=== PATIENT | male | born 1980 | race American Indian/Alaskan Native ===

== ENCOUNTER 2018-07-30 05:08 | Inpatient (IN) ==
[2018-07-30] MEDS ORDERED: HALOPERIDOL LACTATE 5 MG/ML VIAL IV ONE (05:13)
[2018-07-30] MEDS ORDERED: ONDANSETRON 4 MG/2 ML VIAL IV ONE ×2 (05:13→09:50)
[2018-07-30] MEDS ORDERED: diphenhydrAMINE 50 MG/ML VIAL IV ONE (05:13)
[2018-07-30] MEDS ORDERED: LACTATED RINGERS 1,000 ML IV ONE (05:15)
[2018-07-30] MEDS ORDERED: ENALAPRILAT 1.25 MG/ML VIAL IV ONE ×2 (05:30→06:50)
[2018-07-30 05:31] LABS: POC Blood Urea Nitrogen 7 mg/dl (6-20); POC CO2 27 mmol/L (22-30); POC Calcium, Ionized 1.13 mmol/L (1.16-1.32); POC Chloride 98 mmol/L (96-108); POC Creatinine 0.8 mg/dl (0.7-1.2); POC Glucose, Random 226 mg/dL (70-105); POC Potassium 3.4 mmol/L (3.3-5.1); POC Sodium 139 mmol/L (133-145)
[2018-07-30] MEDS ORDERED: METOCLOPRAMIDE 10 MG/2 ML VIAL IV ONE (06:00)
[2018-07-30 06:07] LABS: Basophils # (Auto) 0 K/mcL (0.0-0.3); Basophils % (Auto) 0.2 % (0.0-2.0); Eosinophils # (Auto) 0.4 K/mcL (0.0-0.7); Eosinophils % (Auto) 4.6 % (0.0-7.0); Granulocytes % (Auto) 74.1 % (38.0-78.0); Hematocrit 39.9 % (41.0-55.0); Hemoglobin 13.3 g/dL (13.5-16.5); Lymphocytes # (Auto) 1.2 K/mcL (1.5-4.8); Lymphocytes % (Auto) 15.6 % (15.5-49.0); Mean Cell Volume 87.1 fL (80.0-100.0); Mean Corpuscular HGB Conc 33.5 g/dL (31.0-36.0); Mean Platelet Volume 8.3 fL (7.4-10.4); Monocytes # (Auto) 0.4 K/mcL (0.1-0.9); Monocytes % (Auto) 5.5 % (1.0-12.0); Platelet Count 256 K/mcL (140-440); RBC 4.58 M/mcL (4.50-5.90); Red Cell Distribution Width 13.8 % (11.5-14.5); WBC 7.7 K/mcL (4.5-11.0)
[2018-07-30] MEDS ORDERED: PROMETHAZINE 25 MG/ML VIAL IV ONE (06:23)
[2018-07-30 06:24] LABS: ALT/SGPT 17 U/l (0-40); AST/SGOT 42 U/l (0-37); Albumin 3.8 gm/dL (3.2-5.2); Albumin/Globulin Ratio 1.3 (1.0-2.3); Alkaline Phosphatase 63 U/L (39-117); Bilirubin,Total 0.7 mg/dL (0.0-1.0); Blood Urea Nitrogen 8 mg/dl (6-20); Calcium 9.1 mg/dl (8.6-10.4); Carbon Dioxide 27 mmol/L (22-30); Chloride 98 mmol/L (96-108); Glomerular Filtration Rate 108; Glucose 228 mg/dL (70-105); Potassium 3.6 mmol/L (3.3-5.1); Sodium 139 mmol/L (133-145)
[2018-07-30] MEDS ORDERED: 0.9 % SODIUM CHLORIDE 1,000 ML IV ONE ×2 (06:30→09:59)
[2018-07-30] MEDS ORDERED: PHENobarb/HYOSCY/ATROPINE/SCOP 1 DOSE BOTTLE PO ONE ×2 (06:49→16:57)
[2018-07-30] MEDS ORDERED: PANTOPRAZOLE 40 MG VIAL IV ONE (06:49)
--- NOTE | 2018-07-30 06:53 | Emergency Department Note ---
General Adult HPI - General Chief complaint: Abdominal Pain Stated complaint: N & V, Abdominal pain Time Seen by Provider: 07/30/18 06:45 Source: patient Mode of arrival: ambulatory Limitations: no limitations - History of Present Illness HPI Narrative: This patient returns with nausea vomiting abdominal discomfort from his gastroparesis. This is a long recurrent problem. He tells me that Dilaudid and Haldol helped him at [facility]. Pain is in the epigastrium and he is not tender in that area. It is somewhat of a burning pain. - Related Data Home Medications Medication Instructions Recorded Confirmed Levemir 60 units SQ BID 01/24/16 06/28/18 Losartan [Cozaar] 50 mg PO DAILY 01/24/16 07/29/18 Metoclopramide [Reglan] 5 mg PO Q4 06/28/18 07/29/18 Previous Rx's Medication Instructions Recorded Ondansetron [Zofran Odt] 4 mg PO Q4-6H PRN #30 tablet 01/23/16 Allergies Allergy/AdvReac Type Severity Reaction Status Date / Time Penicillins [PENICILLINS] Allergy Intermediate HIVES Verified 07/30/18 05:15 Review of Systems All systems ED: reviewed and negative except as stated. Past Medical History - Past Medical History [facility] Narrative: Medical History Gastroparesis (Acute) Pancreatitis (Acute) Intractable nausea and vomiting (Acute) Medical history: Reports: asthma, DM, hypertension, other - Social History smoking status: Never smoker Alcohol use: Reports: None Drug use: Reports: none Physical Exam Limitations: no limitations General appearance: alert Head: atraumatic Eye: Present: normal appearance ENT: normal exam Neck: Present: normal inspection Chest: Present: normal inspection Respiratory: Present: normal lung sounds bilaterally Cardiovascular: Present: regular rate, normal rhythm, normal heart sounds Abdominal: Present: soft. Absent: distention, tenderness Neurological: Present: alert Psychiatric: Present: normal affect Skin: Present: warm, dry Course Vital Signs Temperature 98.6 F 07/30/18 05:08 Pulse Rate 97 H 07/30/18 05:08 Respiratory Rate 18 07/30/18 05:08 Blood Pressure 217/119 07/30/18 05:08 Pulse Oximetry (%) 99 07/30/18 05:08 Temperature 98.6 F 07/30/18 05:08 Pulse Rate 86 07/30/18 08:30 Respiratory Rate 23 H 07/30/18 08:30 Blood Pressure 202/121 07/30/18 08:16 Pulse Oximetry (%) 98 07/30/18 08:30 Medical Decision Making - MDM Narrative Medical decision making narrative: This patient did improve after some IV Zofran Reglan Benadryl and Dilaudid. I also gave him Protonix IV and a GI cocktail. He does not yet feel quite ready to go home. Final disposition on this patient per Dr. Caicedo. - Lab Data Lab results reviewed: Yes I reviewed the patient's lab results. Result diagrams: 07/30/18 05:25 07/30/18 05:25 Lab Results 07/30/18 07/30/18 07/30/18 Range/Units 05:25 05:25 05:25 WBC 7.7 (4.5-11.0) K/mcL RBC 4.58 (4.50-5.90) M/mcL Hgb 13.3 L (13.5-16.5) g/dL Hct 39.9 L (41.0-55.0) % POC Hct 37.0 L (41.0-55.0) % MCV 87.1 (80.0-100.0) fL MCH 29.2 (26.0-34.0) pg MCHC 33.5 (31.0-36.0) g/dL RDW 13.8 (11.5-14.5) % Plt Count 256 (140-440) K/mcL MPV 8.3 (7.4-10.4) fL Gran % 74.1 (38.0-78.0) % Lymph % (Auto) 15.6 (15.5-49.0) % [place] % (Auto) 5.5 (1.0-12.0) % Eos % (Auto) 4.6 (0.0-7.0) % Baso % (Auto) 0.2 (0.0-2.0) % Gran # 5.7 (1.8-8.0) K/mcL Lymph # (Auto) 1.2 L (1.5-4.8) K/mcL [place] # (Auto) 0.4 (0.1-0.9) K/mcL Eos # (Auto) 0.4 (0.0-0.7) K/mcL Baso # (Auto) 0 (0.0-0.3) K/mcL POC Sodium 139 (133-145) mmol/L Sodium 139 (133-145) mmol/L POC Potassium 3.4 (3.3-5.1) mmol/L Potassium 3.6 (3.3-5.1) mmol/L POC Chloride 98 (96-108) mmol/L Chloride 98 (96-108) mmol/L Carbon Dioxide 27 (22-30) mmol/L POC Total CO2 27 (22-30) mmol/L Anion Gap 14.0 (8-16) POC BUN 7 (6-20) mg/dl BUN 8 (6-20) mg/dl Creatinine 0.9 (0.7-1.2) mg/dl POC Creatinine 0.8 (0.7-1.2) mg/dl GFR Calculation 108 Glucose 228 H (70-105) mg/dL POC Glucose 226 H (70-105) mg/dL Calcium 9.1 (8.6-10.4) mg/dl POC WB Ioniz Calcium 1.13 L (1.16-1.32) mmol/L Total Bilirubin 0.7 (0.0-1.0) mg/dL AST 42 H (0-37) U/l ALT 17 (0-40) U/l Alkaline Phosphatase 63 (39-117) U/L Total Protein 6.8 (5.9-8.4) gm/dL Albumin 3.8 (3.2-5.2) gm/dL Globulin 3.0 (2.2-3.7) gm/dL Albumin/Globulin Ratio 1.3 (1.0-2.3) Lipase 18 (7-60) U/L Urine Color Urine Appearance Urine pH (5.0-9.0) Ur Specific [place] (1.000-1.035) Urine Protein (NEG) mg/dL Urine Glucose (UA) (NEG) mg/dL Urine Ketones (NEG) mg/dL Urine Occult Blood (<0.03) mg/dL Urine Nitrate (NEG) Urine Bilirubin (NEG) mg/dL Urine Urobilinogen (NEG) mg/dL Ur Leukocyte Esterase (NEG) /uL Urine RBC (0-1) /hpf Urine WBC (0-4) /hpf Ur Squamous Epith Cells (0-4) /hpf Urine Bacteria (0) /hpf Urine Mucus (0) /hpf Ur Culture Indicated? 07/30/18 Range/Units 06:55 WBC (4.5-11.0) K/mcL RBC (4.50-5.90) M/mcL Hgb (13.5-16.5) g/dL Hct (41.0-55.0) % POC Hct (41.0-55.0) % MCV (80.0-100.0) fL MCH (26.0-34.0) pg MCHC (31.0-36.0) g/dL RDW (11.5-14.5) % Plt Count (140-440) K/mcL MPV (7.4-10.4) fL Gran % (38.0-78.0) % Lymph % (Auto) (15.5-49.0) % [place] % (Auto) (1.0-12.0) % Eos % (Auto) (0.0-7.0) % Baso % (Auto) (0.0-2.0) % Gran # (1.8-8.0) K/mcL Lymph # (Auto) (1.5-4.8) K/mcL [place] # (Auto) (0.1-0.9) K/mcL Eos # (Auto) (0.0-0.7) K/mcL Baso # (Auto) (0.0-0.3) K/mcL POC Sodium (133-145) mmol/L Sodium (133-145) mmol/L POC Potassium (3.3-5.1) mmol/L Potassium (3.3-5.1) mmol/L POC Chloride (96-108) mmol/L Chloride (96-108) mmol/L Carbon Dioxide (22-30) mmol/L POC Total CO2 (22-30) mmol/L Anion Gap (8-16) POC BUN (6-20) mg/dl BUN (6-20) mg/dl Creatinine (0.7-1.2) mg/dl POC Creatinine (0.7-1.2) mg/dl GFR Calculation Glucose (70-105) mg/dL POC Glucose (70-105) mg/dL Calcium (8.6-10.4) mg/dl POC WB Ioniz Calcium (1.16-1.32) mmol/L Total Bilirubin (0.0-1.0) mg/dL AST (0-37) U/l ALT (0-40) U/l Alkaline Phosphatase (39-117) U/L Total Protein (5.9-8.4) gm/dL Albumin (3.2-5.2) gm/dL Globulin (2.2-3.7) gm/dL Albumin/Globulin Ratio (1.0-2.3) Lipase (7-60) U/L Urine Color Yellow Urine Appearance Clear Urine pH 7.0 (5.0-9.0) Ur Specific [place] 1.013 (1.000-1.035) Urine Protein 100 A (NEG) mg/dL Urine Glucose (UA) >=500 A (NEG) mg/dL Urine Ketones 20 A (NEG) mg/dL Urine Occult Blood 0.03 A (<0.03) mg/dL Urine Nitrate Neg (NEG) Urine Bilirubin Neg (NEG) mg/dL Urine Urobilinogen Neg (NEG) mg/dL Ur Leukocyte Esterase Neg (NEG) /uL Urine RBC 6 H (0-1) /hpf Urine WBC 2 (0-4) /hpf Ur Squamous Epith Cells < 1 (0-4) /hpf Urine Bacteria 0 (0) /hpf Urine Mucus Few (0) /hpf Ur Culture Indicated? No Disposition Pt seen by SENIOR C SOFTWARE DEVELOPER/PA only: No Clinical Impression: Gastroparesis Disposition: Still a Patient Condition: Good Referrals: Berenice Mckeon [Primary Care Provider] -
[2018-07-30] MEDS: HYDROmorphone 2 MG/ML VIAL IV PRN ×3 (07:06→15:06)
[2018-07-30] MEDS ORDERED: LORazepam 2 MG/ML VIAL IV ONE (07:09)
[2018-07-30] MEDS ORDERED: PANTOPRAZOLE 40 MG VIAL IV SCH (07:30)
[2018-07-30 07:56] LABS: Appearance,Urine CLEAR; Bacteria,Urine 0 /hpf (0); Bilirubin,Urine NEG (NEG); Color,Urine YELLOW; Culture Indicated,Urine NO; Glucose,Urine (UA) >=500 mg/dL (NEG); Ketones,Urine 20 mg/dL (NEG); Leukocyte Esterase,Urine NEG /uL (NEG); Mucus,Urine FEW /hpf (0); Nitrate,Urine NEG (NEG); Protein,Urine 100 mg/dL (NEG); Specific Gravity,Urine 1.013 (1.000-1.035); Urine Blood 0.03 mg/dL (<0.03); Urine RBC 6 /hpf (0-1); Urine Squamous Epithelial Cell < 1 /hpf (0-4); Urine WBC 2 /hpf (0-4); Urobilinogen,Urine NEG (NEG)
--- NOTE | 2018-07-30 10:53 | Emergency Department Note ---
General Adult HPI - General Chief complaint: Abdominal Pain Stated complaint: N & V, Abdominal pain Time Seen by Provider: 07/30/18 06:45 Source: patient Mode of arrival: ambulatory Limitations: no limitations - Related Data Home Medications Medication Instructions Recorded Confirmed Levemir 60 units SQ BID 01/24/16 06/28/18 Losartan [Cozaar] 50 mg PO DAILY 01/24/16 07/29/18 Metoclopramide [Reglan] 5 mg PO Q4 06/28/18 07/29/18 Previous Rx's Medication Instructions Recorded Ondansetron [Zofran Odt] 4 mg PO Q4-6H PRN #30 tablet 01/23/16 Allergies Allergy/AdvReac Type Severity Reaction Status Date / Time Penicillins [PENICILLINS] Allergy Intermediate HIVES Verified 07/30/18 05:15 Past Medical History - Past Medical History Medical history: Reports: asthma, DM, hypertension, other - Social History smoking status: Never smoker Alcohol use: Reports: None Drug use: Reports: none Physical Exam Limitations: no limitations General appearance: alert Course Vital Signs Temperature 98.6 F 07/30/18 05:08 Pulse Rate 97 H 07/30/18 05:08 Respiratory Rate 18 07/30/18 05:08 Blood Pressure 217/119 07/30/18 05:08 Pulse Oximetry (%) 99 07/30/18 05:08 Temperature 98.6 F 07/30/18 05:08 Pulse Rate 96 H 07/30/18 10:46 Respiratory Rate 15 07/30/18 10:46 Blood Pressure 196/117 07/30/18 10:46 Pulse Oximetry (%) 94 07/30/18 10:46 Medical Decision Making - [facility] Narrative Medical decision making narrative: Please see history and physical as documented by Dr. chandra. At this point he still retching. He's received multiple medications to help with nausea and vomiting. I believe he has gastro-paresis associated with his diabetes. At this point he will need bowel rest, IV fluids to prevent dehydration. Discussed with Dr. St. At this point he will be admitted with the diagnosis of gastroparesis. - Lab Data Lab results reviewed: Yes I reviewed the patient's lab results. Result diagrams: 07/30/18 05:25 07/30/18 05:25 Lab Results 07/30/18 07/30/18 07/30/18 Range/Units 05:25 05:25 05:25 WBC 7.7 (4.5-11.0) K/mcL RBC 4.58 (4.50-5.90) M/mcL Hgb 13.3 L (13.5-16.5) g/dL Hct 39.9 L (41.0-55.0) % POC Hct 37.0 L (41.0-55.0) % MCV 87.1 (80.0-100.0) fL MCH 29.2 (26.0-34.0) pg MCHC 33.5 (31.0-36.0) g/dL RDW 13.8 (11.5-14.5) % Plt Count 256 (140-440) K/mcL MPV 8.3 (7.4-10.4) fL Gran % 74.1 (38.0-78.0) % Lymph % (Auto) 15.6 (15.5-49.0) % [place] % (Auto) 5.5 (1.0-12.0) % Eos % (Auto) 4.6 (0.0-7.0) % Baso % (Auto) 0.2 (0.0-2.0) % Gran # 5.7 (1.8-8.0) K/mcL Lymph # (Auto) 1.2 L (1.5-4.8) K/mcL [place] # (Auto) 0.4 (0.1-0.9) K/mcL Eos # (Auto) 0.4 (0.0-0.7) K/mcL Baso # (Auto) 0 (0.0-0.3) K/mcL POC Sodium 139 (133-145) mmol/L Sodium 139 (133-145) mmol/L POC Potassium 3.4 (3.3-5.1) mmol/L Potassium 3.6 (3.3-5.1) mmol/L POC Chloride 98 (96-108) mmol/L Chloride 98 (96-108) mmol/L Carbon Dioxide 27 (22-30) mmol/L POC Total CO2 27 (22-30) mmol/L Anion Gap 14.0 (8-16) POC BUN 7 (6-20) mg/dl BUN 8 (6-20) mg/dl Creatinine 0.9 (0.7-1.2) mg/dl POC Creatinine 0.8 (0.7-1.2) mg/dl GFR Calculation 108 Glucose 228 H (70-105) mg/dL POC Glucose 226 H (70-105) mg/dL Calcium 9.1 (8.6-10.4) mg/dl POC WB Ioniz Calcium 1.13 L (1.16-1.32) mmol/L Total Bilirubin 0.7 (0.0-1.0) mg/dL AST 42 H (0-37) U/l ALT 17 (0-40) U/l Alkaline Phosphatase 63 (39-117) U/L Total Protein 6.8 (5.9-8.4) gm/dL Albumin 3.8 (3.2-5.2) gm/dL Globulin 3.0 (2.2-3.7) gm/dL Albumin/Globulin Ratio 1.3 (1.0-2.3) Lipase 18 (7-60) U/L Urine Color Urine Appearance Urine pH (5.0-9.0) Ur Specific [place] (1.000-1.035) Urine Protein (NEG) mg/dL Urine Glucose (UA) (NEG) mg/dL Urine Ketones (NEG) mg/dL Urine Occult Blood (<0.03) mg/dL Urine Nitrate (NEG) Urine Bilirubin (NEG) mg/dL Urine Urobilinogen (NEG) mg/dL Ur Leukocyte Esterase (NEG) /uL Urine RBC (0-1) /hpf Urine WBC (0-4) /hpf Ur Squamous Epith Cells (0-4) /hpf Urine Bacteria (0) /hpf Urine Mucus (0) /hpf Ur Culture Indicated? 07/30/18 Range/Units 06:55 WBC (4.5-11.0) K/mcL RBC (4.50-5.90) M/mcL Hgb (13.5-16.5) g/dL Hct (41.0-55.0) % POC Hct (41.0-55.0) % MCV (80.0-100.0) fL MCH (26.0-34.0) pg MCHC (31.0-36.0) g/dL RDW (11.5-14.5) % Plt Count (140-440) K/mcL MPV (7.4-10.4) fL Gran % (38.0-78.0) % Lymph % (Auto) (15.5-49.0) % [place] % (Auto) (1.0-12.0) % Eos % (Auto) (0.0-7.0) % Baso % (Auto) (0.0-2.0) % Gran # (1.8-8.0) K/mcL Lymph # (Auto) (1.5-4.8) K/mcL [place] # (Auto) (0.1-0.9) K/mcL Eos # (Auto) (0.0-0.7) K/mcL Baso # (Auto) (0.0-0.3) K/mcL POC Sodium (133-145) mmol/L Sodium (133-145) mmol/L POC Potassium (3.3-5.1) mmol/L Potassium (3.3-5.1) mmol/L POC Chloride (96-108) mmol/L Chloride (96-108) mmol/L Carbon Dioxide (22-30) mmol/L POC Total CO2 (22-30) mmol/L Anion Gap (8-16) POC BUN (6-20) mg/dl BUN (6-20) mg/dl Creatinine (0.7-1.2) mg/dl POC Creatinine (0.7-1.2) mg/dl GFR Calculation Glucose (70-105) mg/dL POC Glucose (70-105) mg/dL Calcium (8.6-10.4) mg/dl POC WB Ioniz Calcium (1.16-1.32) mmol/L Total Bilirubin (0.0-1.0) mg/dL AST (0-37) U/l ALT (0-40) U/l Alkaline Phosphatase (39-117) U/L Total Protein (5.9-8.4) gm/dL Albumin (3.2-5.2) gm/dL Globulin (2.2-3.7) gm/dL Albumin/Globulin Ratio (1.0-2.3) Lipase (7-60) U/L Urine Color Yellow Urine Appearance Clear Urine pH 7.0 (5.0-9.0) Ur Specific [place] 1.013 (1.000-1.035) Urine Protein 100 A (NEG) mg/dL Urine Glucose (UA) >=500 A (NEG) mg/dL Urine Ketones 20 A (NEG) mg/dL Urine Occult Blood 0.03 A (<0.03) mg/dL Urine Nitrate Neg (NEG) Urine Bilirubin Neg (NEG) mg/dL Urine Urobilinogen Neg (NEG) mg/dL Ur Leukocyte Esterase Neg (NEG) /uL Urine RBC 6 H (0-1) /hpf Urine WBC 2 (0-4) /hpf Ur Squamous Epith Cells < 1 (0-4) /hpf Urine Bacteria 0 (0) /hpf Urine Mucus Few (0) /hpf Ur Culture Indicated? No - Radiology Data Radiology results reviewed: Yes I reviewed the patient's radiology results. Disposition Pt seen by PARAGLIDING INSTRUCTOR/PA only: No Clinical Impression: Gastroparesis Disposition: Xfer As Inpt ([facility]) Condition: Good Referrals: Berenice Mckeon [Primary Care Provider] -
[2018-07-30] MEDS ORDERED: hydrALAZINE 20 MG/ML VIAL IV PRN (11:13)
[2018-07-30] MEDS ORDERED: POLYETHYLENE GLYCOL 3350 17 GM PACKET PO PRN ×2 (11:13→15:20)
[2018-07-30] MEDS ORDERED: ACETAMINOPHEN 325 MG TABLET PO PRN (11:13)
[2018-07-30] MEDS ORDERED: LABETALOL 5 MG/ML ML IV PRN (11:13)
[2018-07-30] MEDS ORDERED: POTASSIUM CHLORIDE 40 MEQ in DEXTROSE 5% IN WATER 500 ML IV PRN ×2 (11:13→15:20)
[2018-07-30] MEDS ORDERED: LORazepam 2 MG/ML VIAL IV PRN (11:13)
[2018-07-30] MEDS ORDERED: POTASSIUM CHLORIDE 20 MEQ TABLET PO PRN ×4 (11:13→15:20)
[2018-07-30] MEDS ORDERED: METOCLOPRAMIDE 10 MG/2 ML VIAL IV PRN ×2 (11:13→11:28)
[2018-07-30] MEDS ORDERED: diphenhydrAMINE 50 MG/ML VIAL IV PRN (11:13)
[2018-07-30] MEDS ORDERED: PROMETHAZINE 25 MG/ML VIAL IV PRN (11:13)
[2018-07-30] MEDS ORDERED: ONDANSETRON 4 MG/2 ML VIAL IV PRN (11:13)
[2018-07-30] MEDS ORDERED: MAGNESIUM SULFATE 2 GM/50 ML BAG IV PRN (11:13)
--- NOTE | 2018-07-30 11:23 | Internal Med History&Physical ---
Medical - H&P: [facility] Patient information: Note initiated : 07/30/18 at 11:20 am Service Date, if different from initiated Date: [] Patient: Wong Rangel a 37 y/o M admitted on 07/30/18 for N & V, Abdominal Pain. Chief Complaint: [] History of present illness: Mr. Rangel is a 37 year old M presents to the ED with nausea vomiting abdominal pain. Patient has history of diabetes with gastroparesis and multiple admissions for the same. He has had multiple Botox injections over the past few years with temporarily good results. Latest episode started Monday morning. He denies any inciting factors and denies any relieving factors. He developed epigastric achy burning pain. He had nausea vomiting 4 times a day for the past couple days. Describes vomitus as yellow without any blood. Last had a Botox injection by Dr. Jackman in June. Last bowel movement was diarrhea Monday morning, has not had a bowel movement since then. He is missed several days of his blood pressure medication because he ran out. He is given IV fluids and multiple antiemetics and other medications in the ED but patient still symptomatic. Labs unremarkable as well as lipase. He has had to be on erythromycin while he been in the hospital in the past. He has had a history of pyloric outlet obstruction and has had to have dilation of the past by Dr. Jackman. Review of Systems: Pertinent positives as above. Denies headache/fever/chills/chest pain/cough/dyspnea. Remaining 10 point review of system reviewed negative Medical - H&P: PMH Medical history: Medical History Gastroparesis (Acute) Pancreatitis (Acute) Intractable nausea and vomiting (Acute) Hypertension Diabetes Past surgical history: None Family history: States mother had heart disease and diabetes Father diabetes Social history: Patient denies tobacco alcohol drug use marijuana, lives at home with girlfriend Medical - H&P: Meds Home Medications Medication Instructions Recorded Confirmed Type Ondansetron [Zofran Odt] 4 mg PO Q4-6H PRN #30 tablet 01/23/16 07/30/18 Rx Levemir 60 units SQ BID 01/24/16 07/30/18 History Losartan [Cozaar] 50 mg PO DAILY 01/24/16 07/30/18 History Metoclopramide [Reglan] 5 mg PO Q4 06/28/18 07/30/18 History Allergies Allergy/AdvReac Type Severity Reaction Status Date / Time Penicillins [PENICILLINS] Allergy Intermediate HIVES Verified 07/30/18 05:15 Medical - H&P: Exam - Constitutional Vitals: Temp Pulse Resp BP Pulse Ox 98.6 F 96 H 15 196/117 94 07/30/18 05:08 07/30/18 10:46 07/30/18 10:46 07/30/18 10:46 07/30/18 10:46 Exam: General: Alert, Awake, No acute Distress Eyes/N/T: EOMI, PEERL, DMM Head/Neck: neck supple, normocephalic atraumatic CV: Tachycardia but regular, No murmurs, normal s1/s2 Pulm: Clear b/l, no wheezing/rhonchi/rales Abd: soft, nontender, +BS x4 Ext: no clubbing/cyanosis/edema Neuro: Alert, no focal deficits, moves all extremities, CN 2-12 grossly intact, symmetrical strength b/l upper/lower, sensations intact b/l upper/lower Skin: warm/dry Medical - H&P: Reslt - Labs CBC & Chem 7: 07/30/18 05:25 07/30/18 05:25 Labs: Short CBC 07/30/18 Range/Units 05:25 WBC 7.7 (4.5-11.0) K/mcL Hgb 13.3 L (13.5-16.5) g/dL Hct 39.9 L (41.0-55.0) % Plt Count 256 (140-440) K/mcL BMP 07/30/18 05:25 Sodium 139 Potassium 3.6 Chloride 98 Carbon Dioxide 27 BUN 8 Creatinine 0.9 Glucose 228 H Calcium 9.1 Liver Function 07/30/18 Range/Units 05:25 Total Bilirubin 0.7 (0.0-1.0) mg/dL AST 42 H (0-37) U/l ALT 17 (0-40) U/l Alkaline Phosphatase 63 (39-117) U/L Albumin 3.8 (3.2-5.2) gm/dL Urine 07/30/18 Range/Units 06:55 Urine Color Yellow Urine Appearance Clear Urine pH 7.0 (5.0-9.0) Ur Specific [place] 1.013 (1.000-1.035) Urine Protein 100 A (NEG) mg/dL Urine Glucose (UA) >=500 A (NEG) mg/dL Medical - H&P: A/P - Narrative A/P Narrative: A: *N/V/Abd pain: likely gastroparesis vs other (pending imaging) -Oral contrast CT without any obstruction including gastric outlet -Has received Botox injections by Dr. Jackman outpatient -Has been on erythromycin while inpatient at times *DM w/gastroparesis: A1c 8.6 *h/o pyloric outlet obstruction: h/o dilations by Dr. Butler *HTN: Uncontrolled, has run out of his losartan almost week ago * P: -IVF's, NPO and advance as tolerated -antiemetics, prn ativan/benadryl -reglan -may meed try erythromycin - -home insulin and SSI -need script for losartan, prn IV BP -ppx: lovenox
[2018-07-30 11:58] LABS: Hemoglobin A1C 8.6 % HGB (4.0-6.0)
[2018-07-30] MEDS ORDERED: INSULIN LISPRO 1 UNIT/0.01 ML UNIT SQ SCH (12:00)
[2018-07-30] MEDS ORDERED: SCOPOLAMINE 1 PATCH PATCH TOPICAL SCH (12:00)
--- NOTE | 2018-07-30 12:20 | XRay Report ---
CLINICAL INFORMATION: NG Tube placement COMPARISON: None. FINDINGS: NG tube overlies the proximal gastric body. Visualized gas pattern is normal. No free air or soft tissue mass IMPRESSION: Acute disease. NG tube in satisfactory position. Interpreted and Authenticated by: Bharat Alfonso 07/30/18
[2018-07-30] MEDS ORDERED: IOPAMIDOL 100 ML BOTTLE IV ONE (13:46)
[2018-07-30] MEDS ORDERED: 0.9 % SODIUM CHLORIDE 10 ML SYRINGE IV SCH (14:00)
--- NOTE | 2018-07-30 15:01 | Cat Scan Report ---
CLINICAL INFORMATION: Nausea vomiting abdominal pain COMPARISON: Abdomen and pelvic CTs from 10/01/2012 and 01/25/2016 TECHNIQUE: Following enteric contrast, 80 cc of Isovue-300 were injected intravenously, and 60 seconds later, 0.625 mm helical slices were obtained from the mid heart through the subtrochanteric regions. Following reconstruction, 2.5 mm sagittal, coronal and axial reformatted images were processed and reviewed at bone, lung and soft tissue windows. Five minutes later, 0.625 mm helical slices were obtained from the mid heart through the kidneys and viewed at soft tissue windows.The exam was performed using radiation dose optimization techniques including, but not limited to, automated exposure control, adjustment of the mA and/or kV according to patient size and use of iterative reconstruction technique. FINDINGS: Lung bases show no abnormality - no effusion. The visualized heart is unremarkable. Imaging the abdomen show minimal fatty change in the liver which is stable - no focal hepatic lesion. The gallbladder and bile ducts are normal. The CBD is five mm. Both adrenal glands, spleen, pancreas and aorta, including aortic branches, are normal in size, configuration and attenuation without focal lesion. Renal parenchymal attenuation is slightly inhomogeneous and there is mild edema or inflammation in the perinephric fat. This is a new finding from prior CT suggests possibility of bilateral nephritis. A 20 mm cyst in the mid right kidney is unchanged. There is no free air, free fluid or adenopathy. The stomach, small bowel, large bowel and appendix are normal except for a few sigmoid diverticuli. Images of the pelvis show prostate seminal vesicles and urinary bladder to be normal. Bone windows show no osseous abnormality IMPRESSION: Inhomogeneous enhancing kidneys with perinephric stranding suggests the possibility of nephritis or other diffuse renal process. Please correlate with other clinical history, UA serologic findings Interpreted and Authenticated by: Bharat Alfonso 07/30/18
[2018-07-30] MEDS: HALOPERIDOL LACTATE 5 MG/ML VIAL IV PRN (17:37)
[2018-07-30] MEDS: BISMUTH SUBSALICYLATE 15 ML ORAL.SUSP PO PRN (17:38)
[2018-07-30] MEDS: INSULIN LISPRO 1 UNIT/0.01 ML UNIT SQ SCH (17:53)
[2018-07-30] MEDS: DOCUSATE SODIUM 100 MG CAPSULE PO SCH (20:54)
[2018-07-30] MEDS: PROMETHAZINE 25 MG/ML VIAL IV PRN (20:54)
[2018-07-30] MEDS: NAPROXEN 250 MG TABLET PO PRN (20:54)
[2018-07-30] MEDS: INSULIN GLARGINE, HUMAN 1 UNIT/0.01 ML SQ SCH (20:55)
[2018-07-30] MEDS ORDERED: SENNOSIDES 1 TABLET PO PRN ×2 (21:00)
[2018-07-30] MEDS ORDERED: DOCUSATE SODIUM 100 MG CAPSULE PO SCH (21:00)
[2018-07-30] MEDS: 0.9 % SODIUM CHLORIDE 10 ML SYRINGE IV SCH ×2 (22:07→23:24)
[2018-07-30] MEDS: METOCLOPRAMIDE 10 MG/2 ML VIAL IV PRN (22:07)
[2018-07-30] MEDS: diphenhydrAMINE 50 MG/ML VIAL IV PRN (22:11)
[2018-07-30] MEDS: LORazepam 2 MG/ML VIAL IV PRN (22:50)
[2018-07-31] MEDS: INSULIN LISPRO 1 UNIT/0.01 ML UNIT SQ SCH ×5 (00:05→23:53)
[2018-07-31] MEDS: LABETALOL 5 MG/ML ML IV PRN ×2 (00:06→03:50)
[2018-07-31] MEDS: HALOPERIDOL LACTATE 5 MG/ML VIAL IV PRN (00:06)
[2018-07-31] MEDS: ACETAMINOPHEN 325 MG TABLET PO PRN ×3 (00:07→11:52)
[2018-07-31] MEDS: ONDANSETRON 4 MG/2 ML VIAL IV PRN ×3 (01:20→14:27)
[2018-07-31] MEDS: SIMETHICONE 80 MG TAB.CHEW CHEWED PRN (02:34)
[2018-07-31] MEDS: hydrALAZINE 20 MG/ML VIAL IV PRN ×4 (02:39→14:27)
[2018-07-31] MEDS: LORazepam 2 MG/ML VIAL IV PRN ×2 (03:25→09:58)
[2018-07-31] MEDS: 0.9 % SODIUM CHLORIDE 10 ML SYRINGE IV SCH ×4 (05:06→22:10)
[2018-07-31] MEDS: PROMETHAZINE 25 MG/ML VIAL IV PRN ×2 (05:16→15:34)
[2018-07-31 06:21] LABS: Basophils # (Auto) 0 K/mcL (0.0-0.3); Basophils % (Auto) 0 % (0.0-2.0); Eosinophils # (Auto) 0 K/mcL (0.0-0.7); Eosinophils % (Auto) 0 % (0.0-7.0); Hematocrit 38.2 % (41.0-55.0); Hemoglobin 12.9 g/dL (13.5-16.5); Lymphocytes # (Auto) 0.7 K/mcL (1.5-4.8); Lymphocytes % (Auto) 6.6 % (15.5-49.0); Mean Cell Volume 87.3 fL (80.0-100.0); Mean Corpuscular HGB Conc 33.8 g/dL (31.0-36.0); Mean Platelet Volume 8.6 fL (7.4-10.4); Monocytes # (Auto) 0.5 K/mcL (0.1-0.9); Monocytes % (Auto) 4.4 % (1.0-12.0); Platelet Count 261 K/mcL (140-440); RBC 4.38 M/mcL (4.50-5.90); Red Cell Distribution Width 13.6 % (11.5-14.5); WBC 10.6 K/mcL (4.5-11.0)
[2018-07-31 06:27] LABS: ALT/SGPT 13 U/l (0-40); AST/SGOT 34 U/l (0-37); Albumin 3.4 gm/dL (3.2-5.2); Albumin/Globulin Ratio 1.2 (1.0-2.3); Alkaline Phosphatase 58 U/L (39-117); Bilirubin,Direct < 0.2 mg/dL (0.0-0.3); Bilirubin,Total 0.5 mg/dL (0.0-1.0); Blood Urea Nitrogen 13 mg/dl (6-20); Calcium 8.4 mg/dl (8.6-10.4); Carbon Dioxide 24 mmol/L (22-30); Chloride 98 mmol/L (96-108); Gamma Glutamyl Transpeptidase 23 U/L (8-61); Globulin 2.9 gm/dL (2.2-3.7); Glomerular Filtration Rate 113; Glucose 206 mg/dL (70-105); Lactate Dehydrogenase 220 U/L (94-250); Magnesium 1.5 mg/dL (1.6-2.5); Potassium 3.3 mmol/L (3.3-5.1); Sodium 136 mmol/L (133-145); Triglycerides 64 mg/dl (<150); Uric Acid 6.8 mg/dL (2.5-8.0)
[2018-07-31] MEDS: METOCLOPRAMIDE 10 MG/2 ML VIAL IV PRN (07:05)
[2018-07-31] MEDS: diphenhydrAMINE 50 MG/ML VIAL IV PRN ×4 (07:06→23:50)
[2018-07-31] MEDS: PANTOPRAZOLE 40 MG VIAL IV SCH (07:06)
--- NOTE | 2018-07-31 08:06 | Internal Med Progress Note ---
Medical - PN: Subj Patient information: Note initiated : 07/31/18 at 7:59 am Service Date, if different from initiated Date: [] Patient: Wong Rangel a 37 y/o M admitted on 07/30/18 for N & V, Abdominal Pain. Chief Complaint: [] Interval history: Mr. Rangel is a 37 year old M presents to the ED with nausea vomiting abdominal pain. Patient has history of diabetes with gastroparesis and multiple admissions for the same. He has had multiple Botox injections over the past few years with temporarily good results. Latest episode started Monday morning. He denies any inciting factors and denies any relieving factors. He developed epigastric achy burning pain. He had nausea vomiting 4 times a day for the past couple days. Describes vomitus as yellow without any blood. Last had a Botox injection by Dr. Jackman in June. Last bowel movement was diarrhea Monday morning, has not had a bowel movement since then. He is missed several days of his blood pressure medication because he ran out. He is given IV fluids and multiple antiemetics and other medications in the ED but patient still symptomatic. Labs unremarkable as well as lipase. He has had to be on erythromycin while he been in the hospital in the past. He has had a history of pyloric outlet obstruction and has had to have dilation of the past by Dr. Jackman. 07/31 Still having a hard time keeping fluids down. Emesis overnight. No other new complaints. We will start erythromycin. . Review of Systems: denies headache/fever/chills/nausea/vomiting/chest pain/cough/dyspnea/diarrhea. Otherwise see above. - Constitutional Vitals: Vital Signs Temp Pulse Resp BP Pulse Ox 98.8 F 109 H 18 136/73 93 07/31/18 07:47 07/31/18 07:47 07/31/18 07:47 07/31/18 07:47 07/31/18 07:47 Period Temp Pulse Resp BP Sys/Paz Pulse Ox Last 24 Hr 98.4 F-99.7 F 86-119 6-27 116-215/70-121 92-99 Intake and Output 07/30/18 07/31/18 07/31/18 21:59 05:59 13:59 Intake Total 240 Output Total 700 Balance -700 240 Weight 120.882 kg Intake & Output: Intake & Output 05/20/19 05/21/19 05/21/19 21:59 05:59 13:59 Intake Total 240 Output Total 700 Balance -700 240 Weight 120.882 kg Intake: Oral 240 Output: Void Amount 500 Emesis 200 Other: Urine Color Bright Yellow Urine Odor Normal # Voids 1 Exam: General: Alert, Awake, No acute Distress Eyes/N/T: EOMI, Head/Neck: neck supple, CV: Tachycardia but regular, No murmurs, Pulm: Clear b/l, no wheezing/rhonchi/rales Abd: soft, nontender, +BS x4 Ext: no clubbing/cyanosis/edema Neuro: Alert, no focal deficits, moves all extremities, Skin: warm/dry Medical - PN: Obj Da - Labs CBC & Chem 7: 07/31/18 04:49 07/31/18 04:48 Labs: Abnormal Lab Results 07/31/18 07/31/18 07/30/18 04:49 04:48 06:55 RBC 4.38 L Hgb 12.9 L Hct 38.2 L POC Hct Gran % 89.0 H Lymph % (Auto) 6.6 L Gran # 9.4 H Lymph # (Auto) 0.7 L Glucose 206 H POC Glucose Hemoglobin A1c Calcium 8.4 L POC WB Ioniz Calcium Magnesium 1.5 L AST Urine Protein 100 A Urine Glucose (UA) >=500 A Urine Ketones 20 A Urine Occult Blood 0.03 A Urine RBC 6 H 07/30/18 07/30/18 07/30/18 05:25 05:25 05:25 RBC Hgb 13.3 L Hct 39.9 L POC Hct 37.0 L Gran % Lymph % (Auto) Gran # Lymph # (Auto) 1.2 L Glucose 228 H POC Glucose 226 H Hemoglobin A1c 8.6 H Calcium POC WB Ioniz Calcium 1.13 L Magnesium AST 42 H Urine Protein Urine Glucose (UA) Urine Ketones Urine Occult Blood Urine RBC Meds: Medications Acetaminophen (Tylenol) 650 mg PO Q6HP PRN PRN Reason: PAIN/FEVER > 101 Last Admin: 07/31/18 05:56 Dose: 650 mg Documented by: Bismuth Subsalicylate (Pepto Bismol) 15 ml PO Q4HP PRN PRN Reason: Dyspepsia Last Admin: 07/30/18 17:38 Dose: 15 ml Documented by: Diagnostic Test (Pha) (Accu-Chek) 1 each FS Q6 [facility] Last Admin: 07/31/18 05:03 Dose: 1 each Documented by: Diphenhydramine HCl (Benadryl) 25 mg IV Q4-6HP PRN PRN Reason: Allergic Symptoms Last Admin: 07/31/18 07:06 Dose: 25 mg Documented by: Docusate Sodium (Colace) 100 mg PO BID [facility] Last Admin: 07/30/18 20:54 Dose: 100 mg Documented by: Enoxaparin Sodium (Lovenox) 40 mg SQ DAILY [facility] Haloperidol Lactate (Haldol) 1 mg IV Q5HP PRN PRN Reason: ANXIETY/SEDATION Last Admin: 07/31/18 00:06 Dose: 1 mg Documented by: Hydralazine HCl (Apresoline) 0 mg IV Q2HP PRN PRN Reason: Hypertension Last Admin: 07/31/18 05:57 Dose: 10 mg Documented by: Potassium Chloride 40 meq/ (Dextrose) 520 mls @ 130 mls/hr IV UD PRN PRN Reason: Potassium < 3 Magnesium Sulfate (Magnesium Sulfate) 2 gm in 50 mls @ 50 mls/hr IV UD PRN PRN Reason: Magnesium </= 1.6 Insulin Glargine (Lantus) 60 unit SQ BID [facility] Last Admin: 07/30/18 20:55 Dose: 60 unit Documented by: Insulin Human Lispro (Humalog) 0 unit SQ Q6 [facility]; Protocol Last Admin: 07/31/18 05:09 Dose: 6 units Documented by: Labetalol HCl (Trandate) 0 mg IV Q2HP PRN PRN Reason: htn Last Admin: 07/31/18 03:50 Dose: 20 mg Documented by: Lorazepam (Ativan) 0.5 mg IV Q4-6HP PRN PRN Reason: ANXIETY/SEDATION Last Admin: 07/31/18 03:25 Dose: 0.5 mg Documented by: Losartan Potassium (Cozaar) 50 mg PO DAILY [facility] Metoclopramide HCl (Reglan) 10 mg IV Q6HP PRN PRN Reason: Nausea And Vomiting Last Admin: 07/31/18 07:05 Dose: 10 mg Documented by: Naproxen (Naprosyn) 250 mg PO BIDP PRN PRN Reason: pain\ Last Admin: 07/30/18 20:54 Dose: 250 mg Documented by: Ondansetron HCl (Zofran) 4 mg IV Q4HP PRN PRN Reason: Nausea And Vomiting Last Admin: 07/31/18 01:20 Dose: 4 mg Documented by: Pantoprazole Sodium (Protonix) 40 mg IV QAMAC [facility] Last Admin: 07/31/18 07:06 Dose: 40 mg Documented by: Polyethylene Glycol (Miralax) 17 gm PO DAILYP PRN PRN Reason: Constipation Potassium Chloride (Kdur) 40 meq PO UD PRN PRN Reason: Potssium is 3-3.5 Potassium Chloride (Kdur) 40 meq PO UD PRN PRN Reason: Potassium < 3 Promethazine HCl (Phenergan) 12.5 mg IV Q4-6HP PRN PRN Reason: Nausea And Vomiting Last Admin: 07/31/18 05:16 Dose: 12.5 mg Documented by: Scopolamine (Transderm-Scop) 1 patch TOPICAL Q72H [facility] Senna (Senokot) 2 tab PO HSP PRN PRN Reason: Constipation Simethicone (Mylicon) 80 mg CHEWED QIDP PRN PRN Reason: Dyspepsia Last Admin: 07/31/18 02:34 Dose: 80 mg Documented by: Sodium Chloride (Saline Flush) 10 ml IV Q8 [facility] Last Admin: 07/31/18 05:06 Dose: 10 ml Documented by: Sodium Chloride (Saline Flush) 10 ml IV Q8 [facility] Last Admin: 07/31/18 05:32 Dose: Not Given Documented by: Medical - PN: A/P - Time Spent With Patient Total time spent is greater than 50% in coordination of care (as documented) at patient's floor/unit and/or counseling patient: - Narrative A/P Narrative: A: *N/V/Abd pain: likely gastroparesis vs other (pending imaging) -Oral contrast CT without any obstruction including gastric outlet -Has received Botox injections by Dr. Jackman outpatient -Has been on erythromycin while inpatient at times *DM w/gastroparesis: A1c 8.6 *h/o pyloric outlet obstruction: h/o dilations by Dr. Butler *HTN Urgency: Uncontrolled, has run out of his losartan almost week ago * P: -IVF's, NPO and advance as tolerated -antiemetics, prn ativan/benadryl -reglan -will start erythromycin 250mg q8 -home insulin and SSI (increase) -need script for losartan, prn IV BP -ppx: lovenox Medical - PN: Qual - Stroke Symptom Onset Unknown: No - VTE Deep Vein Thrombosis/Pulmonary Embolism Present on Admission: No
[2018-07-31] MEDS ORDERED: ENALAPRILAT 2.5 MG/2 ML VIAL IV SCH (08:15)
[2018-07-31] MEDS ORDERED: MAGNESIUM SULFATE 8.12 MEQ in DEXTROSE 5% IN WATER 50 ML IV ONE (09:00)
[2018-07-31] MEDS ORDERED: ENALAPRILAT 2.5 MG/2 ML VIAL IV PRN (09:15)
[2018-07-31] MEDS: POTASSIUM CHLORIDE 20 MEQ in 0.45 % SODIUM CHLORIDE 1,000 ML IV SCH ×2 (09:37→23:51)
[2018-07-31] MEDS: NAPROXEN 250 MG TABLET PO PRN (09:38)
[2018-07-31] MEDS: DOCUSATE SODIUM 100 MG CAPSULE PO SCH ×2 (09:38→20:05)
[2018-07-31] MEDS: LOSARTAN 50 MG TABLET PO SCH (09:38)
[2018-07-31] MEDS: INSULIN GLARGINE, HUMAN 1 UNIT/0.01 ML SQ SCH ×2 (09:39→20:05)
[2018-07-31] MEDS: ENOXAPARIN 40 MG/0.4 ML SYRINGE SQ SCH (09:39)
[2018-07-31] MEDS: ENALAPRILAT 1.25 MG/ML VIAL IV PRN ×3 (09:58→14:27)
[2018-07-31] MEDS: METOCLOPRAMIDE 10 MG/2 ML VIAL IV SCH ×3 (11:52→23:50)
[2018-07-31] MEDS: ERYTHROMYCIN BASE 250 MG TABLET PO SCH ×2 (14:26→22:10)
[2018-07-31] MEDS: KETOROLAC 15 MG/ML VIAL IV PRN (15:33)
[2018-08-01] MEDS: PROMETHAZINE 25 MG/ML VIAL IV PRN ×2 (04:10→08:09)
[2018-08-01] MEDS: hydrALAZINE 20 MG/ML VIAL IV PRN ×2 (04:20→11:59)
[2018-08-01] MEDS: ENALAPRILAT 1.25 MG/ML VIAL IV PRN ×2 (04:20→11:58)
[2018-08-01] MEDS: ONDANSETRON 4 MG/2 ML VIAL IV PRN ×3 (04:32→17:19)
[2018-08-01] MEDS: diphenhydrAMINE 50 MG/ML VIAL IV PRN ×4 (05:42→23:43)
[2018-08-01] MEDS: KETOROLAC 15 MG/ML VIAL IV PRN ×3 (05:42→17:19)
[2018-08-01] MEDS: METOCLOPRAMIDE 10 MG/2 ML VIAL IV SCH ×4 (05:42→23:43)
[2018-08-01] MEDS: ERYTHROMYCIN BASE 250 MG TABLET PO SCH ×3 (05:42→21:27)
[2018-08-01] MEDS: 0.9 % SODIUM CHLORIDE 10 ML SYRINGE IV SCH ×3 (05:43→21:28)
[2018-08-01] MEDS: INSULIN LISPRO 1 UNIT/0.01 ML UNIT SQ SCH ×4 (06:03→23:45)
[2018-08-01] MEDS: LABETALOL 5 MG/ML ML IV PRN (06:11)
[2018-08-01 06:26] LABS: Basophils # (Auto) 0 K/mcL (0.0-0.3); Basophils % (Auto) 0.3 % (0.0-2.0); Eosinophils # (Auto) 0.1 K/mcL (0.0-0.7); Eosinophils % (Auto) 0.9 % (0.0-7.0); Hematocrit 42.3 % (41.0-55.0); Hemoglobin 14.1 g/dL (13.5-16.5); Lymphocytes # (Auto) 1.1 K/mcL (1.5-4.8); Lymphocytes % (Auto) 12.3 % (15.5-49.0); Mean Corpuscular HGB Conc 33.2 g/dL (31.0-36.0); Mean Platelet Volume 8.3 fL (7.4-10.4); Monocytes # (Auto) 0.6 K/mcL (0.1-0.9); Monocytes % (Auto) 6.5 % (1.0-12.0); Platelet Count 285 K/mcL (140-440); RBC 4.81 M/mcL (4.50-5.90); Red Cell Distribution Width 13.9 % (11.5-14.5); WBC 9.1 K/mcL (4.5-11.0)
[2018-08-01 06:43] LABS: ALT/SGPT 13 U/l (0-40); AST/SGOT 36 U/l (0-37); Albumin 3.7 gm/dL (3.2-5.2); Albumin/Globulin Ratio 1.2 (1.0-2.3); Alkaline Phosphatase 63 U/L (39-117); Bilirubin,Direct < 0.2 mg/dL (0.0-0.3); Bilirubin,Total 0.5 mg/dL (0.0-1.0); Blood Urea Nitrogen 11 mg/dl (6-20); Calcium 8.8 mg/dl (8.6-10.4); Carbon Dioxide 24 mmol/L (22-30); Chloride 99 mmol/L (96-108); Gamma Glutamyl Transpeptidase 26 U/L (8-61); Globulin 3.2 gm/dL (2.2-3.7); Glomerular Filtration Rate 108; Glucose 156 mg/dL (70-105); Lactate Dehydrogenase 208 U/L (94-250); Magnesium 1.8 mg/dL (1.6-2.5); Phosphorous 3.5 mg/dL (2.7-4.5); Potassium 3.2 mmol/L (3.3-5.1); Sodium 138 mmol/L (133-145); Triglycerides 107 mg/dl (<150); Uric Acid 6.9 mg/dL (2.5-8.0)
[2018-08-01] MEDS: HALOPERIDOL LACTATE 5 MG/ML VIAL IV PRN (06:43)
[2018-08-01] MEDS: PANTOPRAZOLE 40 MG VIAL IV SCH (06:43)
[2018-08-01] MEDS ORDERED: MAGNESIUM SULFATE 2 GM/50 ML BAG IV ONE (08:01)
[2018-08-01] MEDS ORDERED: POTASSIUM CHLORIDE 40 MEQ in DEXTROSE 5% IN WATER 500 ML IV ONE (08:01)
[2018-08-01] MEDS: ACETAMINOPHEN 325 MG TABLET PO PRN (09:25)
[2018-08-01] MEDS: DOCUSATE SODIUM 100 MG CAPSULE PO SCH ×2 (09:26→20:03)
[2018-08-01] MEDS: INSULIN GLARGINE, HUMAN 1 UNIT/0.01 ML SQ SCH ×2 (09:26→20:07)
[2018-08-01] MEDS: LOSARTAN 50 MG TABLET PO SCH (09:26)
[2018-08-01] MEDS: ENOXAPARIN 40 MG/0.4 ML SYRINGE SQ SCH (09:26)
[2018-08-01] MEDS: METOPROLOL TARTRATE 25 MG TABLET PO SCH ×3 (09:26→21:26)
[2018-08-01] MEDS ORDERED: LORazepam 2 MG/ML VIAL IV ONE (09:42)
[2018-08-01] MEDS ORDERED: KETAMINE 10 MG/ML ML IV ONE (09:42)
--- NOTE | 2018-08-01 10:12 | Internal Med Progress Note ---
Medical - PN: Subj Patient information: Note initiated : 08/01/18 at 10:09 am Service Date, if different from initiated Date: [] Patient: Wong Rangel a 37 y/o M admitted on 07/30/18 for N & V, Abdominal Pain. Chief Complaint: [] Interval history: Mr. Rangel is a 37 year old M presents to the ED with nausea vomiting abdominal pain. Patient has history of diabetes with gastroparesis and multiple admissions for the same. He has had multiple Botox injections over the past few years with temporarily good results. Latest episode started Monday morning. He denies any inciting factors and denies any relieving factors. He developed epigastric achy burning pain. He had nausea vomiting 4 times a day for the past couple days. Describes vomitus as yellow without any blood. Last had a Botox injection by Dr. Jackman in June. Last bowel movement was diarrhea Monday morning, has not had a bowel movement since then. He is missed several days of his blood pressure medication because he ran out. He is given IV fluids and multiple antiemetics and other medications in the ED but patient still symptomatic. Labs unremarkable as well as lipase. He has had to be on erythromycin while he been in the hospital in the past. He has had a history of pyloric outlet obstruction and has had to have dilation of the past by Dr. Jackman. 07/31 Still having a hard time keeping fluids down. Emesis overnight. No other new complaints. We will start erythromycin. . 08/01 Patient seen examined, no acute issues, still has nausea, abdominal pain and vomiting. med not helping much verbally askng for dilaudid when I entered the room the patient was lying on his abdomen, sleeping, did not appear to be in distress will give trial of low dose ketamine 10mg to see if this helps switch PO to IV tylenol, continue toradol GI consulted. BM yesterday, Pertinent ROS: Denies headache, dizziness Denies chest pain, palpitations Denies cough or shortness of breath present abdominal pain, nausea and vomiting. - Constitutional Vitals: Vital Signs Temp Pulse Resp BP Pulse Ox 99.6 F H 107 H 22 180/110 97 08/01/18 07:50 08/01/18 07:50 08/01/18 07:50 08/01/18 07:50 08/01/18 07:50 Period Temp Pulse Resp BP Sys/Paz Pulse Ox Last 24 Hr 97.8 F-99.6 F 98-113 16- 110-208/74-110 90-98 Intake and Output 07/31/18 08/01/18 08/01/18 21:59 05:59 13:59 Intake Total 960 1490 Output Total 50 Balance 910 1490 Weight 259 lb 8 oz Intake & Output: Intake & Output 07/31/18 08/01/18 08/01/18 21:59 05:59 13:59 Intake Total 960 1490 Output Total 50 Balance 910 1490 Weight 259 lb 8 oz Intake: IV 1010 Potassium Chloride 20 Meq In 1010 Sodium Chloride 0.45% 1,000 ml @ 75 mls/hr IV .[id number] [facility] Rx# :[id number] Oral 960 480 Output: Emesis 50 Other: Meal Lunch Percent of Meal Consumed Refused # Voids 1 3 # Bowel Movements 1 Exam: Constitutional; Afebrile, cooperative, alert, not in distress. Respiratory system: Air Entry equal on both sides, No crackles or wheezing, no rhonchi. CVS- Rate rhythm regular, S1,S2 heard, no gallop, no rub. Abdomen- Soft nontender abdomen, no organomegaly, no tenderness, no guarding or rigidity, [employer] ASSISTANT- AOOx3, moving all extremities, no gross focal deficit noted. Medical - PN: Obj Da - Labs CBC & Chem 7: 08/01/18 04:47 08/01/18 04:47 Labs: Abnormal Lab Results 08/01/18 08/01/18 07/31/18 04:47 04:47 04:49 RBC 4.38 L Hgb 12.9 L Hct 38.2 L POC Hct Gran % 80.0 H 89.0 H Lymph % (Auto) 12.3 L 6.6 L Gran # 9.4 H Lymph # (Auto) 1.1 L 0.7 L Potassium 3.2 L Glucose 156 H POC Glucose Hemoglobin A1c Calcium POC WB Ioniz Calcium Magnesium AST Urine Protein Urine Glucose (UA) Urine Ketones Urine Occult Blood Urine RBC 07/31/18 07/30/18 07/30/18 04:48 06:55 05:25 RBC Hgb Hct POC Hct Gran % Lymph % (Auto) Gran # Lymph # (Auto) Potassium Glucose 206 H POC Glucose Hemoglobin A1c 8.6 H Calcium 8.4 L POC WB Ioniz Calcium Magnesium 1.5 L AST Urine Protein 100 A Urine Glucose (UA) >=500 A Urine Ketones 20 A Urine Occult Blood 0.03 A Urine RBC 6 H 07/30/18 07/30/18 05:25 05:25 RBC Hgb 13.3 L Hct 39.9 L POC Hct 37.0 L Gran % Lymph % (Auto) Gran # Lymph # (Auto) 1.2 L Potassium Glucose 228 H POC Glucose 226 H Hemoglobin A1c Calcium POC WB Ioniz Calcium 1.13 L Magnesium AST 42 H Urine Protein Urine Glucose (UA) Urine Ketones Urine Occult Blood Urine RBC Meds: Medications Bismuth Subsalicylate (Pepto Bismol) 15 ml PO Q4HP PRN PRN Reason: Dyspepsia Last Admin: 07/30/18 17:38 Dose: 15 ml Documented by: Diagnostic Test (Pha) (Accu-Chek) 1 each FS Q6 [facility] Last Admin: 08/01/18 05:49 Dose: 1 each Documented by: Diphenhydramine HCl (Benadryl) 25 mg IV Q4-6HP PRN PRN Reason: Allergic Symptoms Last Admin: 08/01/18 05:42 Dose: 25 mg Documented by: Docusate Sodium (Colace) 100 mg PO BID [facility] Last Admin: 08/01/18 09:26 Dose: 100 mg Documented by: Enalaprilat (Vasotec) 0 mg IV Q2HP PRN PRN Reason: Hypertension Last Admin: 08/01/18 04:20 Dose: 1.25 mg Documented by: Enoxaparin Sodium (Lovenox) 40 mg SQ DAILY [facility] Last Admin: 08/01/18 09:26 Dose: 40 mg Documented by: Erythromycin (Erythromycin) 250 mg PO Q8 [facility]; Protocol Last Admin: 08/01/18 05:42 Dose: 250 mg Documented by: Hydralazine HCl (Apresoline) 0 mg IV Q2HP PRN PRN Reason: Hypertension Last Admin: 08/01/18 04:20 Dose: 20 mg Documented by: Potassium Chloride 40 meq/ (Dextrose) 520 mls @ 130 mls/hr IV UD PRN PRN Reason: Potassium < 3 Magnesium Sulfate (Magnesium Sulfate) 2 gm in 50 mls @ 50 mls/hr IV UD PRN PRN Reason: Magnesium </= 1.6 Potassium Chloride 20 meq/ (Sodium Chloride) 1,010 mls @ 75 mls/hr IV .[id number] [facility] Last Admin: 07/31/18 23:51 Dose: 75 mls/hr Documented by: Potassium Chloride 40 meq/ (Dextrose) 520 mls @ 130 mls/hr IV ONCE ONE Stop: 08/01/18 12:00 Acetaminophen (Ofirmev) 1,000 mg in 100 mls @ 200 mls/hr IV TID [facility] Insulin Glargine (Lantus) 60 unit SQ BID [facility] Last Admin: 08/01/18 09:26 Dose: 60 unit Documented by: Insulin Human Lispro (Humalog) 0 unit SQ Q6 [facility]; Protocol Last Admin: 08/01/18 06:03 Dose: Not Given Documented by: Ketorolac Tromethamine (Toradol) 15 mg IV Q6HP PRN PRN Reason: Pain Stop: 08/02/18 14:39 Last Admin: 08/01/18 05:42 Dose: 15 mg Documented by: Labetalol HCl (Trandate) 0 mg IV Q2HP PRN PRN Reason: htn Last Admin: 08/01/18 06:11 Dose: 20 mg Documented by: Lorazepam (Ativan) 0.5 mg IV Q4-6HP PRN PRN Reason: ANXIETY/SEDATION Last Admin: 07/31/18 09:58 Dose: 0.5 mg Documented by: Losartan Potassium (Cozaar) 50 mg PO DAILY [facility] Last Admin: 08/01/18 09:26 Dose: 50 mg Documented by: Metoclopramide HCl (Reglan) 10 mg IV Q6 [facility] Last Admin: 08/01/18 05:42 Dose: 10 mg Documented by: Metoprolol Tartrate (Lopressor) 25 mg PO BID [facility] Last Admin: 08/01/18 09:26 Dose: 25 mg Documented by: Ondansetron HCl (Zofran) 4 mg IV Q4HP PRN PRN Reason: Nausea And Vomiting Last Admin: 08/01/18 09:25 Dose: 4 mg Documented by: Pantoprazole Sodium (Protonix) 40 mg IV QAMAC [facility] Last Admin: 08/01/18 06:43 Dose: 40 mg Documented by: Polyethylene Glycol (Miralax) 17 gm PO DAILYP PRN PRN Reason: Constipation Potassium Chloride (Kdur) 40 meq PO UD PRN PRN Reason: Potssium is 3-3.5 Potassium Chloride (Kdur) 40 meq PO UD PRN PRN Reason: Potassium < 3 Promethazine HCl (Phenergan) 12.5 mg IV Q4-6HP PRN PRN Reason: Nausea And Vomiting Last Admin: 08/01/18 08:09 Dose: 12.5 mg Documented by: Scopolamine (Transderm-Scop) 1 patch TOPICAL Q72H [facility] Senna (Senokot) 2 tab PO HSP PRN PRN Reason: Constipation Simethicone (Mylicon) 80 mg CHEWED QIDP PRN PRN Reason: Dyspepsia Last Admin: 07/31/18 02:34 Dose: 80 mg Documented by: Sodium Chloride (Saline Flush) 10 ml IV Q8 [facility] Last Admin: 08/01/18 05:43 Dose: 10 ml Documented by: Medical - PN: A/P - Time Spent With Patient Total time spent is greater than 50% in coordination of care (as documented) at patient's floor/unit and/or counseling patient: - Narrative A/P Narrative: A: *N/V/Abd pain: likely gastroparesis vs other (pending imaging) -Oral contrast CT without any obstruction including gastric outlet -Has received Botox injections by Dr. Jackman outpatient -Has been on erythromycin while inpatient at times *DM w/gastroparesis: A1c 8.6 *h/o pyloric outlet obstruction: h/o dilations by Dr. Butler *HTN Urgency: Uncontrolled, has run out of his losartan almost week ago * P: -IVF's, -Clear liquid diet -po erythromycin, IV reglan, IV tylelnol, and toradol for pain management, IV PPI -antiemetics, prn ativan/benadryl -IV ketamine 10mg x 1, to see if this helps break the cycle, does not recollect if he has tried amitriptyline. -GI consulted , need for repeat EGD dilatation? -home insulin and SSI -need script for losartan, prn IV BP -ppx: lovenox Medical - PN: Qual - Stroke Symptom Onset Unknown: No - VTE Deep Vein Thrombosis/Pulmonary Embolism Present on Admission: No
[2018-08-01] MEDS: ACETAMINOPHEN 1,000 MG/100 ML BOTTLE IV SCH ×3 (10:41→21:27)
--- NOTE | 2018-08-01 13:37 | Internal Medicine Consult Note ---
Medical - CN: HPI - Data of Consult Patient: new to practice Consult date: 08/01/18 Requesting physician: Max Spencer Primary Care Provider: Berenice Mckeon Family Provider: Kareen Phillips - Consult Narrative Reason for consult: Nausea and vomiting History of present illness: Mr. Rangel is a 37 year old diabetic with a history of pyloric outlet obstruction treated with balloon dilatation and Botox injection with Dr. Butler who is admitted for intractable nausea and vomiting. He has a long history of intermittent episodes of nausea and vomiting that last for several days at a time and occur about once monthly. He has been hospitalized for similar complaints in the past. He will have nausea, followed by vomiting/dry heaving with some bilious emesis. He denies hematemesis. He sometimes recognizes food from the day prior in his emesis. He then will develop epigastric pain; it does not radiate to his back. He is said to have a history of pancreatitis, but details are unclear. He does not drink alcohol. Symptoms persist despite Zofran, IV erythromycin, Reglan, scopolamine patch and Phenergan. He tried a small dose of ketamine this morning without improvement. He denies dysphagia or heartburn. He rarely has headache and has no history of migraine. Notably, his blood pressure has been difficult to control. He denies diarrhea. Moves his bowels every 1-2 days. He has not previously tried a benzodiazepine during an attack of nausea or vomiting, nor has he tried a tricyclic. Weight is down 5lbs in the last week. CC: Mahendra Padilla All systems: reviewed and no additional remarkable complaints except as stated (as above) Medical - CN: PMH Medical history: Diabetes--denies neuropathy and nephropathy; gastroparesis/pyloric outlet obstruction, pancreatitis. Surgical history: Negative. Pertinent family history: Diabetes in both parents; heart disease in mother. Social history: Lives with girlfriend. Denies marijuana, ETOH, tobacco use. Medical - CN: Meds Home Medications Medication Instructions Recorded Confirmed Type Ondansetron [Zofran Odt] 4 mg PO Q4-6H PRN #30 tablet 01/23/16 07/30/18 Rx Levemir 60 units SQ BID 01/24/16 07/30/18 History Losartan [Cozaar] 50 mg PO DAILY 01/24/16 07/30/18 History Metoclopramide [Reglan] 5 mg PO Q4 06/28/18 07/30/18 History Allergies Allergy/AdvReac Type Severity Reaction Status Date / Time Penicillins [PENICILLINS] Allergy Intermediate HIVES Verified 07/30/18 05:15 Medical - CN: Exam - Constitutional Vitals: Temp Pulse Resp BP Pulse Ox 99.1 F H 102 H 22 180/102 98 08/01/18 11:37 08/01/18 11:37 08/01/18 11:37 08/01/18 11:37 08/01/18 11:37 General appearance: mild distress, obese - Head Head exam: Present: atraumatic, normal inspection, normocephalic - Eye Eye exam: Present: normal appearance - Neck Neck exam: Present: normal inspection. Absent: lymphadenopathy, thyromegaly - Respiratory Respiratory exam: Present: normal respiratory exam, CTAB. Absent: accessory muscle use, chest wall tenderness - Cardiovascular Cardiovascular exam: Present: normal rate and rhythm. Absent: gallop, rubs, systolic murmur - GI/Abdominal GI/Abdominal exam: Present: normal bowel sounds, soft. Absent: distended, hernia, organomegaly, tenderness - Extremities Exam Extremities exam: Present: normal inspection, Foot pink and warm. Absent: pedal edema - Neurological Exam Neurological exam: Present: alert - Psychiatric Psychiatric exam: Present: flat affect, normal mood Medical - CN: Result - Labs CBC & Chem 7: 08/01/18 04:47 08/01/18 04:47 Labs: Short CBC 08/01/18 Range/Units 04:47 WBC 9.1 (4.5-11.0) K/mcL Hgb 14.1 (13.5-16.5) g/dL Hct 42.3 (41.0-55.0) % Plt Count 285 (140-440) K/mcL BMP 08/01/18 04:47 Sodium 138 Potassium 3.2 L Chloride 99 Carbon Dioxide 24 BUN 11 Creatinine 0.9 Glucose 156 H Calcium 8.8 Liver Function 08/01/18 Range/Units 04:47 Total Bilirubin 0.5 (0.0-1.0) mg/dL Direct Bilirubin < 0.2 (0.0-0.3) mg/dL GGT 26 (8-61) U/L AST 36 (0-37) U/l ALT 13 (0-40) U/l Alkaline Phosphatase 63 (39-117) U/L Albumin 3.7 (3.2-5.2) gm/dL Medical - CN: A/P (1) Intractable nausea and vomiting Status: Acute Assessment and plan: I reviewed his case with Dr. Daniel. We will arrange for EGD to assess for gastric outlet obstruction. If this is unremarkable, a trial of a tricyclic to help with gastric accommodation for gastroparesis would be reasonable. Cyclic vomiting syndrome is also on the differential and tricyclic therapy is extremely helpful for that. A benzodiazepine can be helpful in aborting an attack of cyclic vomiting.
[2018-08-01] MEDS ORDERED: MIDAZOLAM 2 MG/2 ML VIAL IV SCH (14:45)
[2018-08-01] MEDS ORDERED: PROPOFOL 200 MG/20 ML VIAL IV SCH (14:45)
[2018-08-01] MEDS ORDERED: KETAMINE HCL 50 MG/ML ML IV PRN ×2 (14:45→15:18)
[2018-08-01] MEDS: POTASSIUM CHLORIDE 20 MEQ in 0.45 % SODIUM CHLORIDE 1,000 ML IV SCH ×2 (15:07→17:20)
[2018-08-01] MEDS ORDERED: PROPOFOL 20 ML IV ONE (15:09)
[2018-08-01] MEDS ORDERED: MIDAZOLAM 2 MG/2 ML VIAL ONE (15:09)
[2018-08-01] MEDS ORDERED: INSULIN GLARGINE, HUMAN 1 UNIT/0.01 ML SQ ONE (21:00)
[2018-08-01] MEDS: AMITRIPTYLINE 25 MG TABLET PO SCH (21:27)
[2018-08-02] MEDS: POTASSIUM CHLORIDE 20 MEQ in 0.45 % SODIUM CHLORIDE 1,000 ML IV SCH ×2 (01:15→08:57)
[2018-08-02] MEDS: METOCLOPRAMIDE 10 MG/2 ML VIAL IV SCH ×3 (05:41→19:42)
[2018-08-02] MEDS: diphenhydrAMINE 50 MG/ML VIAL IV PRN ×4 (05:41→20:54)
[2018-08-02] MEDS: ERYTHROMYCIN BASE 250 MG TABLET PO SCH ×3 (05:41→21:53)
[2018-08-02] MEDS: INSULIN LISPRO 1 UNIT/0.01 ML UNIT SQ SCH ×3 (05:54→20:24)
[2018-08-02] MEDS: 0.9 % SODIUM CHLORIDE 10 ML SYRINGE IV SCH ×3 (05:55→22:22)
[2018-08-02 06:00] LABS: Basophils # (Auto) 0 K/mcL (0.0-0.3); Basophils % (Auto) 0.1 % (0.0-2.0); Eosinophils # (Auto) 0 K/mcL (0.0-0.7); Eosinophils % (Auto) 0.5 % (0.0-7.0); Granulocytes % (Auto) 80.7 % (38.0-78.0); Hematocrit 36.2 % (41.0-55.0); Hemoglobin 12.4 g/dL (13.5-16.5); Lymphocytes # (Auto) 0.8 K/mcL (1.5-4.8); Mean Cell Volume 87.7 fL (80.0-100.0); Mean Corpuscular HGB Conc 34.1 g/dL (31.0-36.0); Mean Platelet Volume 8.2 fL (7.4-10.4); Monocytes # (Auto) 0.9 K/mcL (0.1-0.9); Monocytes % (Auto) 9.7 % (1.0-12.0); Platelet Count 232 K/mcL (140-440); RBC 4.13 M/mcL (4.50-5.90); WBC 8.9 K/mcL (4.5-11.0)
[2018-08-02 06:27] LABS: ALT/SGPT 9 U/l (0-40); AST/SGOT 30 U/l (0-37); Albumin 3.3 gm/dL (3.2-5.2); Albumin/Globulin Ratio 1.3 (1.0-2.3); Alkaline Phosphatase 51 U/L (39-117); Bilirubin,Direct < 0.2 mg/dL (0.0-0.3); Bilirubin,Total 0.4 mg/dL (0.0-1.0); Blood Urea Nitrogen 13 mg/dl (6-20); Calcium 8.3 mg/dl (8.6-10.4); Carbon Dioxide 25 mmol/L (22-30); Chloride 103 mmol/L (96-108); Gamma Glutamyl Transpeptidase 23 U/L (8-61); Globulin 2.5 gm/dL (2.2-3.7); Glomerular Filtration Rate 69; Glucose 77 mg/dL (70-105); Lactate Dehydrogenase 159 U/L (94-250); Phosphorous 4.5 mg/dL (2.7-4.5); Potassium 3.1 mmol/L (3.3-5.1); Sodium 139 mmol/L (133-145); Triglycerides 87 mg/dl (<150); Uric Acid 6.8 mg/dL (2.5-8.0)
[2018-08-02] MEDS: PANTOPRAZOLE 40 MG VIAL IV SCH (07:25)
[2018-08-02] MEDS ORDERED: POTASSIUM CHLORIDE 40 MEQ in DEXTROSE 5% IN WATER 500 ML IV ONE (08:00)
[2018-08-02] MEDS: ONDANSETRON 4 MG/2 ML VIAL IV PRN ×4 (09:10→23:13)
[2018-08-02] MEDS: ACETAMINOPHEN 1,000 MG/100 ML BOTTLE IV SCH ×3 (09:17→20:25)
[2018-08-02] MEDS: DOCUSATE SODIUM 100 MG CAPSULE PO SCH ×2 (09:24→20:25)
[2018-08-02] MEDS: LOSARTAN 50 MG TABLET PO SCH (09:24)
[2018-08-02] MEDS: METOPROLOL TARTRATE 25 MG TABLET PO SCH ×2 (09:25→20:25)
[2018-08-02] MEDS: ENOXAPARIN 40 MG/0.4 ML SYRINGE SQ SCH (09:26)
[2018-08-02] MEDS: PROMETHAZINE 25 MG/ML VIAL IV PRN ×2 (09:50→15:41)
--- NOTE | 2018-08-02 10:29 | EGD Procedure Note ---
EGD Procedure Notes - Procedure Information Patient information: Note initiated : 08/02/18 at 10:27 am Service Date: 08/01/18 Patient: Wong Rangel 37 y/o M admitted on 07/30/18 for N & V, Abdominal Pain. Pre-op diagnosis general: Nausea and vomiting. Post-Op Diagnosis general: Cyclic vomiting syndrome. Procedure: Esophogogastroduodenoscopy Procedure Narrative: The procedure, alternatives and risks were discussed with the patient and the patient's questions were answered. With endoscopist-administered intravenous sedation, the Olympus video endoscope was introduced into the esophagus. The esophagus, stomach, and duodenum were examined sequentially. Erosions were seen in the distal esophagus from vomiting. There is no hiatal hernia. The gastric mucosa, antrum, pyloric ring and duodenum were otherwise normal. There is no pyloric obstruction. The scope was withdrawn. Assessment: Cyclic vomiting syndrome.
[2018-08-02] MEDS ORDERED: traMADol 50 MG TABLET PO PRN (10:56)
--- NOTE | 2018-08-02 10:59 | Internal Med Progress Note ---
Medical - PN: Subj Patient information: Note initiated : 08/02/18 at 10:56 am Service Date, if different from initiated Date: [] Patient: Wong Rangel a 37 y/o M admitted on 07/30/18 for N & V, Abdominal Pain. Chief Complaint: [] Interval history: Mr. Rangel is a 37 year old M presents to the ED with nausea vomiting abdominal pain. Patient has history of diabetes with gastroparesis and multiple admissions for the same. He has had multiple Botox injections over the past few years with temporarily good results. Latest episode started Monday morning. He denies any inciting factors and denies any relieving factors. He developed epigastric achy burning pain. He had nausea vomiting 4 times a day for the past couple days. Describes vomitus as yellow without any blood. Last had a Botox injection by Dr. Jackman in June. Last bowel movement was diarrhea Monday morning, has not had a bowel movement since then. He is missed several days of his blood pressure medication because he ran out. He is given IV fluids and multiple antiemetics and other medications in the ED but patient still symptomatic. Labs unremarkable as well as lipase. He has had to be on erythromycin while he been in the hospital in the past. He has had a history of pyloric outlet obstruction and has had to have dilation of the past by Dr. Jackman. 07/31 Still having a hard time keeping fluids down. Emesis overnight. No other new complaints. We will start erythromycin. . 08/01 Patient seen examined, no acute issues, still has nausea, abdominal pain and vomiting. med not helping much verbally askng for dilaudid when I entered the room the patient was lying on his abdomen, sleeping, did not appear to be in distress will give trial of low dose ketamine 10mg to see if this helps switch PO to IV tylenol, continue toradol GI consulted. BM yesterday, 08/02 Patient seen and examined, overnight did well, had endoscopy yesterday no evidence of gastric outlet obstruction noted. Patient started on amitriptyline yesterday. This morning still had some pain in the abdomen and was feeling nauseous. Overnight hypoglycemia reviewed. Start on tramadol, discontinue Toradol, patient's renal function worsened slightly. Discontinue Lantus now given that the patient has decreased p.o. intake and his glucose level is low we will just cover with sliding scale for now if needed can re-add Lantus Pertinent ROS: Denies headache, dizziness Denies chest pain, palpitations Denies cough or shortness of breath present abdominal pain, nausea or vomiting. - Constitutional Vitals: Vital Signs Temp Pulse Resp BP Pulse Ox 97.9 F 74 16 154/98 97 08/02/18 08:00 08/02/18 05:48 08/02/18 08:00 08/02/18 08:00 08/02/18 08:00 Period Temp Pulse Resp BP Sys/Paz Pulse Ox Last 24 Hr 96.9 F-99.1 F 74-102 16-22 118-180/67-102 93-98 Intake and Output 08/01/18 08/02/18 08/02/18 21:59 05:59 13:59 Intake Total 976 267 4362 Balance 115 514 1616 Weight 262 lb Intake & Output: Intake & Output 08/01/18 08/02/18 08/02/18 21:59 05:59 13:59 Intake Total 329 228 7905 Balance 453 942 8500 Weight 262 lb Intake: IV 122 775 6039 Potassium Chloride 20 Meq In 1010 Sodium Chloride 0.45% 1,000 ml @ 75 mls/hr IV .[id number] [facility] Rx# :[id number] Oral 280 480 Other: Stool Size Moderate Stool Color Brown # Voids 1 1 # Bowel Movements 1 Exam: Constitutional; Afebrile, cooperative, alert, not in distress. Respiratory system: Air Entry equal on both sides, No crackles or wheezing, no rhonchi. CVS- Rate rhythm regular, S1,S2 heard, no gallop, no rub. Abdomen- Soft nontender abdomen, no organomegaly, no tenderness, no guarding or rigidity, [employer]- AOOx3, moving all extremities, no gross focal deficit noted. Medical - PN: Obj Da - Labs CBC & Chem 7: 08/02/18 04:43 08/02/18 04:43 Labs: Abnormal Lab Results 08/02/18 08/02/18 08/01/18 04:43 04:43 04:47 RBC 4.13 L Hgb 12.4 L Hct 36.2 L Gran % 80.7 H Lymph % (Auto) 9.0 L Gran # Lymph # (Auto) 0.8 L Potassium 3.1 L 3.2 L Creatinine 1.3 H Glucose 156 H Hemoglobin A1c Calcium 8.3 L Magnesium Total Protein 5.8 L 08/01/18 07/31/18 07/31/18 04:47 04:49 04:48 RBC 4.38 L Hgb 12.9 L Hct 38.2 L Gran % 80.0 H 89.0 H Lymph % (Auto) 12.3 L 6.6 L Gran # 9.4 H Lymph # (Auto) 1.1 L 0.7 L Potassium Creatinine Glucose 206 H Hemoglobin A1c Calcium 8.4 L Magnesium 1.5 L Total Protein 07/30/18 05:25 RBC Hgb Hct Gran % Lymph % (Auto) Gran # Lymph # (Auto) Potassium Creatinine Glucose Hemoglobin A1c 8.6 H Calcium Magnesium Total Protein Meds: Medications Amitriptyline HCl (Elavil) 25 mg PO HS [facility] Last Admin: 08/01/18 21:27 Dose: 25 mg Documented by: Bismuth Subsalicylate (Pepto Bismol) 15 ml PO Q4HP PRN PRN Reason: Dyspepsia Last Admin: 07/30/18 17:38 Dose: 15 ml Documented by: Diagnostic Test (Pha) (Accu-Chek) 1 each FS Q6 [facility] Last Admin: 08/02/18 05:43 Dose: 1 each Documented by: Diphenhydramine HCl (Benadryl) 25 mg IV Q4-6HP PRN PRN Reason: Allergic Symptoms Last Admin: 08/02/18 05:41 Dose: 25 mg Documented by: Docusate Sodium (Colace) 100 mg PO BID [facility] Last Admin: 08/02/18 09:24 Dose: 100 mg Documented by: Enalaprilat (Vasotec) 0 mg IV Q2HP PRN PRN Reason: Hypertension Last Admin: 08/01/18 11:58 Dose: 1.25 mg Documented by: Enoxaparin Sodium (Lovenox) 40 mg SQ DAILY [facility] Last Admin: 08/02/18 09:26 Dose: 40 mg Documented by: Erythromycin (Erythromycin) 250 mg PO Q8 [facility]; Protocol Last Admin: 08/02/18 05:41 Dose: 250 mg Documented by: Hydralazine HCl (Apresoline) 0 mg IV Q2HP PRN PRN Reason: Hypertension Last Admin: 08/01/18 11:59 Dose: 20 mg Documented by: Potassium Chloride 40 meq/ (Dextrose) 520 mls @ 130 mls/hr IV UD PRN PRN Reason: Potassium < 3 Magnesium Sulfate (Magnesium Sulfate) 2 gm in 50 mls @ 50 mls/hr IV UD PRN PRN Reason: Magnesium </= 1.6 Potassium Chloride 20 meq/ (Sodium Chloride) 1,010 mls @ 75 mls/hr IV .[id number] [facility] Last Admin: 08/02/18 08:57 Dose: 75 mls/hr Documented by: Acetaminophen ([facility]) 1,000 mg in 100 mls @ 200 mls/hr IV TID [facility] Last Admin: 08/02/18 09:17 Dose: 200 mls/hr Documented by: Potassium Chloride 40 meq/ (Dextrose) 520 mls @ 130 mls/hr IV ONCE ONE Stop: 08/02/18 11:59 Last Admin: 08/02/18 09:12 Dose: 130 mls/hr Documented by: Insulin Human Lispro (Humalog) 0 unit SQ Q6 [facility]; Protocol Last Admin: 08/02/18 05:54 Dose: Not Given Documented by: Labetalol HCl (Trandate) 0 mg IV Q2HP PRN PRN Reason: htn Last Admin: 08/01/18 06:11 Dose: 20 mg Documented by: Lorazepam (Ativan) 0.5 mg IV Q4-6HP PRN PRN Reason: ANXIETY/SEDATION Last Admin: 07/31/18 09:58 Dose: 0.5 mg Documented by: Losartan Potassium (Cozaar) 50 mg PO DAILY [facility] Last Admin: 08/02/18 09:24 Dose: 50 mg Documented by: Metoclopramide HCl (Reglan) 10 mg IV Q6 [facility] Last Admin: 08/02/18 05:41 Dose: 10 mg Documented by: Metoprolol Tartrate (Lopressor) 50 mg PO BID [facility] Last Admin: 08/02/18 09:25 Dose: 50 mg Documented by: Ondansetron HCl (Zofran) 4 mg IV Q4HP PRN PRN Reason: Nausea And Vomiting Last Admin: 08/02/18 09:10 Dose: 4 mg Documented by: Pantoprazole Sodium (Protonix) 40 mg IV QAMAC [facility] Last Admin: 08/02/18 07:25 Dose: 40 mg Documented by: Polyethylene Glycol (Miralax) 17 gm PO DAILYP PRN PRN Reason: Constipation Potassium Chloride (Kdur) 40 meq PO UD PRN PRN Reason: Potssium is 3-3.5 Potassium Chloride (Kdur) 40 meq PO UD PRN PRN Reason: Potassium < 3 Promethazine HCl (Phenergan) 12.5 mg IV Q4-6HP PRN PRN Reason: Nausea And Vomiting Last Admin: 08/02/18 09:50 Dose: 12.5 mg Documented by: Scopolamine (Transderm-Scop) 1 patch TOPICAL Q72H [facility] Senna (Senokot) 2 tab PO HSP PRN PRN Reason: Constipation Simethicone (Mylicon) 80 mg CHEWED QIDP PRN PRN Reason: Dyspepsia Last Admin: 07/31/18 02:34 Dose: 80 mg Documented by: Sodium Chloride (Saline Flush) 10 ml IV Q8 [facility] Last Admin: 08/02/18 05:55 Dose: Not Given Documented by: Medical - PN: A/P - Time Spent With Patient Total time spent is greater than 50% in coordination of care (as documented) at patient's floor/unit and/or counseling patient: - Narrative A/P Narrative: A: *N/V/Abd pain: likely gastroparesis vs other (pending imaging) -Oral contrast CT without any obstruction including gastric outlet -Has received Botox injections by Dr. Jackman outpatient -Has been on erythromycin while inpatient at times *DM w/gastroparesis: A1c 8.6 *h/o pyloric outlet obstruction: h/o dilations by Dr. Butler *HTN Urgency: Uncontrolled, has run out of his losartan almost week ago *Hypoglycemia P: -IVF's, -Full liquid diet -po erythromycin, IV reglan, and amitryptline IV tylelnol, and toradol for pain management, IV PPI -metorplol added for bp control bp improved with this addition. -antiemetics, prn ativan/benadryl -GI consulted , s/p EGD no outliet obstruction. advised tricyclinc agents, a tivan prn. -hold lantus for nwo, just SSI and monitor glucose. -need script for losartan, prn IV BP, may need additional agents for bp control -ppx: lovenox Medical - PN: Qual - Stroke Symptom Onset Unknown: No - VTE Deep Vein Thrombosis/Pulmonary Embolism Present on Admission: No
[2018-08-02] MEDS: LORazepam 2 MG/ML VIAL IV PRN ×3 (11:08→23:25)
[2018-08-02] MEDS: hydrALAZINE 20 MG/ML VIAL IV PRN ×3 (12:09→23:02)
[2018-08-02] MEDS: SCOPOLAMINE 1 PATCH PATCH TOPICAL SCH (12:22)
[2018-08-02] MEDS: AMITRIPTYLINE 25 MG TABLET PO SCH (20:25)
[2018-08-03] MEDS: INSULIN LISPRO 1 UNIT/0.01 ML UNIT SQ SCH ×5 (00:05→23:49)
[2018-08-03] MEDS: METOCLOPRAMIDE 10 MG/2 ML VIAL IV SCH ×5 (00:17→23:42)
[2018-08-03] MEDS: PROMETHAZINE 25 MG/ML VIAL IV PRN ×3 (02:26→21:30)
[2018-08-03] MEDS: POTASSIUM CHLORIDE 20 MEQ in 0.45 % SODIUM CHLORIDE 1,000 ML IV SCH (03:25)
[2018-08-03] MEDS: hydrALAZINE 20 MG/ML VIAL IV PRN ×4 (03:30→19:04)
[2018-08-03] MEDS: ERYTHROMYCIN BASE 250 MG TABLET PO SCH ×3 (05:30→21:53)
[2018-08-03] MEDS: 0.9 % SODIUM CHLORIDE 10 ML SYRINGE IV SCH ×3 (05:38→23:43)
[2018-08-03 06:27] LABS: Basophils # (Auto) 0 K/mcL (0.0-0.3); Basophils % (Auto) 0.2 % (0.0-2.0); Eosinophils # (Auto) 0 K/mcL (0.0-0.7); Eosinophils % (Auto) 0.5 % (0.0-7.0); Granulocytes % (Auto) 76.9 % (38.0-78.0); Hematocrit 40.5 % (41.0-55.0); Hemoglobin 13.5 g/dL (13.5-16.5); Lymphocytes # (Auto) 1.1 K/mcL (1.5-4.8); Lymphocytes % (Auto) 14.1 % (15.5-49.0); Mean Cell Volume 88.2 fL (80.0-100.0); Mean Corpuscular HGB Conc 33.3 g/dL (31.0-36.0); Mean Platelet Volume 8.4 fL (7.4-10.4); Monocytes # (Auto) 0.6 K/mcL (0.1-0.9); Monocytes % (Auto) 8.3 % (1.0-12.0); Platelet Count 277 K/mcL (140-440); RBC 4.59 M/mcL (4.50-5.90); Red Cell Distribution Width 14.4 % (11.5-14.5); WBC 7.6 K/mcL (4.5-11.0)
[2018-08-03 06:56] LABS: ALT/SGPT 11 U/l (0-40); AST/SGOT 37 U/l (0-37); Albumin 3.3 gm/dL (3.2-5.2); Albumin/Globulin Ratio 1.1 (1.0-2.3); Alkaline Phosphatase 59 U/L (39-117); Bilirubin,Direct < 0.2 mg/dL (0.0-0.3); Bilirubin,Total 0.7 mg/dL (0.0-1.0); Blood Urea Nitrogen 13 mg/dl (6-20); Calcium 8.5 mg/dl (8.6-10.4); Carbon Dioxide 23 mmol/L (22-30); Chloride 104 mmol/L (96-108); Gamma Glutamyl Transpeptidase 31 U/L (8-61); Globulin 2.9 gm/dL (2.2-3.7); Glomerular Filtration Rate 95; Glucose 78 mg/dL (70-105); Lactate Dehydrogenase 214 U/L (94-250); Phosphorous 3.6 mg/dL (2.7-4.5); Potassium 3.7 mmol/L (3.3-5.1); Sodium 140 mmol/L (133-145); Triglycerides 108 mg/dl (<150); Uric Acid 6.6 mg/dL (2.5-8.0)
[2018-08-03] MEDS: PANTOPRAZOLE 40 MG VIAL IV SCH (07:08)
[2018-08-03] MEDS: ACETAMINOPHEN 1,000 MG/100 ML BOTTLE IV SCH ×3 (08:24→21:10)
[2018-08-03] MEDS: ENOXAPARIN 40 MG/0.4 ML SYRINGE SQ SCH (08:24)
[2018-08-03] MEDS: ONDANSETRON 4 MG/2 ML VIAL IV PRN ×3 (08:26→18:51)
[2018-08-03] MEDS ORDERED: DEXTROSE 5%-1/2NS W/20MEQ KCL 1,000 ML IV SCH (09:15)
[2018-08-03] MEDS: METOPROLOL TARTRATE 25 MG TABLET PO SCH ×2 (09:48→21:11)
[2018-08-03] MEDS: diphenhydrAMINE 50 MG/ML VIAL IV PRN ×3 (09:48→21:31)
[2018-08-03] MEDS: LOSARTAN 50 MG TABLET PO SCH (09:48)
[2018-08-03] MEDS: DOCUSATE SODIUM 100 MG CAPSULE PO SCH ×2 (09:48→21:12)
[2018-08-03] MEDS: DEXTROSE 5%-1/2NS W/20MEQ KCL 1,000 ML IV SCH ×2 (09:54→23:42)
[2018-08-03] MEDS: LORazepam 2 MG/ML VIAL IV PRN ×2 (11:37→19:04)
--- NOTE | 2018-08-03 12:39 | Internal Med Progress Note ---
Medical - PN: Subj Patient information: Note initiated : 08/03/18 at 12:35 pm Service Date, if different from initiated Date: [] Patient: Wong Rangel a 37 y/o M admitted on 07/30/18 for N & V, Abdominal Pain. Chief Complaint: [] Interval history: Mr. Rangel is a 37 year old M presents to the ED with nausea vomiting abdominal pain. Patient has history of diabetes with gastroparesis and multiple admissions for the same. He has had multiple Botox injections over the past few years with temporarily good results. Latest episode started Monday morning. He denies any inciting factors and denies any relieving factors. He developed epigastric achy burning pain. He had nausea vomiting 4 times a day for the past couple days. Describes vomitus as yellow without any blood. Last had a Botox injection by Dr. Jackman in June. Last bowel movement was diarrhea Monday morning, has not had a bowel movement since then. He is missed several days of his blood pressure medication because he ran out. He is given IV fluids and multiple antiemetics and other medications in the ED but patient still symptomatic. Labs unremarkable as well as lipase. He has had to be on erythromycin while he been in the hospital in the past. He has had a history of pyloric outlet obstruction and has had to have dilation of the past by Dr. Jackman. 07/31 Still having a hard time keeping fluids down. Emesis overnight. No other new complaints. We will start erythromycin. . 08/01 Patient seen examined, no acute issues, still has nausea, abdominal pain and vomiting. med not helping much verbally askng for dilaudid when I entered the room the patient was lying on his abdomen, sleeping, did not appear to be in distress will give trial of low dose ketamine 10mg to see if this helps switch PO to IV tylenol, continue toradol GI consulted. BM yesterday, 08/02 Patient seen and examined, overnight did well, had endoscopy yesterday no evidence of gastric outlet obstruction noted. Patient started on amitriptyline yesterday. This morning still had some pain in the abdomen and was feeling nauseous. Overnight hypoglycemia reviewed. Start on tramadol, discontinue Toradol, patient's renal function worsened slightly. Discontinue Lantus now given that the patient has decreased p.o. intake and his glucose level is low we will just cover with sliding scale for now if needed can re-add Lantus 08/03-patient doing well. No overnight events. No concerns per staff. Nausea improved however still not at baseline. Status post upper endoscopy without significant findings. GI suspects cyclical vomiting syndrome and recommends nortriptyline. Will need follow-up outpatient with GI for cough on discharge. Continue crystalloids/bowel rest and gradual advancement of diet. - Constitutional Vitals: Vital Signs Temp Pulse Resp BP Pulse Ox 98 F 94 H 14 168/97 93 08/03/18 10:00 08/03/18 06:03 08/03/18 10:00 08/03/18 10:00 08/03/18 10:00 Period Temp Pulse Resp BP Sys/Paz Pulse Ox Last 24 Hr 97.5 F-98.8 F 85-97 14-18 129-188/85-116 92-98 Intake and Output 08/02/18 08/03/18 08/03/18 21:59 05:59 13:59 Intake Total 1200 640 702 Balance 1200 640 702 Weight 266 lb 8 oz Intake & Output: Intake & Output 08/02/18 08/03/18 08/03/18 21:59 05:59 13:59 Intake Total 1200 640 702 Balance 1200 640 702 Weight 266 lb 8 oz Intake: IV 720 702 Potassium Chloride 20 Meq In 597 Sodium Chloride 0.45% 1,000 ml @ 75 mls/hr IV .[id number] [facility] Rx# :[id number] Oral 480 640 Other: Meal Lunch Percent of Meal Consumed Refused Feeding Ability Independent # Voids 2 # Bowel Movements 0 General appearance: no acute distress Exam: Alert oriented Nonlabored breathing Nontender abdomen No Lymphedema Minimal Anxiety Medical - PN: Obj Da - Labs CBC & Chem 7: 08/03/18 04:52 08/03/18 04:52 Labs: Abnormal Lab Results 08/03/18 08/03/18 08/02/18 04:52 04:52 04:43 RBC Hgb Hct 40.5 L Gran % Lymph % (Auto) 14.1 L Lymph # (Auto) 1.1 L Potassium 3.1 L Creatinine 1.3 H Glucose Calcium 8.5 L 8.3 L Total Protein 5.8 L 08/02/18 08/01/18 08/01/18 04:43 04:47 04:47 RBC 4.13 L Hgb 12.4 L Hct 36.2 L Gran % 80.7 H 80.0 H Lymph % (Auto) 9.0 L 12.3 L Lymph # (Auto) 0.8 L 1.1 L Potassium 3.2 L Creatinine Glucose 156 H Calcium Total Protein Meds: Medications Amitriptyline HCl (Elavil) 25 mg PO HS [facility] Last Admin: 08/02/18 20:25 Dose: 25 mg Documented by: Bismuth Subsalicylate (Pepto Bismol) 15 ml PO Q4HP PRN PRN Reason: Dyspepsia Last Admin: 07/30/18 17:38 Dose: 15 ml Documented by: Diagnostic Test (Pha) (Accu-Chek) 1 each FS Q6 [facility] Last Admin: 08/03/18 11:51 Dose: 1 each Documented by: Diphenhydramine HCl (Benadryl) 25 mg IV Q4-6HP PRN PRN Reason: Allergic Symptoms Last Admin: 08/03/18 09:48 Dose: 25 mg Documented by: Docusate Sodium (Colace) 100 mg PO BID [facility] Last Admin: 08/03/18 09:48 Dose: 100 mg Documented by: Enalaprilat (Vasotec) 0 mg IV Q2HP PRN PRN Reason: Hypertension Last Admin: 08/01/18 11:58 Dose: 1.25 mg Documented by: Enoxaparin Sodium (Lovenox) 40 mg SQ DAILY [facility] Last Admin: 08/03/18 08:24 Dose: 40 mg Documented by: Erythromycin (Erythromycin) 250 mg PO Q8 [facility]; Protocol Last Admin: 08/03/18 05:30 Dose: 250 mg Documented by: Hydralazine HCl (Apresoline) 0 mg IV Q2HP PRN PRN Reason: Hypertension Last Admin: 08/03/18 11:38 Dose: 10 mg Documented by: Potassium Chloride 40 meq/ (Dextrose) 520 mls @ 130 mls/hr IV UD PRN PRN Reason: Potassium < 3 Magnesium Sulfate (Magnesium Sulfate) 2 gm in 50 mls @ 50 mls/hr IV UD PRN PRN Reason: Magnesium </= 1.6 Acetaminophen (Ofirmev) 1,000 mg in 100 mls @ 200 mls/hr IV TID [facility] Last Infusion: 08/03/18 09:48 Dose: Infused Documented by: Potassium Chloride/Dextrose/Sod Cl (Dextrose 5%-1/2ns W/20meq Kcl) 1,000 mls @ 75 mls/hr IV .[id number] [facility] Last Admin: 08/03/18 09:54 Dose: 75 mls/hr Documented by: Insulin Human Lispro (Humalog) 0 unit SQ Q6 [facility]; Protocol Last Admin: 08/03/18 11:52 Dose: Not Given Documented by: Labetalol HCl (Trandate) 0 mg IV Q2HP PRN PRN Reason: htn Last Admin: 08/01/18 06:11 Dose: 20 mg Documented by: Lorazepam (Ativan) 0.5 mg IV Q4-6HP PRN PRN Reason: ANXIETY/SEDATION Last Admin: 08/03/18 11:37 Dose: 0.5 mg Documented by: Losartan Potassium (Cozaar) 50 mg PO DAILY [facility] Last Admin: 08/03/18 09:48 Dose: 50 mg Documented by: Metoclopramide HCl (Reglan) 10 mg IV Q6 [facility] Last Admin: 08/03/18 11:38 Dose: 10 mg Documented by: Metoprolol Tartrate (Lopressor) 50 mg PO BID [facility] Last Admin: 08/03/18 09:48 Dose: 50 mg Documented by: Ondansetron HCl (Zofran) 4 mg IV Q4HP PRN PRN Reason: Nausea And Vomiting Last Admin: 08/03/18 08:26 Dose: 4 mg Documented by: Pantoprazole Sodium (Protonix) 40 mg IV QAMAC [facility] Last Admin: 08/03/18 07:08 Dose: 40 mg Documented by: Polyethylene Glycol (Miralax) 17 gm PO DAILYP PRN PRN Reason: Constipation Potassium Chloride (Kdur) 40 meq PO UD PRN PRN Reason: Potssium is 3-3.5 Potassium Chloride (Kdur) 40 meq PO UD PRN PRN Reason: Potassium < 3 Promethazine HCl (Phenergan) 12.5 mg IV Q4-6HP PRN PRN Reason: Nausea And Vomiting Last Admin: 08/03/18 02:26 Dose: 12.5 mg Documented by: Scopolamine (Transderm-Scop) 1 patch TOPICAL Q72H [facility] Last Admin: 08/02/18 12:22 Dose: 1 patch Documented by: Ian (Senokot) 2 tab PO HSP PRN PRN Reason: Constipation Simethicone (Mylicon) 80 mg CHEWED QIDP PRN PRN Reason: Dyspepsia Last Admin: 07/31/18 02:34 Dose: 80 mg Documented by: Sodium Chloride (Saline Flush) 10 ml IV Q8 [facility] Last Admin: 08/03/18 05:38 Dose: Not Given Documented by: Tramadol HCl (Ultram) 50 mg PO Q4HP PRN PRN Reason: Pain Last Admin: 08/02/18 12:22 Dose: 50 mg Documented by: Medical - PN: A/P - Time Spent With Patient Total time spent is greater than 50% in coordination of care (as documented) at patient's floor/unit and/or counseling patient: 25 - 35 minutes - Narrative A/P Narrative: * Cyclical vomiting syndrome likely secondary to underlying gastroparesis. Status post upper endoscopy. On amitriptyline.Will need follow-up with outpatient GI. * Suboptimal DM type II control. A1c 8.6. Off Lantus in light of hypoglycemia. Currently on D5 half illness. We'll resume Lantus once patient is on oral diet. Continue diabetic education * History of hypertension continue losartan/metoprolol * Nausea vomiting secondary to above clinically improved * Prophylaxis Lovenox Plan * Continue bowel rest/antiemetics * Continue hypertension management * Crystalloids * Possible discharge in 24 hours Medical - PN: Qual - Stroke Symptom Onset Unknown: No - VTE Deep Vein Thrombosis/Pulmonary Embolism Present on Admission: No
[2018-08-03] MEDS: ENALAPRILAT 1.25 MG/ML VIAL IV PRN ×2 (14:31→16:14)
[2018-08-03] MEDS: AMITRIPTYLINE 25 MG TABLET PO SCH (21:11)
[2018-08-04] MEDS: PROMETHAZINE 25 MG/ML VIAL IV PRN ×3 (00:45→15:08)
[2018-08-04] MEDS: diphenhydrAMINE 50 MG/ML VIAL IV PRN ×5 (00:52→21:49)
[2018-08-04] MEDS: ONDANSETRON 4 MG/2 ML VIAL IV PRN ×4 (05:04→21:49)
[2018-08-04] MEDS: ERYTHROMYCIN BASE 250 MG TABLET PO SCH ×3 (05:04→21:48)
[2018-08-04] MEDS: 0.9 % SODIUM CHLORIDE 10 ML SYRINGE IV SCH ×3 (05:05→20:17)
[2018-08-04 05:44] LABS: Basophils # (Auto) 0 K/mcL (0.0-0.3); Basophils % (Auto) 0.2 % (0.0-2.0); Eosinophils # (Auto) 0.1 K/mcL (0.0-0.7); Eosinophils % (Auto) 1.1 % (0.0-7.0); Granulocytes % (Auto) 65.4 % (38.0-78.0); Hematocrit 37.4 % (41.0-55.0); Hemoglobin 12.5 g/dL (13.5-16.5); Lymphocytes # (Auto) 1.6 K/mcL (1.5-4.8); Lymphocytes % (Auto) 24.3 % (15.5-49.0); Mean Cell Volume 88.1 fL (80.0-100.0); Mean Corpuscular HGB Conc 33.4 g/dL (31.0-36.0); Mean Platelet Volume 8.3 fL (7.4-10.4); Monocytes # (Auto) 0.6 K/mcL (0.1-0.9); Platelet Count 253 K/mcL (140-440); RBC 4.25 M/mcL (4.50-5.90); Red Cell Distribution Width 13.5 % (11.5-14.5); WBC 6.4 K/mcL (4.5-11.0)
[2018-08-04 05:49] LABS: ALT/SGPT 10 U/l (0-40); AST/SGOT 35 U/l (0-37); Albumin 3.2 gm/dL (3.2-5.2); Albumin/Globulin Ratio 1.2 (1.0-2.3); Alkaline Phosphatase 53 U/L (39-117); Bilirubin,Direct < 0.2 mg/dL (0.0-0.3); Bilirubin,Total 0.7 mg/dL (0.0-1.0); Blood Urea Nitrogen 15 mg/dl (6-20); Calcium 8.2 mg/dl (8.6-10.4); Carbon Dioxide 24 mmol/L (22-30); Chloride 101 mmol/L (96-108); Gamma Glutamyl Transpeptidase 32 U/L (8-61); Globulin 2.7 gm/dL (2.2-3.7); Glomerular Filtration Rate 95; Glucose 156 mg/dL (70-105); Lactate Dehydrogenase 167 U/L (94-250); Magnesium 1.8 mg/dL (1.6-2.5); Phosphorous 3.3 mg/dL (2.7-4.5); Sodium 136 mmol/L (133-145); Triglycerides 108 mg/dl (<150); Uric Acid 6.8 mg/dL (2.5-8.0)
[2018-08-04] MEDS: INSULIN LISPRO 1 UNIT/0.01 ML UNIT SQ SCH ×4 (06:16→23:39)
[2018-08-04] MEDS: METOCLOPRAMIDE 10 MG/2 ML VIAL IV SCH ×4 (06:53→23:09)
[2018-08-04] MEDS: PANTOPRAZOLE 40 MG VIAL IV SCH (07:29)
[2018-08-04] MEDS: hydrALAZINE 20 MG/ML VIAL IV PRN ×5 (07:45→23:10)
[2018-08-04] MEDS: DOCUSATE SODIUM 100 MG CAPSULE PO SCH ×2 (09:06→20:13)
[2018-08-04] MEDS: METOPROLOL TARTRATE 25 MG TABLET PO SCH ×2 (09:06→20:13)
[2018-08-04] MEDS: LOSARTAN 50 MG TABLET PO SCH (09:06)
[2018-08-04] MEDS: ENOXAPARIN 40 MG/0.4 ML SYRINGE SQ SCH (09:06)
[2018-08-04] MEDS: ACETAMINOPHEN 1,000 MG/100 ML BOTTLE IV SCH ×3 (09:07→20:13)
[2018-08-04] MEDS: DEXTROSE 5%-1/2NS W/20MEQ KCL 1,000 ML IV SCH ×2 (11:53→18:02)
--- NOTE | 2018-08-04 12:57 | Internal Med Progress Note ---
Medical - PN: Subj Patient information: Note initiated : 08/04/18 at 12:55 pm Service Date, if different from initiated Date: [] Patient: Wong Rangel a 37 y/o M admitted on 07/30/18 for N & V, Abdominal Pain. Chief Complaint: [] Interval history: Mr. Rangel is a 37 year old M presents to the ED with nausea vomiting abdominal pain. Patient has history of diabetes with gastroparesis and multiple admissions for the same. He has had multiple Botox injections over the past few years with temporarily good results. Latest episode started Monday morning. He denies any inciting factors and denies any relieving factors. He developed epigastric achy burning pain. He had nausea vomiting 4 times a day for the past couple days. Describes vomitus as yellow without any blood. Last had a Botox injection by Dr. Jackman in June. Last bowel movement was diarrhea Monday morning, has not had a bowel movement since then. He is missed several days of his blood pressure medication because he ran out. He is given IV fluids and multiple antiemetics and other medications in the ED but patient still symptomatic. Labs unremarkable as well as lipase. He has had to be on erythromycin while he been in the hospital in the past. He has had a history of pyloric outlet obstruction and has had to have dilation of the past by Dr. Jackman. 07/31 Still having a hard time keeping fluids down. Emesis overnight. No other new complaints. We will start erythromycin. . 08/01 Patient seen examined, no acute issues, still has nausea, abdominal pain and vomiting. med not helping much verbally askng for dilaudid when I entered the room the patient was lying on his abdomen, sleeping, did not appear to be in distress will give trial of low dose ketamine 10mg to see if this helps switch PO to IV tylenol, continue toradol GI consulted. BM yesterday, 08/02 Patient seen and examined, overnight did well, had endoscopy yesterday no evidence of gastric outlet obstruction noted. Patient started on amitriptyline yesterday. This morning still had some pain in the abdomen and was feeling nauseous. Overnight hypoglycemia reviewed. Start on tramadol, discontinue Toradol, patient's renal function worsened slightly. Discontinue Lantus now given that the patient has decreased p.o. intake and his glucose level is low we will just cover with sliding scale for now if needed can re-add Lantus 08/03-patient doing well. No overnight events. No concerns per staff. Nausea improved however still not at baseline. Status post upper endoscopy without significant findings. GI suspects cyclical vomiting syndrome and recommends nortriptyline. Will need follow-up outpatient with GI for cough on discharge. Continue crystalloids/bowel rest and gradual advancement of diet. 08/04-patient doing better. However persistent nausea. Intermittently tolerating diet. Blood pressure improved now systolics around 130. Potassium normalized with replacement. Blood sugars at goal. No overnight fever chills. Continue diet advancement as tolerated. - Constitutional Vitals: Vital Signs Temp Pulse Resp BP Pulse Ox 98.3 F 83 28 H 129/78 93 08/04/18 11:13 08/04/18 11:49 08/04/18 11:13 08/04/18 11:49 08/04/18 11:13 Period Temp Pulse Resp BP Sys/Paz Pulse Ox Last 24 Hr 98 F-99.3 F 72-92 14-28 113-188/72-120 92-97 Intake and Output 08/03/18 08/04/18 08/04/18 21:59 05:59 13:59 Intake Total 640 1400 100 Output Total 500 50 Balance 140 1350 100 Weight 262 lb Intake & Output: Intake & Output 08/03/18 08/04/18 08/04/18 21:59 05:59 13:59 Intake Total 640 1400 100 Output Total 500 50 Balance 140 1350 100 Weight 262 lb Intake: IV 100 1000 100 Dextrose 5%-1/2Ns W/20Meq KCl 1 1000 ,000 ml @ 75 mls/hr IV .[id number] [facility] Rx#:[id number] Oral 540 400 Output: Void Amount 500 Emesis 50 Other: Urine Appearance Clear Urine Color Bright Yellow Urine Odor Normal Stool Size Large Moderate Stool Color Brown Yellow Stool Consistency Soft Watery Formed # Voids 1 # of times incontinent of 1 Bowels General appearance: no acute distress Exam: Resting comfortably Occasional nausea nondistended abdomen No anxiety Medical - PN: Obj Da - Labs CBC & Chem 7: 08/04/18 04:50 08/04/18 04:50 Labs: Abnormal Lab Results 08/04/18 08/04/18 08/03/18 04:50 04:50 04:52 RBC 4.25 L Hgb 12.5 L Hct 37.4 L Gran % Lymph % (Auto) Lymph # (Auto) Potassium Creatinine Glucose 156 H Calcium 8.2 L 8.5 L Total Protein 08/03/18 08/02/18 08/02/18 04:52 04:43 04:43 RBC 4.13 L Hgb 12.4 L Hct 40.5 L 36.2 L Gran % 80.7 H Lymph % (Auto) 14.1 L 9.0 L Lymph # (Auto) 1.1 L 0.8 L Potassium 3.1 L Creatinine 1.3 H Glucose Calcium 8.3 L Total Protein 5.8 L Meds: Medications Amitriptyline HCl (Elavil) 25 mg PO HS [facility] Last Admin: 08/03/18 21:11 Dose: 25 mg Documented by: Bismuth Subsalicylate (Pepto Bismol) 15 ml PO Q4HP PRN PRN Reason: Dyspepsia Last Admin: 07/30/18 17:38 Dose: 15 ml Documented by: Diagnostic Test (Pha) (Accu-Chek) 1 each FS Q6 [facility] Last Admin: 08/04/18 11:30 Dose: 1 each Documented by: Diphenhydramine HCl (Benadryl) 25 mg IV Q4-6HP PRN PRN Reason: Allergic Symptoms Last Admin: 08/04/18 11:52 Dose: 25 mg Documented by: Docusate Sodium (Colace) 100 mg PO BID [facility] Last Admin: 08/04/18 09:06 Dose: 100 mg Documented by: Enoxaparin Sodium (Lovenox) 40 mg SQ DAILY [facility] Last Admin: 08/04/18 09:06 Dose: 40 mg Documented by: Erythromycin (Erythromycin) 250 mg PO Q8 [facility]; Protocol Last Admin: 08/04/18 05:04 Dose: 250 mg Documented by: Hydralazine HCl (Apresoline) 0 mg IV Q2HP PRN PRN Reason: Hypertension Last Admin: 08/04/18 10:44 Dose: 20 mg Documented by: Potassium Chloride 40 meq/ (Dextrose) 520 mls @ 130 mls/hr IV UD PRN PRN Reason: Potassium < 3 Magnesium Sulfate (Magnesium Sulfate) 2 gm in 50 mls @ 50 mls/hr IV UD PRN PRN Reason: Magnesium </= 1.6 Potassium Chloride/Dextrose/Sod Cl (Dextrose 5%-1/2ns W/20meq Kcl) 1,000 mls @ 75 mls/hr IV .[id number] [facility] Last Admin: 08/04/18 11:53 Dose: Not Given Documented by: Acetaminophen (Ofirmev) 1,000 mg in 100 mls @ 200 mls/hr IV TID [facility] Last Admin: 08/04/18 09:07 Dose: 200 mls/hr Documented by: Insulin Human Lispro (Humalog) 0 unit SQ Q6 [facility]; Protocol Last Admin: 08/04/18 11:50 Dose: 3 units Documented by: Lorazepam (Ativan) 0.5 mg IV Q4-6HP PRN PRN Reason: ANXIETY/SEDATION Last Admin: 08/03/18 19:04 Dose: 0.5 mg Documented by: Losartan Potassium (Cozaar) 50 mg PO DAILY [facility] Last Admin: 08/04/18 09:06 Dose: 50 mg Documented by: Metoclopramide HCl (Reglan) 10 mg IV Q6 [facility] Last Admin: 08/04/18 11:51 Dose: 10 mg Documented by: Metoprolol Tartrate (Lopressor) 50 mg PO BID [facility] Last Admin: 08/04/18 09:06 Dose: 50 mg Documented by: Ondansetron HCl (Zofran) 4 mg IV Q4HP PRN PRN Reason: Nausea And Vomiting Last Admin: 08/04/18 11:52 Dose: 4 mg Documented by: Pantoprazole Sodium (Protonix) 40 mg IV QAMAC [facility] Last Admin: 08/04/18 07:29 Dose: 40 mg Documented by: Polyethylene Glycol (Miralax) 17 gm PO DAILYP PRN PRN Reason: Constipation Potassium Chloride (Kdur) 40 meq PO UD PRN PRN Reason: Potssium is 3-3.5 Potassium Chloride (Kdur) 40 meq PO UD PRN PRN Reason: Potassium < 3 Promethazine HCl (Phenergan) 12.5 mg IV Q4-6HP PRN PRN Reason: Nausea And Vomiting Last Admin: 08/04/18 09:42 Dose: 12.5 mg Documented by: Scopolamine (Transderm-Scop) 1 patch TOPICAL Q72H [facility] Last Admin: 08/02/18 12:22 Dose: 1 patch Documented by: Ian (Senokot) 2 tab PO HSP PRN PRN Reason: Constipation Simethicone (Mylicon) 80 mg CHEWED QIDP PRN PRN Reason: Dyspepsia Last Admin: 07/31/18 02:34 Dose: 80 mg Documented by: Sodium Chloride (Saline Flush) 10 ml IV Q8 [facility] Last Admin: 08/04/18 05:05 Dose: 10 ml Documented by: Tramadol HCl (Ultram) 50 mg PO Q4HP PRN PRN Reason: Pain Last Admin: 08/02/18 12:22 Dose: 50 mg Documented by: Medical - PN: A/P - Time Spent With Patient Total time spent is greater than 50% in coordination of care (as documented) at patient's floor/unit and/or counseling patient: 15 - 24 minutes - Narrative A/P Narrative: * Cyclical vomiting syndrome likely secondary to underlying gastroparesis. Status post upper endoscopy. On amitriptyline 25 at bedtime.Will need follow- up with outpatient GI. * Suboptimal DM type II control. A1c 8.6. Off Lantus in light of hypoglycemia. Current ABGs at goal * History of hypertension continue losartan/metoprolol * Nausea vomiting secondary to above gradual improvement noted * Prophylaxis Lovenox Plan * bowel rest * Antiemetics * Discharge once symptoms improve Medical - PN: Qual - Stroke Symptom Onset Unknown: No - VTE Deep Vein Thrombosis/Pulmonary Embolism Present on Admission: No
[2018-08-04] MEDS: AMITRIPTYLINE 25 MG TABLET PO SCH (20:13)
[2018-08-05] MEDS: hydrALAZINE 20 MG/ML VIAL IV PRN ×7 (01:15→22:21)
[2018-08-05] MEDS: PROMETHAZINE 25 MG/ML VIAL IV PRN ×2 (01:25→08:43)
[2018-08-05] MEDS: ERYTHROMYCIN BASE 250 MG TABLET PO SCH ×3 (05:19→22:12)
[2018-08-05] MEDS: METOCLOPRAMIDE 10 MG/2 ML VIAL IV SCH ×2 (05:20→11:11)
[2018-08-05] MEDS: ONDANSETRON 4 MG/2 ML VIAL IV PRN (05:21)
[2018-08-05 05:27] LABS: Basophils # (Auto) 0 K/mcL (0.0-0.3); Basophils % (Auto) 0.2 % (0.0-2.0); Eosinophils # (Auto) 0 K/mcL (0.0-0.7); Eosinophils % (Auto) 0.7 % (0.0-7.0); Granulocytes % (Auto) 72.5 % (38.0-78.0); Hematocrit 39.9 % (41.0-55.0); Hemoglobin 13.3 g/dL (13.5-16.5); Lymphocytes # (Auto) 1.2 K/mcL (1.5-4.8); Lymphocytes % (Auto) 18.7 % (15.5-49.0); Mean Cell Volume 87.6 fL (80.0-100.0); Mean Corpuscular HGB Conc 33.3 g/dL (31.0-36.0); Mean Platelet Volume 8.2 fL (7.4-10.4); Monocytes # (Auto) 0.5 K/mcL (0.1-0.9); Monocytes % (Auto) 7.9 % (1.0-12.0); Platelet Count 267 K/mcL (140-440); RBC 4.55 M/mcL (4.50-5.90); Red Cell Distribution Width 13.6 % (11.5-14.5); WBC 6.3 K/mcL (4.5-11.0)
[2018-08-05 05:38] LABS: ALT/SGPT 12 U/l (0-40); AST/SGOT 42 U/l (0-37); Albumin 3.4 gm/dL (3.2-5.2); Albumin/Globulin Ratio 1.2 (1.0-2.3); Alkaline Phosphatase 57 U/L (39-117); Bilirubin,Direct < 0.2 mg/dL (0.0-0.3); Bilirubin,Total 0.7 mg/dL (0.0-1.0); Blood Urea Nitrogen 10 mg/dl (6-20); Calcium 8.4 mg/dl (8.6-10.4); Carbon Dioxide 24 mmol/L (22-30); Chloride 99 mmol/L (96-108); Gamma Glutamyl Transpeptidase 37 U/L (8-61); Globulin 2.8 gm/dL (2.2-3.7); Glomerular Filtration Rate 113; Glucose 169 mg/dL (70-105); Lactate Dehydrogenase 164 U/L (94-250); Magnesium 1.5 mg/dL (1.6-2.5); Sodium 136 mmol/L (133-145); Triglycerides 108 mg/dl (<150); Uric Acid 6.5 mg/dL (2.5-8.0)
[2018-08-05] MEDS: INSULIN LISPRO 1 UNIT/0.01 ML UNIT SQ SCH ×4 (05:43→20:51)
[2018-08-05] MEDS: DEXTROSE 5%-1/2NS W/20MEQ KCL 1,000 ML IV SCH ×3 (05:43→22:22)
[2018-08-05] MEDS: diphenhydrAMINE 50 MG/ML VIAL IV PRN ×2 (05:44→11:11)
[2018-08-05] MEDS: 0.9 % SODIUM CHLORIDE 10 ML SYRINGE IV SCH ×3 (05:59→22:21)
[2018-08-05] MEDS: MAGNESIUM SULFATE 2 GM/50 ML BAG IV PRN (08:43)
[2018-08-05] MEDS: PANTOPRAZOLE 40 MG VIAL IV SCH (08:43)
[2018-08-05] MEDS: ENOXAPARIN 40 MG/0.4 ML SYRINGE SQ SCH (08:43)
[2018-08-05] MEDS: SIMETHICONE 80 MG TAB.CHEW CHEWED PRN ×2 (08:44→13:15)
[2018-08-05] MEDS: METOPROLOL TARTRATE 25 MG TABLET PO SCH ×2 (08:44→20:50)
[2018-08-05] MEDS: DOCUSATE SODIUM 100 MG CAPSULE PO SCH ×2 (08:44→20:49)
[2018-08-05] MEDS: LOSARTAN 50 MG TABLET PO SCH ×2 (08:44→20:50)
[2018-08-05] MEDS: BISMUTH SUBSALICYLATE 15 ML ORAL.SUSP PO PRN ×2 (08:45→13:16)
[2018-08-05] MEDS: ACETAMINOPHEN 1,000 MG/100 ML BOTTLE IV SCH (09:56)
[2018-08-05] MEDS: SCOPOLAMINE 1 PATCH PATCH TOPICAL SCH (11:16)
[2018-08-05] MEDS ORDERED: ACETAMINOPHEN 325 MG TABLET PO PRN (11:36)
[2018-08-05] MEDS ORDERED: diphenhydrAMINE 25 MG CAPSULE PO PRN (11:37)
[2018-08-05] MEDS ORDERED: LORazepam 0.5 MG TABLET PO PRN (11:38)
[2018-08-05] MEDS ORDERED: ACETAMINOPHEN 1,000 MG/100 ML BOTTLE IV PRN (11:44)
[2018-08-05] MEDS: ONDANSETRON 4 MG ODT TABLET SL PRN ×2 (13:16→20:49)
[2018-08-05] MEDS: PROMETHAZINE 25 MG TABLET PO PRN (14:25)
--- NOTE | 2018-08-05 14:57 | Internal Med Progress Note ---
Medical - PN: Subj Patient information: Note initiated : 08/05/18 at 2:57 pm Service Date, if different from initiated Date: [] Patient: Wong Rangel a 37 y/o M admitted on 07/30/18 for N & V, Abdominal Pain. Chief Complaint: [] Interval history: Mr. Rangel is a 37 year old M presents to the ED with nausea vomiting abdominal pain. Patient has history of diabetes with gastroparesis and multiple admissions for the same. He has had multiple Botox injections over the past few years with temporarily good results. Latest episode started Monday morning. He denies any inciting factors and denies any relieving factors. He developed epigastric achy burning pain. He had nausea vomiting 4 times a day for the past couple days. Describes vomitus as yellow without any blood. Last had a Botox injection by Dr. Jackman in June. Last bowel movement was diarrhea Monday morning, has not had a bowel movement since then. He is missed several days of his blood pressure medication because he ran out. He is given IV fluids and multiple antiemetics and other medications in the ED but patient still symptomatic. Labs unremarkable as well as lipase. He has had to be on erythromycin while he been in the hospital in the past. He has had a history of pyloric outlet obstruction and has had to have dilation of the past by Dr. Jackman. 07/31 Still having a hard time keeping fluids down. Emesis overnight. No other new complaints. We will start erythromycin. . 08/01 Patient seen examined, no acute issues, still has nausea, abdominal pain and vomiting. med not helping much verbally askng for dilaudid when I entered the room the patient was lying on his abdomen, sleeping, did not appear to be in distress will give trial of low dose ketamine 10mg to see if this helps switch PO to IV tylenol, continue toradol GI consulted. BM yesterday, 08/02 Patient seen and examined, overnight did well, had endoscopy yesterday no evidence of gastric outlet obstruction noted. Patient started on amitriptyline yesterday. This morning still had some pain in the abdomen and was feeling nauseous. Overnight hypoglycemia reviewed. Start on tramadol, discontinue Toradol, patient's renal function worsened slightly. Discontinue Lantus now given that the patient has decreased p.o. intake and his glucose level is low we will just cover with sliding scale for now if needed can re-add Lantus 08/03-patient doing well. No overnight events. No concerns per staff. Nausea improved however still not at baseline. Status post upper endoscopy without significant findings. GI suspects cyclical vomiting syndrome and recommends nortriptyline. Will need follow-up outpatient with GI for cough on discharge. Continue crystalloids/bowel rest and gradual advancement of diet. 08/04-patient doing better. However persistent nausea. Intermittently tolerating diet. Blood pressure improved now systolics around 130. Potassium normalized with replacement. Blood sugars at goal. No overnight fever chills. Continue diet advancement as tolerated. 08/05-patient doing better. Nausea improved. Able to tolerate small meals. Anticipate discharge in 24 hours if continues to improve clinically. No major concerns per staff - Constitutional Vitals: Vital Signs Temp Pulse Resp BP Pulse Ox 98.0 F 92 H 16 162/94 94 08/05/18 11:32 08/05/18 04:00 08/05/18 11:32 08/05/18 13:18 08/05/18 11:32 Period Temp Pulse Resp BP Sys/Paz Pulse Ox Last 24 Hr 97.9 F-98.9 F 88-94 16-20 154-182/90-106 90-98 Intake and Output 08/05/18 08/05/18 08/05/18 05:59 13:59 21:59 Intake Total 936 150 180 Balance 936 150 180 Intake & Output: Intake & Output 08/05/18 08/05/18 08/05/18 05:59 13:59 21:59 Intake Total 936 150 180 Balance 936 150 180 Intake: IV 876 150 Dextrose 5%-1/2Ns W/20Meq KCl 1 876 ,000 ml @ 75 mls/hr IV .[id number] [facility] Rx#:[id number] Oral 60 180 Other: Meal Lunch Percent of Meal Consumed Refused # Voids 1 # Bowel Movements 0 General appearance: morbidly obese, no acute distress Exam: Alert oriented Nondistended nontender abdomen Nonlabored breathing Minimal anxiety Medical - PN: Obj Da - Labs CBC & Chem 7: 08/06/18 04:32 08/06/18 04:32 Labs: Abnormal Lab Results 08/05/18 08/05/18 08/04/18 04:29 04:29 04:50 RBC Hgb 13.3 L Hct 39.9 L Lymph % (Auto) Lymph # (Auto) 1.2 L Glucose 169 H 156 H Calcium 8.4 L 8.2 L Magnesium 1.5 L AST 42 H 08/04/18 08/03/18 08/03/18 04:50 04:52 04:52 RBC 4.25 L Hgb 12.5 L Hct 37.4 L 40.5 L Lymph % (Auto) 14.1 L Lymph # (Auto) 1.1 L Glucose Calcium 8.5 L Magnesium AST Meds: Medications Acetaminophen (Tylenol) 650 mg PO Q4HP PRN PRN Reason: PAIN/FEVER > 101 Amitriptyline HCl (Elavil) 25 mg PO [facility] Last Admin: 08/04/18 20:13 Dose: 25 mg Documented by: Bismuth Subsalicylate (Pepto Bismol) 15 ml PO Q4HP PRN PRN Reason: Dyspepsia Last Admin: 08/05/18 13:16 Dose: 15 ml Documented by: Diagnostic Test (Pha) (Accu-Chek) 1 each FS [facility] Diphenhydramine HCl (Benadryl) 25 mg PO Q4-6HP PRN PRN Reason: Allergic Symptoms Docusate Sodium (Colace) 100 mg PO BID [facility] Last Admin: 08/05/18 08:44 Dose: 100 mg Documented by: Enoxaparin Sodium (Lovenox) 40 mg SQ DAILY [facility] Last Admin: 08/05/18 08:43 Dose: 40 mg Documented by: Erythromycin (Erythromycin) 250 mg PO Q8 [facility]; Protocol Last Admin: 08/05/18 13:14 Dose: 250 mg Documented by: Hydralazine HCl (Apresoline) 0 mg IV Q2HP PRN PRN Reason: Hypertension Last Admin: 08/05/18 13:16 Dose: 10 mg Documented by: Potassium Chloride 40 meq/ (Dextrose) 520 mls @ 130 mls/hr IV UD PRN PRN Reason: Potassium < 3 Magnesium Sulfate (Magnesium Sulfate) 2 gm in 50 mls @ 50 mls/hr IV UD PRN PRN Reason: Magnesium </= 1.6 Last Infusion: 08/05/18 11:17 Dose: Infused Documented by: Potassium Chloride/Dextrose/Sod Cl (Dextrose 5%-1/2ns W/20meq Kcl) 1,000 mls @ 75 mls/hr IV .[id number] [facility] Last Admin: 08/05/18 05:43 Dose: 75 mls/hr Documented by: Acetaminophen (Ofirmev) 1,000 mg in 100 mls @ 200 mls/hr IV Q6HP PRN PRN Reason: Pain Insulin Human Lispro (Humalog) 0 unit SQ ACHS [facility]; Protocol Lorazepam (Ativan) 0.5 mg PO Q4-6HP PRN PRN Reason: ANXIETY/SEDATION Losartan Potassium (Cozaar) 50 mg PO BID [facility] Metoclopramide HCl (Reglan) 10 mg PO ACHS [facility] Metoprolol Tartrate (Lopressor) 50 mg PO BID [facility] Last Admin: 08/05/18 08:44 Dose: 50 mg Documented by: Ondansetron HCl (Zofran) 4 mg IV Q4HP PRN PRN Reason: Nausea And Vomiting Last Admin: 08/05/18 05:21 Dose: 4 mg Documented by: Ondansetron HCl (Zofran Odt) 4 mg SL Q4HP PRN PRN Reason: Nausea And Vomiting Last Admin: 08/05/18 13:16 Dose: 4 mg Documented by: Pantoprazole Sodium (Protonix) 40 mg PO QAMAC [facility] Polyethylene Glycol (Miralax) 17 gm PO DAILYP PRN PRN Reason: Constipation Potassium Chloride (Kdur) 40 meq PO UD PRN PRN Reason: Potssium is 3-3.5 Potassium Chloride (Kdur) 40 meq PO UD PRN PRN Reason: Potassium < 3 Promethazine HCl (Phenergan) 12.5 mg PO Q4-6HP PRN PRN Reason: Nausea And Vomiting Last Admin: 08/05/18 14:25 Dose: 12.5 mg Documented by: Scopolamine (Transderm-Scop) 1 patch TOPICAL Q72H [facility] Last Admin: 08/05/18 11:16 Dose: 1 patch Documented by: Senna (Senokot) 2 tab PO HSP PRN PRN Reason: Constipation Simethicone (Mylicon) 80 mg CHEWED QIDP PRN PRN Reason: Dyspepsia Last Admin: 08/05/18 13:15 Dose: 80 mg Documented by: Sodium Chloride (Saline Flush) 10 ml IV Q8 [facility] Last Admin: 08/05/18 13:16 Dose: Not Given Documented by: Tramadol HCl (Ultram) 50 mg PO Q4HP PRN PRN Reason: Pain Last Admin: 08/02/18 12:22 Dose: 50 mg Documented by: Medical - PN: A/P - Time Spent With Patient Total time spent is greater than 50% in coordination of care (as documented) at patient's floor/unit and/or counseling patient: 15 - 24 minutes - Narrative A/P Narrative: * Cyclical vomiting syndrome likely secondary to underlying gastroparesis. Status post upper endoscopy. On amitriptyline 25 at bedtime.Will need follow- up with outpatient GI. * Suboptimal DM type II control. A1c 8.6. Lantus held in light of hypoglycemia. Current ABGs at goal * History of hypertension continue losartan/metoprolol, start amlodipine * Nausea vomiting secondary to above gradual improvement noted * Prophylaxis Lovenox Plan * Continue bowel rest * Advance diet as tolerated * Start amlodipine * Antiemetics * Discharge possible in 24 hours Medical - PN: Qual - Stroke Symptom Onset Unknown: No - VTE Deep Vein Thrombosis/Pulmonary Embolism Present on Admission: No
[2018-08-05] MEDS: METOCLOPRAMIDE 10 MG TABLET PO SCH ×2 (16:33→20:49)
[2018-08-05] MEDS: amLODIPine 5 MG TABLET PO SCH (20:50)
[2018-08-05] MEDS: AMITRIPTYLINE 25 MG TABLET PO SCH (20:51)
[2018-08-06] MEDS: hydrALAZINE 20 MG/ML VIAL IV PRN ×2 (00:25→07:32)
[2018-08-06] MEDS: ONDANSETRON 4 MG ODT TABLET SL PRN (04:53)
[2018-08-06 05:15] LABS: Basophils # (Auto) 0 K/mcL (0.0-0.3); Basophils % (Auto) 0.2 % (0.0-2.0); Eosinophils # (Auto) 0.2 K/mcL (0.0-0.7); Eosinophils % (Auto) 3.5 % (0.0-7.0); Hematocrit 37.5 % (41.0-55.0); Hemoglobin 12.6 g/dL (13.5-16.5); Lymphocytes # (Auto) 1.6 K/mcL (1.5-4.8); Mean Cell Volume 88.2 fL (80.0-100.0); Mean Corpuscular HGB Conc 33.6 g/dL (31.0-36.0); Monocytes # (Auto) 0.6 K/mcL (0.1-0.9); Monocytes % (Auto) 8.3 % (1.0-12.0); Platelet Count 246 K/mcL (140-440); RBC 4.25 M/mcL (4.50-5.90); Red Cell Distribution Width 13.9 % (11.5-14.5); WBC 6.7 K/mcL (4.5-11.0)
[2018-08-06 05:33] LABS: ALT/SGPT 14 U/l (0-40); AST/SGOT 44 U/l (0-37); Albumin 3.2 gm/dL (3.2-5.2); Albumin/Globulin Ratio 1.3 (1.0-2.3); Alkaline Phosphatase 49 U/L (39-117); Bilirubin,Direct < 0.2 mg/dL (0.0-0.3); Bilirubin,Total 0.7 mg/dL (0.0-1.0); Blood Urea Nitrogen 8 mg/dl (6-20); Calcium 8.2 mg/dl (8.6-10.4); Carbon Dioxide 26 mmol/L (22-30); Chloride 100 mmol/L (96-108); Gamma Glutamyl Transpeptidase 39 U/L (8-61); Globulin 2.5 gm/dL (2.2-3.7); Glomerular Filtration Rate 120; Glucose 162 mg/dL (70-105); Lactate Dehydrogenase 164 U/L (94-250); Magnesium 1.6 mg/dL (1.6-2.5); Phosphorous 3.4 mg/dL (2.7-4.5); Potassium 3.6 mmol/L (3.3-5.1); Sodium 136 mmol/L (133-145); Triglycerides 113 mg/dl (<150); Uric Acid 6.2 mg/dL (2.5-8.0)
[2018-08-06] MEDS: 0.9 % SODIUM CHLORIDE 10 ML SYRINGE IV SCH (06:33)
[2018-08-06] MEDS: ERYTHROMYCIN BASE 250 MG TABLET PO SCH (06:34)
[2018-08-06] MEDS: PROMETHAZINE 25 MG TABLET PO PRN (06:38)
[2018-08-06] MEDS ORDERED: PANTOPRAZOLE 40 MG TABLET PO SCH (07:30)
[2018-08-06] MEDS: METOCLOPRAMIDE 10 MG TABLET PO SCH ×2 (07:37→11:14)
[2018-08-06] MEDS: METOPROLOL TARTRATE 25 MG TABLET PO SCH (08:39)
[2018-08-06] MEDS: ENOXAPARIN 40 MG/0.4 ML SYRINGE SQ SCH (08:39)
[2018-08-06] MEDS: DOCUSATE SODIUM 100 MG CAPSULE PO SCH (08:39)
[2018-08-06] MEDS: MAGNESIUM SULFATE 2 GM/50 ML BAG IV PRN (08:39)
[2018-08-06] MEDS: amLODIPine 5 MG TABLET PO SCH (08:40)
[2018-08-06] MEDS: LOSARTAN 50 MG TABLET PO SCH (08:41)
--- NOTE | 2018-08-06 09:09 | Discharge Summary ---
Medical - DS: Prov Patient information: Note initiated : 08/06/18 at 9:07 am Service Date, if different from initiated Date: [] Patient: Wong Rangel 37 y/o M admitted on 07/30/18 for N & V, Abdominal Pain. Chief Complaint: [] Date of admission: 07/30/18 11:00 Discharge date: 08/06/18 Primary care physician: Berenice Mckeon Consults: 07/30/18 11:05 Consult to Physician [CONS] Routine Comment: Consulting Provider: Mahendra Padilla Reason For Exam: Physician to Consult 08/01/18 10:04 Consult to Physician [CONS] Routine Comment: Consulting Provider: Orquidea Stubbs Reason For Exam: Physician to Consult Medical - DS: Meds - Discharge Medications Prescriptions: Amitriptyline [Elavil] 25 mg PO HS #30 tab amLODIPine [Norvasc] 5 mg PO DAILY #30 tab Bismuth Subsalicylate [Pepto Bismol] 15 ml PO Q4HP PRN #30 oral.susp PRN Reason: Dyspepsia diphenhydrAMINE [Benadryl] 25 mg PO Q4-6HP PRN #20 cap PRN Reason: Allergic Symptoms Erythromycin Base [Erythromycin] 250 mg PO Q8 #60 tab Levemir 30 - 60 units SQ BID #1 Losartan [Cozaar] 50 mg PO BID #30 tab Metoclopramide [Reglan] 10 mg PO ACHS #30 tab Metoprolol Tartrate [Lopressor] 50 mg PO BID #60 tab Ondansetron [Zofran ODT] 4 mg SL Q4HP PRN #30 tab PRN Reason: Nausea And Vomiting Pantoprazole [Protonix] 40 mg PO QAMAC #30 tab Simethicone [Mylicon] 80 mg CHEWED QIDP PRN #30 tab.chew PRN Reason: Dyspepsia Active and Home Medications: Home Medications Amitriptyline [Elavil] 25 mg PO HS #30 tab 08/06/18 [Rx Last Taken Unknown] Bismuth Subsalicylate [Pepto Bismol] 15 ml PO Q4HP PRN #30 oral.susp 08/06/18 [Rx Last Taken Unknown] Erythromycin Base [Erythromycin] 250 mg PO Q8 #60 tab 08/06/18 [Rx Last Taken Unknown] Levemir 30 - 60 units SQ BID #1 08/06/18 [Rx Last Taken Unknown] Losartan [Cozaar] 50 mg PO BID #30 tab 08/06/18 [Rx Last Taken Unknown] Metoclopramide [Reglan] 10 mg PO ACHS #30 tab 08/06/18 [Rx Last Taken Unknown] Metoprolol Tartrate [Lopressor] 50 mg PO BID #60 tab 08/06/18 [Rx Last Taken Unknown] Ondansetron [Zofran ODT] 4 mg SL Q4HP PRN #30 tab 08/06/18 [Rx Last Taken Unknown] Pantoprazole [Protonix] 40 mg PO QAMAC #30 tab 08/06/18 [Rx Last Taken Unknown] Simethicone [Mylicon] 80 mg CHEWED QIDP PRN #30 tab.chew 08/06/18 [Rx Last Taken Unknown] amLODIPine [Norvasc] 5 mg PO DAILY #30 tab 08/06/18 [Rx Last Taken Unknown] diphenhydrAMINE [Benadryl] 25 mg PO Q4-6HP PRN #20 cap 08/06/18 [Rx Last Taken Unknown] Medical - DS: Hosp Hospital course: Discharge diagnosis * Cyclical vomiting syndrome likely secondary to underlying gastroparesis. Status post upper endoscopy. Now on PPI, Pepto-Bismol, amitriptyline 25 at bedtime.Will need follow-up with outpatient GI. * Nausea vomiting secondary to above gradual improvement noted. Now able to tolerate food in the emesis in the last 12 hours. * Suboptimal DM type II control. A1c 8.6. Lantus restarted with advice to titrate based on a.m. blood sugar. Current BGs at goal * Poorly controlled - much improved with increased dose of losartan/addition of metoprolol and amlodipine. Continue outpatient up titration/optimization of hypertension with close follow-up with PCP. Current systolics around 160 patient asymptomatic. Brief hospital course Mr. Rangel is a 37 year old M presents to the ED with nausea vomiting abdominal pain. Patient has history of diabetes with gastroparesis and multiple admissions for the same. He has had multiple Botox injections over the past few years with temporarily good results. Latest episode started Monday morning. He denies any inciting factors and denies any relieving factors. He developed epigastric achy burning pain. He had nausea vomiting 4 times a day for the past couple days. Describes vomitus as yellow without any blood. Last had a Botox injection by Dr. Jackman in June. Last bowel movement was diarrhea Monday morning, has not had a bowel movement since then. He is missed several days of his blood pressure medication because he ran out. He is given IV fluids and multiple antiemetics and other medications in the ED but patient still symptomatic. Labs unremarkable as well as lipase. He has had to be on erythromycin while he been in the hospital in the past. He has had a history of pyloric outlet obstruction and has had to have dilation of the past by Dr. Jackman. 07/31 Still having a hard time keeping fluids down. Emesis overnight. No other new complaints. We will start erythromycin. 08/01 Patient seen examined, no acute issues, still has nausea, abdominal pain and vomiting. med not helping much verbally askng for dilaudid when I entered the room the patient was lying on his abdomen, sleeping, did not appear to be in distress will give trial of low dose ketamine 10mg to see if this helps switch PO to IV tylenol, continue toradol GI consulted. BM yesterday, 08/02 Patient seen and examined, overnight did well, had endoscopy yesterday no evidence of gastric outlet obstruction noted. Patient started on amitriptyline yesterday. This morning still had some pain in the abdomen and was feeling nauseous. Overnight hypoglycemia reviewed. Start on tramadol, discontinue Toradol, patient's renal function worsened slightly. Discontinue Lantus now given that the patient has decreased p.o. intake and his glucose level is low we will just cover with sliding scale for now if needed can re-add Lantus 08/03-patient doing well. No overnight events. No concerns per staff. Nausea improved however still not at baseline. Status post upper endoscopy without significant findings. GI suspects cyclical vomiting syndrome and recommends nortriptyline. Will need follow-up outpatient with GI for cough on discharge. Continue crystalloids/bowel rest and gradual advancement of diet. 08/04-patient doing better. However persistent nausea. Intermittently tolerating diet. Blood pressure improved now systolics around 130. Potassium normalized with replacement. Blood sugars at goal. No overnight fever chills. Continue diet advancement as tolerated. 08/05-patient doing better. Nausea improved. Able to tolerate small meals. Anticipate discharge in 24 hours if continues to improve clinically. No major concerns per staff 08/06-patient doing remarkably better. No overnight events. Persistent elevation systolic despite increasing dose olmesartan/addition of metoprolol and 5 mg amlodipine. Patient agreed close follow-up with primary care physician for better optimization of hypertension. Current systolics around 160. Patient may need follow-up with nephrology as outpatient for better optimization of resistant hypertension. Renal function improved creatinine 0.7 down from 1.3. Discharging with instructions and medications as below. Recommend follow-up with KAMRYN Hubbard Discharge diagnosis: . - Time Spent with Patient Total time spent providing and/or coordinating discharge services: Greater than 30 minutes Medical - DS: Exam - Constitutional Vitals: Vital Signs Temp Pulse Resp BP Pulse Ox 08/06/18 08:38 167/96 08/06/18 07:40 166/96 08/06/18 07:32 175/99 08/06/18 07:28 98.6 F 95 H 14 190/102 95 08/06/18 04:11 99.4 F H 82 20 143/85 92 08/06/18 02:25 86 133/78 93 08/06/18 00:17 99.7 F H 86 12 159/91 92 08/05/18 22:11 98.9 F 86 16 156/95 96 08/05/18 20:18 99.2 F H 98 H 14 176/99 97 08/05/18 18:00 98.4 F 92 H 17 151/94 96 08/05/18 15:51 98.7 F 84 15 163/96 93 08/05/18 13:18 162/94 08/05/18 11:32 98.0 F 16 164/93 94 08/05/18 10:00 164/92 Intake and Output 08/05/18 08/06/18 08/06/18 21:59 05:59 13:59 Intake Total 1360 475 Output Total 900 Balance 1360 -425 Intake: IV 1000 Dextrose 5%-1/2Ns W/20Meq KCl 1 1000 ,000 ml @ 75 mls/hr IV .[id number] [facility] Rx#:[id number] Oral 360 475 Output: Void Amount 900 Other: Urine Appearance Clear Urine Color Light Tracey Weight 259 lb Medical - DS: Data Labs on day of discharge: Labs from last 24 hours 08/06/18 08/06/18 04:32 04:32 WBC 6.7 RBC 4.25 L Hgb 12.6 L Hct 37.5 L MCV 88.2 MCH 29.7 MCHC 33.6 RDW 13.9 Plt Count 246 MPV 8.0 Gran % 64.0 Lymph % (Auto) 24.0 [place] % (Auto) 8.3 Eos % (Auto) 3.5 Baso % (Auto) 0.2 Gran # 4.3 Lymph # (Auto) 1.6 [place] # (Auto) 0.6 Eos # (Auto) 0.2 Baso # (Auto) 0 Sodium 136 Potassium 3.6 Chloride 100 Carbon Dioxide 26 Anion Gap 10.0 BUN 8 Creatinine 0.7 GFR Calculation 120 Glucose 162 H Uric Acid 6.2 Calcium 8.2 L Phosphorus 3.4 Magnesium 1.6 Total Bilirubin 0.7 Direct Bilirubin < 0.2 GGT 39 AST 44 H ALT 14 Alkaline Phosphatase 49 Lactate Dehydrogenase 164 Total Protein 5.7 L Albumin 3.2 Globulin 2.5 Albumin/Globulin Ratio 1.3 Triglycerides 113 Medical - DS: A/P - Patient/Caregiver Discharge Instructions Activity: increase activity as tolerated Diet: Consistent Carbohydrate Additional Instructions: I recommend close follow-up with PCP for better optimization of hypertension Schedule follow-up with PCP in 5-7 days Schedule follow-up with GI in 2 weeks Orquidea Hubbard Continue medication as advised below Titrate basal insulin based on a.m. fasting blood sugar Avoid alcohol Recommend weight loss to achieve a BMI less than 30 Review of the risk and side effect profile of medications. Side effects can be minimized with close follow-up with PCP and monitoring for adverse reaction. Prescriptions: Amitriptyline [Elavil] 25 mg PO HS #30 tab amLODIPine [Norvasc] 5 mg PO DAILY #30 tab Bismuth Subsalicylate [Pepto Bismol] 15 ml PO Q4HP PRN #30 oral.susp PRN Reason: Dyspepsia diphenhydrAMINE [Benadryl] 25 mg PO Q4-6HP PRN #20 cap PRN Reason: Allergic Symptoms Erythromycin Base [Erythromycin] 250 mg PO Q8 #60 tab Levemir 30 - 60 units SQ BID #1 Losartan [Cozaar] 50 mg PO BID #30 tab Metoclopramide [Reglan] 10 mg PO ACHS #30 tab Metoprolol Tartrate [Lopressor] 50 mg PO BID #60 tab Ondansetron [Zofran ODT] 4 mg SL Q4HP PRN #30 tab PRN Reason: Nausea And Vomiting Pantoprazole [Protonix] 40 mg PO QAMAC #30 tab Simethicone [Mylicon] 80 mg CHEWED QIDP PRN #30 tab.chew PRN Reason: Dyspepsia - Follow up Plan Follow up with: Berenice Mckeon [Primary Care Provider] - Disposition: Home, Self-Care Prognosis: Good Rehab Potential: Fair I certify that the patient requires SNF services: No Overall status at discharge: patient is progressing back to baseline Medical - DS: Qual - VTE Deep Vein Thrombosis/Pulmonary Embolism Present on Admission: No
[2018-08-06] MEDS: INSULIN LISPRO 1 UNIT/0.01 ML UNIT SQ SCH ×2 (09:58→11:14)
== END 2018-08-06 13:10 | disposition home or self-care (01) | DRG 103 ==
LOC: ED 05:08 → MEDSUR 11:00
PROVIDERS: ADMIT Internal Medicine; ATTEND Internal Medicine

== ENCOUNTER 2018-11-21 20:01 | Inpatient (IN) ==
[2018-11-21] MEDS ORDERED: ONDANSETRON 4 MG/2 ML VIAL IV ONE (20:29)
[2018-11-21] MEDS ORDERED: LACTATED RINGERS 1,000 ML IV ONE (20:29)
[2018-11-21] MEDS ORDERED: KETAMINE 10 MG/ML ML IV ONE (20:35)
[2018-11-21] MEDS ORDERED: MIDAZOLAM 2 MG/2 ML VIAL IV ONE (20:35)
--- NOTE | 2018-11-21 20:38 | Emergency Department Note ---
Nausea/Vomiting/Diarrhea HPI - General Chief complaint: Nausea/Vomiting/Diarrhea Stated complaint: Vomiting and Abdominal Pain Time Seen by Provider: 11/21/18 20:28 Source: patient Mode of arrival: ambulatory Limitations: no limitations - History of Present Illness HPI Narrative: 38-year-old male patient presents to the emergency Department second time today with chief complaint of intractable nausea and vomiting. He was seen earlier today for the same presentation. Please see my original ER note from earlier. For full complete history details. He has a considerable GI history of gastroparesis resulting in a cyclic vomiting and intractable nausea and vomiting. He was discharged earlier today with a diagnosis of intractable nausea and vomiting. She was supposed restarted on a benzodiazepine for consultation with GI specialist who recommended this. Unfortunately, he tells he was not able to take this medication. He's been actively retching ever since this time. - Related Data Previous Rx's Medication Instructions Recorded Amitriptyline [Elavil] 25 mg PO HS #30 tab 08/06/18 Bismuth Subsalicylate [Pepto 15 ml PO Q4HP PRN #30 oral.susp 08/06/18 Bismol] Levemir 30 - 60 units SQ BID #1 08/06/18 Losartan [Cozaar] 50 mg PO BID #30 tab 08/06/18 Metoclopramide [Reglan] 10 mg PO ACHS #30 tab 08/06/18 Metoprolol Tartrate [Lopressor] 50 mg PO BID #60 tab 08/06/18 Ondansetron [Zofran ODT] 4 mg SL Q4HP PRN #30 tab 08/06/18 Pantoprazole [Protonix] 40 mg PO QAMAC #30 tab 08/06/18 Simethicone [Mylicon] 80 mg CHEWED QIDP PRN #30 tab.chew 08/06/18 amLODIPine [Norvasc] 5 mg PO DAILY #30 tab 08/06/18 diphenhydrAMINE [Benadryl] 25 mg PO Q4-6HP PRN #20 cap 08/06/18 Prochlorperazine [Compazine] 12.5 mg [place] Q12HP PRN #7 supp.rect 10/12/18 Gabapentin [Neurontin] 100 mg PO TID #60 cap 10/14/18 Ondansetron [Zofran ODT] 4 mg SL Q4-6HP PRN #10 tab 11/19/18 LORazepam [Ativan] 1 mg PO TIDP PRN #20 tab 11/21/18 Allergies Allergy/AdvReac Type Severity Reaction Status Date / Time Penicillins [PENICILLINS] Allergy Intermediate HIVES Verified 11/21/18 09:33 Review of Systems All systems ED: reviewed and negative except as stated. Past Medical History - Past Medical History Medical history: Reports: asthma, DM, hypertension, other (history of gastropathy) Surgical history ED: Reports: non-contributory - Social History smoking status: Never smoker Alcohol use: Reports: None Drug use: Reports: none. Denies: marijuana (Denies) Physical Exam Limitations: no limitations, other (actively retching during the exam.) General appearance: alert, in distress, tearful Head: atraumatic, normocephalic Respiratory: Present: normal lung sounds bilaterally. Absent: respiratory distress, rales/crackles, wheezes, stridor, accessory muscle use, prolonged expiratory phase Cardiovascular: Present: regular rate, normal rhythm. Absent: systolic murmur, diastolic murmur Abdominal: Present: soft, tenderness, diminished bowel sounds. Absent: distention, guarding, rebound, rigidity Abdominal tenderness: Present: epigastrium, mild Extremities: Absent: pedal edema, pretibial edema, calf tenderness Neurological: Present: alert, oriented X3 Psychiatric: Present: normal affect, normal mood Course Course Narrative: Patient brought into the emergency department once again and a more focused history physical exam was performed. IV was established and basic laboratory studies are drawn rechecking his potassium level. He was given ketamine 50 mg and Versed 2 mg IVP in conjunction with 8 mg of Zofran to help with the nausea and vomiting. Upon reevaluation patient is asleep on the emergency room [place]. He is now having several apnea episodes that would decreased oxygenation. He is easily stimulated and instructed to breathe. His oxygen level increases to 9099 percent when breathing. He is no longer actively retching. His repeat Chem-8 panel did show hematocrit 33, persistent hyperkalemia 3.0, CO2 21, and ionized calcium 1.07, all others are normal limits. Unfortunately, after he woke back up. Began retching again. He is actively vomited 1. His blood pressures continued to stay elevated with systolic [id number]. He was given labetalol 20 mg IVP. Due to the patient's ongoing symptoms and return to the emergency Department I've reached out to the hospitalist service (Dr. Padilla) about the patient's need for admission and ongoing treatment. At this time he is recommended I speak to a licensed professional counselor about ongoing treatment options. I reached out to [facility] and spoke to the GI specialist (Dr. Stone) about the patient's intractable nausea/vomiting, gastroparesis, and potential cyclic vomiting syndrome. At this time Dr. Stone assured me that we are providing appropriate acute care for the patient's current condition. He had no other acute interventions that he could recommend other than perhaps providing a longer acting benzodiazepine. He mentioned that most treatments for patient's current condition are longer term solutions and the patient will need GI follow-up. I relayed this information to Dr. Padilla he said he be willing to admit the patient until he can be followed by GI. He recommended hydralazine 20 mg IV for the hypertension and capsaicin cream to his abdomen to help with the nausea/vomiting. These interventions are provided to the patient. At this time the patient is going to be admitted under the care of the hospitalist. All other treatment decision/modalities will be ordered by him. Vital Signs Temperature 97.0 F 11/21/18 20:12 Pulse Rate 111 H 11/21/18 20:12 Respiratory Rate 22 11/21/18 20:12 Blood Pressure 169/99 11/21/18 20:12 Pulse Oximetry (%) 100 11/21/18 20:12 Temperature 97.0 F 11/21/18 20:12 Pulse Rate 97 H 11/21/18 22:02 Respiratory Rate 14 11/21/18 22:02 Blood Pressure 189/122 11/21/18 22:02 Pulse Oximetry (%) 99 11/21/18 22:02 Nausea/Vomiting/Diarrhea - Lab Data Lab Results 11/21/18 Range/Units 21:05 POC Hct 33.0 L (41.0-55.0) % POC Sodium 142 (133-145) mmol/L POC Potassium 3.0 L (3.3-5.1) mmol/L POC Chloride 101 (96-108) mmol/L POC Total CO2 21 L (22-30) mmol/L POC BUN 9 (6-20) mg/dl POC Creatinine 0.9 (0.7-1.2) mg/dl POC Glucose 99 (70-105) mg/dL POC WB Ioniz Calcium 1.07 L (1.16-1.32) mmol/L Disposition Pt seen by [employer]/PA only: Yes Clinical Impression: Gastroparesis Intractable nausea and vomiting Qualifiers: Vomiting type: cyclical vomiting Qualified Code(s): G43.A1 - Cyclical vomiting, intractable Disposition: Xfer As Inpt ([facility]) Condition: Good Instructions: Gastroparesis (ED) Additional Instructions: Patient is going be admitted to the hospital under the care of the hospitalist service (Dr. Padilla). All ongoing treatment decisions and orders will be carried out by the hospitalist. Referrals: Berenice Mckeon [Primary Care Provider] - Time of Disposition: 23:38
[2018-11-21 21:21] LABS: POC Blood Urea Nitrogen 9 mg/dl (6-20); POC CO2 21 mmol/L (22-30); POC Calcium, Ionized 1.07 mmol/L (1.16-1.32); POC Chloride 101 mmol/L (96-108); POC Creatinine 0.9 mg/dl (0.7-1.2); POC Glucose, Random 99 mg/dL (70-105); POC Sodium 142 mmol/L (133-145)
[2018-11-21] MEDS ORDERED: LABETALOL 5 MG/ML ML IV ONE (22:07)
[2018-11-21] MEDS ORDERED: PROCHLORPERAZINE 10 MG/2 ML VIAL IV ONE (22:22)
[2018-11-21] MEDS ORDERED: hydrALAZINE 20 MG/ML VIAL IV ONE (23:26)
[2018-11-21] MEDS ORDERED: CAPSAICIN 0.025% CREAM.TOP 60GM TOPICAL ONE (23:32)
--- NOTE | 2018-11-22 00:45 | Internal Med History&Physical ---
Medical - H&P: [facility] Patient information: Note initiated : 11/22/18 at 12:44 am Service Date, if different from initiated Date: [] Patient: Wong Rangel 38 y/o M admitted on for Vomiting and Abdominal Pain. Chief Complaint: [] History of present illness: Mr. Rangel is a 38 year old M Mr. Rangel is a 38 year old M Presents the ED with nausea vomiting. This is been occurring since Monday morning. When he woke up. Went to bed feeling fine Monday night. No idea what might of triggered it. No change in medications or diet. He was in the ER earlier today and says he went home started having nausea vomiting again. Follows Dr. Aguilera. Is also went to [facility] about a month ago and is felt that a gastric pacemaker might be indicated and so is waiting for that decision to be made. Is missed several days of his blood pressure medications and is quite hypertensive in the ED. The ED was able unable to get his nausea vomiting under control. ED provider discussed case with wool washer at [facility] to did not have any further recommendations other than what we are doing. We will antiemetics including ketamine. Ketamine will make him drowsy and he will sleep and then wake up and have nausea again. Denies diarrhea or abdominal pain. No chest pain or shortness of breath. Review of Systems: Pertinent positives as above. Denies headache/fever/chills/chest or abdominal pain/cough/dyspnea/diarrhea. Remaining 10 point review of system reviewed negative. Medical - H&P: PMH Medical history: Gastroparesis (Acute) Pancreatitis (Acute) Intractable nausea and vomiting (Acute) Hypertension Diabetes Past surgical history: None Family history: States mother had heart disease and diabetes Father diabetes Social history: Patient denies tobacco Denies alcohol drug use marijuana, lives at home with girlfriend Medical - H&P: Meds Home Medications Medication Instructions Recorded Confirmed Type Amitriptyline [Elavil] 25 mg PO HS #30 tab 08/06/18 11/10/18 Rx Bismuth Subsalicylate [Pepto 15 ml PO Q4HP PRN #30 oral.susp 08/06/18 11/10/18 Rx Bismol] Levemir 30 - 60 units SQ BID #1 08/06/18 11/10/18 Rx Losartan [Cozaar] 50 mg PO BID #30 tab 08/06/18 11/10/18 Rx Metoclopramide [Reglan] 10 mg PO ACHS #30 tab 08/06/18 11/10/18 Rx Metoprolol Tartrate [Lopressor] 50 mg PO BID #60 tab 08/06/18 11/10/18 Rx Ondansetron [Zofran ODT] 4 mg SL Q4HP PRN #30 tab 08/06/18 11/10/18 Rx Pantoprazole [Protonix] 40 mg PO QAMAC #30 tab 08/06/18 11/10/18 Rx Simethicone [Mylicon] 80 mg CHEWED QIDP PRN #30 tab.chew 08/06/18 11/10/18 Rx amLODIPine [Norvasc] 5 mg PO DAILY #30 tab 08/06/18 11/10/18 Rx diphenhydrAMINE [Benadryl] 25 mg PO Q4-6HP PRN #20 cap 08/06/18 11/10/18 Rx Prochlorperazine [Compazine] 12.5 mg [place] Q12HP PRN #7 supp.rect 10/12/18 11/10/18 Rx Gabapentin [Neurontin] 100 mg PO TID #60 cap 10/14/18 11/10/18 Rx Ondansetron [Zofran ODT] 4 mg SL Q4-6HP PRN #10 tab 11/19/18 Rx LORazepam [Ativan] 1 mg PO TIDP PRN #20 tab 11/21/18 Rx Allergies Allergy/AdvReac Type Severity Reaction Status Date / Time Penicillins [PENICILLINS] Allergy Intermediate HIVES Verified 11/21/18 09:33 Medical - H&P: Exam - Constitutional Vitals: Temp Pulse Resp BP Pulse Ox 97.0 F 97 H 14 189/122 99 11/21/18 20:12 11/21/18 22:02 11/21/18 22:02 11/21/18 22:02 11/21/18 22:02 Exam: General: Alert, Awake, No acute Distress, obese Eyes/N/T: EOMI, PEERL, DMM Head/Neck: neck supple, normocephalic atraumatic CV: RRR, No murmurs, normal s1/s2 Pulm: Clear b/l, no wheezing/rhonchi/rales Abd: soft, nontender, +BS x4 Ext: no clubbing/cyanosis, trace b/l LE edema Neuro: Alert, no focal deficits, moves all extremities, CN 2-12 grossly intact, symmetrical strength b/l upper/lower, sensations intact b/l upper/lower Skin: warm/dry Medical - H&P: A/P - Narrative A/P Narrative: A: *N/V, intractable: 2/2 cyclic vomiting with underlying gastroparesis -ct abd remarkable *DM w/gastroparesis & neuropathy: -Is being evaluated at [facility] for gastric pacemaker *HTN Urgency: Uncontrolled, has not taken his medications for several days because of the nausea vomiting * P: -IVF's tonight, NPO -antiemetics including ativan and benadryl -reglan -may try erythromycin 250mg q8 -GI consult -cont home meds, prn IV's -home insulin and SSI -check UDS -ppx: lovenox
[2018-11-22] MEDS ORDERED: DEXTROSE 50% 50 ML VIAL IV PRN (01:13)
[2018-11-22] MEDS ORDERED: DEXTROSE 31 GM ORAL.SUSP PO PRN (01:13)
[2018-11-22] MEDS ORDERED: ACETAMINOPHEN 325 MG TABLET PO PRN (01:14)
[2018-11-22] MEDS ORDERED: IPRATROPIUM/ALBUTEROL 3 ML AMPUL.NEB NEB PRN (01:18)
[2018-11-22] MEDS ORDERED: POTASSIUM CHLORIDE 40 MEQ in DEXTROSE 5% IN WATER 500 ML IV PRN (01:22)
[2018-11-22] MEDS ORDERED: POTASSIUM CHLORIDE 20 MEQ/10 ML VIAL IV ONE (01:23)
[2018-11-22] MEDS ORDERED: ONDANSETRON 4 MG/2 ML VIAL ONE (01:23)
[2018-11-22] MEDS ORDERED: MAGNESIUM SULFATE 8.12 MEQ/2 ML VIAL IV PRN (01:24)
[2018-11-22] MEDS ORDERED: LORazepam 2 MG/ML VIAL IV PRN (01:24)
[2018-11-22] MEDS ORDERED: LACTULOSE 20 GM/30 ML ORAL.SOL PO PRN (01:24)
[2018-11-22] MEDS ORDERED: METOCLOPRAMIDE 10 MG/2 ML VIAL IV PRN (01:26)
[2018-11-22] MEDS ORDERED: POLYETHYLENE GLYCOL 3350 17 GM PACKET PO PRN (01:27)
[2018-11-22] MEDS ORDERED: SENNOSIDES 1 TABLET PO PRN (01:28)
[2018-11-22] MEDS ORDERED: ENALAPRILAT 2.5 MG/2 ML VIAL IV PRN (01:32)
[2018-11-22] MEDS ORDERED: LABETALOL 5 MG/ML ML IV PRN (01:34)
[2018-11-22] MEDS: POTASSIUM CHLORIDE 20 MEQ in 0.45 % SODIUM CHLORIDE 1,000 ML IV SCH ×2 (01:37→15:19)
[2018-11-22] MEDS ORDERED: POTASSIUM CHLORIDE 20 MEQ TABLET PO PRN ×2 (01:57→01:59)
[2018-11-22] MEDS ORDERED: LORazepam 2 MG/ML VIAL ONE (01:58)
[2018-11-22] MEDS ORDERED: MAGNESIUM SULFATE 2 GM/50 ML BAG IV PRN (04:10)
[2018-11-22] MEDS ORDERED: MAGNESIUM SULFATE 2 GM/50 ML BAG IV ONE (04:14)
[2018-11-22] MEDS ORDERED: METOCLOPRAMIDE 10 MG/2 ML VIAL ONE (04:28)
[2018-11-22] MEDS ORDERED: diphenhydrAMINE 50 MG/ML VIAL ONE (04:43)
[2018-11-22] MEDS ORDERED: hydrALAZINE 20 MG/ML VIAL ONE (04:44)
[2018-11-22] MEDS: hydrALAZINE 20 MG/ML VIAL IV PRN ×2 (04:45→07:53)
[2018-11-22] MEDS: 0.9 % SODIUM CHLORIDE 10 ML SYRINGE IV SCH ×3 (04:48→22:14)
[2018-11-22 06:35] LABS: Amphetamine Screen,Urine NONE DETECTED (NONDETECTED); Barbiturate Screen,Urine NONE DETECTED (NONDETECTED); Benzodiazepines Screen,Urine SUSPECT POSITIVE (NONDETECTED); Cannabinoid Screen,Urine NONE DETECTED (NONDETECTED); Cocaine Screen,Urine NONE DETECTED (NONDETECTED); Opiate Screen,Urine NONE DETECTED (NONDETECTED); Oxycodone, Urine Screen NONE DETECTED (NONDETECTED); Phencyclidine Screen,Urine NONE DETECTED (NONDETECTED)
[2018-11-22 06:48] LABS: Hematocrit 37.4 % (41.0-55.0); Hemoglobin 12.5 g/dL (13.5-16.5); Mean Cell Volume 87.4 fL (80.0-100.0); Mean Corpuscular HGB Conc 33.5 g/dL (31.0-36.0); Mean Platelet Volume 8.1 fL (7.4-10.4); Platelet Count 229 K/mcL (140-440); RBC 4.28 M/mcL (4.50-5.90); Red Cell Distribution Width 13.1 % (11.5-14.5); WBC 6.8 K/mcL (4.5-11.0)
[2018-11-22 07:24] LABS: ALT/SGPT 9 U/l (0-40); AST/SGOT 28 U/l (0-37); Albumin 3.5 gm/dL (3.2-5.2); Albumin/Globulin Ratio 1.1 (1.0-2.3); Alkaline Phosphatase 50 U/L (39-117); Bilirubin,Direct < 0.2 mg/dL (0.0-0.3); Bilirubin,Total 0.7 mg/dL (0.0-1.0); Blood Urea Nitrogen 10 mg/dl (6-20); Calcium 8.4 mg/dl (8.6-10.4); Carbon Dioxide 24 mmol/L (22-30); Chloride 97 mmol/L (96-108); Globulin 3.1 gm/dL (2.2-3.7); Glomerular Filtration Rate 107; Glucose 148 mg/dL (70-105); Lactate Dehydrogenase 213 U/L (94-250); Phosphorous 3.2 mg/dL (2.7-4.5); Triglycerides 87 mg/dl (<150); Uric Acid 6.8 mg/dL (2.5-8.0)
[2018-11-22] MEDS: PROCHLORPERAZINE 10 MG/2 ML VIAL IV PRN ×2 (07:26→21:30)
[2018-11-22] MEDS: ONDANSETRON 4 MG/2 ML VIAL IV PRN ×3 (07:26→19:18)
[2018-11-22] MEDS ORDERED: MAGNESIUM SULFATE 8.12 MEQ in DEXTROSE 5% IN WATER 50 ML IV ONE (07:29)
--- NOTE | 2018-11-22 07:29 | Internal Med Progress Note ---
Medical - PN: Subj Patient information: Note initiated : 11/22/18 at 7:25 am Service Date, if different from initiated Date: [] Patient: Wong Rangel 38 y/o M admitted on 11/22/18 for Vomiting and Abdominal Pain. Chief Complaint: [] Interval history: Mr. Rangel is a 38 year old M Mr. Rangel is a 38 year old M Presents the ED with nausea vomiting. This is been occurring since Monday morning. When he woke up. Went to bed feeling fine Monday night. No idea what might of triggered it. No change in medications or diet. He was in the ER earlier today and says he went home started having nausea vomiting again. Follows Dr. Aguilera. Is also went to [facility] about a month ago and is felt that a gastric pacemaker might be indicated and so is waiting for that decision to be made. Is missed several days of his blood pressure medications and is quite hypertensive in the ED. The ED was able unable to get his nausea vomiting under control. ED provider discussed case with craft worker at [facility] to did not have any further recommendations other than what we are doing. We will antiemetics including ketamine. Ketamine will make him drowsy and he will sleep and then wake up and have nausea again. Denies diarrhea or abdominal pain. No chest pain or shortness of breath. 11/22 No vomiting since last night, nausea through the night. Feels may be a little bit better. No other complaints. No abdominal pain. No diarrhea. Review of Systems: denies headache/fever/chills/chest or abdominal pain/cough/dyspnea/diarrhea. Otherwise see above. - Constitutional Vitals: Vital Signs Temp Pulse Resp BP Pulse Ox 98.2 F 97 H 16 166/80 96 11/22/18 04:29 11/21/18 22:02 11/22/18 04:29 11/22/18 04:29 11/22/18 04:29 Period Temp Pulse Resp BP Sys/Paz Pulse Ox Last 24 Hr 97.0 F-98.3 F 90-111 12-22 163-214/80-123 96-100 Intake and Output 11/21/18 11/22/18 11/22/18 21:59 05:59 13:59 Intake Total 1000 Output Total 900 Balance 100 Weight 127.006 kg 128.049 kg Intake & Output: Intake & Output 11/21/18 11/22/18 11/22/18 21:59 05:59 13:59 Intake Total 1000 Output Total 900 Balance 100 Weight 127.006 kg 128.049 kg Intake: IV 1000 Lactated Ringers 1,000 ml @ 1000 Wide Open IV [facility] Rx#: [id number] Output: Void Amount 900 Exam: General: Alert, Awake, No acute Distress, obese Eyes/N/T: EOMI, , Head/Neck: neck supple, CV: RRR, No murmurs, Pulm: Clear b/l, no wheezing/rhonchi/rales Abd: soft, nontender, +BS x4 Ext: no clubbing/cyanosis, trace b/l LE edema Neuro: Alert, no focal deficits, moves all extremities, Skin: warm/dry Medical - PN: Obj Da - Labs CBC & Chem 7: 11/22/18 04:15 11/22/18 04:15 Labs: Abnormal Lab Results 11/22/18 11/22/18 11/22/18 04:35 04:15 04:15 RBC 4.28 L Hgb 12.5 L Hct 37.4 L POC Hct POC Potassium POC Total CO2 Anion Gap 17.0 H Glucose 148 H Calcium 8.4 L POC WB Ioniz Calcium Magnesium 1.2 L U Benzodiazepines Scrn Suspect positive A 11/21/18 11/21/18 21:05 21:05 RBC Hgb Hct POC Hct 33.0 L POC Potassium 3.0 L POC Total CO2 21 L Anion Gap Glucose Calcium POC WB Ioniz Calcium 1.07 L Magnesium 1.1 L U Benzodiazepines Scrn Meds: Medications Acetaminophen (Tylenol) 650 mg PO Q6HP PRN PRN Reason: PAIN/FEVER > 101 Albuterol/Ipratropium (Duoneb) 3 ml NEB Q4HP PRN PRN Reason: Shortness Of Breath Dextrose (Dextrose 50%) 0 ml IV UD PRN PRN Reason: Hypoglycemia Diagnostic Test (Pha) (Accu-Chek) 1 each FS ACHS [facility] Diphenhydramine HCl (Benadryl) 25 mg IV Q4-6HP PRN PRN Reason: Anxiety Docusate Sodium (Colace) 100 mg PO BID [facility] Enalaprilat (Vasotec) 0 mg IV Q2H PRN PRN Reason: Hypertension Enoxaparin Sodium (Lovenox) 40 mg SQ DAILY [facility] Famotidine (Pepcid) 20 mg IV Q12 [facility] Glucose (Insta-Glucose) 15 gm PO PRN PRN PRN Reason: Hypoglycemia Hydralazine HCl (Apresoline) 0 mg IV Q2HP PRN PRN Reason: Hypertension Hydromorphone HCl (Dilaudid) 0 mg IV Q2HP PRN PRN Reason: Pain Potassium Chloride 40 meq/ (Dextrose) 520 mls @ 130 mls/hr IV PRN PRN PRN Reason: Potassium <3 Potassium Chloride 20 meq/ (Sodium Chloride) 1,010 mls @ 75 mls/hr IV .[id number] [facility] Last Admin: 11/22/18 01:37 Dose: 75 mls/hr Documented by: Magnesium Sulfate (Magnesium Sulfate) 2 gm in 50 mls @ 25 mls/hr IV PRN PRN PRN Reason: MAGNESIUM < OR = 1.7 Insulin Human Lispro (Humalog) 0 unit SQ ACHS [facility]; Protocol Labetalol HCl (Trandate) 0 mg IV Q2HP PRN PRN Reason: Hypertension Lactulose (Cephulac) 10 gm PO DAILYP PRN PRN Reason: Constipation Lorazepam (Ativan) 0.5 mg IV Q4-6HP PRN PRN Reason: ANXIETY/SEDATION Metoclopramide HCl (Reglan) 10 mg IV Q6HP PRN PRN Reason: Nausea And Vomiting Ondansetron HCl (Zofran) 4 mg IV Q4HP PRN PRN Reason: Nausea And Vomiting Polyethylene Glycol (Miralax) 17 gm PO DAILYP PRN PRN Reason: Constipation Potassium Chloride (Kdur) 40 meq PO PRN PRN PRN Reason: Potassium is 3-3.5 Potassium Chloride (Kdur) 40 meq PO PRN PRN PRN Reason: Potassium <3 Prochlorperazine (Compazine) 10 mg IV Q6HP PRN PRN Reason: Nausea And Vomiting Senna (Senokot) 2 tab PO HSP PRN PRN Reason: Constipation Sodium Chloride (Saline Flush) 10 ml IV Q8 [facility] Last Admin: 11/22/18 04:48 Dose: Not Given Documented by: Medical - PN: A/P - Time Spent With Patient Total time spent is greater than 50% in coordination of care (as documented) at patient's floor/unit and/or counseling patient: - Narrative A/P Narrative: A: *N/V, intractable: 2/2 cyclic vomiting with underlying gastroparesis -ct abd remarkable *DM w/gastroparesis & neuropathy: -Is being evaluated at [facility] for gastric pacemaker *HTN Urgency: Uncontrolled, has not taken his medications for several days because of the nausea vomiting * *Obesity: P: -clears as tolerated later today if improved, NPO now -antiemetics including ativan and benadryl -reglan -consider trying erythromycin 250mg q8 -GI consult -cont home meds, prn IV's -home insulin and SSI -check UDS -ppx: lovenox Medical - PN: Qual - Stroke Symptom Onset Unknown: No - VTE Deep Vein Thrombosis/Pulmonary Embolism Present on Admission: No
[2018-11-22] MEDS: HYDROmorphone 2 MG/ML VIAL IV PRN ×4 (07:50→22:21)
[2018-11-22] MEDS: INSULIN LISPRO 1 UNIT/0.01 ML UNIT SQ SCH ×4 (07:52→21:35)
[2018-11-22 07:59] LABS: Lymphocytes % 16 % (15-49); Monocytes % (Manual) 7 % (1-12); Platelet Estimate NORMAL (NORMAL); RBC Morphology NORMAL (NORMAL); Segmented Neutrophils % 77 % (38-78)
[2018-11-22] MEDS: FAMOTIDINE/PF 20 MG/2 ML VIAL IV SCH ×2 (08:48→22:14)
[2018-11-22] MEDS: METOCLOPRAMIDE 10 MG/2 ML VIAL IV SCH ×4 (08:49→23:42)
[2018-11-22] MEDS ORDERED: LEVEMIR SQ SCH (09:00)
[2018-11-22] MEDS: ENOXAPARIN 40 MG/0.4 ML SYRINGE SQ SCH (10:00)
[2018-11-22] MEDS: DOCUSATE SODIUM 100 MG CAPSULE PO SCH ×2 (10:06→22:13)
[2018-11-22] MEDS: LOSARTAN 50 MG TABLET PO SCH ×2 (10:06→22:13)
[2018-11-22] MEDS: GABAPENTIN 100 MG CAPSULE PO SCH ×3 (10:07→22:13)
[2018-11-22] MEDS: METOPROLOL TARTRATE 50 MG TABLET PO SCH ×2 (10:07→22:13)
[2018-11-22] MEDS: diphenhydrAMINE 50 MG/ML VIAL IV PRN ×2 (11:52→23:42)
--- NOTE | 2018-11-22 15:05 | Internal Medicine Consult Note ---
Medical - CN: HPI - Data of Consult Patient: known to practice within the last 3 years Consult date: 11/22/18 Requesting physician: Mahendra Padilla Primary Care Provider: Berenice Mckeon - Consult Narrative Reason for consult: intractable nausea and vomiting History of present illness: Mr. Rangel is a 38 year old diabetic who is admitted for intermittent episodes of intractable nausea and vomiting last 1-2 weeks at a time. He is not able to tell me how often they occur. I last saw him in consultation during a hospital admission in July and we suspected he had a component of cyclic vomiting syndrome in addition to diabetic gastroparesis. Notably, EGD at that time revealed a normal appearing patent and pylorus. 5 days ago he began to have nausea with bilious emesis. He had one episode of hematemesis with scant blood in his 2 days ago. Since that time he has been having dry heaves. We previously started him on amitriptyline 25 mg nightly as it is often very helpful for patients with cyclic vomiting. However, he tells me that he discontinued this medication shortly after starting it as he was told it would interact with one of his "blood pressure medications". In reviewing his medication list, he was on erythromycin at that time and I suspect he was told it may cause QT prolongation. He continues to have persistent symptoms despite taking metoclopramide ondansetron omeprazole and gabapentin. He has been reviewed by Dr. Zamora at [facility] gastroenterology for consideration of gastric pacer versus G POEM procedure. Placement has been delayed, awaiting insurance approval. He denies any headache nor history of migraine. He has not previously undergone imaging to check for intracranial pathology. Despite his persistent symptoms, he has not had any weight loss. He typically moves his bowels every 2 days. He has been afebrile. Urine drug screen was negative for marijuana. He had previously tried erythromycin, metoclopramide, scopolamine patch, prochlorperazine, promethazine, ketamine, and lorazepam. CC: Mahendra Mckeon, Dr. Pierce Butler, Dr. Walker Zamora at [facility] All systems: reviewed and no additional remarkable complaints except as stated (nausea, vomiting. Hypertension--unable to keep down antihypertensives) Medical - CN: PMH Medical history: Diabetes, hypertension, gastroparesis, nausea and vomiting, idiopathic pancreati tis Surgical history: none Social history: Lives at home. No alcohol or marijuana use. Nonsmoker. Medical - CN: Meds Home Medications Medication Instructions Recorded Confirmed Type Levemir 30 - 60 units SQ BID #1 08/06/18 11/22/18 Rx Losartan [Cozaar] 50 mg PO BID #30 tab 08/06/18 11/22/18 Rx Metoclopramide [Reglan] 10 mg PO ACHS #30 tab 08/06/18 11/22/18 Rx Metoprolol Tartrate [Lopressor] 50 mg PO BID #60 tab 08/06/18 11/22/18 Rx Ondansetron [Zofran ODT] 4 mg SL Q4HP PRN #30 tab 08/06/18 11/22/18 Rx Gabapentin [Neurontin] 100 mg PO TID #60 cap 10/14/18 11/22/18 Rx LORazepam [Ativan] 1 mg PO TIDP PRN #20 tab 11/21/18 11/22/18 Rx Allergies Allergy/AdvReac Type Severity Reaction Status Date / Time Penicillins [PENICILLINS] Allergy Intermediate HIVES Verified 11/21/18 09:33 Medical - CN: Exam - Constitutional Vitals: Temp Pulse Resp BP Pulse Ox 98.6 F 106 H 12 121/62 96 11/22/18 12:59 11/22/18 12:59 11/22/18 12:59 11/22/18 12:59 11/22/18 12:59 General appearance: cooperative, mild distress, obese - Head Head exam: Present: atraumatic, normal inspection, normocephalic - Eye Eye exam: Present: normal appearance - Neck Neck exam: Present: normal inspection - Respiratory Respiratory exam: Present: normal respiratory exam, CTAB. Absent: rhonchi, stridor, wheezes - Cardiovascular Cardiovascular exam: Present: normal rate and rhythm. Absent: clicks, diastolic murmur, gallop, systolic murmur - GI/Abdominal GI/Abdominal exam: Present: normal bowel sounds, soft. Absent: mass, organomegaly, rigid - Neurological Exam Additional comments: arousable to voice - Psychiatric Psychiatric exam: Present: flat affect, normal mood - Skin Skin exam: Present: dry, warm Medical - CN: Result - Labs CBC & Chem 7: 11/22/18 04:15 11/22/18 04:15 Labs: Short CBC 11/22/18 Range/Units 04:15 WBC 6.8 (4.5-11.0) K/mcL Hgb 12.5 L (13.5-16.5) g/dL Hct 37.4 L (41.0-55.0) % Plt Count 229 (140-440) K/mcL BMP 11/22/18 04:15 Sodium 138 Potassium 3.3 Chloride 97 Carbon Dioxide 24 BUN 10 Creatinine 0.9 Glucose 148 H Calcium 8.4 L Liver Function 11/22/18 Range/Units 04:15 Total Bilirubin 0.7 (0.0-1.0) mg/dL Direct Bilirubin < 0.2 (0.0-0.3) mg/dL GGT 14 (8-61) U/L AST 28 (0-37) U/l ALT 9 (0-40) U/l Alkaline Phosphatase 50 (39-117) U/L Albumin 3.5 (3.2-5.2) gm/dL Medical - CN: A/P (1) Intractable nausea and vomiting Status: Acute Assessment and plan: I reviewed his case with Dr. Daniel. We suspect that he has cyclic vomiting syndrome co-morbid with his gastroparesis. We will arrange for imaging of the brain to check for intracranial pathology. We discussed that tricyclics remained foundation for cyclic vomiting syndrome, even in those who do not have comorbid migraine. He has discontinued erythromycin, so risk of QT prolongation is minimal. However, if there is concern regarding QT prolongation, careful monitoring of a tricyclic serum level and serial EKG would be reasonable. Patient often require a serum level greater than 150 prior to achieving symptom control. In light of his history of gastroparesis, we will start him on nortriptyline 100mg nightly, which has fewer cholinergic effects than amitriptyline. It is possible to increase the dose beyond 1.5 mg/kg and careful monitoring in place. Some patients respond to combination therapy with an anticonvulsant, such as topiramate 100 mg daily. Co-every 10 200 mg twice daily also be helpful. He is on a beta augustine, which can be helpful in some patients with cyclic vomiting syndrome and adjunct to therapy. I offered to follow up with him as an outpatient as these therapies typically take 4-6 weeks to take effect. Dose titration can take several months. However, he is planning to follow-up with Dr. Butler and Dr. Zamora in the near future. We would be happy to see him again if problems arise.
[2018-11-22] MEDS ORDERED: NORTRIPTYLINE 25 MG CAPSULE PO SCH (21:00)
[2018-11-22] MEDS: INSULIN GLARGINE, HUMAN 1 UNIT/0.01 ML SQ SCH (22:13)
[2018-11-23 06:20] LABS: Basophils # (Auto) 0 K/mcL (0.0-0.3); Basophils % (Auto) 0.3 % (0.0-2.0); Eosinophils # (Auto) 0.1 K/mcL (0.0-0.7); Eosinophils % (Auto) 1.2 % (0.0-7.0); Granulocytes % (Auto) 66.8 % (38.0-78.0); Hematocrit 33.9 % (41.0-55.0); Hemoglobin 11.3 g/dL (13.5-16.5); Lymphocytes # (Auto) 1.6 K/mcL (1.5-4.8); Lymphocytes % (Auto) 23.1 % (15.5-49.0); Mean Cell Volume 88.1 fL (80.0-100.0); Mean Corpuscular HGB Conc 33.4 g/dL (31.0-36.0); Mean Platelet Volume 8.1 fL (7.4-10.4); Monocytes # (Auto) 0.6 K/mcL (0.1-0.9); Monocytes % (Auto) 8.6 % (1.0-12.0); Platelet Count 210 K/mcL (140-440); RBC 3.84 M/mcL (4.50-5.90); Red Cell Distribution Width 13.4 % (11.5-14.5)
[2018-11-23] MEDS: 0.9 % SODIUM CHLORIDE 10 ML SYRINGE IV SCH ×3 (06:20→21:42)
[2018-11-23] MEDS: METOCLOPRAMIDE 10 MG/2 ML VIAL IV SCH ×4 (06:20→23:08)
[2018-11-23] MEDS: diphenhydrAMINE 50 MG/ML VIAL IV PRN ×4 (06:20→23:08)
[2018-11-23 06:23] LABS: ALT/SGPT 7 U/l (0-40); AST/SGOT 28 U/l (0-37); Alkaline Phosphatase 48 U/L (39-117); Bilirubin,Direct < 0.2 mg/dL (0.0-0.3); Bilirubin,Total 0.7 mg/dL (0.0-1.0); Blood Urea Nitrogen 17 mg/dl (6-20); Calcium 8.4 mg/dl (8.6-10.4); Carbon Dioxide 25 mmol/L (22-30); Chloride 103 mmol/L (96-108); Globulin 2.9 gm/dL (2.2-3.7); Glomerular Filtration Rate 69; Glucose 111 mg/dL (70-105); Lactate Dehydrogenase 311 U/L (94-250); Phosphorous 3.4 mg/dL (2.7-4.5); Triglycerides 116 mg/dl (<150); Uric Acid 7.8 mg/dL (2.5-8.0)
[2018-11-23] MEDS: HYDROmorphone 2 MG/ML VIAL IV PRN ×4 (07:27→22:40)
[2018-11-23] MEDS: INSULIN LISPRO 1 UNIT/0.01 ML UNIT SQ SCH ×4 (07:31→21:37)
[2018-11-23] MEDS: POTASSIUM CHLORIDE 20 MEQ in 0.45 % SODIUM CHLORIDE 1,000 ML IV SCH ×3 (07:31→22:40)
[2018-11-23] MEDS: hydrALAZINE 20 MG/ML VIAL IV PRN (07:53)
[2018-11-23] MEDS: FAMOTIDINE/PF 20 MG/2 ML VIAL IV SCH ×2 (09:35→21:41)
[2018-11-23] MEDS: METOPROLOL TARTRATE 50 MG TABLET PO SCH ×2 (09:35→21:37)
[2018-11-23] MEDS: ENOXAPARIN 40 MG/0.4 ML SYRINGE SQ SCH (09:35)
[2018-11-23] MEDS: GABAPENTIN 100 MG CAPSULE PO SCH ×4 (09:35→21:37)
[2018-11-23] MEDS: DOCUSATE SODIUM 100 MG CAPSULE PO SCH ×2 (09:35→21:36)
[2018-11-23] MEDS: INSULIN GLARGINE, HUMAN 1 UNIT/0.01 ML SQ SCH ×2 (09:36→21:41)
[2018-11-23] MEDS: LOSARTAN 50 MG TABLET PO SCH ×2 (09:36→21:36)
[2018-11-23] MEDS: ONDANSETRON 4 MG/2 ML VIAL IV PRN (09:46)
--- NOTE | 2018-11-23 10:04 | Magnetic Resonance Report ---
CLINICAL INFORMATION: Nausea and vomiting. Question area postrema lesion of the brain COMPARISON: None. TECHNIQUE:Sagittal T1 FLAIR, axial T1 FLAIR, T2 FLAIR propeller, T2 propeller, gradient, diffusion, ADC and coronal T2 weighted images were acquired. FINDINGS: The ventricles, sulci, fissures and cisterns are normal in size and configuration - no extra-axial fluid collections or mass appreciated. There are 2 mm foci of ischemia in the right frontal white matter and left mina. No pathology seen in the region of the area postrema within the medulla. There is no restricted diffusion, edema, mass effect or hemorrhage. Signal void in cerebral arteries, extra-axial cranial nerves, pituitary and orbits are all normal. Paranasal sinuses are clear. IMPRESSION: Tiny foci of ischemia in the left mina and the deep right frontal white are matter which are almost certainly insignificant. The may be related to prior migraine headache episode. No cause identified for nausea and vomiting. Interpreted and Authenticated by: Bharat Alfonso 11/23/18
[2018-11-23] MEDS ORDERED: PROCHLORPERAZINE 10 MG/2 ML VIAL IV PRN (14:17)
[2018-11-23] MEDS ORDERED: POTASSIUM CHLORIDE 20 MEQ TABLET PO PRN ×2 (14:17)
[2018-11-23] MEDS ORDERED: MAGNESIUM SULFATE 2 GM/50 ML BAG IV PRN (14:17)
[2018-11-23] MEDS ORDERED: IPRATROPIUM/ALBUTEROL 3 ML AMPUL.NEB NEB PRN (14:17)
[2018-11-23] MEDS ORDERED: hydrALAZINE 20 MG/ML VIAL IV PRN (14:17)
[2018-11-23] MEDS ORDERED: SENNOSIDES 1 TABLET PO PRN (14:17)
[2018-11-23] MEDS ORDERED: DEXTROSE 50% 50 ML VIAL IV PRN (14:17)
[2018-11-23] MEDS ORDERED: DEXTROSE 31 GM ORAL.SUSP PO PRN (14:17)
[2018-11-23] MEDS ORDERED: LORazepam 2 MG/ML VIAL IV PRN (14:17)
[2018-11-23] MEDS ORDERED: ONDANSETRON 4 MG/2 ML VIAL IV PRN (14:17)
[2018-11-23] MEDS ORDERED: LABETALOL 5 MG/ML ML IV PRN (14:17)
[2018-11-23] MEDS ORDERED: POLYETHYLENE GLYCOL 3350 17 GM PACKET PO PRN (14:17)
[2018-11-23] MEDS ORDERED: LACTULOSE 20 GM/30 ML ORAL.SOL PO PRN (14:17)
[2018-11-23] MEDS ORDERED: POTASSIUM CHLORIDE 40 MEQ in DEXTROSE 5% IN WATER 500 ML IV PRN (14:17)
[2018-11-23] MEDS ORDERED: ACETAMINOPHEN 325 MG TABLET PO PRN (14:17)
--- NOTE | 2018-11-23 19:56 | Internal Med Progress Note ---
Medical - PN: Subj Patient information: Note initiated : 11/23/18 at 7:56 pm Service Date, if different from initiated Date: [] Patient: Wong Rangel a 38 y/o M admitted on 11/22/18 for Vomiting and Abdominal Pain. Chief Complaint: [] Interval history: Mr. Rangel is a 38 year old M Presents the ED with nausea vomiting. This is been occurring since Monday morning. When he woke up. Went to bed feeling fine Monday night. No idea what might of triggered it. No change in medications or diet. He was in the ER earlier today and says he went home started having nausea vomiting again. Follows Dr. Aguilera. Is also went to [facility] about a month ago and is felt that a gastric pacemaker might be indicated and so is waiting for that decision to be made. Is missed several days of his blood pressure medications and is quite hypertensive in the ED. The ED was able unable to get his nausea vomiting under control. ED provider discussed case with polishing pad mounter at [place] to did not have any [facility] recommendations other than what we are doing. We will antiemetics including ketamine. Ketamine will make him drowsy and he will sleep and then wake up and have nausea again. Denies diarrhea or abdominal pain. No chest pain or shortness of breath. 11/22 -No vomiting since last night, nausea through the night. Feels may be a little bit better. No other complaints. No abdominal pain. No diarrhea. 11/23-patient doing well. Improved nausea. Continuing on nortriptyline. MRI brain unremarkable except for evidence of ischemic changes in the mina. Case discussed with patient's girlfriend and patient in person. Anticipate discharge in 24 to 48 hours if continues to improve and able to tolerate diet. Patient will follow up with GI on discharge - Constitutional Vitals: Vital Signs Temp Pulse Resp BP Pulse Ox 98.3 F 83 16 154/95 94 11/23/18 18:47 11/23/18 18:47 11/23/18 18:47 11/23/18 18:47 11/23/18 18:47 Period Temp Pulse Resp BP Sys/Paz Pulse Ox Last 24 Hr 97.7 F-99.3 F 83-92 14-16 143-160/82-104 91-98 Intake and Output 11/23/18 11/23/18 11/23/18 05:59 13:59 21:59 Intake Total 1135 360 Balance 1135 360 Weight 283 lb 12.8 oz Patient Weight 11/24/18 05:59 Weight 283 lb 12.8 oz Intake & Output: Intake & Output 11/23/18 11/23/18 11/23/18 05:59 13:59 21:59 Intake Total 1135 360 Balance 1135 360 Weight 283 lb 12.8 oz Intake: IV 1010 Potassium Chloride 20 Meq In 1010 Sodium Chloride 0.45% 1,000 ml @ 75 mls/hr IV .[id number] [facility] Rx# :[id number] Oral 125 360 General appearance: no acute distress Exam: Denies headache Nonlabored breathing Minimal anxiety Resting comfortably Medical - PN: Obj Da - Labs CBC & Chem 7: 11/23/18 03:54 11/23/18 03:54 Labs: Abnormal Lab Results 11/23/18 11/23/18 11/22/18 03:54 03:54 04:35 RBC 3.84 L Hgb 11.3 L Hct 33.9 L POC Hct POC Potassium POC Total CO2 Anion Gap Creatinine 1.3 H Glucose 111 H Calcium 8.4 L POC WB Ioniz Calcium Magnesium Lactate Dehydrogenase 311 H Albumin 3.0 L U Benzodiazepines Scrn Suspect positive A 11/22/18 11/22/18 11/21/18 04:15 04:15 21:05 RBC 4.28 L Hgb 12.5 L Hct 37.4 L POC Hct POC Potassium POC Total CO2 Anion Gap 17.0 H Creatinine Glucose 148 H Calcium 8.4 L POC WB Ioniz Calcium Magnesium 1.2 L 1.1 L Lactate Dehydrogenase Albumin U Benzodiazepines Scrn 11/21/18 21:05 RBC Hgb Hct POC Hct 33.0 L POC Potassium 3.0 L POC Total CO2 21 L Anion Gap Creatinine Glucose Calcium POC WB Ioniz Calcium 1.07 L Magnesium Lactate Dehydrogenase Albumin U Benzodiazepines Scrn Meds: Medications Acetaminophen (Tylenol) 650 mg PO Q6HP PRN PRN Reason: PAIN/FEVER > 101 Albuterol/Ipratropium (Duoneb) 3 ml NEB Q4HP PRN PRN Reason: Shortness Of Breath Dextrose (Dextrose 50%) 0 ml IV UD PRN PRN Reason: Hypoglycemia Diagnostic Test (Pha) (Accu-Chek) 1 each FS ACHS [facility] Last Admin: 11/23/18 16:55 Dose: 1 each Documented by: Diphenhydramine HCl (Benadryl) 25 mg IV Q4-6HP PRN PRN Reason: Anxiety Last Admin: 11/23/18 17:38 Dose: 25 mg Documented by: Docusate Sodium (Colace) 100 mg PO BID [facility] Enalaprilat (Vasotec) 0 mg IV Q2H PRN PRN Reason: Hypertension Enoxaparin Sodium (Lovenox) 40 mg SQ DAILY [facility] Famotidine (Pepcid) 20 mg IV Q12 [facility] Gabapentin (Neurontin) 100 mg PO TID [facility] Last Admin: 11/23/18 15:22 Dose: Not Given Documented by: Glucose (Insta-Glucose) 15 gm PO PRN PRN PRN Reason: Hypoglycemia Hydralazine HCl (Apresoline) 0 mg IV Q2HP PRN PRN Reason: Hypertension Hydromorphone HCl (Dilaudid) 0 mg IV Q2HP PRN PRN Reason: Pain Last Admin: 11/23/18 16:54 Dose: 0.25 mg Documented by: Potassium Chloride 40 meq/ (Dextrose) 520 mls @ 130 mls/hr IV PRN PRN PRN Reason: Potassium <3 Magnesium Sulfate (Magnesium Sulfate) 2 gm in 50 mls @ 25 mls/hr IV PRN PRN PRN Reason: MAGNESIUM < OR = 1.7 Potassium Chloride 20 meq/ (Sodium Chloride) 1,010 mls @ 75 mls/hr IV .[id number] [facility] Insulin Glargine (Lantus) 30 unit SQ BID [facility] Insulin Human Lispro (Humalog) 0 unit SQ ACHS [facility]; Protocol Last Admin: 11/23/18 16:59 Dose: Not Given Documented by: Labetalol HCl (Trandate) 0 mg IV Q2HP PRN PRN Reason: Hypertension Lactulose (Cephulac) 10 gm PO DAILYP PRN PRN Reason: Constipation Lorazepam (Ativan) 0.5 mg IV Q4-6HP PRN PRN Reason: ANXIETY/SEDATION Losartan Potassium (Cozaar) 50 mg PO BID [facility] Metoclopramide HCl (Reglan) 10 mg IV Q6 [facility] Last Admin: 11/23/18 17:40 Dose: 10 mg Documented by: Metoprolol Tartrate (Lopressor) 50 mg PO BID [facility] Nortriptyline HCl (Pamelor) 100 mg PO HS [facility] Ondansetron HCl (Zofran) 4 mg IV Q4HP PRN PRN Reason: Nausea And Vomiting Last Admin: 11/23/18 16:54 Dose: 4 mg Documented by: Polyethylene Glycol (Miralax) 17 gm PO DAILYP PRN PRN Reason: Constipation Potassium Chloride (Kdur) 40 meq PO PRN PRN PRN Reason: Potassium is 3-3.5 Potassium Chloride (Kdur) 40 meq PO PRN PRN PRN Reason: Potassium <3 Prochlorperazine (Compazine) 10 mg IV Q6HP PRN PRN Reason: Nausea And Vomiting Senna (Senokot) 2 tab PO HSP PRN PRN Reason: Constipation Sodium Chloride (Saline Flush) 10 ml IV Q8 [facility] Medical - PN: A/P - Time Spent With Patient Total time spent is greater than 50% in coordination of care (as documented) at patient's floor/unit and/or counseling patient: 25 - 35 minutes - Narrative A/P Narrative: * N/V, intractable: 2/2 cyclic vomiting with underlying gastroparesis. GI recommends continuing nortriptyline. * DM w/gastroparesis & neuropathy: -Is being evaluated at [facility] for gastric pacemaker * HTN Urgency: Now resolved. Systolics much improved. Restarted home medications. * Obesity: Plan * Continue clears and advance as tolerated * Continue nortriptyline * Continue antiemetics/Benadryl * Insulin/sliding scale * Prophylaxis on Lovenox Medical - PN: Qual - Stroke Symptom Onset Unknown: No - VTE Deep Vein Thrombosis/Pulmonary Embolism Present on Admission: No
[2018-11-23] MEDS ORDERED: NORTRIPTYLINE 25 MG CAPSULE PO SCH (21:00)
[2018-11-23] MEDS ORDERED: LORazepam 1 MG TABLET PO PRN (22:04)
[2018-11-23] MEDS ORDERED: ONDANSETRON 4 MG ODT TABLET SL PRN (22:04)
[2018-11-23] MEDS: ENALAPRILAT 2.5 MG/2 ML VIAL IV PRN (23:17)
[2018-11-24] MEDS: METOCLOPRAMIDE 10 MG/2 ML VIAL IV SCH ×2 (05:30→12:52)
[2018-11-24] MEDS: diphenhydrAMINE 50 MG/ML VIAL IV PRN ×2 (05:30→12:53)
[2018-11-24] MEDS: 0.9 % SODIUM CHLORIDE 10 ML SYRINGE IV SCH ×2 (05:30→14:43)
[2018-11-24] MEDS: ENALAPRILAT 2.5 MG/2 ML VIAL IV PRN ×2 (07:47→10:45)
[2018-11-24] MEDS: INSULIN LISPRO 1 UNIT/0.01 ML UNIT SQ SCH ×2 (07:52→12:49)
[2018-11-24] MEDS ORDERED: ENOXAPARIN 40 MG/0.4 ML SYRINGE SQ SCH (09:00)
[2018-11-24] MEDS ORDERED: LOSARTAN 50 MG TABLET PO SCH (09:00)
[2018-11-24] MEDS ORDERED: METOPROLOL TARTRATE 25 MG TABLET PO SCH (09:00)
[2018-11-24] MEDS: FAMOTIDINE/PF 20 MG/2 ML VIAL IV SCH (10:33)
[2018-11-24] MEDS: LOSARTAN 50 MG TABLET PO SCH (10:33)
[2018-11-24] MEDS: METOPROLOL TARTRATE 50 MG TABLET PO SCH (10:33)
[2018-11-24] MEDS: DOCUSATE SODIUM 100 MG CAPSULE PO SCH (10:33)
[2018-11-24] MEDS: GABAPENTIN 100 MG CAPSULE PO SCH ×2 (10:33→14:48)
[2018-11-24] MEDS: INSULIN GLARGINE, HUMAN 1 UNIT/0.01 ML SQ SCH (10:34)
[2018-11-24] MEDS: POTASSIUM CHLORIDE 20 MEQ in 0.45 % SODIUM CHLORIDE 1,000 ML IV SCH (12:57)
--- NOTE | 2018-11-24 14:40 | Discharge Summary ---
Medical - DS: Prov Patient information: Note initiated : 11/24/18 at 2:38 pm Service Date, if different from initiated Date: [] Patient: Wong Rangel 38 y/o M admitted on 11/22/18 for Vomiting and Abdominal Pain. Chief Complaint: [] Date of admission: 11/22/18 01:06 Discharge date: 11/24/18 Primary care physician: Berenice Mckeon Consults: 11/21/18 23:12 Consult to Physician [CONS] Routine Comment: Consulting Provider: Mahendra Padilla Reason For Exam: Physician to Consult 11/22/18 Consult to Physician [CONS] Stat Comment: Consulting Provider: Orquidea Stubbs Reason For Exam: Physician to Consult Consult to Physician [CONS] Stat Comment: Consulting Provider: Conrad Daniel Reason For Exam: Physician to Consult Medical - DS: Meds - Discharge Medications Prescriptions: Nortriptyline [Pamelor] 100 mg PO HS #60 cap Transmission Status: Pending to [facility] Active and Home Medications: Home Medications Levemir 30 - 60 units SQ BID #1 08/06/18 [Rx Confirmed 11/22/18 Last Taken Unknown] Losartan [Cozaar] 50 mg PO BID #30 tab 08/06/18 [Rx Confirmed 11/22/18 Last Taken Unknown] Metoclopramide [Reglan] 10 mg PO ACHS #30 tab 08/06/18 [Rx Confirmed 11/22/18 Last Taken Unknown] Metoprolol Tartrate [Lopressor] 50 mg PO BID #60 tab 08/06/18 [Rx Confirmed 11/22/18 Last Taken Unknown] Ondansetron [Zofran ODT] 4 mg SL Q4HP PRN #30 tab 08/06/18 [Rx Confirmed 11/22/18 Last Taken Unknown] Gabapentin [Neurontin] 100 mg PO TID #60 cap 10/14/18 [Rx Confirmed 11/22/18 Last Taken Unknown] LORazepam [Ativan] 1 mg PO TIDP PRN #20 tab 11/21/18 [Rx Confirmed 11/22/18 Last Taken Unknown] Nortriptyline [Pamelor] 100 mg PO HS #60 cap 11/24/18 [Rx Last Taken Unknown] Medical - DS: Hosp Hospital Course: Discharge diagnosis * N/V, intractable: 2/2 cyclic vomiting with underlying gastroparesis. GI consulted and recommends continuing nortriptyline. Continue nortriptyline 100 mg at bedtime. Recommend following up with Orquidea Stubbs as outpatient. * DM w/gastroparesis & neuropathy: -Is being evaluated at [facility] for gastric pacemaker. Continue outpatient follow-up with GI for further care coordination * HTN Urgency: Now resolved. Continue home dose metoprolol/losartan Brief hospital course Mr. Rangel is a 38 year old M Presents the ED with nausea vomiting. This is been occurring since Monday morning. When he woke up. Went to bed feeling fine Monday night. No idea what might of triggered it. No change in medications or diet. He was in the ER earlier today and says he went home started having nausea vomiting again. Follows Dr. Aguilera. Is also went to [facility] about a month ago and is felt that a gastric pacemaker might be indicated and so is waiting for that decision to be made. Is missed several days of his blood pressure medications and is quite hypertensive in the ED. The ED was able unable to get his nausea vomiting under control. ED provider discussed case with slitting machine feeder at [place] to did not have any further recommendations other than what we are doing. We will antiemetics including ketamine. Ketamine will make him drowsy and he will sleep and then wake up and have nausea again. Denies diarrhea or abdominal pain. No chest pain or shortness of breath. 11/22 -No vomiting since last night, nausea through the night. Feels may be a little bit better. No other complaints. No abdominal pain. No diarrhea. 11/23-patient doing well. Improved nausea. Continuing on nortriptyline. MRI brain unremarkable except for evidence of ischemic changes in the mina. Case discussed with patient's girlfriend and patient in person. Anticipate discharge in 24 to 48 hours if continues to improve and able to tolerate diet. Patient will follow up with GI on discharge Discharge diagnosis: . - Time Spent with Patient Total time spent providing and/or coordinating discharge services: Greater than 30 minutes Medical - DS: Exam - Constitutional Vitals: Vital Signs Temp Pulse Pulse Resp BP Pulse Ox 11/24/18 12:43 97 F 20 169/103 97 11/24/18 10:40 172/106 11/24/18 07:31 98.2 F 18 161/101 93 11/24/18 03:52 98 F 16 146/96 94 11/23/18 23:21 97.9 F 77 18 162/95 96 11/23/18 21:24 80 16 11/23/18 18:47 98.3 F 83 16 154/95 94 11/23/18 16:53 97.7 F 16 152/99 91 Intake and Output 11/24/18 11/24/18 11/24/18 05:59 13:59 21:59 Intake Total 200 2019 Balance 200 2019 Intake: IV 2019 Potassium Chloride 20 Meq In 2019 Sodium Chloride 0.45% 1,000 ml @ 75 mls/hr IV .[id number] [facility] Rx# :[id number] Oral 200 Other: Urine Appearance Clear Urine Color Pale # Voids 1 Weight 283 lb 12.8 oz Medical - DS: A/P - Patient/Caregiver Discharge Instructions Activity: increase activity as tolerated Diet: Regular Diet Additional Instructions: Follow-up with KAMRYN Stubbs as outpatient Continue Pamelor 100 mg at bedtime Return to ER if worsening nausea vomiting Prescriptions: Nortriptyline [Pamelor] 100 mg PO HS #60 cap Transmission Status: Pending to [facility] - Follow up Plan Follow up with: Berenice Mckeon [Primary Care Provider] - Disposition: Home, Self-Care Prognosis: Good Rehab Potential: Fair I certify that the patient requires SNF services: No Overall status at discharge: patient is progressing back to baseline Medical - DS: Qual - VTE Deep Vein Thrombosis/Pulmonary Embolism Present on Admission: No
== END 2018-11-24 16:15 | disposition home or self-care (01) | DRG 74 ==
LOC: ED 20:01 → MEDSUR 11-22 01:05
PROVIDERS: ADMIT Internal Medicine; ATTEND Internal Medicine

== ENCOUNTER 2020-08-13 15:51 | Inpatient (IN) ==
[2020-08-13] MEDS ORDERED: diphenhydrAMINE 50 MG/ML VIAL IV ONE (16:01)
[2020-08-13] MEDS ORDERED: ONDANSETRON 4 MG/2 ML VIAL IV ONE ×2 (16:01→17:05)
[2020-08-13] MEDS ORDERED: 0.9 % SODIUM CHLORIDE 2,000 ML IV ONE (16:01)
[2020-08-13] MEDS ORDERED: PROCHLORPERAZINE 10 MG/2 ML VIAL IV ONE (16:08)
--- NOTE | 2020-08-13 16:19 | Emergency Department Note ---
Nausea/Vomiting/Diarrhea HPI General Chief complaint: Nausea/Vomiting/Diarrhea Stated complaint: gastroparesis Time Seen by Provider: 08/13/20 16:01 Source: patient Mode of arrival: ambulatory Limitations: no limitations History of Present Illness HPI Narrative: This is a 39-year-old male with gastroparesis and chronic cyclic vomiting syndrome who presents to our ER today with active nausea and vomiting started acutely this morning. He was seen at [facility] this morning and was discharged. Unclear if his symptoms had resolved at time of discharge. Per chart review, patient has poor medical compliance. He is a diabetic on subcutaneous insulin. He has not taken his Levemir this morning due to poor oral intake. He also has a history of GERD, currently not on PPI or H2 blockers. Upon interviewing the patient, the patient states that Benadryl and Compazine typically work for him. He is denying changes in bowel habits or diarrhea. Denies fever/chills/sweats. No new medications. He has been seen in our ER multiple times for the same. Related Data Previous Rx's Medication Instructions Recorded Levemir 30 - 60 units SQ BID #1 08/06/18 losartan 50 mg PO BID #30 tab 08/06/18 metoclopramide HCl 10 mg PO ACHS #30 tab 08/06/18 metoprolol tartrate 50 mg PO BID #60 tab 08/06/18 ondansetron 4 mg SL Q4HP PRN #30 tab 08/06/18 gabapentin 100 mg PO TID #60 cap 10/14/18 lorazepam 1 mg PO TIDP PRN #20 tab 11/21/18 nortriptyline 100 mg PO HS #60 cap 11/24/18 nortriptyline 25 mg PO QHS #30 cap 12/31/18 prochlorperazine maleate 10 mg PO Q6H PRN #20 tab 12/31/18 ondansetron 4 mg SL Q4HP PRN #20 tab 05/01/19 Allergies Allergy/AdvReac Type Severity Reaction Status Date / Time Penicillins [PENICILLINS] Allergy Intermediate HIVES Verified 05/04/19 21:46 Review of Systems ROS ROS Narrative: Narrative: All systems ED: reviewed and negative except as stated. [facility] N[facility] Patient History Narrative: Narrative: Medical/Surgical/Family History All Active Problems (Updated 08/13/20 @ 18:57 by Marika Hargrove PA-C) Gastroparesis (Acute) Pancreatitis (Acute) Intractable nausea and vomiting (Acute) Hypertension (Acute) Diabetic gastroparesis (Acute) Hypoxia, sleep related (Acute) Non compliance w medication regimen (Acute) Hypomagnesemia (Acute) Dehydration (Acute) Cyclical vomiting (Acute) Nausea & vomiting (Acute) Noncompliance (Acute) Medical History Gastroparesis Intractable nausea and vomiting Pancreatitis Social History Smoking Status: Never smoker Exam Narrative Narrative: General: AOx3, actively vomiting. HEENT: PERRLA, EOMI, normocephalic. Dry mucous membranes. Normal facies and normal dentition. Respiratory: No respiratory distress. Unlabored breathing. Heart: Regular rate and rhythm, no murmurs/clicks/rubs. Abdomen: Non-tender, Non distended, normal bowel tones. No organomegaly. Extremities: Warm and well perfused. No edema. DP 2+ bilaterally. No venous stasis. Neuro: No focal deficits. Cranial nerves II-XII normal. Skin: Warm dry, no rashes or lesions, no cyanosis. Psych: Normal mood and affect Heme/Lymph: No bruising General Limitations: no limitations Course Course Course Narrative: 39-year-old male with gastroparesis and cyclic vomiting syndrome presents with intractable nausea and vomiting. Reevaluation(s) Reevaluation #1: Establish IV and give IV fluids IV Compazine and Benadryl, Zofran Obtain Chem-8 Reevaluation #2: Creatinine is up to 1.8, which was 1.4 back in 05/03. Lipase is within normal limits. BUN is slightly elevated. Blood glucose is 268, but CO2 is within normal limits. Patient still endorsing a fair amount of nausea, but no vomiting upon reevaluation. He does have a history of GERD and is complaining of some heartburn. Will trial 20 mg IV famotidine and 5 mg IV Haldol to see if this abates his nausea and vomiting. Reevaluation #3: Patient still with intractable nausea. Has not vomited since evaluation here in the ER, but is very worried that if he returns home his sympt oms will not be controlled. He has received QT prolonging agents and EKG shows a QTC of 474 ms. At this time, given his intractable nausea that has not been controlled with IV antiemetics, and his acute kidney injury, I am contacting the hospitalist for admission. Awaiting Dr. Villagomez's call back. In the meantime will order a CMP and CBC. Vital Signs Vital signs: Vital Signs Temperature 97.3 F 08/13/20 15:53 Pulse Rate 96 H 08/13/20 15:53 Respiratory Rate 18 08/13/20 15:53 Blood Pressure 183/89 08/13/20 15:53 Pulse Oximetry (%) 99 08/13/20 15:53 Temperature 97.3 F 08/13/20 15:53 Pulse Rate 89 08/13/20 18:44 Respiratory Rate 18 08/13/20 15:53 Blood Pressure 155/92 08/13/20 16:51 Pulse Oximetry (%) 92 08/13/20 18:44 MDM MDM Narrative Medical decision making narrative: Intractable nausea and vomiting History of cyclic vomiting syndrome History of gastroparesis Patient continues to have intractable nausea in spite of multimodal IV antiemetics/H2 blockers. He has received 2 L of IV fluids for rehydration in setting of acute kidney injury. Concern is for ongoing nausea and vomiting once he is discharged home, as his symptoms are currently poorly controlled here in the ER. Dr. Villagomez, the hospitalist has accepted him for observation. Lab Data Result diagrams: 08/13/20 16:25 08/13/20 16:25 Labs: Lab Results 08/13/20 Range/Units 16:25 POC Hct 38 L (41-55) % POC Sodium 138 (133-145) mEq/L POC Potassium 4.5 (3.3-5.1) mEql/L POC Chloride 105 (96-108) mEq/L POC Total CO2 23 (22-30) mmol/L POC BUN 31 H (6-20) mg/dL POC Creatinine 1.8 H (0.6-1.2) mg/dL POC Glucose 268 H (70-105) mg/dL POC WB Ioniz Calcium 1.20 (1.16-1.32) mmEq/L Lipase 28 (7-60) U/L Discharge Plan Patient/Caregiver Discharge Instructions Pt seen by MASTER [facility]ACHT/PA only: Yes Clinical Impression: Intractable nausea and vomiting, Gastroparesis, Cyclical vomiting, Dehydration Activity Restrictions/Additional Instructions: You have been seen and evaluated for nausea and vomiting in the setting of your chronic gastroparesis. You were given IV Compazine and Benadryl, Zofran, famotidine, and Haldol. You were noted to be dehydrated on your labs with an elevated creatinine, and you were given 2 L of IV fluids. You had an EKG which showed normal sinus rhythm with a right bundle branch block, which is unchanged from previous EKG in 2020. At this time you are being discharged home. Should your nausea and vomiting worsen, then return to the emergency room for further evaluation and treatment. Patient Disposition: Xfer As Outpt/Obs ([facility]) Condition: Fair Follow up with: Ricardo Toth MD [Primary Care Provider] - Prescriptions: No Action losartan 50 MG tablet 50 mg PO BID Qty: 30 RF: 0 ondansetron 4 MG tablet 4 mg SL Q4HP PRN (Reason: Nausea And Vomiting) Qty: 30 RF: 0 metoclopramide HCl 10 MG tablet 10 mg PO ACHS Qty: 30 RF: 0 metoprolol tartrate 25 MG tablet 50 mg PO BID Qty: 60 RF: 0 Levemir 30 - 60 units SQ BID Qty: 1 RF: 0 gabapentin 100 MG capsule 100 mg PO TID Qty: 60 RF: 0 lorazepam 1 MG tablet 1 mg PO TIDP PRN (Reason: Vomiting) Qty: 20 RF: 0 nortriptyline 25 MG capsule 100 mg PO HS Qty: 60 RF: 0 prochlorperazine maleate 10 MG tablet 10 mg PO Q6H PRN (Reason: Nausea) Qty: 20 RF: 0 nortriptyline 25 MG capsule 25 mg PO QHS Qty: 30 RF: 0 ondansetron 4 MG tablet 4 mg SL Q4HP PRN (Reason: Nausea) Qty: 20 RF: 0
[2020-08-13 16:41] LABS: POC Blood Urea Nitrogen 31 mg/dL (6-20); POC CO2 23 mmol/L (22-30); POC Chloride 105 mEq/L (96-108); POC Creatinine 1.8 mg/dL (0.6-1.2); POC Glucose, Random 268 mg/dL (70-105); POC Hematocrit 38 % (41-55); POC Potassium 4.5 mEql/L (3.3-5.1); POC Sodium 138 mEq/L (133-145)
[2020-08-13] MEDS ORDERED: FAMOTIDINE/PF 20 MG/2 ML VIAL IV ONE (17:05)
[2020-08-13] MEDS ORDERED: HALOPERIDOL LACTATE 5 MG/ML VIAL IV ONE (17:11)
[2020-08-13] MEDS ORDERED: 0.9 % SODIUM CHLORIDE 1,000 ML IV ONE (18:05)
[2020-08-13 20:17] LABS: Hematocrit 37.8 % (41.0-55.0); Hemoglobin 12.6 g/dL (13.5-16.5); Mean Cell Volume 81.8 fL (80.0-100.0); Mean Corpuscular HGB Conc 33.3 g/dL (31.0-36.0); Mean Platelet Volume 10.5 fL (7.4-10.4); Platelet Count 324 K/mcL (140-440); RBC 4.62 M/mcL (4.50-5.90); Red Cell Distribution Width 13.3 % (11.5-14.5); WBC 11.1 K/mcL (4.5-11.0)
[2020-08-13 20:25] LABS: ALT/SGPT 8 U/L (<40); AST/SGOT 27 U/L (<40); Alkaline Phosphatase 84 U/L (39-117); Bilirubin,Total 0.2 mg/dL (0.1-1.0); Blood Urea Nitrogen 30 mg/dL (6-20); Calcium 9.6 mg/dL (8.6-10.4); Carbon Dioxide 19 mmol/L (22-30); Chloride 100 mmol/L (96-108); Globulin 3.9 gm/dL (2.2-3.7); Glomerular Filtration Rate 46; Glucose 264 mg/dL (70-105)
--- NOTE | 2020-08-13 20:43 | Internal Med History&Physical ---
HPI History of Present Illness Patient information: Note initiated : 08/13/20 at 8:43 pm Service Date, if different from initiated Date: [] Patient: Wong Rangel a 39 y/o M admitted on for Gastroparesis. Chief Complaint: [nausea vomiting and abdominal pain] History of present illness: Mr. Rangel is a 39 year old M history of type 2 diabetes mellitus, GERD, chronic kidney disease stage III, presenting with 1 day history of nausea and vomiting. Last prior similar episode was 2 months ago. Patient was in his usual state of health until earlier this morning when he had acute onset nausea and vomiting with epigastric abdominal pain. Vomitus desc ribed to be red. The pain is located in his epigastrium, 5/10 in severity, cramping in nature, constant. Patient had not been eating any food since symptoms onset. Denies any constipation or diarrhea. Denies any fever or chills. Denies any alleviating or exacerbating factors. Denies any introduction of new foods, sick contact, or recent travel. Due to his symptoms, he presented to [facility] ED but he was being discharged home with no prescriptions given. Patient's went to our ED for reevaluations. Vital signs significant for elevated blood pressures to 230/127 mmHg, rest of the vital signs within normal limits. Labs significant for leukocytosis with WBC 11.1. Chemistry significant for serum creatinine level of 1.8 with baseline 1.3. Blood glucose 264. Constitutional Constitutional: Absent chills, excessive sweating, fatigue, fever(s) and weakness EENT Eyes: Absent blurry vision, change in vision, loss of vision and other visual disturbances Ears: Absent decreased hearing and tinnitus Nose, mouth and throat: Absent abnormal hearing, dry mouth, headache(s), nasal congestion and sore throat Cardiovascular Cardiovascular: Absent chest pain, chest pain at rest, edema, irregular heart rhythm and palpatations Respiratory Respiratory: Absent cough, dyspnea and wheezing Gastrointestinal Gastrointestinal: Present abdominal pain, nausea and vomiting; Absent constipation and diarrhea Musculoskeletal Musculoskeletal: Absent back pain, deformity, limited range of motion, muscle cramps, muscle weakness and numbness Integumentary Integumentary: Absent lesions, rash and wounds Neurological Neurological: Absent focal weakness, headache(s) and numbness Psychiatric Psychiatric: Absent anxiety, depression and hallucinations PFSH PFSH All Active Problems (Updated 08/13/20 @ 20:52 by Roni Villagomez MD) GERD (gastroesophageal reflux disease) (Acute) Hypertension in stage 3 chronic kidney disease due to type 2 diabetes mellitus (Acute) Stage 1 acute kidney injury (Acute) Anemia, normocytic normochromic (Acute) Uncontrolled type 2 diabetes mellitus (Acute) Hypertensive urgency (Acute) Gastroparesis (Acute) Pancreatitis (Acute) Intractable nausea and vomiting (Acute) Hypertension (Acute) Diabetic gastroparesis (Acute) Hypoxia, sleep related (Acute) Non compliance w medication regimen (Acute) Hypomagnesemia (Acute) Dehydration (Acute) Cyclical vomiting (Acute) Nausea & vomiting (Acute) Noncompliance (Acute) Medical History Gastroparesis Intractable nausea and vomiting Pancreatitis MEDS/ALLERGIES Home Medications and Allergies Home Medications Medication Instructions Recorded Confirmed Type Levemir 30 - 60 units SQ BID #1 08/06/18 12/31/18 Rx losartan 50 mg PO BID #30 tab 08/06/18 12/31/18 Rx metoclopramide HCl 10 mg PO ACHS #30 tab 08/06/18 01/01/19 Rx metoprolol tartrate 50 mg PO BID #60 tab 08/06/18 12/31/18 Rx ondansetron 4 mg SL Q4HP PRN #30 tab 08/06/18 01/01/19 Rx gabapentin 100 mg PO TID #60 cap 10/14/18 12/31/18 Rx lorazepam 1 mg PO TIDP PRN #20 tab 11/21/18 12/31/18 Rx nortriptyline 100 mg PO HS #60 cap 11/24/18 12/31/18 Rx nortriptyline 25 mg PO QHS #30 cap 12/31/18 Rx prochlorperazine maleate 10 mg PO Q6H PRN #20 tab 12/31/18 01/01/19 Rx ondansetron 4 mg SL Q4HP PRN #20 tab 05/01/19 Rx Allergies Allergy/AdvReac Type Severity Reaction Status Date / Time Penicillins [PENICILLINS] Allergy Intermediate HIVES Verified 05/04/19 21:46 EXAM Constitutional Vitals: Temp Pulse Resp BP Pulse Ox 36.3 C 96 H 18 204/102 94 08/13/20 15:53 08/13/20 20:21 08/13/20 15:53 08/13/20 20:21 08/13/20 20:21 General appearance: cooperative and mild distress Head Head exam: Present atraumatic and normocephalic Eye Eye exam: Present EOMI and PERRL ENT ENT exam: Present mucous membranes moist, normal exam and normal external ear exam Neck Neck exam: Present normal inspection; Absent lymphadenopathy, tenderness and thyromegaly Respiratory Respiratory exam: Absent accessory muscle use, respiratory distress and wheezes Cardiovascular Cardiovascular exam: Present normal rate and rhythm; Absent JVD GI/Abdominal GI/Abdominal exam: Present normal bowel sounds and soft; Absent organomegaly and tenderness Rectal Rectal exam: Present deferred Extremities Exam Extremities exam: Present full ROM, normal capillary refill and normal inspection; Absent tenderness Neurological Exam Neurological exam: Present alert, CN II-XII intact and oriented X3; Absent motor sensory deficit Psychiatric Psychiatric exam: Present normal affect and normal mood; Absent anxious and depressed Skin Skin exam: Present dry and intact DATA Data Completed and Pending Labs: Labs from last 24 hours 08/13/20 08/13/20 08/13/20 16:25 16:25 16:25 WBC 11.1 H RBC 4.62 Hgb 12.6 L Hct 37.8 L POC Hct 38 L MCV 81.8 MCH 27.3 MCHC 33.3 RDW 13.3 Plt Count 324 MPV 10.5 H Platelet Estimate Pending RBC Morphology Pending POC Sodium 138 Sodium 138 POC Potassium 4.5 Potassium 4.5 POC Chloride 105 Chloride 100 Carbon Dioxide 19 L POC Total CO2 23 Anion Gap 19.0 H POC BUN 31 H BUN 30 H Creatinine 1.8 H POC Creatinine 1.8 H GFR Calculation 46 Glucose 264 H POC Glucose 268 H Calcium 9.6 POC WB Ioniz Calcium 1.20 Total Bilirubin 0.2 AST 27 ALT 8 Alkaline Phosphatase 84 Total Protein 7.9 Albumin 4.0 Globulin 3.9 H Albumin/Globulin Ratio 1.0 Lipase 28 A/P Assessment and plan (1) Intractable nausea and vomiting: Status: Acute (2) Hypertensive urgency: Status: Acute (3) Uncontrolled type 2 diabetes mellitus: Status: Acute (4) Anemia, normocytic normochromic: Status: Acute (5) Stage 1 acute kidney injury: Status: Acute (6) Hypertension in stage 3 chronic kidney disease due to type 2 diabetes mellitus: Status: Acute (7) GERD (gastroesophageal reflux disease): Status: Acute Narrative A/P Narrative: 1. Intractable nausea and vomiting: DDx: Diabetic gastroparesis vs cannabis hyperemesis vs bowel obstruction Admit to inpatient PCU UDS to rule out cannabis hyperemesis KUB to rule out bowel obstruction Zofran IV PRN nausea vomiting Reglan IV PRN nausea vomiting Phenergan IV PRN nausea vomiting Benadryl PRN nausea vomiting Haldol PRN nausea vomiting Capsaicin topical PRN nausea vomiting Clear liquid diet advance as tolerated to regular diabetic diet IV NS@150cc/hr 2. Stage 1 acute kidney injury in the context of chronic kidney disease III: Avoid nephrotoxic agents such as FELICIA-i or ARB IV NS@150cc/hr CMP in the morning to trend kidney functions 3. HTN urgency: Metoprolol tartrate 100mg PO BID Amlodipine 10mg PO daily Avoid nephrotoxic agents such as FELICIA-i or ARB Hydralazine 20mg IV q4-6hr PRN SBP>=180 and/or DBP>=110mmHg 4. Uncontrolled T2DM: HgA1c Hold oral hypoglycemics Lantus 120 unit SQ BID Medium sliding scale insulin AC HS Accu Chek AC HS Hypoglycemia protocol Clear liquid diet advance as tolerated to regular diabetic diet 5. GERD: Protonix PO 6. Anemia, normocytic normochromic: Iron panel Vitamin B12 level Folate level cbc w/ auto diff in the morning to trend H/H; transfuse pRBC if hemoglobin <7.0, active bleeding, or symptomatic GI ppx: Protonix PO DVT ppx: Heparin Code status: Full Prognosis: stable Disposition: inpatient PCU Time Spent With Patient Time: Total time spent is greater than 50% in coordination of care (as documented) at patient's floor/unit and/or counseling patient: Total time spent with greater than 50% in coordination of care (as documented) at patient's floor/unit and/or counseling patient:: 25 - 35 minutes
[2020-08-13 20:47] LABS: Eosinophils % (Manual) 2 % (0-7); Lymphocytes % 10 % (15-49); Monocytes % (Manual) 4 % (1-12); Platelet Estimate NORMAL (Normal); RBC Morphology NORMAL (Normal); Segmented Neutrophils % 84 % (38-78)
[2020-08-13] MEDS ORDERED: morphine 2 MG/ML VIAL IV PRN (21:52)
[2020-08-13] MEDS ORDERED: DEXTROSE 50% 50 ML VIAL IV PRN (21:52)
[2020-08-13] MEDS ORDERED: ACETAMINOPHEN 325 MG TABLET PO PRN (21:52)
[2020-08-13] MEDS ORDERED: PROMETHAZINE 25 MG TABLET PO PRN (21:52)
[2020-08-13] MEDS ORDERED: CAPSAICIN 0.025% CREAM.TOP 60GM TOPICAL PRN (21:52)
[2020-08-13] MEDS ORDERED: SENNOSIDES 1 TABLET PO PRN (21:52)
[2020-08-13] MEDS ORDERED: LACTULOSE 20 GM/30 ML ORAL.SOL PO PRN (21:52)
[2020-08-13] MEDS ORDERED: DEXTROSE 31 GM ORAL.SUSP PO PRN (21:52)
[2020-08-13] MEDS: METOCLOPRAMIDE 10 MG/2 ML VIAL IV PRN (21:59)
[2020-08-13 22:00] LABS: Appearance,Urine HAZY (Clear); Bilirubin,Urine NEG (Negative); Color,Urine YELLOW; Glucose,Urine (UA) >=500 mg/dL (Negative); Ketones,Urine 5 mg/dL (Negative); Leukocyte Esterase,Urine NEG /ug (Negative); Mucus,Urine FEW /hpf; Nitrate,Urine NEG (Negative); Protein,Urine >=500 mg/dL (Negative); Specific Gravity,Urine 1.016 (1.000-1.035); Urine Blood 0.03 mg/dL (Negative); Urine RBC 2 /hpf (0-3); Urine Squamous Epithelial Cell 4 /hpf (0-4); Urine WBC 3 /hpf (0-4); Urobilinogen,Urine NEG
[2020-08-13] MEDS ORDERED: METOCLOPRAMIDE 10 MG/2 ML VIAL ONE (22:00)
[2020-08-13] MEDS: HEPARIN 5,000 UNIT/ML VIAL SQ SCH (22:23)
[2020-08-13] MEDS: METOPROLOL TARTRATE 50 MG TABLET PO SCH ×2 (22:24→22:48)
[2020-08-13] MEDS: DOCUSATE SODIUM 100 MG CAPSULE PO SCH (22:24)
[2020-08-13] MEDS: 0.9 % SODIUM CHLORIDE 1,000 ML IV SCH (22:25)
[2020-08-13] MEDS: HALOPERIDOL LACTATE 5 MG/ML VIAL IV PRN (22:28)
[2020-08-13] MEDS: 0.9 % SODIUM CHLORIDE 10 ML SYRINGE IV SCH (22:47)
[2020-08-13] MEDS: INSULIN LISPRO 1 UNIT/0.01 ML UNIT SQ SCH (22:58)
[2020-08-13] MEDS: INSULIN GLARGINE, HUMAN 1 UNIT/0.01 ML SQ SCH (22:58)
[2020-08-13] MEDS: hydrALAZINE 20 MG/ML VIAL IV PRN (22:58)
[2020-08-13 23:18] LABS: Estimated Average Glucose(eAG) 249 mg/dL; Hemoglobin A1C 10.3 % Hgb (4.0-6.0)
[2020-08-13 23:21] LABS: ALT/SGPT 7 U/L (<40); AST/SGOT 26 U/L (<40); Albumin 3.7 gm/dL (3.2-5.2); Alkaline Phosphatase 80 U/L (39-117); Bilirubin,Total 0.2 mg/dL (0.1-1.0); Blood Urea Nitrogen 28 mg/dL (6-20); Carbon Dioxide 20 mmol/L (22-30); Chloride 103 mmol/L (96-108); Globulin 3.8 gm/dL (2.2-3.7); Glomerular Filtration Rate 62; Glucose 276 mg/dL (70-105)
[2020-08-14] MEDS: ONDANSETRON 4 MG/2 ML VIAL IV PRN ×3 (00:30→12:08)
[2020-08-14 01:07] LABS: Iron 52 ug/dL (61-157); TIBC Calculation 294 ug/dl (228-428); Transferrin % Saturation 18 % (20-50)
[2020-08-14] MEDS: hydrALAZINE 20 MG/ML VIAL IV PRN (03:10)
[2020-08-14] MEDS: HALOPERIDOL LACTATE 5 MG/ML VIAL IV PRN ×3 (03:10→12:08)
[2020-08-14] MEDS: METOCLOPRAMIDE 10 MG/2 ML VIAL IV PRN ×2 (05:08→11:33)
[2020-08-14] MEDS: 0.9 % SODIUM CHLORIDE 1,000 ML IV SCH ×3 (05:08→18:39)
[2020-08-14] MEDS: diphenhydrAMINE 12.5 MG/5 ML ORAL.SOL PO PRN ×3 (05:20→16:41)
[2020-08-14] MEDS: 0.9 % SODIUM CHLORIDE 10 ML SYRINGE IV SCH ×3 (05:30→20:28)
--- NOTE | 2020-08-14 05:44 | XRay Report ---
INDICATION: nausea vomiting; rule out bowel obstruction TECHNIQUE: Supine and upright abdomen. COMPARISON: Previous CT scans dated 12/31/2018 and 11/21/2018. Previous plain film examination dated 12/31/2018 FINDINGS:Gas and fecal material within the colon. No dilated gas-filled small bowel. No mechanical small bowel obstruction. No pneumoperitoneum. No biliary or portal venous gas. There is no pneumatosis. IMPRESSION: 1. Nonspecific and nonobstructive bowel gas pattern 2. Negative examination Interpreted and Authenticated by: Bharat Mendoza 08/14/20
[2020-08-14] MEDS ORDERED: METOPROLOL TARTRATE 5 MG/5 ML VIAL IV PRN (06:02)
[2020-08-14 06:38] LABS: Basophils # (Auto) 0.02 K/mcL (0.00-0.20); Basophils % (Auto) 0.2 % (0.0-2.0); Eosinophils # (Auto) 0 K/mcL (0.00-0.70); Eosinophils % (Auto) 0 % (0.0-7.0); Hematocrit 33.9 % (41.0-55.0); Hemoglobin 11.5 g/dL (13.5-16.5); Lymphocytes # (Auto) 0.83 K/mcL (1.50-4.80); Lymphocytes % (Auto) 7.3 % (15.0-49.0); Mean Cell Volume 81.1 fL (80.0-100.0); Mean Corpuscular HGB Conc 33.9 g/dL (31.0-36.0); Mean Platelet Volume 10.6 fL (7.4-10.4); Monocytes # (Auto) 0.27 K/mcL (0.10-0.90); Monocytes % (Auto) 2.4 % (1.0-12.0); Neutrophils % (Auto) 90.1 % (38.0-78.0); Platelet Count 285 K/mcL (140-440); RBC 4.18 M/mcL (4.50-5.90); Red Cell Distribution Width 13.5 % (11.5-14.5); WBC 11.3 K/mcL (4.5-11.0)
[2020-08-14] MEDS: INSULIN LISPRO 1 UNIT/0.01 ML UNIT SQ SCH ×4 (07:44→20:39)
[2020-08-14 07:49] LABS: ALT/SGPT 6 U/L (<40); AST/SGOT 23 U/L (<40); Albumin 3.5 gm/dL (3.2-5.2); Alkaline Phosphatase 71 U/L (39-117); Bilirubin,Total 0.2 mg/dL (0.1-1.0); Blood Urea Nitrogen 27 mg/dL (6-20); Calcium 8.7 mg/dL (8.6-10.4); Carbon Dioxide 18 mmol/L (22-30); Chloride 103 mmol/L (96-108); Globulin 3.4 gm/dL (2.2-3.7); Glomerular Filtration Rate 62; Glucose 289 mg/dL (70-105)
[2020-08-14] MEDS: PANTOPRAZOLE 40 MG TABLET PO SCH (09:41)
[2020-08-14] MEDS: DOCUSATE SODIUM 100 MG CAPSULE PO SCH ×2 (09:47→20:27)
[2020-08-14 09:51] LABS: Amphetamine Screen,Urine None detected; Barbiturate Screen,Urine None detected; Benzodiazepines Screen,Urine None detected; Cannabinoid Screen,Urine None detected; Cocaine Screen,Urine None detected; Opiate Screen,Urine None detected; Oxycodone, Urine Screen None detected; Phencyclidine Screen,Urine None detected
[2020-08-14] MEDS: INSULIN GLARGINE, HUMAN 1 UNIT/0.01 ML SQ SCH ×2 (09:52→20:40)
[2020-08-14] MEDS: HEPARIN 5,000 UNIT/ML VIAL SQ SCH ×2 (09:52→20:42)
--- NOTE | 2020-08-14 12:53 | EKG ---
[facility] Test Date: 2020-08-13 Pat Name: Wong Rangel Department: ED Room: Gender: Male [employer] Hostess: : 1980 Requested By: Marika Hargrove Order Number: [id number] Reading MD: Killian Willis M.D. Measurements Intervals [place] Rate: 93 P: 7 MT: 155 QRS: 58 QRSD: 146 T: 1 QT: 381 QTc: 474 Interpretive Statements Sinus rhythm Right bundle branch block NO PRIOR TRACING FOR COMPARISON Electronically Signed On 08-14-2020 12:52:59 PDT by Killian Willis M.D. /store/[email or web address]/[id number]
[2020-08-14] MEDS: METOPROLOL TARTRATE 50 MG TABLET PO SCH ×3 (13:03→20:27)
[2020-08-14] MEDS: amLODIPine 10 MG TABLET PO SCH ×2 (13:03→14:09)
[2020-08-14] MEDS ORDERED: ONDANSETRON 4 MG ODT TABLET SL PRN (14:00)
[2020-08-14] MEDS ORDERED: PROMETHAZINE 25 MG/ML VIAL IV PRN (14:06)
--- NOTE | 2020-08-14 14:06 | Internal Med Progress Note ---
SUBJECTIVE Subjective Patient information: Note initiated : 08/14/20 at 2:04 pm Service Date, if different from initiated Date: [] Patient: Wong Rangel a 39 y/o M admitted on 08/13/20 for Gastroparesis. Chief Complaint: [] \ History of present illness: Mr. Rangel is a 39 year old M history of type 2 diabetes mellitus, GERD, chronic kidney disease stage III, presenting with 1 day history of nausea and vomiting. Last prior similar episode was 2 months ago. Patient was in his usual state of health until earlier this morning when he had acute onset nausea and vomiting with epigastric abdominal pain. Vomitus described to be red. The pain is located in his epigastrium, 5/10 in severity, cramping in nature, constant. Patient had not been eating any food since symptoms onset. Denies any constipation or diarrhea. Denies any fever or chills. Denies any alleviating or exacerbating factors. Denies any introduction of new foods, sick contact, or recent travel. Due to his symptoms, he presented to [facility] ED but he was being discharged home with no prescriptions given. Patient's went to our ED for reevaluations. Vital signs significant for elevated blood pressures to 230/127 mmHg, rest of the vital signs within normal limits. Labs significant for leukocytosis with WBC 11.1. Chemistry significant for serum creatinine level of 1.8 with baseline 1.3. Blood glucose 264. 6/4: Still c/o nausea and vomiting. Still cannot tolerating oral intake at all. Fasting glucose 289. Blood pressure: 181/77mmHg. Constitutional Vitals: Vital Signs Temp Pulse Resp BP Pulse Ox 37.1 C 114 H 16 181/77 95 08/14/20 08:00 08/14/20 12:01 08/14/20 08:00 08/14/20 12:01 08/14/20 12:01 Period Temp Pulse Resp BP Sys/Paz Pulse Ox Last 24 Hr 36.3 C-37.1 C 87-117 16-22 155-230/77-138 90-100 Intake and Output 08/14/20 08/14/20 08/14/20 05:59 13:59 21:59 Intake Total 1000 1000 Output Total 550 Balance 1000 450 Intake & Output: Intake & Output 08/14/20 08/14/20 08/14/20 05:59 13:59 21:59 Intake Total 1000 1000 Output Total 550 Balance 1000 450 Intake: IV 1000 1000 Sodium Chloride 0.9% 1,000 ml @ 1000 1000 150 mls/hr IV .Q6H40M [facility] Rx#: [id number] Oral 0 Output: Void Amount 550 Other: Urine Appearance Clear Urine Color Bright Yellow Urine Odor Normal # Voids 1 General appearance: cooperative and no acute distress Head Head exam: Present atraumatic and normocephalic Eye Eye exam: Present EOMI and PERRL ENT ENT exam: Present mucous membranes moist, normal exam and normal external ear exam Neck Neck exam: Present normal inspection; Absent lymphadenopathy, tenderness and thyromegaly Respiratory Respiratory exam: Absent accessory muscle use, respiratory distress and wheezes Cardiovascular Cardiovascular exam: Present normal rate and rhythm; Absent JVD GI/Abdominal GI/Abdominal exam: Present normal bowel sounds and soft; Absent organomegaly and tenderness Rectal Rectal exam: Present deferred Extremities Exam Extremities exam: Present full ROM, normal capillary refill and normal inspection; Absent tenderness Neurological Exam Neurological exam: Present alert, CN II-XII intact and oriented X3; Absent motor sensory deficit Psychiatric Psychiatric exam: Present normal affect and normal mood; Absent anxious and depressed Skin Skin exam: Present dry and intact OBJ DATA Labs CBC & Chem 7: 08/14/20 04:58 08/14/20 04:57 Labs: Abnormal Lab Results 08/14/20 08/14/20 08/13/20 04:58 04:57 22:11 WBC 11.3 H RBC 4.18 L Hgb 11.5 L Hct 33.9 L POC Hct MPV 10.6 H Neut % (Auto) 90.1 H Lymph % (Auto) 7.3 L Lymph # (Auto) 0.83 L Seg Neutrophils % Lymphocytes % Absolute Neutrophils 10.21 H Carbon Dioxide 18 L 20 L Anion Gap POC BUN BUN 27 H 28 H Creatinine 1.4 H 1.4 H POC Creatinine Glucose 289 H 276 H POC Glucose Hemoglobin A1c 10.3 H Iron 52 L Transferrin % Sat 18 L Globulin 3.8 H Urine Appearance Urine Protein Urine Glucose (UA) Urine Ketones Urine Mucus 08/13/20 08/13/20 08/13/20 20:00 16:25 16:25 WBC 11.1 H RBC Hgb 12.6 L Hct 37.8 L POC Hct MPV 10.5 H Neut % (Auto) Lymph % (Auto) Lymph # (Auto) Seg Neutrophils % 84 H Lymphocytes % 10 L Absolute Neutrophils Carbon Dioxide 19 L Anion Gap 19.0 H POC BUN BUN 30 H Creatinine 1.8 H POC Creatinine Glucose 264 H POC Glucose Hemoglobin A1c Iron Transferrin % Sat Globulin 3.9 H Urine Appearance Hazy A Urine Protein >=500 A Urine Glucose (UA) >=500 A Urine Ketones 5 A Urine Mucus Few A 08/13/20 16:25 WBC RBC Hgb Hct POC Hct 38 L MPV Neut % (Auto) Lymph % (Auto) Lymph # (Auto) Seg Neutrophils % Lymphocytes % Absolute Neutrophils Carbon Dioxide Anion Gap POC BUN 31 H BUN Creatinine POC Creatinine 1.8 H Glucose POC Glucose 268 H Hemoglobin A1c Iron Transferrin % Sat Globulin Urine Appearance Urine Protein Urine Glucose (UA) Urine Ketones Urine Mucus Meds: Medications Acetaminophen (Acetaminophen 325 Mg Tablet) 650 mg PO Q6HP PRN; Protocol PRN Reason: Per Pain Protocol/Fever > 101 Amlodipine Besylate (Amlodipine 10 Mg Tablet) 10 mg PO DAILY [facility] Last Admin: 08/14/20 13:03 Dose: Not Given Documented by: Capsaicin (Capsaicin 0.025% Cream.Top 60gm) 1 dose TOPICAL QIDP PRN PRN Reason: Nausea And Vomiting Last Admin: 08/14/20 12:28 Dose: 1 dose Documented by: Dextrose (Dextrose 50% 50 Ml Vial) 0 ml IV UD PRN PRN Reason: Hypoglycemia Diagnostic Test (Pha) (Accu-Chek 1 Each Strip) 1 each FS ACHS [facility] Last Admin: 08/14/20 12:36 Dose: 1 each Documented by: Diphenhydramine HCl (Diphenhydramine 12.5 Mg/5 Ml Oral.Jennifer) 25 mg PO Q4HP PRN PRN Reason: Nausea And Vomiting Last Admin: 08/14/20 05:20 Dose: 25 mg Documented by: Docusate Sodium (Docusate Sodium 100 Mg Capsule) 100 mg PO BID [facility] Last Admin: 08/14/20 09:47 Dose: Not Given Documented by: Gabapentin (Gabapentin 100 Mg Capsule) 100 mg PO TID [facility] Glucose (Dextrose 31 Gm Oral.Susp) 15 gm PO PRN PRN PRN Reason: Hypoglycemia Haloperidol Lactate (Haloperidol Lactate 5 Mg/Ml Vial) 2 mg IV Q4HP PRN PRN Reason: Nausea And Vomiting Last Admin: 08/14/20 12:08 Dose: 2 mg Documented by: Heparin Sodium (Porcine) (Heparin 5,000 Unit/Ml Vial) 5,000 unit SQ Q12 [facility] Last Admin: 08/14/20 09:52 Dose: 5,000 unit Documented by: Sodium Chloride (Sodium Chloride 0.9%) 1,000 mls @ 150 mls/hr IV .Q6H40M [facility] Last Admin: 08/14/20 12:00 Dose: 150 mls/hr Documented by: Insulin Glargine (Insulin Glargine, Human 1 Unit/0.01 Ml) 120 unit SQ BID [facility] Last Admin: 08/14/20 09:52 Dose: 120 units Documented by: Insulin Human Lispro (Insulin Lispro 1 Unit/0.01 Ml Unit) 0 unit SQ [facility]; Protocol Last Admin: 08/14/20 12:42 Dose: 8 units Documented by: Lactulose (Lactulose 20 Gm/30 Ml Oral.Jennifer) 10 gm PO DAILYP PRN PRN Reason: Constipation Metoclopramide HCl (Metoclopramide 10 Mg/2 Ml Vial) 10 mg IV Q6HP PRN PRN Reason: Nausea And Vomiting Last Admin: 08/14/20 11:33 Dose: 10 mg Documented by: Metoclopramide HCl (Metoclopramide 10 Mg Tablet) 10 mg PO [facility] Metoprolol Tartrate (Metoprolol Tartrate 50 Mg Tablet) 100 mg PO BID [facility] Last Admin: 08/14/20 13:03 Dose: Not Given Documented by: Morphine Sulfate (Morphine 2 Mg/Ml Vial) 2 mg IV Q4HP PRN PRN Reason: Severe Pain Last Admin: 08/14/20 12:25 Dose: 2 mg Documented by: Ondansetron HCl (Ondansetron 4 Mg/2 Ml Vial) 4 mg IV Q4HP PRN; Protocol PRN Reason: Nausea And Vomiting Last Admin: 08/14/20 12:08 Dose: 4 mg Documented by: Ondansetron HCl (Ondansetron 4 Mg Odt Tablet) 4 mg SL Q4HP PRN PRN Reason: Nausea And Vomiting Pantoprazole Sodium (Pantoprazole 40 Mg Tablet) 40 mg PO [facility] Last Admin: 08/14/20 09:41 Dose: Not Given Documented by: Promethazine HCl (Promethazine 25 Mg Tablet) 25 mg PO Q6HP PRN; Protocol PRN Reason: Nausea And Vomiting Senna (Sennosides 1 Tablet) 2 tab PO HSP PRN PRN Reason: Constipation Sodium Chloride (0.9 % Sodium Chloride 10 Ml Syringe) 10 ml IV Q8 [facility] Last Admin: 08/14/20 05:30 Dose: Not Given Documented by: Verapamil HCl (Verapamil 180 Mg Tab.Xl.24h) 180 mg PO BID [facility] A/P Assessment and plan (1) Intractable nausea and vomiting: Status: Acute (2) Hypertensive urgency: Status: Acute (3) Uncontrolled type 2 diabetes mellitus: Status: Acute (4) Anemia, normocytic normochromic: Status: Acute (5) Stage 1 acute kidney injury: Status: Acute (6) Hypertension in stage 3 chronic kidney disease due to type 2 diabetes mellitus: Status: Acute (7) GERD (gastroesophageal reflux disease): Status: Acute Narrative A/P Narrative: 1. Intractable nausea and vomiting: DDx: Diabetic gastroparesis vs cannabis hyperemesis vs bowel obstruction Stays in inpatient PCU UDS to rule out cannabis hyperemesis KUB to rule out bowel obstruction Zofran IV PRN nausea vomiting Reglan IV PRN nausea vomiting Phenergan IV PRN nausea vomiting Benadryl PRN nausea vomiting Haldol PRN nausea vomiting Capsaicin topical PRN nausea vomiting Clear liquid diet advance as tolerated to regular diabetic diet IV NS@150cc/hr 2. Stage 1 acute kidney injury in the context of chronic kidney disease III: Avoid nephrotoxic agents such as FELICIA-i or ARB IV NS@150cc/hr CMP in the morning to trend kidney functions 3. HTN urgency: Metoprolol tartrate 100mg PO BID Amlodipine 10mg PO daily Avoid nephrotoxic agents such as FELICIA-i or ARB Hydralazine 20mg IV q4-6hr PRN SBP>=180 and/or DBP>=110mmHg 4. Uncontrolled T2DM: HgA1c Hold oral hypoglycemics Lantus 120 unit SQ BID Medium sliding scale insulin AC HS Accu Chek AC HS Hypoglycemia protocol Clear liquid diet advance as tolerated to regular diabetic diet 5. GERD: Protonix PO 6. Anemia, normocytic normochromic: Iron panel Vitamin B12 level Folate level cbc w/ auto diff in the morning to trend H/H; transfuse pRBC if hemoglobin <7.0, active bleeding, or symptomatic GI ppx: Protonix PO DVT ppx: Heparin Code status: Full Prognosis: stable Disposition: inpatient PCU Time Spent With Patient Time: Total time spent is greater than 50% in coordination of care (as doc umented) at patient's floor/unit and/or counseling patient: QUALITY VTE Deep Vein Thrombosis/Pulmonary Embolism Present on Admission: No
[2020-08-14] MEDS: GABAPENTIN 100 MG CAPSULE PO SCH ×2 (16:47→20:28)
[2020-08-14] MEDS: VERAPAMIL 180 MG TAB.XL.24H PO SCH ×2 (18:16→20:27)
[2020-08-14] MEDS: METOCLOPRAMIDE 10 MG TABLET PO SCH ×2 (18:28→20:42)
[2020-08-14] MEDS ORDERED: LEVEMIR SQ SCH (21:00)
[2020-08-15] MEDS: 0.9 % SODIUM CHLORIDE 1,000 ML IV SCH ×4 (02:15→23:01)
[2020-08-15] MEDS: 0.9 % SODIUM CHLORIDE 10 ML SYRINGE IV SCH ×3 (05:02→21:22)
[2020-08-15 07:06] LABS: ALT/SGPT 6 U/L (<40); AST/SGOT 24 U/L (<40); Albumin 3.1 gm/dL (3.2-5.2); Albumin/Globulin Ratio 1.1 (1.0-2.3); Alkaline Phosphatase 58 U/L (39-117); Bilirubin,Total 0.2 mg/dL (0.1-1.0); Blood Urea Nitrogen 30 mg/dL (6-20); Calcium 8.3 mg/dL (8.6-10.4); Carbon Dioxide 23 mmol/L (22-30); Chloride 111 mmol/L (96-108); Globulin 2.9 gm/dL (2.2-3.7); Glomerular Filtration Rate 49; Glucose 75 mg/dL (70-105)
[2020-08-15] MEDS: INSULIN LISPRO 1 UNIT/0.01 ML UNIT SQ SCH ×4 (07:55→21:15)
[2020-08-15] MEDS: PANTOPRAZOLE 40 MG TABLET PO SCH (08:59)
[2020-08-15] MEDS: VERAPAMIL 180 MG TAB.XL.24H PO SCH ×2 (08:59→21:22)
[2020-08-15] MEDS: METOPROLOL TARTRATE 50 MG TABLET PO SCH ×2 (09:00→21:22)
[2020-08-15] MEDS: amLODIPine 10 MG TABLET PO SCH (09:00)
[2020-08-15] MEDS: GABAPENTIN 100 MG CAPSULE PO SCH ×3 (09:00→21:22)
[2020-08-15] MEDS: METOCLOPRAMIDE 10 MG TABLET PO SCH ×4 (09:00→21:22)
[2020-08-15] MEDS: HEPARIN 5,000 UNIT/ML VIAL SQ SCH ×2 (09:01→21:22)
[2020-08-15] MEDS: DOCUSATE SODIUM 100 MG CAPSULE PO SCH ×2 (09:01→21:22)
[2020-08-15 11:56] LABS: Bilirubin,Direct 0.2 mg/dL (<0.3); Lactate Dehydrogenase 230 U/L (135-225); Phosphorous 3.4 mg/dL (2.5-4.5); Triglycerides 98 mg/dL (<150)
[2020-08-15] MEDS: INSULIN GLARGINE, HUMAN 1 UNIT/0.01 ML SQ SCH ×2 (12:10→21:16)
--- NOTE | 2020-08-15 12:32 | Internal Med Progress Note ---
SUBJECTIVE Subjective Patient information: Note initiated : 08/15/20 at 12:26 pm Service Date, if different from initiated Date: [] Patient: Wong Rangel a 39 y/o M admitted on 08/13/20 for Gastroparesis. Chief Complaint: [] Interval history: History of present illness: Mr. Rangel is a 39 year old M history of type 2 diabetes mellitus, GERD, chronic kidney disease stage III, presenting with 1 day history of nausea and vomiting. Last prior similar episode was 2 months ago. Patient was in his usual state of health until earlier this morning when he had acute onset nausea and vomiting with epigastric abdominal pain. Vomitus described to be red. The pain is located in his epigastrium, 5/10 in severity, cramping in nature, constant. Patient had not been eating any food since symptoms onset. Denies any constipation or diarrhea. Denies any fever or chills. Denies any alleviating or exacerbating factors. Denies any introduction of new foods, sick contact, or recent travel. Due to his symptoms, he presented to [facility] ED but he was being discharged home with no prescriptions given. Patient's went to our ED for reevaluations. Vital signs significant for elevated blood pressures to 230/127 mmHg, rest of the vital signs within normal limits. Labs significant for leukocytosis with WBC 11.1. Chemistry significant for serum creatinine level of 1.8 with baseline 1.3. Blood glucose 264. 6/4: Still c/o nausea and vomiting. Still cannot tolerating oral intake at all. Fasting glucose 289. Blood pressure: 181/77mmHg. 6/5-patient doing a lot better. On IV crystalloids. Systolics around 160. However nausea improved. Tolerating clear Jell-O's and liquids. Advance diet as tolerated. Stable labs. Continue home medication including metoprolol/amlodipine and hydralazine as needed. Constitutional Vitals: Vital Signs Temp Pulse Resp BP Pulse Ox 98 F 70 20 168/100 94 08/15/20 12:00 08/15/20 12:00 08/15/20 12:00 08/15/20 12:00 08/15/20 12:00 Period Temp Pulse Resp BP Sys/Paz Pulse Ox Last 24 Hr 97.9 F-98.4 F 67-110 16-20 111-202/72-121 93-98 Intake and Output 08/14/20 08/15/20 08/15/20 21:59 05:59 13:59 Intake Total 1478 1240 845 Output Total 1000 Balance 1478 1240 -155 Weight 138.119 kg Minimally distressed Nonlabored breathing Minimal anxiety Abdominal discomfort on palpation but improved since previous day Intake & Output: Intake & Output 08/14/20 08/15/20 08/15/20 21:59 05:59 13:59 Intake Total 1478 1240 845 Output Total 1000 Balance 1478 1240 -155 Weight 138.119 kg Intake: IV 998 1000 845 Sodium Chloride 0.9% 1,000 ml @ 998 1000 845 150 mls/hr IV .Q6H40M [facility] Rx#: [id number] Oral 480 240 0 Output: Void Amount 1000 Other: Meal Breakfast Percent of Meal Consumed 100% Feeding Ability Independent Urine Appearance Clear Urine Color Bright Yellow Urine Odor Normal OBJ DATA Labs CBC & Chem 7: 08/14/20 04:58 08/15/20 04:57 Labs: Abnormal Lab Results 08/15/20 08/15/20 08/14/20 04:57 04:57 04:58 WBC 11.3 H RBC 4.18 L Hgb 11.5 L Hct 33.9 L POC Hct MPV 10.6 H Neut % (Auto) 90.1 H Lymph % (Auto) 7.3 L Lymph # (Auto) 0.83 L Seg Neutrophils % Lymphocytes % Absolute Neutrophils 10.21 H Chloride 111 H Carbon Dioxide Anion Gap POC BUN BUN 30 H Creatinine 1.7 H POC Creatinine Glucose POC Glucose Hemoglobin A1c Calcium 8.3 L Iron Transferrin % Sat Lactate Dehydrogenase 230 H Albumin 3.1 L Globulin Urine Appearance Urine Protein Urine Glucose (UA) Urine Ketones Urine Mucus 08/14/20 08/13/20 08/13/20 04:57 22:11 20:00 WBC RBC Hgb Hct POC Hct MPV Neut % (Auto) Lymph % (Auto) Lymph # (Auto) Seg Neutrophils % Lymphocytes % Absolute Neutrophils Chloride Carbon Dioxide 18 L 20 L Anion Gap POC BUN BUN 27 H 28 H Creatinine 1.4 H 1.4 H POC Creatinine Glucose 289 H 276 H POC Glucose Hemoglobin A1c 10.3 H Calcium Iron 52 L Transferrin % Sat 18 L Lactate Dehydrogenase Albumin Globulin 3.8 H Urine Appearance Hazy A Urine Protein >=500 A Urine Glucose (UA) >=500 A Urine Ketones 5 A Urine Mucus Few A 08/13/20 08/13/20 08/13/20 16:25 16:25 16:25 WBC 11.1 H RBC Hgb 12.6 L Hct 37.8 L POC Hct 38 L MPV 10.5 H Neut % (Auto) Lymph % (Auto) Lymph # (Auto) Seg Neutrophils % 84 H Lymphocytes % 10 L Absolute Neutrophils Chloride Carbon Dioxide 19 L Anion Gap 19.0 H POC BUN 31 H BUN 30 H Creatinine 1.8 H POC Creatinine 1.8 H Glucose 264 H POC Glucose 268 H Hemoglobin A1c Calcium Iron Transferrin % Sat Lactate Dehydrogenase Albumin Globulin 3.9 H Urine Appearance Urine Protein Urine Glucose (UA) Urine Ketones Urine Mucus Meds: Medications Acetaminophen (Acetaminophen 325 Mg Tablet) 650 mg PO Q6HP PRN; Protocol PRN Reason: Per Pain Protocol/Fever > 101 Amlodipine Besylate (Amlodipine 10 Mg Tablet) 10 mg PO DAILY [facility] Last Admin: 08/15/20 09:00 Dose: 10 mg Documented by: Capsaicin (Capsaicin 0.025% Cream.Top 60gm) 1 dose TOPICAL QIDP PRN PRN Reason: Nausea And Vomiting Last Admin: 08/14/20 12:28 Dose: 1 dose Documented by: Dextrose (Dextrose 50% 50 Ml Vial) 0 ml IV UD PRN PRN Reason: Hypoglycemia Diagnostic Test (Pha) (Accu-Chek 1 Each Strip) 1 each FS ACHS [facility] Last Admin: 08/15/20 12:10 Dose: 1 each Documented by: Diphenhydramine HCl (Diphenhydramine 12.5 Mg/5 Ml Oral.Jennifer) 25 mg PO Q4HP PRN PRN Reason: Nausea And Vomiting Last Admin: 08/14/20 16:41 Dose: 25 mg Documented by: Docusate Sodium (Docusate Sodium 100 Mg Capsule) 100 mg PO BID [facility] Last Admin: 08/15/20 09:01 Dose: 100 mg Documented by: Gabapentin (Gabapentin 100 Mg Capsule) 100 mg PO TID [facility] Last Admin: 08/15/20 09:00 Dose: 100 mg Documented by: Glucose (Dextrose 31 Gm Oral.Susp) 15 gm PO PRN PRN PRN Reason: Hypoglycemia Haloperidol Lactate (Haloperidol Lactate 5 Mg/Ml Vial) 2 mg IV Q4HP PRN PRN Reason: Nausea And Vomiting Last Admin: 08/14/20 12:08 Dose: 2 mg Documented by: Heparin Sodium (Porcine) (Heparin 5,000 Unit/Ml Vial) 5,000 unit SQ Q12 [facility] Last Admin: 08/15/20 09:01 Dose: 5,000 unit Documented by: Sodium Chloride (Sodium Chloride 0.9%) 1,000 mls @ 150 mls/hr IV .Q6H40M [facility] Last Admin: 08/15/20 07:53 Dose: 150 mls/hr Documented by: Insulin Glargine (Insulin Glargine, Human 1 Unit/0.01 Ml) 120 unit SQ BID [facility] Last Admin: 08/15/20 12:10 Dose: Not Given Documented by: Insulin Human Lispro (Insulin Lispro 1 Unit/0.01 Ml Unit) 0 unit SQ [facility]; Protocol Last Admin: 08/15/20 12:08 Dose: Not Given Documented by: Lactulose (Lactulose 20 Gm/30 Ml Oral.Jennifer) 10 gm PO DAILYP PRN PRN Reason: Constipation Metoclopramide HCl (Metoclopramide 10 Mg/2 Ml Vial) 10 mg IV Q6HP PRN PRN Reason: Nausea And Vomiting Last Admin: 08/14/20 11:33 Dose: 10 mg Documented by: Metoclopramide HCl (Metoclopramide 10 Mg Tablet) 10 mg PO [facility] Last Admin: 08/15/20 12:10 Dose: 10 mg Documented by: Metoprolol Tartrate (Metoprolol Tartrate 50 Mg Tablet) 100 mg PO BID [facility] Last Admin: 08/15/20 09:00 Dose: 100 mg Documented by: Morphine Sulfate (Morphine 2 Mg/Ml Vial) 2 mg IV Q4HP PRN PRN Reason: Severe Pain Last Admin: 08/14/20 12:25 Dose: 2 mg Documented by: Ondansetron HCl (Ondansetron 4 Mg/2 Ml Vial) 4 mg IV Q4HP PRN; Protocol PRN Reason: Nausea And Vomiting Last Admin: 08/14/20 12:08 Dose: 4 mg Documented by: Ondansetron HCl (Ondansetron 4 Mg Odt Tablet) 4 mg SL Q4HP PRN PRN Reason: Nausea And Vomiting Last Admin: 08/14/20 16:00 Dose: 4 mg Documented by: Pantoprazole Sodium (Pantoprazole 40 Mg Tablet) 40 mg PO QAMAC [facility] Last Admin: 08/15/20 08:59 Dose: 40 mg Documented by: Promethazine HCl (Promethazine 25 Mg Tablet) 25 mg PO Q6HP PRN; Protocol PRN Reason: Nausea And Vomiting Promethazine HCl (Promethazine 25 Mg/Ml Vial) 25 mg IV Q6HP PRN PRN Reason: Nausea And Vomiting Last Admin: 08/14/20 18:42 Dose: 25 mg Documented by: Senna (Sennosides 1 Tablet) 2 tab PO HSP PRN PRN Reason: Constipation Sodium Chloride (0.9 % Sodium Chloride 10 Ml Syringe) 10 ml IV Q8 [facility] Last Admin: 08/15/20 05:02 Dose: Not Given Documented by: Verapamil HCl (Verapamil 180 Mg Tab.Xl.24h) 180 mg PO BID [facility] Last Admin: 08/15/20 08:59 Dose: 180 mg Documented by: A/P Assessment and plan (1) Intractable nausea and vomiting: Status: Acute (2) Hypertensive urgency: Status: Acute Narrative A/P Narrative: * Intractable nausea vomiting-gradual clinical improvement noted. On Zofran/Phenergan/Reglan/Haldol as needed for symptomatic relief. Continue crystalloids. * Hypertensive urgency clinically improving. Back on home medications including amlodipine/metoprolol along with as needed hydralazine. Systolics 160. * Poorly controlled type II DM on Lantus/sliding scale/CC diet. A1c 10.3 * Acute on chronic stage III CKD-continue monitoring creatinine/avoid neph rotoxins. Creatinine down to 1.4 * GERD continue PPI * Normocytic anemia, Hemoglobin 11.5, Plan * Continue supportive treatment * Resume home medication * Advance diet as tolerated * Therapies as tolerated * Discharge planning Time Spent With Patient Time: Total time spent is greater than 50% in coordination of care (as document ed) at patient's floor/unit and/or counseling patient: QUALITY VTE Deep Vein Thrombosis/Pulmonary Embolism Present on Admission: No
[2020-08-16] MEDS: 0.9 % SODIUM CHLORIDE 1,000 ML IV SCH ×2 (05:48→12:20)
[2020-08-16] MEDS: 0.9 % SODIUM CHLORIDE 10 ML SYRINGE IV SCH (05:49)
[2020-08-16 08:24] LABS: ALT/SGPT 6 U/L (<40); AST/SGOT 24 U/L (<40); Albumin 2.9 gm/dL (3.2-5.2); Alkaline Phosphatase 60 U/L (39-117); Bilirubin,Direct < 0.2 mg/dL (0-0.3); Bilirubin,Total 0.2 mg/dL (0.1-1.0); Blood Urea Nitrogen 21 mg/dL (6-20); Calcium 7.9 mg/dL (8.6-10.4); Carbon Dioxide 21 mmol/L (22-30); Chloride 107 mmol/L (96-108); Globulin 2.9 gm/dL (2.2-3.7); Glomerular Filtration Rate 62; Glucose 84 mg/dL (70-105); Lactate Dehydrogenase 248 U/L (135-225); Phosphorous 3.6 mg/dL (2.5-4.5); Triglycerides 147 mg/dL (<150); Uric Acid 7.6 mg/dL (2.5-8.0)
[2020-08-16] MEDS: INSULIN LISPRO 1 UNIT/0.01 ML UNIT SQ SCH ×2 (08:35→12:35)
[2020-08-16] MEDS: INSULIN GLARGINE, HUMAN 1 UNIT/0.01 ML SQ SCH (08:36)
--- NOTE | 2020-08-16 11:16 | Discharge Summary ---
Discharge Provider Provider Patient information: Note initiated : 08/16/20 at 11:12 am Service Date, if different from initiated Date: [] Patient: Wong Rangel a 39 y/o M admitted on 08/13/20 for Gastroparesis. Chief Complaint: Discharge diagnosis * Intractable nausea vomiting-gradual clinical improvement noted on supportive treatments. Patient tolerating diet. Requesting discharge, feels close to baseline. Advised to follow-up with primary care physician. * Hypertensive urgency clinically improving. Much improved on oral medications including amlodipine/metoprolol along with as needed hydralazine. Systolics 160. * Poorly controlled type II DM on Lantus/sliding scale/CC diet. A1c 10.3 * Acute on chronic stage III CKD-continue monitoring creatinine/avoid nephrotoxins. Creatinine down to baseline 1.4 * GERD continue PPI * Normocytic anemia, Hemoglobin 11.5, Brief hospital course Interval history: History of present illness: Mr. Rangel is a 39 year old M history of type 2 diabetes mellitus, GERD, chronic kidney disease stage III, presenting with 1 day history of nausea and vomiting. Last prior similar episode was 2 months ago. Patient was in his usual state of health until earlier this morning when he had acute onset nausea and vomiting with epigastric abdominal pain. Vomitus described to be red. The pain is located in his epigastrium, 5/10 in severity, cramping in nature, constant. Patient had not been eating any food since symptoms onset. Denies any constipation or diarrhea. Denies any fever or chills. Denies any alleviating or exacerbating factors. Denies any introduction of new foods, sick contact, or recent travel. Due to his symptoms, he presented to [facility] ED but he was being discharged home with no prescriptions given. Patient's went to our ED for reevaluations. Vital signs significant for elevated blood pressures to 230/127 mmHg, rest of the vital signs within normal limits. Labs significant for leukocytosis with WBC 11.1. Chemistry significant for serum creatinine level of 1.8 with baseline 1.3. Blood glucose 264. 6/4: Still c/o nausea and vomiting. Still cannot tolerating oral intake at all. Fasting glucose 289. Blood pressure: 181/77mmHg. 6/5-patient doing a lot better. On IV crystalloids. Systolics around 160. However nausea improved. Tolerating clear Jell-O's and liquids. Advance diet as tolerated. Stable labs. Continue home medication including metopro lol/amlodipine and hydralazine as needed. 08/16-patient discharging after 3 days treatment on crystalloid/antiemetics. Now tolerating diet. Feels at baseline. Requesting discharge. Advised to follow- up with primary care physician in 5 to 7 days. Date of admission: 08/13/20 21:46 Discharge date: 08/16/20 Primary care physician: Ricardo Toth Consults: 08/13/20 Consult to Physician [CONS] Stat Comment: Consulting Provider: Roni Villagomez Reason For Exam: Physician to Consult Discharge Meds Discharge Medications Home Medications Levemir 30 - 60 units SQ BID #1 08/06/18 [Rx Confirmed 08/13/20 Last Taken Unknown] metoclopramide HCl 10 mg PO ACHS #30 tab 08/06/18 [Rx Confirmed 08/13/20 Last Taken Unknown] ondansetron 4 mg SL Q4HP PRN #30 tab 08/06/18 [Rx Confirmed 08/13/20 Last Taken Unknown] gabapentin 100 mg PO TID #60 cap 10/14/18 [Rx Confirmed 08/13/20 Last Taken Unknown] prochlorperazine maleate 10 mg PO Q6H PRN #20 tab 12/31/18 [Rx Confirmed 08/13/20 Last Taken Unknown] torsemide 20 mg PO DAILY 08/13/20 [History Confirmed 08/13/20 Last Taken Unknown] verapamil 180 mg PO BID 08/13/20 [History Confirmed 08/13/20 Last Taken Unknown] amlodipine 10 mg PO DAILY #30 tab 08/16/20 [Rx Last Taken Unknown] metoprolol tartrate 100 mg PO BID #60 tab 08/16/20 [Rx Last Taken Unknown] pantoprazole 40 mg PO QAMAC #30 tab 08/16/20 [Rx Last Taken Unknown] COURSE Hospital Course Hospital course: . Discharge diagnosis: . Time Spent with Patient Time attestation: Total time spent providing and/or coordinating discharge services: EXAM Constitutional Vitals: Temp Pulse Resp BP Pulse Ox 98.4 F 74 20 141/85 96 08/16/20 00:01 08/16/20 10:01 08/16/20 08:00 08/16/20 10:01 08/16/20 10:01 Discharge Data Data Completed and Pending Labs on day of discharge: Labs from last 24 hours 08/16/20 08/15/20 05:00 04:57 Sodium 136 TNP Potassium 4.1 TNP Chloride 107 TNP Carbon Dioxide 21 L TNP Anion Gap 8.0 TNP BUN 21 H TNP Creatinine 1.4 H TNP GFR Calculation 62 TNP Glucose 84 TNP Uric Acid 7.6 TNP Calcium 7.9 L TNP Phosphorus 3.6 3.4 Magnesium 2.0 1.9 Total Bilirubin 0.2 TNP Direct Bilirubin < 0.2 0.2 GGT 14 13 AST 24 TNP ALT 6 TNP Alkaline Phosphatase 60 TNP Lactate Dehydrogenase 248 H 230 H Total Protein 5.8 L TNP Albumin 2.9 L TNP Globulin 2.9 TNP Albumin/Globulin Ratio 1.0 TNP Triglycerides 147 98 Discharge Plan Patient/Caregiver Discharge Instructions Activity: increase activity as tolerated Diet: Consistent Carbohydrate Instructions: Metoprolol (By mouth), Amlodipine (By mouth), Pantoprazole (By mouth), Gastroparesis (DC) Activity Restrictions/Additional Instructions: Resume consistent carbohydrate diet as tolerated Take all meals up in chair sitting at 90 degrees. Increase activity as tolerated. Continue fall precautions. Follow-up with Ricardo Toth in 5 to 7 days. Contact the office on Thursday 08/17 to schedule Take all medication as directed. Continue antiemetics Your prescription is with your discharge paperwork. Take your prescription, insurance cards, and photo ID to flower buncher or picker your medication. Return to ER for fever, chills, uncontrolled pain, , inability to urinate or have a bowel movement, nausea and/or vomiting, swelling, redness, signs of infe ction, shortness of breath, chest pain, return of symptoms, or other acute symptom This discharge packet is provided to you to help keep you informed about your care. We want to ensure you get everything you need when you go home. You will also be receiving a call from us in a few days to follow up with you and see how you are doing since your discharge. This gives us a chance to listen to any concerns you maybe experiencing since you were discharged or any additional needs you may have, as well as providing us feedback on your care experience. We strive to always provide excellent care and thank you for your feedback and for choosing [facility]. Prescriptions: New amlodipine 10 mg Tablet 10 mg PO DAILY Qty: 30 RF: 0 pantoprazole 40 mg Tablet,Delayed Release (Dr/Ec) 40 mg PO QAMAC Qty: 30 RF: 0 metoprolol tartrate 50 mg Tablet 100 mg PO BID Qty: 60 RF: 0 Continued ondansetron 4 MG tablet 4 mg SL Q4HP PRN (Reason: Nausea And Vomiting) Qty: 30 RF: 0 metoclopramide HCl 10 MG tablet 10 mg PO ACHS Qty: 30 RF: 0 Levemir 30 - 60 units SQ BID Qty: 1 RF: 0 gabapentin 100 MG capsule 100 mg PO TID Qty: 60 RF: 0 prochlorperazine maleate 10 MG tablet 10 mg PO Q6H PRN (Reason: Nausea) Qty: 20 RF: 0 torsemide 20 mg tablet 20 mg PO DAILY RF: 0 verapamil 180 mg tablet extended release 180 mg PO BID RF: 0 Discontinued lisinopril 40 mg tablet 40 mg PO DAILY RF: 0 Follow Up Plan Follow up with: Ricardo Toth MD [Primary Care Provider] - (Contact office on Thursday 08/17 to schedule) Patient Disposition: Home, Self-Care Prognosis: Fair Rehab Potential: Fair I certify that the patient requires SNF services: No Overall status at discharge: patient is back to baseline Discharge Orders: Discharge Order (Routine); Ordered 08/16/20 Ordered By: Gerber DANIELS VTE Deep Vein Thrombosis/Pulmonary Embolism Present on Admission: No
[2020-08-16] MEDS: PANTOPRAZOLE 40 MG TABLET PO SCH (12:14)
[2020-08-16] MEDS: VERAPAMIL 180 MG TAB.XL.24H PO SCH (12:14)
[2020-08-16] MEDS: GABAPENTIN 100 MG CAPSULE PO SCH (12:14)
[2020-08-16] MEDS: DOCUSATE SODIUM 100 MG CAPSULE PO SCH (12:15)
[2020-08-16] MEDS: METOPROLOL TARTRATE 50 MG TABLET PO SCH (12:15)
[2020-08-16] MEDS: amLODIPine 10 MG TABLET PO SCH (12:15)
[2020-08-16] MEDS: HEPARIN 5,000 UNIT/ML VIAL SQ SCH (12:15)
[2020-08-16] MEDS: METOCLOPRAMIDE 10 MG/2 ML VIAL IV PRN (12:15)
[2020-08-16] MEDS: METOCLOPRAMIDE 10 MG TABLET PO SCH (12:18)
== END 2020-08-16 14:10 | disposition home or self-care (01) | DRG 74 ==
LOC: ED 15:51 → ICU 21:46
PROVIDERS: ADMIT Internal Medicine; ATTEND Internal Medicine

== ENCOUNTER 2021-06-15 06:15 | Observation (INO) ==
[2021-06-15] MEDS ORDERED: HYDROmorphone 1 MG/ML SYRINGE IV ONE (06:23)
[2021-06-15] MEDS ORDERED: diphenhydrAMINE 50 MG/ML VIAL IV ONE ×2 (06:23→09:18)
[2021-06-15] MEDS ORDERED: PROCHLORPERAZINE 10 MG/2 ML VIAL IV ONE (06:23)
--- NOTE | 2021-06-15 06:23 | Emergency Department Note ---
HPI General Chief complaint: Nausea/Vomiting/Diarrhea Stated complaint: abd. pain with nausea and vomiting Time Seen by Provider: 06/15/21 06:16 Source: patient Mode of arrival: ambulatory Limitations: no limitations History of Present Illness HPI Narrative: Patient history of gastroparesis seen 1 day prior to arrival presents with persistent nausea vomiting abdominal pain located epigastric area. States blood sugar has been in the low 100s to 200s. Denies any coffee-ground emesis hematemesis dark tarry stool or bright red blood per rectum. Prescriptions provided prior to arrival not effective. Patient denies current CP, sob, fever, chills, , focal acute weakness, loss/change of sensation, or any other complaints at this time. PMH/PSHx/Meds/Allergies/SH/FH as per nursing documentation and reviewed. A full 10 point review of systems reviewed and negative except as noted in HPI. Related Data Home Medications Medication Instructions Recorded Confirmed torsemide 20 mg tablet 20 mg PO DAILY 08/13/20 08/13/20 verapamil 180 mg tablet,extended 180 mg PO BID 08/13/20 08/13/20 release Previous Rx's Medication Instructions Recorded Levemir 30 - 60 units SQ BID #1 08/06/18 metoclopramide HCl 10 mg tablet 10 mg PO ACHS #30 tab 08/06/18 ondansetron 4 mg disintegrating 4 mg SL Q4HP PRN #30 tab 08/06/18 tablet gabapentin 100 mg capsule 100 mg PO TID #60 cap 10/14/18 prochlorperazine maleate 10 mg 10 mg PO Q6H PRN #20 tab 12/31/18 tablet amlodipine 10 mg tablet 10 mg PO DAILY #30 tab 08/16/20 metoprolol tartrate 50 mg tablet 100 mg PO BID #60 tab 08/16/20 pantoprazole 40 mg tablet,delayed 40 mg PO QAMAC #30 tab 08/16/20 release metoclopramide HCl 10 mg tablet 10 mg PO Q6H PRN #10 tab 10/02/20 (Reglan) promethazine 25 mg rectal 25 mg MO Q6H PRN #12 ea 10/02/20 suppository Allergies Allergy/AdvReac Type Severity Reaction Status Date / Time Penicillins [PENICILLINS] Allergy Intermediate HIVES Verified 06/15/21 06:20 Review of Systems ROS ROS Narrative: Per HPI PFSH Narrative Patient History Narrative: Narrative: Medical/Surgical/Family History All Active Problems (Updated 06/14/21 @ 12:20 by Adolfo Belcher MD) Nausea (Acute) GERD (gastroesophageal reflux disease) (Acute) Hypertension in stage 3 chronic kidney disease due to type 2 diabetes mellitus (Acute) Stage 1 acute kidney injury (Acute) Anemia, normocytic normochromic (Acute) Uncontrolled type 2 diabetes mellitus (Acute) Hypertensive urgency (Acute) Gastroparesis (Acute) Pancreatitis (Acute) Intractable nausea and vomiting (Acute) Hypertension (Acute) Diabetic gastroparesis (Acute) Hypoxia, sleep related (Acute) Non compliance w medication regimen (Acute) Hypomagnesemia (Acute) Dehydration (Acute) Cyclical vomiting (Acute) Nausea & vomiting (Acute) Noncompliance (Acute) Medical History Gastroparesis Intractable nausea and vomiting Pancreatitis Social History Smoking Status: Never smoker Exam Narrative Narrative: PHYSICIAL EXAM: Vitals reviewed GENERAL: Patient ambulated to emergency department on her own strength with emesis bag, nondiaphoretic, actively retching in room but nontoxic-appearing, the patient appears nourished and normally developed. Vital signs as documented. EYES: Head exam is unremarkable. No scleral icterus HEENT: Mucous membranes moist. Nares patent without copious rhinorrhea. LUNGS: Maintaining adequate SPO2 on room air, no conversational dyspnea, no increased work of breathing ABDOMEN: + Tenderness palpation epigastric area, otherwise soft, non-tender, non-distended, no rebound/guarding, with no obvious masses EXTREMITIES: No peripheral edema, with no obvious deformities. SKIN: Good color, with no significant rashes. No pallor. NEURO: No obvious neurological deficits, normal sensation and strength bilaterally. Patient able to ambulate with steady gait under own strength. PSYCH: Mood and affect normal. Appropriate for age. General Limitations: no limitations Course Reevaluation(s) Reevaluation #1: He has blood gas reviewed pH not acidotic, will continue to monitor and discussed oncoming provider Time: 06:55 Vital Signs Vital signs: Vital Signs Temperature 98.1 F 06/15/21 06:15 Pulse Rate 112 H 06/15/21 06:15 Respiratory Rate 18 06/15/21 06:15 Pulse Oximetry (%) 100 06/15/21 06:15 Temperature 98.1 F 06/15/21 06:15 Pulse Rate 103 H 06/15/21 06:54 Respiratory Rate 18 06/15/21 06:15 Blood Pressure 164/106 06/15/21 06:54 Pulse Oximetry (%) 96 06/15/21 06:54 MDM MDM Narrative Medical decision making narrative: All results/imaging obtained reviewed and interpreted, results trended/compared with previous levels if available to evaluate for abnormality contributing to todays presentation, . Chart created with voice recognition software, errors may be present due to softwares interpretation Lab Data Result diagrams: 06/15/21 06:45 Discharge Plan Patient/Caregiver Discharge Instructions Pt seen by RESIDENT PHYSICIAN IN RADIOLOGY/PA only: No Patient Disposition: Still a Patient Condition: Undetermined Follow up with: Ricardo Toth MD [Primary Care Provider] - Prescriptions: No Action ondansetron 4 MG tablet 4 mg SL Q4HP PRN (Reason: Nausea And Vomiting) Qty: 30 0RF metoclopramide HCl 10 MG tablet 10 mg PO ACHS Qty: 30 0RF Levemir 30 - 60 units SQ BID Qty: 1 0RF gabapentin 100 MG capsule 100 mg PO TID Qty: 60 0RF prochlorperazine maleate 10 MG tablet 10 mg PO Q6H PRN (Reason: Nausea) Qty: 20 0RF torsemide 20 mg tablet 20 mg PO DAILY 0RF verapamil 180 mg tablet extended release 180 mg PO BID 0RF amlodipine 10 mg Tablet 10 mg PO DAILY Qty: 30 0RF pantoprazole 40 mg Tablet,Delayed Release (Dr/Ec) 40 mg PO QAMAC Qty: 30 0RF metoprolol tartrate 50 mg Tablet 100 mg PO BID Qty: 60 0RF metoclopramide HCl [Reglan] 10 mg tablet 10 mg PO Q6H PRN (Reason: nausea and vomiting) Qty: 10 0RF promethazine 25 mg suppository 25 mg MO Q6H PRN (Reason: nausea and vomiting) Qty: 12 0RF
[2021-06-15] MEDS ORDERED: LACTATED RINGERS 1,000 ML IV ONE ×3 (07:15→11:03)
[2021-06-15 07:30] LABS: Basophils # (Auto) 0.01 K/mcL (0.00-0.30); Basophils % (Auto) 0.1 % (0.0-2.0); Eosinophils # (Auto) 0.16 K/mcL (0.00-0.70); Eosinophils % (Auto) 1.5 % (0.0-7.0); Hematocrit 34.7 % (40.1-51.0); Hemoglobin 11.5 g/dL (13.7-17.5); Lymphocytes # (Auto) 0.93 K/mcL (1.50-4.80); Mean Cell Volume 84.8 fL (80.0-100.0); Mean Corpuscular HGB Conc 33.1 g/dL (31.0-36.0); Mean Platelet Volume 10.5 fL (7.4-10.4); Monocytes # (Auto) 0.65 K/mcL (0.10-0.90); Monocytes % (Auto) 6.3 % (1.0-12.0); Neutrophils % (Auto) 83.1 % (38.0-78.0); Platelet Count 236 K/mcL (140-440); RBC 4.09 M/mcL (4.63-6.08); WBC 10.4 K/mcL (4.5-11.0)
[2021-06-15 07:55] LABS: POC Blood Urea Nitrogen 23 mg/dL (6-20); POC CO2 18 mmol/L (22-30); POC Calcium, Ionized 1.11 mmEq/L (1.16-1.32); POC Chloride 108 mEq/L (96-108); POC Creatinine 2.4 mg/dL (0.6-1.2); POC Glucose, Random 104 mg/dL (70-105); POC Hematocrit 30 % (41-55); POC Potassium 3.8 mEql/L (3.3-5.1); POC Sodium 142 mEq/L (133-145)
[2021-06-15 08:04] LABS: Beta Hydroxybutyrate 4.54 mmol/L (<0.27)
[2021-06-15] MEDS ORDERED: HALOPERIDOL LACTATE 5 MG/ML VIAL IV PRN (09:18)
--- NOTE | 2021-06-15 09:18 | Emergency Department Note ---
Course Course Course Narrative: Patient signed out to me patient has nausea and vomiting he was seen yesterday in the emergency department by myself he was treated for his gastroparesis he has been seen multiple times in the emergency department at [facility] lives he was recently admitted a few weeks ago for his symptoms. He does have a history of type 2 diabetes, CKD, CAD. He was given antiemetics his VBG does not show acidosis he does have an anion gap and significant amount of ketones with euglycemia. Patient denies marijuana use or illicit substances I did review recent UDS at [facility] this was negative for cannabis and his recent urinary drug screens were also negative. Patient is prescribed Jardiance which I do think could be making his p.o. intolerance worse but he has not been taking it secondary to p.o. intolerance. I did call [facility] they stated patient is poorly compliant his primary care provider Dr. Toth was not in the office today. Patient was given multiple rounds of antiemetics and Benadryl he is still actively dry heaving, no more narcotics were given I do not think that this is helping patient's nausea. Patient states he initially thought he had a history of gastroparesis but it sounds that he had recent gastric emptying studies that were not suggestive of this. Patient was observed in the emergency department for normal 7 hours he is still unable to tolerate p.o. intake he was given 2 L of IV fluids for his tachycardia and ketosis and still only had minimal urine output. I did speak with the hospitalist about admission for intractable nausea and vomiting he was agreeable. Vital Signs Vital signs: Vital Signs Temperature 98.1 F 06/15/21 06:15 Pulse Rate 112 H 06/15/21 06:15 Respiratory Rate 18 06/15/21 06:15 Pulse Oximetry (%) 100 06/15/21 06:15 Temperature 98.1 F 06/15/21 06:15 Pulse Rate 92 H 06/15/21 12:54 Respiratory Rate 18 06/15/21 06:15 Blood Pressure 195/119 06/15/21 12:46 Pulse Oximetry (%) 99 06/15/21 12:54 MDM MDM Narrative Medical decision making narrative: Narrative: Lab Data Result diagrams: 06/15/21 06:45 Labs: Lab Results 06/15/21 06/15/21 06/15/21 Range/Units 06:45 06:45 07:42 WBC 10.4 (4.5-11.0) K/mcL RBC 4.09 L (4.63-6.08) M/mcL Hgb 11.5 L (13.7-17.5) g/dL Hct 34.7 L (40.1-51.0) % POC Hct 30 L (41-55) % MCV 84.8 (80.0-100.0) fL MCH 28.1 (26.0-34.0) pg MCHC 33.1 (31.0-36.0) g/dL RDW 14.0 (11.5-14.5) % Plt Count 236 (140-440) K/mcL MPV 10.5 H (7.4-10.4) fL Neut % (Auto) 83.1 H (38.0-78.0) % Lymph % (Auto) 9.0 L (15.5-49.0) % [place] % (Auto) 6.3 (1.0-12.0) % Eos % (Auto) 1.5 (0.0-7.0) % Baso % (Auto) 0.1 (0.0-2.0) % Lymph # (Auto) 0.93 L (1.50-4.80) K/mcL [place] # (Auto) 0.65 (0.10-0.90) K/mcL Eos # (Auto) 0.16 (0.00-0.70) K/mcL Baso # (Auto) 0.01 (0.00-0.30) K/mcL Absolute Neutrophils 8.60 H (1.80-8.00) K/mcL POC Sodium 142 (133-145) mEq/L POC Potassium 3.8 (3.3-5.1) mEql/L POC Chloride 108 (96-108) mEq/L POC Total CO2 18 L (22-30) mmol/L POC BUN 23 H (6-20) mg/dL POC Creatinine 2.4 H (0.6-1.2) mg/dL POC Glucose 104 (70-105) mg/dL POC WB Ioniz Calcium 1.11 L (1.16-1.32) mmEq/L Beta-Hydroxybutyrate 4.54 H (<0.27) mmol/L Discharge Plan Patient/Caregiver Discharge Instructions Pt seen by MUSSEL OPENER/PA only: No Clinical Impression: Cyclical vomiting Patient Disposition: Xfer As Outpt/Obs ([facility]) Condition: Undetermined Follow up with: Ricardo Toth MD [Primary Care Provider] - Prescriptions: No Action ondansetron 4 MG tablet 4 mg SL Q4HP PRN (Reason: Nausea And Vomiting) Qty: 30 0RF metoclopramide HCl 10 MG tablet 10 mg PO ACHS Qty: 30 0RF Levemir 30 - 60 units SQ BID Qty: 1 0RF gabapentin 100 MG capsule 100 mg PO TID Qty: 60 0RF prochlorperazine maleate 10 MG tablet 10 mg PO Q6H PRN (Reason: Nausea) Qty: 20 0RF torsemide 20 mg tablet 20 mg PO DAILY 0RF verapamil 180 mg tablet extended release 180 mg PO BID 0RF amlodipine 10 mg Tablet 10 mg PO DAILY Qty: 30 0RF pantoprazole 40 mg Tablet,Delayed Release (Dr/Ec) 40 mg PO QAMAC Qty: 30 0RF metoprolol tartrate 50 mg Tablet 100 mg PO BID Qty: 60 0RF metoclopramide HCl [Reglan] 10 mg tablet 10 mg PO Q6H PRN (Reason: nausea and vomiting) Qty: 10 0RF promethazine 25 mg suppository 25 mg SD Q6H PRN (Reason: nausea and vomiting) Qty: 12 0RF
[2021-06-15] MEDS ORDERED: CAPSAICIN 0.025% CREAM.TOP 60GM TOPICAL PRN (11:02)
[2021-06-15] MEDS ORDERED: HYOSCYAMINE SULFATE 0.125 MG TABLET SL ONE (11:11)
[2021-06-15] MEDS ORDERED: PHENobarb/HYOSCY/ATROPINE/SCOP 1 DOSE BOTTLE PO ONE (11:12)
--- NOTE | 2021-06-15 14:03 | Internal Med History&Physical ---
HPI History of Present Illness Patient information: Note initiated : 06/15/21 at 1:52 pm Service Date, if different from initiated Date: [] Patient: Wong aRngel 40 y/o M admitted on for Abd Pain w/Nausea/Vomiting. Chief Complaint: [] Chief complaint: Nausea and vomiting History of present illness: Mr. Rangel is a 40 year old male with a history of hypertension, poorly controlled type 2 diabetes mellitus complicated by gastroparesis, chronic kidney disease stage III, coronary artery disease status post stents, GERD who presented to the emergency department for nausea and vomiting that started about a week prior to admission. In the emergency department, vitals were significant for elevated blood pressure and heart rate in the 90s. The patient says that he is in unable to keep down food. Denies recent fevers, chills, diarrhea. The patient denies chest pains. In the emergency department, the patient was found to have an acute on chronic kidney disease injury. The patient had an anion gap of 21, venous blood gas showed a pH of 7.45, lactic acid level of 2. Beta hydroxybutyrate was elevated at 4.54. The patient received IV fluid and antiemetics in the emergency department. Hospital medicine was consulted for admission. Review of systems Constitutional: no fever, fatigue, or weight loss Eyes: no vision changes or pain Cardiovascular: no chest pain, no palpitations Respiratory: no cough or dyspnea Gastrointestinal: Positive for nausea, vomiting. Genitourinary: no dysuria or difficulty voiding Musculoskeletal: no arthralgia or myalgia Integumentary: no skin lesion or wound Neurological: no focal weakness or numbness Psychiatric: no anxiety or depression Physical exam Head: Atraumatic, normal inspection. Eyes: normal appearance, no scleral icterus. Neck: full ROM Respiratory: no respiratory distress. Cardiovascular: normal rate and rhythm, S1, S2. GI/Abdominal: soft, nontender, no guarding. Extremities: full range of motion, nontender. Neurological: CN II-XII intact, intact motor, intact sensation. Psychiatric: normal mood. Skin: warm, normal color PFSH PFSH All Active Problems (Updated 06/14/21 @ 12:20 by Adolfo Belcher MD) Nausea (Acute) GERD (gastroesophageal reflux disease) (Acute) Hypertension in stage 3 chronic kidney disease due to type 2 diabetes mellitus (Acute) Stage 1 acute kidney injury (Acute) Anemia, normocytic normochromic (Acute) Uncontrolled type 2 diabetes mellitus (Acute) Hypertensive urgency (Acute) Gastroparesis (Acute) Pancreatitis (Acute) Intractable nausea and vomiting (Acute) Hypertension (Acute) Diabetic gastroparesis (Acute) Hypoxia, sleep related (Acute) Non compliance w medication regimen (Acute) Hypomagnesemia (Acute) Dehydration (Acute) Cyclical vomiting (Acute) Nausea & vomiting (Acute) Noncompliance (Acute) Medical History Gastroparesis Intractable nausea and vomiting Pancreatitis MEDS/ALLERGIES Home Medications and Allergies Home Medications Medication Instructions Recorded Confirmed Type Levemir 30 - 60 units SQ BID #1 08/06/18 08/13/20 Rx metoclopramide HCl 10 mg tablet 10 mg PO ACHS #30 tab 08/06/18 08/13/20 Rx ondansetron 4 mg disintegrating 4 mg SL Q4HP PRN #30 tab 08/06/18 08/13/20 Rx tablet gabapentin 100 mg capsule 100 mg PO TID #60 cap 10/14/18 08/13/20 Rx prochlorperazine maleate 10 mg 10 mg PO Q6H PRN #20 tab 12/31/18 08/13/20 Rx tablet torsemide 20 mg tablet 20 mg PO DAILY 08/13/20 08/13/20 History verapamil 180 mg tablet,extended 180 mg PO BID 08/13/20 08/13/20 History release amlodipine 10 mg tablet 10 mg PO DAILY #30 tab 08/16/20 Rx metoprolol tartrate 50 mg tablet 100 mg PO BID #60 tab 08/16/20 Rx pantoprazole 40 mg tablet,delayed 40 mg PO QAMAC #30 tab 08/16/20 Rx release metoclopramide HCl 10 mg tablet 10 mg PO Q6H PRN #10 tab 10/02/20 Rx (Reglan) promethazine 25 mg rectal 25 mg [place] Q6H PRN #12 ea 10/02/20 Rx suppository Allergies Allergy/AdvReac Type Severity Reaction Status Date / Time Penicillins [PENICILLINS] Allergy Intermediate HIVES Verified 06/15/21 06:20 EXAM Constitutional Vitals: Temp Pulse Resp BP Pulse Ox 98.1 F 92 H 18 195/119 99 06/15/21 06:15 06/15/21 12:54 06/15/21 06:15 06/15/21 12:46 06/15/21 12:54 DATA Data Completed and Pending Labs: Labs from last 24 hours 06/15/21 06/15/21 06/15/21 07:42 06:45 06:45 WBC 10.4 RBC 4.09 L Hgb 11.5 L Hct 34.7 L POC Hct 30 L MCV 84.8 MCH 28.1 MCHC 33.1 RDW 14.0 Plt Count 236 MPV 10.5 H Neut % (Auto) 83.1 H Lymph % (Auto) 9.0 L [place] % (Auto) 6.3 Eos % (Auto) 1.5 Baso % (Auto) 0.1 Lymph # (Auto) 0.93 L [place] # (Auto) 0.65 Eos # (Auto) 0.16 Baso # (Auto) 0.01 Absolute Neutrophils 8.60 H POC Sodium 142 POC Potassium 3.8 POC Chloride 108 POC Total CO2 18 L POC BUN 23 H POC Creatinine 2.4 H POC Glucose 104 POC WB Ioniz Calcium 1.11 L Beta-Hydroxybutyrate 4.54 H A/P Narrative A/P Narrative: Assessment: 40 year old male with a history of hypertension, poorly controlled type 2 diabetes mellitus complicated by gastroparesis, chronic kidney disease, coronary artery disease status post stents, GERD who presented to the emergency department for nausea and vomiting that started about a week prior to admission, likely related to gastroparesis. The patient had a metabolic acidosis and elevated beta hydroxybutyrate, pH was mildly elevated and glucose was mildly elevated therefore diabetic ketoacidosis was much less likely however diabetic ketoacidosis could be considered if the patient does not improve with IV fluid and antiemetics. #Intractable nausea and vomiting likely secondary to gastroparesis #Acute on chronic kidney disease injury #Hypertensive urgency #Poorly controlled type 2 diabetes mellitus complicated by gastroparesis #Metabolic acidosis and elevated beta hydroxybutyrate #Coronary artery disease status post stent x2 #GERD #Obesity BMI 34 Plan -Admit to observation. -IV fluid and antiemetics as needed. -Follow renal function, anion gap, and beta hydroxybutyrate. -ABG if anion gap and beta hydroxybutyrate persistently elevated after IV fluid. -Check hemoglobin A1c. -Home medication reconciliation, resume important meds. -Lantus and correction Humalog SSIlow. -Labetalol IV as needed. -Diabetic diet, encourage small frequent meals for gastroparesis. -CODE STATUS: Full -Disposition: Home when stable. Time Spent With Patient Time: Total time spent is greater than 50% in coordination of care (as documented) at patient's floor/unit and/or counseling patient:
[2021-06-15] MEDS ORDERED: PROMETHAZINE 25 MG/ML VIAL IV ONE (14:08)
[2021-06-15] MEDS: LABETALOL 5 MG/ML ML IV PRN ×2 (15:29→16:47)
[2021-06-15] MEDS ORDERED: DEXTROSE 50% 50 ML VIAL IV PRN (15:44)
[2021-06-15] MEDS ORDERED: METOCLOPRAMIDE 10 MG/2 ML VIAL IV PRN (15:44)
[2021-06-15] MEDS ORDERED: DEXTROSE 31 GM ORAL.SUSP PO PRN (15:44)
[2021-06-15] MEDS ORDERED: ACETAMINOPHEN 325 MG TABLET PO PRN (15:44)
[2021-06-15] MEDS: ONDANSETRON 4 MG/2 ML VIAL IV PRN ×2 (16:01→22:08)
[2021-06-15] MEDS: LACTATED RINGERS 1,000 ML IV SCH ×2 (16:02→23:21)
[2021-06-15] MEDS: HYDROcodone/APAP 5/325MG TABLET PO PRN ×2 (16:14→22:30)
[2021-06-15 16:42] LABS: Appearance,Urine HAZY (Clear); Bilirubin,Urine Negative (Negative); Color,Urine YELLOW; Culture Indicated,Urine No; Glucose,Urine (UA) 150 mg/dL (Negative); Ketones,Urine 20 mg/dL (Negative); Leukocyte Esterase,Urine Negative /uL (Negative); Mucus,Urine FEW /hpf; Nitrate,Urine Negative (Negative); Protein,Urine >=500 mg/dL (Negative); Specific Gravity,Urine 1.017 (1.000-1.035); Sperm,Urine PRESENT /hpf (Absent); Urine Hyaline Cast 30 /lph (0-2); Urine RBC 2 /hpf (0-3); Urine Squamous Epithelial Cell 1 /hpf (0-4); Urine WBC 2 /hpf (0-4); Urobilinogen,Urine Negative
[2021-06-15] MEDS: INSULIN LISPRO 1 UNIT/0.01 ML UNIT SQ SCH ×2 (16:43→22:04)
[2021-06-15] MEDS ORDERED: amLODIPine 10 MG TABLET PO SCH (16:45)
[2021-06-15 16:46] LABS: Amphetamine Screen,Urine None detected; Barbiturate Screen,Urine None detected; Benzodiazepines Screen,Urine None detected; Cannabinoid Screen,Urine None detected; Cocaine Screen,Urine None detected; Opiate Screen,Urine None detected; Oxycodone, Urine Screen None detected; Phencyclidine Screen,Urine None detected
[2021-06-15] MEDS: 0.9 % SODIUM CHLORIDE 10 ML SYRINGE IV SCH ×2 (16:47→22:04)
[2021-06-15] MEDS: HYDROmorphone 0.5 MG/0.5 ML SYRINGE IV PRN ×2 (18:52→23:22)
[2021-06-15] MEDS: METOPROLOL TARTRATE 50 MG TABLET PO SCH (22:00)
[2021-06-15] MEDS: GABAPENTIN 100 MG CAPSULE PO SCH (22:00)
[2021-06-15] MEDS: INSULIN GLARGINE, HUMAN 1 UNIT/0.01 ML SQ SCH (22:01)
[2021-06-15] MEDS: SENNOSIDES 1 TABLET PO SCH (22:02)
[2021-06-16 07:15] LABS: ALT/SGPT < 5 U/L (<40); AST/SGOT 32 U/L (<40); Albumin 3.1 gm/dL (3.2-5.2); Albumin/Globulin Ratio 1.1 (1.0-2.3); Alkaline Phosphatase 51 U/L (39-117); Beta Hydroxybutyrate 1.54 mmol/L (<0.27); Bilirubin,Direct < 0.2 mg/dL (0-0.3); Bilirubin,Total 0.5 mg/dL (0.1-1.0); Blood Urea Nitrogen 18 mg/dL (6-20); Calcium 8.2 mg/dL (8.6-10.4); Carbon Dioxide 24 mmol/L (22-30); Chloride 103 mmol/L (96-108); Globulin 2.8 gm/dL (2.2-3.7); Glomerular Filtration Rate 45; Glucose 96 mg/dL (70-105); Lactate Dehydrogenase 197 U/L (135-225); Phosphorous 3.3 mg/dL (2.5-4.5); Triglycerides 95 mg/dL (<150); Uric Acid 9.9 mg/dL (2.5-8.0)
[2021-06-16] MEDS ORDERED: POTASSIUM CHLORIDE 20 MEQ TABLET PO ONE (07:57)
[2021-06-16] MEDS: METOPROLOL TARTRATE 50 MG TABLET PO SCH ×2 (08:43→20:28)
[2021-06-16] MEDS: GABAPENTIN 100 MG CAPSULE PO SCH ×3 (08:43→20:28)
[2021-06-16] MEDS: PANTOPRAZOLE 40 MG TABLET PO SCH (08:44)
[2021-06-16] MEDS: amLODIPine 10 MG TABLET PO SCH (08:44)
[2021-06-16] MEDS: 0.9 % SODIUM CHLORIDE 10 ML SYRINGE IV SCH ×3 (08:57→20:28)
[2021-06-16] MEDS: LACTATED RINGERS 1,000 ML IV SCH (08:57)
[2021-06-16] MEDS: INSULIN LISPRO 1 UNIT/0.01 ML UNIT SQ SCH ×4 (08:57→20:23)
[2021-06-16] MEDS: HYDROcodone/APAP 5/325MG TABLET PO PRN (09:15)
[2021-06-16] MEDS: ONDANSETRON 4 MG/2 ML VIAL IV PRN (09:18)
--- NOTE | 2021-06-16 09:25 | EKG ---
[facility] Test Date: 2021-06-15 Pat Name: Wong Rangel Department: [facility] Room: 109 Gender: Male [employer]: : [id number] Requested By: Nixon Flowers Order Number: [id number] Reading MD: Az Buckner Measurements Intervals [place] Rate: 97 P: 9 MT: 145 QRS: 76 QRSD: 92 T: 41 QT: 370 QTc: 470 Interpretive Statements Sinus rhythm Probable left atrial enlargement Probable anteroseptal infarct, recent Baseline wander in lead(s) III,aVL,aVF,V3 Electronically Signed On 06-16-2021 9:25:04 PDT by Az Buckner /store/M0/[id number]
[2021-06-16] MEDS: HYDROmorphone 0.5 MG/0.5 ML SYRINGE IV PRN (11:22)
[2021-06-16] MEDS: METOCLOPRAMIDE 10 MG/2 ML VIAL IV SCH ×2 (11:23→17:13)
--- NOTE | 2021-06-16 12:27 | Internal Med Progress Note ---
SUBJECTIVE Subjective Patient information: Note initiated : 06/16/21 at 12:26 pm Service Date, if different from initiated Date: [] Patient: Wong Rangel 40 y/o M admitted on 06/16/21 for Abd Pain w /Nausea/Vomiting. Chief Complaint: [] Interval history: Mr. Rangel is a 40 year old male with a history of hypertension, poorly controlled type 2 diabetes mellitus complicated by gastroparesis, chronic kidney disease stage III, coronary artery disease status post stents, GERD who presented to the emergency department for nausea and vomiting that started about a week prior to admission. In the emergency department, vitals were significant for elevated blood pressure and heart rate in the 90s. The patient says that he is in unable to keep down food. Denies recent fevers, chills, diarrhea. The patient denies chest pains. In the emergency department, the patient was found to have an acute on chronic kidney disease injury. The patient had an anion gap of 21, venous blood gas showed a pH of 7.45, lactic acid level of 2. Beta hydroxybutyrate was elevated at 4.54. The patient received IV fluid and antiemetics in the emergency department. Hospital medicine was consulted for admission. / Anion gap metabolic acidosis resolved. Creatinine improved. Still feels nauseous and has epigastric pain, morning hemoglobin 9.7 possibly hemodilutional, checking again this afternoon. Scheduled reglan with meals, admitted from observation to inpatient. Drinking fluids so discontinued IV fluid. Physical exam Head: Atraumatic, normal inspection. Eyes: normal appearance, no scleral icterus. Neck: full ROM Respiratory: no respiratory distress. Cardiovascular: normal rate and rhythm, S1, S2. GI/Abdominal: soft, nontender, no guarding. Extremities: full range of motion, nontender. Neurological: CN II-XII intact, intact motor, intact sensation. Psychiatric: normal mood. Skin: warm, normal color Constitutional Vitals: Vital Signs Temp Pulse Resp BP Pulse Ox 97.7 F 71 18 147/93 97 06/16/21 11:27 06/16/21 11:27 06/16/21 11:27 06/16/21 11:27 06/16/21 11:27 Period Temp Pulse Resp BP Sys/Paz Pulse Ox Last 24 Hr 97 F-99.1 F 71-118 03-07 147-231/93-128 96-100 Intake and Output 06/15/21 06/16/21 06/16/21 21:59 05:59 13:59 Intake Total 60 1305 1000 Output Total 600 825 Balance -696 782 1961 Weight 124.058 kg Intake & Output: Intake & Output 06/15/21 06/16/21 06/16/21 21:59 05:59 13:59 Intake Total 60 1305 1000 Output Total 600 825 Balance -695 265 7335 Weight 124.058 kg Intake: IV 915 1000 Lactated Ringers 1,000 ml @ 402 430 9260 mls/hr IV .Q8H JAIME Rx#: [id number] Oral 60 390 Output: Void Amount 400 825 Emesis 200 Other: Urine Appearance Clear Purulent Urine Color Light Tracey Tea Colored Urine Odor Strong OBJ DATA Labs CBC & Chem 7: 06/16/21 05:45 06/16/21 05:44 Labs: Abnormal Lab Results 06/16/21 06/16/21 06/15/21 05:45 05:44 15:45 RBC Hgb 9.7 L Hct POC Hct MPV Neut % (Auto) Lymph % (Auto) Lymph # (Auto) Absolute Neutrophils Potassium 3.2 L POC Total CO2 POC BUN Creatinine 1.8 H POC Creatinine Uric Acid 9.9 H Calcium 8.2 L POC WB Ioniz Calcium Albumin 3.1 L Beta-Hydroxybutyrate 1.54 H Urine Appearance Hazy A Urine Protein >=500 A Urine Glucose (UA) 150 A Urine Ketones 20 A Hyaline Casts 30 H Urine Mucus Few A Urine Sperm Present A 06/15/21 06/15/21 06/15/21 07:42 06:45 06:45 RBC 4.09 L Hgb 11.5 L Hct 34.7 L POC Hct 30 L MPV 10.5 H Neut % (Auto) 83.1 H Lymph % (Auto) 9.0 L Lymph # (Auto) 0.93 L Absolute Neutrophils 8.60 H Potassium POC Total CO2 18 L POC BUN 23 H Creatinine POC Creatinine 2.4 H Uric Acid Calcium POC WB Ioniz Calcium 1.11 L Albumin Beta-Hydroxybutyrate 4.54 H Urine Appearance Urine Protein Urine Glucose (UA) Urine Ketones Hyaline Casts Urine Mucus Urine Sperm Meds: Medications Acetaminophen (Acetaminophen 325 Mg Tablet) 650 mg PO Q6HP PRN; Protocol PRN Reason: Per Pain Protocol/Fever > 101 Hydrocodone Bitart/Acetaminophen (Hydrocodone/Apap 5/325mg Tablet) 1 tab PO Q6HP PRN; Protocol PRN Reason: Per Pain Protocol Last Admin: 06/16/21 09:15 Dose: 1 tab Documented by: Amlodipine Besylate (Amlodipine 10 Mg Tablet) 10 mg PO DAILY [facility] Last Admin: 06/16/21 08:44 Dose: 10 mg Documented by: Dextrose (Dextrose 50% 50 Ml Vial) 0 ml IV UD PRN PRN Reason: Per Sliding Scale Diagnostic Test (Pha) (Accu-Chek 1 Each Strip) 1 each FS [facility] Last Admin: 06/16/21 11:16 Dose: 1 each Documented by: Gabapentin (Gabapentin 100 Mg Capsule) 100 mg PO TID [facility] Last Admin: 06/16/21 08:43 Dose: 100 mg Documented by: Glucose (Dextrose 31 Gm Oral.Susp) 15 gm PO PRN PRN PRN Reason: Hypoglycemia Hydromorphone HCl (Hydromorphone 0.5 Mg/0.5 Ml Syringe) 0.5 mg IV Q2HP PRN; Protocol PRN Reason: Per Pain Protocol Last Admin: 06/16/21 11:22 Dose: 0.5 mg Documented by: Insulin Glargine (Insulin Glargine, Human 1 Unit/0.01 Ml) 10 unit SQ [facility] Last Admin: 06/15/21 22:01 Dose: 10 units Documented by: Insulin Human Lispro (Insulin Lispro 1 Unit/0.01 Ml Unit) 0 unit SQ [facility]; Protocol Last Admin: 06/16/21 11:49 Dose: Not Given Documented by: Labetalol HCl (Labetalol 5 Mg/Ml Ml) 10 mg IV Q10M PRN PRN Reason: Blood Pressure - High Last Admin: 06/15/21 16:47 Dose: 10 mg Documented by: Metoclopramide HCl (Metoclopramide 10 Mg/2 Ml Vial) 10 mg IV [facility] Last Admin: 06/16/21 11:23 Dose: 10 mg Documented by: Metoprolol Tartrate (Metoprolol Tartrate 50 Mg Tablet) 100 mg PO BID [facility] Last Admin: 06/16/21 08:43 Dose: 100 mg Documented by: Ondansetron HCl (Ondansetron 4 Mg/2 Ml Vial) 4 mg IV Q6HP PRN PRN Reason: Nausea And Vomiting Last Admin: 06/16/21 09:18 Dose: 4 mg Documented by: Pantoprazole Sodium (Pantoprazole 40 Mg Tablet) 40 mg PO QAMAC [facility] Last Admin: 06/16/21 08:44 Dose: 40 mg Documented by: Senna (Sennosides 1 Tablet) 2 tab PO HS [facility] Last Admin: 06/15/21 22:02 Dose: Not Given Documented by: Sodium Chloride (0.9 % Sodium Chloride 10 Ml Syringe) 10 ml IV Q8 [facility] Last Admin: 06/16/21 08:57 Dose: Not Given Documented by: A/P Narrative A/P Narrative: Assessment: 40 year old male with a history of hypertension, poorly controlled type 2 diabetes mellitus complicated by gastroparesis, chronic kidney disease, coronary artery disease status post stents, GERD who presented to the emergency department for nausea and vomiting that started about a week prior to admission, likely related to gastroparesis. #Intractable nausea and vomiting likely secondary to gastroparesis #Acute on chronic anemia #Resolving acute on chronic kidney disease injury #Poorly controlled type 2 diabetes mellitus complicated by gastroparesis #Hypokalemia #Resolved metabolic acidosis #Coronary artery disease status post stent x2 #GERD #Obesity BMI 34 Plan -Admit to inpatient. -Follow hemoglobin, if downtrending consider upper GI endoscopic workup. -Discontinue IV fluid. -Replace potassium. -Scheduled Reglan with meals. -Zofran IV prn. -Follow renal function and urine output. -Continue home norvasc, gabapentin, Protonix. -Lantus and correction Humalog SSIlow. -Labetalol IV as needed. -Diabetic diet, encourage small frequent meals for gastroparesis. -CODE STATUS: Full -Disposition: Home when stable. Time Spent With Patient Time: Total time spent is greater than 50% in coordination of care (as documented) at patient's floor/unit and/or counseling patient: QUALITY VTE Deep Vein Thrombosis/Pulmonary Embolism Present on Admission: No
[2021-06-16] MEDS: INSULIN GLARGINE, HUMAN 1 UNIT/0.01 ML SQ SCH (20:28)
[2021-06-16] MEDS: SENNOSIDES 1 TABLET PO SCH (20:28)
[2021-06-17] MEDS: 0.9 % SODIUM CHLORIDE 10 ML SYRINGE IV SCH (05:24)
[2021-06-17 06:51] LABS: ALT/SGPT < 5 U/L (<40); AST/SGOT 29 U/L (<40); Albumin/Globulin Ratio 1.1 (1.0-2.3); Alkaline Phosphatase 50 U/L (39-117); Bilirubin,Direct < 0.2 mg/dL (0-0.3); Bilirubin,Total 0.4 mg/dL (0.1-1.0); Blood Urea Nitrogen 13 mg/dL (6-20); Carbon Dioxide 23 mmol/L (22-30); Chloride 102 mmol/L (96-108); Globulin 2.8 gm/dL (2.2-3.7); Glomerular Filtration Rate 45; Glucose 79 mg/dL (70-105); Lactate Dehydrogenase 170 U/L (135-225); Phosphorous 2.6 mg/dL (2.5-4.5); Triglycerides 116 mg/dL (<150); Uric Acid 8.9 mg/dL (2.5-8.0)
[2021-06-17] MEDS ORDERED: POTASSIUM CHLORIDE 20 MEQ TABLET PO ONE (07:43)
[2021-06-17 08:02] LABS: Basophils # (Auto) 0.03 K/mcL (0.00-0.30); Basophils % (Auto) 0.5 % (0.0-2.0); Eosinophils % (Auto) 4.6 % (0.0-7.0); Hematocrit 29.9 % (40.1-51.0); Hemoglobin 9.7 g/dL (13.7-17.5); Lymphocytes # (Auto) 1.17 K/mcL (1.50-4.80); Lymphocytes % (Auto) 17.9 % (15.5-49.0); Mean Cell Volume 86.4 fL (80.0-100.0); Mean Corpuscular HGB Conc 32.4 g/dL (31.0-36.0); Mean Platelet Volume 10.7 fL (7.4-10.4); Monocytes # (Auto) 0.49 K/mcL (0.10-0.90); Monocytes % (Auto) 7.5 % (1.0-12.0); Neutrophils % (Auto) 69.5 % (38.0-78.0); Platelet Count 208 K/mcL (140-440); RBC 3.46 M/mcL (4.63-6.08); WBC 6.5 K/mcL (4.5-11.0)
[2021-06-17] MEDS: METOCLOPRAMIDE 10 MG/2 ML VIAL IV SCH ×2 (08:06→11:58)
[2021-06-17] MEDS: amLODIPine 10 MG TABLET PO SCH (08:07)
[2021-06-17] MEDS: GABAPENTIN 100 MG CAPSULE PO SCH (08:07)
[2021-06-17] MEDS: PANTOPRAZOLE 40 MG TABLET PO SCH (08:07)
[2021-06-17] MEDS: INSULIN LISPRO 1 UNIT/0.01 ML UNIT SQ SCH ×2 (08:07→11:50)
[2021-06-17] MEDS: METOPROLOL TARTRATE 50 MG TABLET PO SCH (08:07)
--- NOTE | 2021-06-17 10:59 | Discharge Summary ---
Discharge Provider Provider Patient information: Note initiated : 06/17/21 at 10:56 am Service Date, if different from initiated Date: [] Patient: Wong Rangel 40 y/o M admitted on 06/16/21 for Abd Pain w/Nausea/Vomiting. Chief Complaint: [] Date of admission: 06/16/21 11:59 Discharge date: 06/17/21 Primary care physician: Ricardo Toth Consults: 06/15/21 Consult to Physician [CONS] Stat Comment: Consulting Provider: Nixon Flowers Reason For Exam: Physician to Consult Discharge Meds Discharge Medications Home Medications Levemir 30 - 60 units SQ BID #1 08/06/18 [Rx Confirmed 06/15/21 Last Taken 06/12/21 21:00] ondansetron 4 mg disintegrating tablet 4 mg SL Q4HP PRN #30 tab 08/06/18 [Rx Confirmed 06/15/21 Last Taken 06/14/21 21:00] gabapentin 100 mg capsule 100 mg PO TID #60 cap 10/14/18 [Rx Confirmed 06/15/21 Last Taken 06/12/21 09:00] prochlorperazine maleate 10 mg tablet 10 mg PO Q6H PRN #20 tab 12/31/18 [Rx Confirmed 06/15/21 Last Taken 06/12/21 09:00] torsemide 20 mg tablet 20 mg PO DAILY 08/13/20 [History Confirmed 06/15/21 Last Taken 06/12/21 09:00] amlodipine 10 mg tablet 10 mg PO DAILY #30 tab 08/16/20 [Rx Confirmed 06/15/21 Last Taken 06/12/21 09:00] metoprolol tartrate 50 mg tablet 100 mg PO BID #60 tab 08/16/20 [Rx Confirmed 06/15/21 Last Taken 06/12/21 09:00] pantoprazole 40 mg tablet,delayed release 40 mg PO QAMAC #30 tab 08/16/20 [Rx Confirmed 06/15/21 Last Taken 06/12/21 09:00] COURSE Hospital Course Hospital course: Mr. Rangel is a 40 year old male with a history of hypertension, poorly controlled type 2 diabetes mellitus complicated by gastroparesis, chronic kidney disease stage III, coronary artery disease status post stents, GERD who presented to the emergency department for nausea and vomiting that started about a week prior to admission. In the emergency department, vitals were significant for elevated blood pressure and heart rate in the 90s. The patient says that he is in unable to keep down food. Denies recent fevers, chills, diarrhea. The patient denies chest pains. In the emergency department, the patient was found to have an acute on chronic kidney disease injury. The patient had an anion gap of 21, venous blood gas showed a pH of 7.45, lactic acid level of 2. Beta hydroxybutyrate was elevated at 4.54. The patient received IV fluid and antiemetics in the emergency department. Hospital medicine was consulted for admission. 06/16 Anion gap metabolic acidosis resolved. Creatinine improved. Still feels nauseous and has epigastric pain, morning hemoglobin 9.7 possibly hemodilutional, checking again this afternoon. Scheduled reglan with meals, admitted from observation to inpatient. Drinking fluids so discontinued IV fluid. 06/17 Patient feels like he is back to his baseline, hemoglobin stable at 9.7. Renal function near baseline now. Discharged home, follow-up with PCP. Recommend follow-up hemoglobin. The patient has recurrent epigastric pain recommend referral to GI for possible EGD. The patient is on Protonix which was continued at discharge. Discussed avoidance of NSAIDs with the patient prior to discharge. Physical exam Head: Atraumatic, normal inspection. Eyes: normal appearance, no scleral icterus. Neck: full ROM Respiratory: no respiratory distress. Cardiovascular: normal rate and rhythm, S1, S2. GI/Abdominal: soft, nontender, no guarding. Extremities: full range of motion, nontender. Neurological: CN II-XII intact, intact motor, intact sensation. Psychiatric: normal mood. Skin: warm, normal color Discharge diagnosis: Nausea and vomiting Time Spent with Patient Time attestation: Total time spent providing and/or coordinating discharge services: EXAM Constitutional Vitals: Temp Pulse Resp BP Pulse Ox 98.2 F 67 16 148/98 98 06/17/21 07:46 06/17/21 07:46 06/17/21 07:46 06/17/21 07:46 06/17/21 07:46 Discharge Data Data Completed and Pending Labs on day of discharge: Labs from last 24 hours 06/17/21 06/17/21 06/17/21 06:58 05:42 05:42 WBC 6.5 TNP RBC 3.46 L TNP Hgb 9.7 L TNP Hct 29.9 L TNP MCV 86.4 TNP MCH 28.0 TNP MCHC 32.4 TNP RDW 14.0 TNP Plt Count 208 TNP MPV 10.7 H TNP Neut % (Auto) 69.5 TNP Lymph % (Auto) 17.9 TNP [place] % (Auto) 7.5 TNP Eos % (Auto) 4.6 TNP Baso % (Auto) 0.5 TNP Lymph # (Auto) 1.17 L TNP [place] # (Auto) 0.49 TNP Eos # (Auto) 0.30 TNP Baso # (Auto) 0.03 TNP Absolute Neutrophils 4.55 TNP Differential Comment TNP Sodium 135 Potassium 3.3 Chloride 102 Carbon Dioxide 23 Anion Gap 10.0 BUN 13 Creatinine 1.8 H GFR Calculation 45 Glucose 79 Uric Acid 8.9 H Calcium 8.0 L Phosphorus 2.6 Magnesium 1.7 Total Bilirubin 0.4 Direct Bilirubin < 0.2 GGT 12 AST 29 ALT < 5 Alkaline Phosphatase 50 Lactate Dehydrogenase 170 Total Protein 5.8 L Albumin 3.0 L Globulin 2.8 Albumin/Globulin Ratio 1.1 Triglycerides 116 06/16/21 12:39 WBC RBC Hgb 9.6 L Hct MCV MCH MCHC RDW Plt Count MPV Neut % (Auto) Lymph % (Auto) [place] % (Auto) Eos % (Auto) Baso % (Auto) Lymph # (Auto) [place] # (Auto) Eos # (Auto) Baso # (Auto) Absolute Neutrophils Differential Comment Sodium Potassium Chloride Carbon Dioxide Anion Gap BUN Creatinine GFR Calculation Glucose Uric Acid Calcium Phosphorus Magnesium Total Bilirubin Direct Bilirubin GGT AST ALT Alkaline Phosphatase Lactate Dehydrogenase Total Protein Albumin Globulin Albumin/Globulin Ratio Triglycerides Discharge Plan Patient/Caregiver Discharge Instructions Activity: increase activity as tolerated Diet: Consistent Carbohydrate Prescriptions: Continued ondansetron 4 MG tablet 4 mg SL Q4HP PRN (Reason: Nausea And Vomiting) Qty: 30 0RF Levemir 30 - 60 units SQ BID Qty: 1 0RF gabapentin 100 MG capsule 100 mg PO TID Qty: 60 0RF prochlorperazine maleate 10 MG tablet 10 mg PO Q6H PRN (Reason: Nausea) Qty: 20 0RF torsemide 20 mg tablet 20 mg PO DAILY 0RF amlodipine 10 mg Tablet 10 mg PO DAILY Qty: 30 0RF pantoprazole 40 mg Tablet,Delayed Release (Dr/Ec) 40 mg PO QAMAC Qty: 30 0RF metoprolol tartrate 50 mg Tablet 100 mg PO BID Qty: 60 0RF Follow Up Plan Follow up with: Ricardo Toth MD [Primary Care Provider] - Patient Disposition: Home, Self-Care Prognosis: Undetermined Overall status at discharge: patient is back to baseline Discharge Orders: Discharge Order (Routine); Ordered 06/17/21 Ordered By: Nixon DANIELS VTE Deep Vein Thrombosis/Pulmonary Embolism Present on Admission: No
[2021-09-30] MEDS ORDERED: METOCLOPRAMIDE 10 MG/2 ML VIAL ONE (17:43)
== END 2021-06-17 13:20 | disposition home or self-care (01) | DRG 392 ==
LOC: ED 06:15 → MEDSUR 06:15
PROVIDERS: ADMIT Internal Medicine; ATTEND Internal Medicine

== ENCOUNTER 2021-08-18 09:28 | Inpatient (IN) ==
[2021-08-18] MEDS ORDERED: PHENobarb/HYOSCY/ATROPINE/SCOP 1 DOSE BOTTLE PO ONE (09:59)
[2021-08-18] MEDS ORDERED: diphenhydrAMINE 50 MG/ML VIAL IV ONE (09:59)
[2021-08-18] MEDS ORDERED: 0.9 % SODIUM CHLORIDE 1,000 ML IV ONE ×2 (09:59→10:29)
[2021-08-18] MEDS ORDERED: METOCLOPRAMIDE 10 MG/2 ML VIAL IV ONE ×2 (09:59→12:14)
[2021-08-18 10:18] LABS: POC Calcium, Ionized 1.12 (1.16-1.32); POC Creatinine 3.7 (0.6-1.2); POC Potassium 3.8 (3.3-5.1)
[2021-08-18] MEDS ORDERED: PROMETHAZINE 25 MG/ML VIAL IV ONE (10:37)
[2021-08-18] MEDS ORDERED: FAMOTIDINE/PF 20 MG/2 ML VIAL IV ONE (10:38)
[2021-08-18 11:12] LABS: POC Calcium, Ionized 1.15 (1.16-1.32); POC Creatinine 3.8 (0.6-1.2); POC Potassium 3.6 (3.3-5.1)
[2021-08-18 11:54] LABS: Basophils # (Auto) 0.01 K/mcL (0.00-0.30); Basophils % (Auto) 0.1 % (0.0-2.0); Eosinophils # (Auto) 0.08 K/mcL (0.00-0.70); Eosinophils % (Auto) 0.9 % (0.0-7.0); Hematocrit 38.7 % (40.1-51.0); Hemoglobin 12.6 g/dL (13.7-17.5); Lymphocytes # (Auto) 1.07 K/mcL (1.50-4.80); Lymphocytes % (Auto) 11.5 % (15.5-49.0); Mean Cell Volume 85.6 fL (80.0-100.0); Mean Corpuscular HGB Conc 32.6 g/dL (31.0-36.0); Mean Platelet Volume 10.5 fL (7.4-10.4); Monocytes % (Auto) 5.4 % (1.0-12.0); Neutrophils % (Auto) 82.1 % (38.0-78.0); Platelet Count 288 K/mcL (140-440); RBC 4.52 M/mcL (4.63-6.08); Red Cell Distribution Width 13.3 % (11.5-14.5); WBC 9.3 K/mcL (4.5-11.0)
[2021-08-18 12:14] LABS: ALT/SGPT 6 U/L (<40); AST/SGOT 34 U/L (<40); Albumin 3.9 gm/dL (3.2-5.2); Albumin/Globulin Ratio 1.1 (1.0-2.3); Alkaline Phosphatase 72 U/L (39-117); Bilirubin,Total 0.6 mg/dL (0.1-1.0); Blood Urea Nitrogen 39 mg/dL (6-20); Calcium 9.5 mg/dL (8.6-10.4); Carbon Dioxide 21 mmol/L (22-30); Chloride 99 mmol/L (96-108); Globulin 3.6 gm/dL (2.2-3.7); Glomerular Filtration Rate 23; Glucose 105 mg/dL (70-105)
--- NOTE | 2021-08-18 13:00 | Emergency Department Note ---
HPI General Chief complaint: Nausea/Vomiting/Diarrhea Stated complaint: n/v abodminal pain Time Seen by Provider: 08/18/21 09:47 Source: patient Mode of arrival: ambulatory Limitations: no limitations History of Present Illness HPI Narrative: Narrative: 40-year-old male with history of diabetic gastroparesis with frequent emergency department visits, chronic kidney disease with baseline creatinine around 1.8, hypertension presents for evaluation of about 4 to 5 days of intractable nausea and vomiting inability to tolerate p.o. He denies constipation or diarrhea. He denies dysuria or flank pain. Eyes any new abdominal pain, reports when he is vomiting he has pain. He has been trying to take his p.o. Reglan and Zofran without relief. He reports his symptoms are the same as his usual symptoms his gastroparesis. He has required admission in the past. Related Data Home Medications Medication Instructions Recorded Confirmed torsemide 20 mg tablet 20 mg PO DAILY 08/13/20 08/18/21 Previous Rx's Medication Instructions Recorded Levemir 30 - 60 units SQ BID #1 08/06/18 ondansetron 4 mg disintegrating 4 mg SL Q4HP PRN #30 tab 08/06/18 tablet gabapentin 100 mg capsule 100 mg PO TID #60 cap 10/14/18 prochlorperazine maleate 10 mg 10 mg PO Q6H PRN #20 tab 12/31/18 tablet amlodipine 10 mg tablet 10 mg PO DAILY #30 tab 08/16/20 metoprolol tartrate 50 mg tablet 100 mg PO BID #60 tab 08/16/20 pantoprazole 40 mg tablet,delayed 40 mg PO QAMAC #30 tab 08/16/20 release Allergies Allergy/AdvReac Type Severity Reaction Status Date / Time Penicillins [PENICILLINS] Allergy Intermediate HIVES Verified 08/18/21 09:30 Review of Systems ROS ROS Narrative: Narrative: All systems ED: reviewed and negative except as stated. PFSH Narrative Patient History Narrative: Narrative: Medical/Surgical/Family History All Active Problems Nausea (Acute) Acute kidney injury superimposed on chronic kidney disease (Acute) GERD (gastroesophageal reflux disease) (Acute) Hypertension in stage 3 chronic kidney disease due to type 2 diabetes mellitus (Acute) Stage 1 acute kidney injury (Acute) Anemia, normocytic normochromic (Acute) Uncontrolled type 2 diabetes mellitus (Acute) Hypertensive urgency (Acute) Gastroparesis (Acute) Pancreatitis (Acute) Intractable nausea and vomiting (Acute) Hypertension (Acute) Diabetic gastroparesis (Acute) Hypoxia, sleep related (Acute) Non compliance w medication regimen (Acute) Hypomagnesemia (Acute) Dehydration (Acute) Cyclical vomiting (Acute) Nausea & vomiting (Acute) Noncompliance (Acute) Medical History Gastroparesis Intractable nausea and vomiting Pancreatitis Social History Smoking Status: Never smoker Exam Narrative Narrative: Narrative: General Limitations: no limitations General appearance: Present alert, in no apparent distress, obese and other (Nauseous appearing but otherwise nontoxic) Head Head: Present atraumatic and normocephalic Eye Eye: Present normal appearance and EOMI ENT ENT: Present normal exam and mucous membranes dry Neck Neck: Present normal inspection and full ROM Chest Chest: Present normal inspection and symmetric chest wall rise Respiratory Respiratory: Present normal lung sounds bilaterally Cardiovascular Cardiovascular: Present normal rhythm and tachycardia Adbominal Abdominal: Present soft; Absent tenderness, guarding or rebound Extremities Extremities: Present normal inspection and full ROM Back Back: Absent CVA tenderness (R) or CVA tenderness (L) Neurological Neurological: Present alert, oriented X3 and normal gait Psychiatric Psychiatric: Present normal affect and normal mood Skin Skin: Present warm (WNL), dry and normal color Course Vital Signs Vital signs: Vital Signs Temperature 97.7 F 08/18/21 09:29 Pulse Rate 114 H 08/18/21 09:29 Respiratory Rate 20 08/18/21 09:29 Blood Pressure 195/116 08/18/21 09:29 Pulse Oximetry (%) 95 08/18/21 09:29 Temperature 97.7 F 08/18/21 15:28 Pulse Rate 109 H 08/18/21 15:28 Respiratory Rate 20 08/18/21 15:28 Blood Pressure 213/117 08/18/21 15:19 Pulse Oximetry (%) 100 08/18/21 15:28 [facility] MDM Narrative Medical decision making narrative: Narrative: Patient with exacerbation of known diabetic gastroparesis, denies any atypical symptoms but does have prolonged course. Will check labs, give IV fluids and antiemetics and reassess. I do not believe he needs emergent imaging at this point with benign abdominal exam and no difference in his usual symptoms. Patient found to have acute renal failure consistent with his prolonged symptoms. He was given increased bolus of IV fluids, continued antibiotics. He will benefit from admission for further symptom and continued IV fluids while not tolerating p.o. Medical Records Medical records reviewed: Yes I reviewed the patient's medical records. Lab Data Lab results reviewed: Yes I reviewed the patient's lab results. Result diagrams: 08/18/21 11:01 08/18/21 11: Labs: Lab Results 08/18/21 08/18/21 08/18/21 Range/Units 10:14 11:01 11:01 WBC 9.3 (4.5-11.0) K/mcL RBC 4.52 L (4.63-6.08) M/mcL Hgb 12.6 L (13.7-17.5) g/dL Hct 38.7 L (40.1-51.0) % POC Hct 38.0 L (41-55) MCV 85.6 (80.0-100.0) fL MCH 27.9 (26.0-34.0) pg MCHC 32.6 (31.0-36.0) g/dL RDW 13.3 (11.5-14.5) % Plt Count 288 (140-440) K/mcL MPV 10.5 H (7.4-10.4) fL Neut % (Auto) 82.1 H (38.0-78.0) % Lymph % (Auto) 11.5 L (15.5-49.0) % [place] % (Auto) 5.4 (1.0-12.0) % Eos % (Auto) 0.9 (0.0-7.0) % Baso % (Auto) 0.1 (0.0-2.0) % Lymph # (Auto) 1.07 L (1.50-4.80) K/mcL [place] # (Auto) 0.50 (0.10-0.90) K/mcL Eos # (Auto) 0.08 (0.00-0.70) K/mcL Baso # (Auto) 0.01 (0.00-0.30) K/mcL Absolute Neutrophils 7.63 (1.80-8.00) K/mcL POC Sodium 141 (133-145) Sodium 139 (133-145) mmol/L POC Potassium 3.8 (3.3-5.1) Potassium 3.7 (3.3-5.1) mmol/L POC Chloride 104 (96-108) Chloride 99 (96-108) mmol/L Carbon Dioxide 21 L (22-30) mmol/L POC Total CO2 22.0 (22-30) Anion Gap 19.0 H (8.0-16.0) POC BUN 39 H (6-20) BUN 39 H (6-20) mg/dL Creatinine 3.2 H (0.7-1.2) mg/dL POC Creatinine 3.7 H (0.6-1.2) GFR Calculation 23 Glucose 105 (70-105) mg/dL POC Glucose 112 H (70-105) Calcium 9.5 (8.6-10.4) mg/dL POC WB Ioniz Calcium 1.12 L (1.16-1.32) Total Bilirubin 0.6 (0.1-1.0) mg/dL AST 34 (<40) U/L ALT 6 (<40) U/L Alkaline Phosphatase 72 (39-117) U/L Total Protein 7.5 (5.9-8.4) gm/dL Albumin 3.9 (3.2-5.2) gm/dL Globulin 3.6 (2.2-3.7) gm/dL Albumin/Globulin Ratio 1.1 (1.0-2.3) 08/18/21 Range/Units 11:10 WBC (4.5-11.0) K/mcL RBC (4.63-6.08) M/mcL Hgb (13.7-17.5) g/dL Hct (40.1-51.0) % POC Hct 38.0 L (41-55) MCV (80.0-100.0) fL MCH (26.0-34.0) pg MCHC (31.0-36.0) g/dL RDW (11.5-14.5) % Plt Count (140-440) K/mcL MPV (7.4-10.4) fL Neut % (Auto) (38.0-78.0) % Lymph % (Auto) (15.5-49.0) % [place] % (Auto) (1.0-12.0) % Eos % (Auto) (0.0-7.0) % Baso % (Auto) (0.0-2.0) % Lymph # (Auto) (1.50-4.80) K/mcL [place] # (Auto) (0.10-0.90) K/mcL Eos # (Auto) (0.00-0.70) K/mcL Baso # (Auto) (0.00-0.30) K/mcL Absolute Neutrophils (1.80-8.00) K/mcL POC Sodium 141 (133-145) Sodium (133-145) mmol/L POC Potassium 3.6 (3.3-5.1) Potassium (3.3-5.1) mmol/L POC Chloride 105 (96-108) Chloride (96-108) mmol/L Carbon Dioxide (22-30) mmol/L POC Total CO2 23.0 (22-30) Anion Gap (8.0-16.0) POC BUN 40 H (6-20) BUN (6-20) mg/dL Creatinine (0.7-1.2) mg/dL POC Creatinine 3.8 H (0.6-1.2) GFR Calculation Glucose (70-105) mg/dL POC Glucose 107 H (70-105) Calcium (8.6-10.4) mg/dL POC WB Ioniz Calcium 1.15 L (1.16-1.32) Total Bilirubin (0.1-1.0) mg/dL AST (<40) U/L ALT (<40) U/L Alkaline Phosphatase (39-117) U/L Total Protein (5.9-8.4) gm/dL Albumin (3.2-5.2) gm/dL Globulin (2.2-3.7) gm/dL Albumin/Globulin Ratio (1.0-2.3) CC TIME Critical Care Time Critical Care Time: Yes Attestation: Approximately 30minutes of critical care time was used in order to assess and manage the high probability of imminent or life threatening deterioration to acute renal failure which required my highest level of preparedness and interventions with frequent patient assessments. This time is excluding time spent on separately billable procedures. Discharge Plan Patient/Caregiver Discharge Instructions Pt seen by CAKE TESTER/PA only: No Clinical Impression: Gastroparesis, Nausea & vomiting, Acute kidney injury superimposed on chronic kidney disease Patient Disposition: Xfer As Inpt ([facility]) Condition: Fair Discharge Date/Time: 08/18/21 15:19 Discharge Comment: W/c to [facility]
[2021-08-18] MEDS ORDERED: DICYCLOMINE 20 MG/2 ML VIAL IM ONE (14:05)
--- NOTE | 2021-08-18 14:30 | Internal Med History&Physical ---
HPI History of Present Illness Patient information: Note initiated : 08/18/21 at 2:23 pm Service Date, if different from initiated Date: [as above] Patient: Wong Rangel 40 y/o M admitted on for n/v abodminal pain. Chief Complaint: [Nausea, vomiting] Chief complaint: Nausea, vomiting, failure to thrive History of present illness: Mr. Rangel is a 40 year old M with a past medical history significant for diabetes mellitus type 2, CKD stage II, gastroparesis, and hypertension who presents to the hospital with nausea, vomiting and inappetence. Of note, the patient was hospitalized for cyclical vomiting syndrome recently in June. He states that post discharge, he has been doing relatively well however does have good days and bad days. He states that he has been feeling poorly since last Monday and has not been able to keep anything down. He continues to complain of abdominal pain with nausea and vomiting. He decided to come to the ER for further management and evaluation. While in the ER, the patient was given IV antiemetics, and IV Reglan. He was also resuscitated with IV fluids as he was found to have acute kidney injury with a creatinine of 3.2. The hospitalist service was asked to admit the patient for further management and evaluation of his diabetic gastroparesis. Of note, the patient states that he has been never referred to see motility clinic at [facility]. Review of Systems All systems: reviewed and no additional remarkable complaints except as stated Constitutional Constitutional: Present as per HPI EENT Eyes: Present as per HPI; Absent blurry vision Cardiovascular Cardiovascular: Present as per HPI; Absent chest pain, dyspnea, dyspnea on exertion, leg edema or palpatations Respiratory Respiratory: Present as per HPI; Absent cough, dyspnea, dyspnea on exertion, wheezing or stridor Gastrointestinal Gastrointestinal: Present as per HPI and nausea; Absent abdominal pain, diarrhea, dysphagia, hematemesis, melena or vomiting Musculoskeletal Musculoskeletal: Present as per HPI; Absent joint swelling, limited range of motion, muscle cramps, muscle weakness or myalgias Integumentary Integumentary: Present as per HPI; Absent erythema, new lesions, rash or wounds Neurological Neurological: Present as per HPI; Absent abnormal gait, behavioral changes, focal weakness, headache(s), loss of vision, numbness, sensory deficit or syncope Endocrine Endocrine: Absent change in body appearance, fatigue or heat intolerance Hematologic/Lymphatic Hematologic/Lymphatic: Present as per HPI PFSH PFSH All Active Problems Nausea (Acute) Acute kidney injury superimposed on chronic kidney disease (Acute) GERD (gastroesophageal reflux disease) (Acute) Hypertension in stage 3 chronic kidney disease due to type 2 diabetes mellitus (Acute) Stage 1 acute kidney injury (Acute) Anemia, normocytic normochromic (Acute) Uncontrolled type 2 diabetes mellitus (Acute) Hypertensive urgency (Acute) Gastroparesis (Acute) Pancreatitis (Acute) Intractable nausea and vomiting (Acute) Hypertension (Acute) Diabetic gastroparesis (Acute) Hypoxia, sleep related (Acute) Non compliance w medication regimen (Acute) Hypomagnesemia (Acute) Dehydration (Acute) Cyclical vomiting (Acute) Nausea & vomiting (Acute) Noncompliance (Acute) Medical History Gastroparesis Intractable nausea and vomiting Pancreatitis MEDS/ALLERGIES Home Medications and Allergies Home Medications Medication Instructions Recorded Confirmed Type Levemir 30 - 60 units SQ BID #1 08/06/18 06/15/21 Rx ondansetron 4 mg disintegrating 4 mg SL Q4HP PRN #30 tab 08/06/18 06/15/21 Rx tablet gabapentin 100 mg capsule 100 mg PO TID #60 cap 10/14/18 06/15/21 Rx prochlorperazine maleate 10 mg 10 mg PO Q6H PRN #20 tab 12/31/18 06/15/21 Rx tablet torsemide 20 mg tablet 20 mg PO DAILY 08/13/20 06/15/21 History amlodipine 10 mg tablet 10 mg PO DAILY #30 tab 08/16/20 06/15/21 Rx metoprolol tartrate 50 mg tablet 100 mg PO BID #60 tab 08/16/20 06/15/21 Rx pantoprazole 40 mg tablet,delayed 40 mg PO QAMAC #30 tab 08/16/20 06/15/21 Rx release Allergies Allergy/AdvReac Type Severity Reaction Status Date / Time Penicillins [PENICILLINS] Allergy Intermediate HIVES Verified 08/18/21 09:30 EXAM Constitutional Vitals: Temp Pulse Resp BP Pulse Ox 97.7 F 119 H 20 198/95 100 08/18/21 09:29 08/18/21 13:31 08/18/21 09:29 08/18/21 13:31 08/18/21 13:31 General appearance: average body habitus Head Head exam: Present atraumatic, normal inspection and normocephalic Eye Eye exam: Present EOMI, normal appearance and PERRL; Absent conjunctival injection ENT ENT exam: Present normal exam; Absent mucous membranes dry Neck Neck exam: Present full ROM; Absent lymphadenopathy Respiratory Respiratory exam: Present normal respiratory exam and CTAB; Absent decreased breath sounds, respiratory distress or wheezes Cardiovascular Cardiovascular exam: Present normal rate and rhythm and RRR; Absent JVD GI/Abdominal GI/Abdominal exam: Present normal bowel sounds and soft; Absent diminished bowel sounds, distended, guarding, mass, rebound or tenderness Neurological Exam Neurological exam: Present alert, CN II-XII intact and oriented X3 Psychiatric Psychiatric exam: Present normal affect and normal mood Skin Skin exam: Present intact and warm; Absent erythema, pallor, petechiae or rash DATA Data Completed and Pending Labs: Labs from last 24 hours 08/18/21 08/18/21 08/18/21 11:10 11:01 11:01 WBC 9.3 RBC 4.52 L Hgb 12.6 L Hct 38.7 L POC Hct 38.0 L MCV 85.6 MCH 27.9 MCHC 32.6 RDW 13.3 Plt Count 288 MPV 10.5 H Neut % (Auto) 82.1 H Lymph % (Auto) 11.5 L [place] % (Auto) 5.4 Eos % (Auto) 0.9 Baso % (Auto) 0.1 Lymph # (Auto) 1.07 L [place] # (Auto) 0.50 Eos # (Auto) 0.08 Baso # (Auto) 0.01 Absolute Neutrophils 7.63 POC Sodium 141 Sodium 139 POC Potassium 3.6 Potassium 3.7 POC Chloride 105 Chloride 99 Carbon Dioxide 21 L POC Total CO2 23.0 Anion Gap 19.0 H POC BUN 40 H BUN 39 H Creatinine 3.2 H POC Creatinine 3.8 H GFR Calculation 23 Glucose 105 POC Glucose 107 H Calcium 9.5 POC WB Ioniz Calcium 1.15 L Total Bilirubin 0.6 AST 34 ALT 6 Alkaline Phosphatase 72 Total Protein 7.5 Albumin 3.9 Globulin 3.6 Albumin/Globulin Ratio 1.1 06/08/22 10:14 WBC RBC Hgb Hct POC Hct 38.0 L MCV MCH MCHC RDW Plt Count MPV Neut % (Auto) Lymph % (Auto) [place] % (Auto) Eos % (Auto) Baso % (Auto) Lymph # (Auto) [place] # (Auto) Eos # (Auto) Baso # (Auto) Absolute Neutrophils POC Sodium 141 Sodium POC Potassium 3.8 Potassium POC Chloride 104 Chloride Carbon Dioxide POC Total CO2 22.0 Anion Gap POC BUN 39 H BUN Creatinine POC Creatinine 3.7 H GFR Calculation Glucose POC Glucose 112 H Calcium POC WB Ioniz Calcium 1.12 L Total Bilirubin AST ALT Alkaline Phosphatase Total Protein Albumin Globulin Albumin/Globulin Ratio A/P Assessment and plan (1) Nausea: Status: Acute (2) Acute kidney injury superimposed on chronic kidney disease: Status: Acute (3) GERD (gastroesophageal reflux disease): Status: Acute (4) Hypertension in stage 3 chronic kidney disease due to type 2 diabetes mellitus: Status: Acute (5) Uncontrolled type 2 diabetes mellitus: Status: Acute (6) Diabetic gastroparesis: Status: Acute Narrative A/P Narrative: The patient developed acute kidney injury in the setting of poor p.o. intake as he has a history of diabetic gastroparesis. He will require aggressive IV fluid resuscitation and parenteral antiemetic therapy. Plan of Treatment: At this point, we will continue LR at 100 cc an hour. He will be started on IV Reglan, erythromycin, and Zofran. We will place him on insulin sliding scale and half his long-acting insulin with Lantus 20 units instead of high-dose Levemir. We will hold his home torsemide and other oral antihypertensives. Of note we will switch his p.o. pantoprazole to IV. Time Spent With Patient Time: Total time spent is greater than 50% in coordination of care (as documented) at patient's floor/unit and/or counseling patient: Total time spent with greater than 50% in coordination of care (as documented) at patient's floor/unit and/or counseling patient:: 50 - 70 minutes
[2021-08-18] MEDS ORDERED: DEXTROSE 50% 50 ML VIAL IV PRN (16:13)
[2021-08-18] MEDS ORDERED: ERYTHROMYCIN BASE 250 MG TABLET PO SCH (16:13)
[2021-08-18] MEDS ORDERED: DEXTROSE 31 GM ORAL.SUSP PO PRN (16:13)
[2021-08-18] MEDS: PANTOPRAZOLE 40 MG VIAL IV SCH (16:24)
[2021-08-18] MEDS: LACTATED RINGERS 1,000 ML IV SCH (16:24)
[2021-08-18] MEDS: INSULIN LISPRO 1 UNIT/0.01 ML UNIT SQ SCH ×2 (17:10→20:54)
[2021-08-18] MEDS: PROCHLORPERAZINE 10 MG/2 ML VIAL IV PRN ×2 (17:16→20:44)
[2021-08-18] MEDS: METOCLOPRAMIDE 10 MG/2 ML VIAL IV SCH (17:17)
[2021-08-18] MEDS: ACETAMINOPHEN 1,000 MG/100 ML BAG IV PRN (20:04)
[2021-08-18] MEDS: ONDANSETRON 4 MG/2 ML VIAL IV PRN (20:04)
[2021-08-18] MEDS: DOCUSATE SODIUM 100 MG CAPSULE PO SCH (20:37)
[2021-08-18] MEDS: SENNOSIDES 1 TABLET PO SCH (20:38)
[2021-08-18] MEDS: 0.9 % SODIUM CHLORIDE 10 ML SYRINGE IV SCH (20:38)
[2021-08-18] MEDS: amLODIPine 10 MG TABLET PO SCH (20:44)
[2021-08-18] MEDS: METOPROLOL TARTRATE 50 MG TABLET PO SCH (22:21)
[2021-08-19] MEDS: METOCLOPRAMIDE 10 MG/2 ML VIAL IV SCH ×5 (00:56→23:25)
[2021-08-19] MEDS: LACTATED RINGERS 1,000 ML IV SCH ×4 (03:08→23:22)
[2021-08-19] MEDS: PROCHLORPERAZINE 10 MG/2 ML VIAL IV PRN (03:14)
[2021-08-19] MEDS: ACETAMINOPHEN 1,000 MG/100 ML BAG IV PRN (03:14)
[2021-08-19] MEDS: 0.9 % SODIUM CHLORIDE 10 ML SYRINGE IV SCH ×3 (05:02→20:12)
[2021-08-19] MEDS: PANTOPRAZOLE 40 MG VIAL IV SCH ×2 (07:20→17:07)
[2021-08-19] MEDS: INSULIN LISPRO 1 UNIT/0.01 ML UNIT SQ SCH ×4 (07:23→20:12)
[2021-08-19 07:34] LABS: Blood Urea Nitrogen 33 mg/dL (6-20); Carbon Dioxide 21 mmol/L (22-30); Chloride 103 mmol/L (96-108); Glomerular Filtration Rate 31; Glucose 109 mg/dL (70-105)
[2021-08-19] MEDS: METOPROLOL TARTRATE 50 MG TABLET PO SCH ×2 (08:46→20:17)
[2021-08-19] MEDS: DOCUSATE SODIUM 100 MG CAPSULE PO SCH ×2 (08:46→20:12)
[2021-08-19] MEDS: INSULIN GLARGINE, HUMAN 1 UNIT/0.01 ML SQ SCH (08:47)
[2021-08-19] MEDS: ENOXAPARIN 40 MG/0.4 ML SYRINGE SQ SCH (08:47)
[2021-08-19] MEDS: amLODIPine 10 MG TABLET PO SCH (08:47)
[2021-08-19] MEDS: ONDANSETRON 4 MG/2 ML VIAL IV PRN (10:12)
--- NOTE | 2021-08-19 10:28 | Internal Med Progress Note ---
SUBJECTIVE Subjective Patient information: Note initiated : 08/19/21 at 10:27 am Service Date, if different from initiated Date: [] Patient: Wong Rangel 40 y/o M admitted on 08/18/21 for n/v abodminal pain. Chief Complaint: [Nausea, vomiting] Principal diagnosis: Gastroparesis in the setting of diabetes and ALVINA Interval history: The patient is resting comfortably in bed. He states that his symptoms are slowly improving. We discussed his labs and plan of care. He was in agreement. RN was present at the bedside. Constitutional Vitals: Vital Signs Temp Pulse Resp BP Pulse Ox 97.4 F 75 16 146/89 94 08/19/21 08:00 08/19/21 08:00 08/19/21 08:00 08/19/21 08:00 08/19/21 08:00 Period Temp Pulse Resp BP Sys/Paz Pulse Ox Last 24 Hr 97.4 F-98.4 F 75-119 16-20 146-220/89-184 92-100 Intake and Output 08/18/21 08/19/21 08/19/21 21:59 05:59 13:59 Intake Total 468 1242 Output Total 650 525 Balance -182 717 Weight 120.973 kg Intake & Output: Intake & Output 08/18/21 08/19/21 08/19/21 21:59 05:59 13:59 Intake Total 468 1242 Output Total 650 525 Balance -182 717 Weight 120.973 kg Intake: IV 468 742 Lactated Ringers 1,000 ml @ 100 368 642 mls/hr IV .Q10H JAIME Rx#: [id number] Oral 500 Output: Void Amount 650 525 # of times incontinent of urine 0 0 Other: Urine Appearance Clear Clear Urine Color Dark Yellow Dark Tracey # Voids 0 0 # Bowel Movements 0 0 # of times incontinent of 0 0 Bowels Head Head exam: Present atraumatic and normal inspection Eye Eye exam: Present normal appearance ENT ENT exam: Present mucous membranes moist, normal exam and normal external ear exam Neck Neck exam: Present normal inspection Respiratory Respiratory exam: Present normal respiratory exam Cardiovascular Cardiovascular exam: Present normal rate and rhythm GI/Abdominal GI/Abdominal exam: Present normal bowel sounds Back Exam Back exam: Present normal inspection Neurological Exam Neurological exam: Present alert and oriented X3 Skin Skin exam: Present intact and warm OBJ DATA Labs CBC & Chem 7: 08/18/21 11:01 08/19/21 06:28 Labs: Abnormal Lab Results 08/19/21 08/18/21 08/18/21 06:28 11:10 11:01 RBC Hgb Hct POC Hct 38.0 L MPV Neut % (Auto) Lymph % (Auto) Lymph # (Auto) Carbon Dioxide 21 L 21 L Anion Gap 19.0 H POC BUN 40 H BUN 33 H 39 H Creatinine 2.5 H 3.2 H POC Creatinine 3.8 H Glucose 109 H POC Glucose 107 H POC WB Ioniz Calcium 1.15 L 08/18/21 08/18/21 11:01 10:14 RBC 4.52 L Hgb 12.6 L Hct 38.7 L POC Hct 38.0 L MPV 10.5 H Neut % (Auto) 82.1 H Lymph % (Auto) 11.5 L Lymph # (Auto) 1.07 L Carbon Dioxide Anion Gap POC BUN 39 H BUN Creatinine POC Creatinine 3.7 H Glucose POC Glucose 112 H POC WB Ioniz Calcium 1.12 L Meds: Medications Amlodipine Besylate (Amlodipine 10 Mg Tablet) 10 mg PO DAILY [facility] Last Admin: 08/19/21 08:47 Dose: 10 mg Documented by: Dextrose (Dextrose 50% 50 Ml Vial) 0 ml IV UD PRN PRN Reason: Per Sliding Scale Diagnostic Test (Pha) (Accu-Chek 1 Each Strip) 1 each FS ACHS [facility] Last Admin: 08/19/21 07:23 Dose: 1 each Documented by: Docusate Sodium (Docusate Sodium 100 Mg Capsule) 100 mg PO BID [facility] Last Admin: 08/19/21 08:46 Dose: 100 mg Documented by: Enoxaparin Sodium (Enoxaparin 40 Mg/0.4 Ml Syringe) 40 mg SQ DAILY [facility] Last Admin: 08/19/21 08:47 Dose: 40 mg Documented by: Glucose (Dextrose 31 Gm Oral.Susp) 15 gm PO PRN PRN PRN Reason: Hypoglycemia Lactated Ringer's (Lactated Ringers) 1,000 mls @ 100 mls/hr IV .Q10H [facility] Last Infusion: 08/19/21 03:44 Dose: 100 mls/hr Documented by: Acetaminophen (Ofirmev) 1,000 mg in 100 mls @ 200 mls/hr IV Q8HP PRN; Protocol PRN Reason: PAIN/FEVER > 101 Last Infusion: 08/19/21 03:44 Dose: Infused Documented by: Insulin Glargine (Insulin Glargine, Human 1 Unit/0.01 Ml) 20 unit SQ DAILY [facility] Last Admin: 08/19/21 08:47 Dose: 20 unit Documented by: Insulin Human Lispro (Insulin Lispro 1 Unit/0.01 Ml Unit) 0 unit SQ ACHS [facility]; Protocol Last Admin: 08/19/21 07:23 Dose: Not Given Documented by: Metoclopramide HCl (Metoclopramide 10 Mg/2 Ml Vial) 10 mg IV Q6 [facility] Last Admin: 08/19/21 05:02 Dose: 10 mg Documented by: Metoprolol Tartrate (Metoprolol Tartrate 50 Mg Tablet) 100 mg PO BID [facility] Last Admin: 08/19/21 08:46 Dose: 100 mg Documented by: Ondansetron HCl (Ondansetron 4 Mg/2 Ml Vial) 4 mg IV Q6HP PRN PRN Reason: Nausea And Vomiting Last Admin: 08/19/21 10:12 Dose: 4 mg Documented by: Pantoprazole Sodium (Pantoprazole 40 Mg Vial) 40 mg IV BIDAC [facility] Last Admin: 08/19/21 07:20 Dose: 40 mg Documented by: Prochlorperazine (Prochlorperazine 10 Mg/2 Ml Vial) 5 mg IV Q4HP PRN PRN Reason: Nausea And Vomiting Last Admin: 08/19/21 03:14 Dose: 5 mg Documented by: Senna (Sennosides 1 Tablet) 2 tab PO HS [facility] Last Admin: 08/18/21 20:38 Dose: Not Given Documented by: Sodium Chloride (0.9 % Sodium Chloride 10 Ml Syringe) 10 ml IV Q8 [facility] Last Admin: 08/19/21 05:02 Dose: Not Given Documented by: A/P Assessment and plan (1) Nausea: Status: Acute (2) Acute kidney injury superimposed on chronic kidney disease: Status: Acute (3) GERD (gastroesophageal reflux disease): Status: Acute (4) Hypertension in stage 3 chronic kidney disease due to type 2 diabetes mellitus: Status: Acute (5) Uncontrolled type 2 diabetes mellitus: Status: Acute (6) Diabetic gastroparesis: Status: Acute Narrative A/P Narrative: The patient developed acute kidney injury in the setting of poor p.o. intake as he has a history of diabetic gastroparesis. He will require aggressive IV fluid resuscitation and parenteral antiemetic therapy. Plan of Treatment: At this point, we will continue LR at 100 cc an hour. He will be started on IV Reglan, erythromycin, and Zofran. We will place him on insulin sliding scale and half his long-acting insulin with Lantus 20 units instead of high-dose Leve francisco javier. We will hold his home torsemide and other oral antihypertensives. Of note we will switch his p.o. pantoprazole to IV. 08/19: We do not have erythromycin so instead we will continue IV Reglan and IV Zofran. We will continue IV fluids as his creatinine is slowly improving and is come down from 3.2-2.5. We will keep him on a clear liquid diet. Discussed the case with dietitian. Time Spent With Patient Time: Total time spent is greater than 50% in coordination of care (as documented) at patient's floor/unit and/or counseling patient: Total time spent with greater than 50% in coordination of care (as documented) at patient's floor/unit and/or counseling patient:: 25 - 35 minutes QUALITY VTE Deep Vein Thrombosis/Pulmonary Embolism Present on Admission: No
[2021-08-19] MEDS ORDERED: ACETAMINOPHEN 650 MG/65 ML BAG IV PRN (10:30)
[2021-08-19] MEDS: SENNOSIDES 1 TABLET PO SCH (20:12)
[2021-08-20] MEDS: 0.9 % SODIUM CHLORIDE 10 ML SYRINGE IV SCH (05:02)
[2021-08-20] MEDS: METOCLOPRAMIDE 10 MG/2 ML VIAL IV SCH (05:21)
[2021-08-20] MEDS: PANTOPRAZOLE 40 MG VIAL IV SCH (07:17)
[2021-08-20] MEDS: INSULIN LISPRO 1 UNIT/0.01 ML UNIT SQ SCH (07:25)
[2021-08-20 07:47] LABS: Blood Urea Nitrogen 25 mg/dL (6-20); Calcium 8.3 mg/dL (8.6-10.4); Carbon Dioxide 21 mmol/L (22-30); Chloride 103 mmol/L (96-108); Glomerular Filtration Rate 38; Glucose 74 mg/dL (70-105)
[2021-08-20] MEDS: amLODIPine 10 MG TABLET PO SCH (09:20)
[2021-08-20] MEDS: DOCUSATE SODIUM 100 MG CAPSULE PO SCH (09:20)
[2021-08-20] MEDS: METOPROLOL TARTRATE 50 MG TABLET PO SCH (09:20)
[2021-08-20] MEDS: INSULIN GLARGINE, HUMAN 1 UNIT/0.01 ML SQ SCH (09:21)
[2021-08-20] MEDS: ENOXAPARIN 40 MG/0.4 ML SYRINGE SQ SCH (09:21)
--- NOTE | 2021-08-20 14:06 | Discharge Summary ---
Discharge Provider Provider IMPORTANT FOLLOW-UP INFORMATION FOR PCP: Follow-up BMP within 1 week Referral to the [facility] motility clinic Patient information: Note initiated : 08/20/21 at 2:06 pm Service Date, if different from initiated Date: [] Patient: Wong Rangel a 40 y/o M admitted on 08/18/21 for n/v abodminal pain. Chief Complaint: [Nausea and vomiting] Date of admission: 08/18/21 15:19 Discharge date: 08/20/21 Primary care physician: Ricardo Toth Admitting clinician: May Amezcua Consults: 08/18/21 Consult to Physician [CONS] Stat Comment: Consulting Provider: May Amezcua Reason For Exam: Physician to Consult Discharging clinician: May Amezcua COURSE Hospital Course Hospital course: Mr. Rangel is a 40 year old M with a past medical history significant for diabetes mellitus type 2, CKD stage II, gastroparesis, and hypertension who presents to the hospital with nausea, vomiting and inappetence. Of note, the patient was hospitalized for cyclical vomiting syndrome recently in June. He states that post discharge, he has been doing relatively well however does have good days and bad days. He states that he has been feeling poorly since last Monday and has not been able to keep anything down. He continues to complain of abdominal pain with nausea and vomiting. He decided to come to the ER for further management and evaluation. While in the ER, the patient was given IV antiemetics, and IV Reglan. He was also resuscitated with IV fluids as he was found to have acute kidney injury with a creatinine of 3.2. The hospitalist service was asked to admit the patient for further management and evaluation of his diabetic gastroparesis. Of note, the patient states that he has been never referred to see motility clinic at [facility]. At this point, we will continue LR at 100 cc an hour. He will be started on IV Reglan, erythromycin, and Zofran. We will place him on insulin sliding scale and half his long-acting insulin with Lantus 20 units instead of high-dose Levemir. We will hold his home torsemide and other oral antihypertensives. Of note we will switch his p.o. pantoprazole to IV. 08/19: We do not have erythromycin so instead we will continue IV Reglan and IV Zofran. We will continue IV fluids as his creatinine is slowly improving and is come down from 3.2-2.5. We will keep him on a clear liquid diet. Discussed the case with dietitian. 08/20: The patient's creatinine has improved to 2.1. He is tolerating an advanced diet and is eager to return home. He looks well. He was seen by the dietitian. The patient should follow-up with his primary care physician in 1 week's time. Of note his home torsemide will be held. It is recommended he have a BMP checked within 1 week. Discharge diagnosis: Diabetic gastroparesis, acute on chronic kidney injury Time Spent with Patient Time attestation: Total time spent providing and/or coordinating discharge services: Time spent: Greater than 30 minutes EXAM Constitutional Vitals: Temp Pulse Resp BP Pulse Ox 99 F 70 20 143/94 97 08/20/21 11:40 08/20/21 03:35 08/20/21 11:40 08/20/21 11:40 08/20/21 11:40 General appearance: average body habitus Head Head exam: Present atraumatic, normal inspection and normocephalic Eye Eye exam: Present EOMI, normal appearance and PERRL; Absent conjunctival in jection ENT ENT exam: Present normal exam; Absent mucous membranes dry Neck Neck exam: Present full ROM; Absent lymphadenopathy Respiratory Respiratory exam: Present normal respiratory exam and CTAB; Absent decreased breath sounds, respiratory distress or wheezes Cardiovascular Cardiovascular exam: Present normal rate and rhythm and RRR; Absent JVD GI/Abdominal GI/Abdominal exam: Present normal bowel sounds and soft; Absent diminished bowel sounds, distended, guarding, mass, rebound or tenderness Neurological Exam Neurological exam: Present alert, CN II-XII intact and oriented X3 Psychiatric Psychiatric exam: Present normal affect and normal mood Skin Skin exam: Present intact and warm; Absent erythema, pallor, petechiae or rash Discharge Data Data Completed and Pending Labs on day of discharge: Labs from last 24 hours 08/20/21 05:37 Sodium 137 Potassium 3.3 Chloride 103 Carbon Dioxide 21 L Anion Gap 13.0 BUN 25 H Creatinine 2.1 H GFR Calculation 38 Glucose 74 Calcium 8.3 L Discharge Plan Patient/Caregiver Discharge Instructions Activity: increase activity as tolerated Diet: Consistent Carbohydrate Instructions: Diabetic Gastroparesis (DC) Prescriptions: Continued ondansetron 4 MG tablet 4 mg SL Q4HP PRN (Reason: Nausea And Vomiting) Qty: 30 0RF Levemir 30 - 60 units SQ BID Qty: 1 0RF gabapentin 100 MG capsule 100 mg PO TID Qty: 60 0RF prochlorperazine maleate 10 MG tablet 10 mg PO Q6H PRN (Reason: Nausea) Qty: 20 0RF amlodipine 10 mg Tablet 10 mg PO DAILY Qty: 30 0RF pantoprazole 40 mg Tablet,Delayed Release (Dr/Ec) 40 mg PO QAMAC Qty: 30 0RF metoprolol tartrate 50 mg Tablet 100 mg PO BID Qty: 60 0RF Discontinued torsemide 20 mg tablet 20 mg PO DAILY 0RF Follow Up Plan Follow up with: Ricardo Toth MD [Primary Care Provider] - Patient Disposition: Home, Self-Care Prognosis: Fair Rehab Potential: Fair Overall status at discharge: patient is progressing back to baseline Discharge Orders: Discharge Order (Routine); Ordered 08/20/21 Ordered By: May DANIELS VTE Deep Vein Thrombosis/Pulmonary Embolism Present on Admission: No
== END 2021-08-20 13:05 | disposition home or self-care (01) | DRG 74 ==
LOC: ED 09:28 → MEDSUR 15:19
PROVIDERS: ADMIT Student in an Organized Health Care Education/Training Program; ATTEND Student in an Organized Health Care Education/Training Program

== ENCOUNTER 2021-09-30 09:41 | Inpatient (IN) ==
[2021-09-30] MEDS ORDERED: 0.9 % SODIUM CHLORIDE 1,000 ML IV ONE ×3 (10:04→16:52)
[2021-09-30] MEDS ORDERED: METOCLOPRAMIDE 10 MG/2 ML VIAL IV ONE (10:04)
--- NOTE | 2021-09-30 10:06 | Emergency Department Note ---
HPI General Chief complaint: Nausea/Vomiting/Diarrhea Stated complaint: Nausea Time Seen by Provider: 09/30/21 10:04 Source: patient Mode of arrival: ambulatory Limitations: no limitations History of Present Illness HPI Narrative: Narrative: Related Data Home Medications Medication Instructions Recorded Confirmed amitriptyline 10 mg tablet 1 tab PO QHS 10/01/21 10/01/21 clopidogrel 75 mg tablet 1 tab PO QAM 10/01/21 10/01/21 dulaglutide 3 mg/0.5 mL 1 ea subcut WEEKLY 10/01/21 10/01/21 subcutaneous pen injector (Trulicity) torsemide 20 mg tablet 4 tab PO DAILY 10/01/21 10/01/21 Previous Rx's Medication Instructions Recorded Levemir 30 - 60 units SQ BID ##1 08/06/18 ondansetron 4 mg disintegrating 4 mg SL Q4HP PRN Nausea And 08/06/18 tablet Vomiting #30 tabs gabapentin 100 mg capsule 100 mg PO TID #60 caps 10/14/18 prochlorperazine maleate 10 mg 10 mg PO Q6H PRN Nausea #20 tabs 12/31/18 tablet amlodipine 10 mg tablet 10 mg PO DAILY #30 tabs 08/16/20 metoprolol tartrate 50 mg tablet 100 mg PO BID #60 tabs 08/16/20 pantoprazole 40 mg tablet,delayed 40 mg PO QAMAC #30 tabs 08/16/20 release Allergies Allergy/AdvReac Type Severity Reaction Status Date / Time Penicillins [PENICILLINS] Allergy Intermediate HIVES Verified 09/30/21 09:51 Review of Systems ROS ROS Narrative: Narrative: PFSH Narrative Patient History Narrative: Narrative: Medical/Surgical/Family History All Active Problems (Updated 09/30/21 @ 14:23 by Marika Hargrove PA-C) Nausea (Acute) Acute kidney injury superimposed on chronic kidney disease (Acute) GERD (gastroesophageal reflux disease) (Acute) Hypertension in stage 3 chronic kidney disease due to type 2 diabetes mellitus (Acute) Stage 1 acute kidney injury (Acute) Anemia, normocytic normochromic (Acute) Uncontrolled type 2 diabetes mellitus (Acute) Hypertensive urgency (Acute) Gastroparesis (Acute) Pancreatitis (Acute) Intractable nausea and vomiting (Acute) Hypertension (Acute) Diabetic gastroparesis (Acute) Hypoxia, sleep related (Acute) Non compliance w medication regimen (Acute) Hypomagnesemia (Acute) Dehydration (Acute) Cyclical vomiting (Acute) Nausea & vomiting (Acute) Noncompliance (Acute) Medical History Gastroparesis Intractable nausea and vomiting Pancreatitis Social History Smoking Status: Never smoker Exam Narrative Narrative: Narrative: General Limitations: no limitations Course Vital Signs Vital signs: Vital Signs Temperature 97.3 F 09/30/21 09:51 Pulse Rate 118 H 09/30/21 09:51 Respiratory Rate 20 09/30/21 09:51 Blood Pressure 163/107 09/30/21 09:51 Pulse Oximetry (%) 100 09/30/21 09:51 Oxygen Delivery Method 09/30/21 09:51 Temperature 97.7 F 10/02/21 07:35 Pulse Rate 81 10/02/21 03:10 Respiratory Rate 16 10/02/21 07:35 Blood Pressure 151/96 10/02/21 07:35 Pulse Oximetry (%) 96 10/02/21 07:35 Oxygen Delivery Method 10/02/21 07:35 Oxygen Flow Rate (L/min) 2 10/01/21 03:55 MDM MDM Narrative Medical decision making narrative: Narrative: Lab Data Result diagrams: 10/01/21 05:30 10/01/21 09:50 Labs: Lab Results 09/30/21 09/30/21 09/30/21 Range/Units 10:11 10:22 13:00 WBC 8.4 (4.5-11.0) K/mcL RBC 4.48 L (4.63-6.08) M/mcL Hgb 12.4 L (13.7-17.5) g/dL Hct 37.7 L (40.1-51.0) % POC Hct 38.0 L (41-55) MCV 84.2 (80.0-100.0) fL MCH 27.7 (26.0-34.0) pg MCHC 32.9 (31.0-36.0) g/dL RDW 13.5 (11.5-14.5) % Plt Count 274 (140-440) K/mcL MPV 10.2 (7.4-10.4) fL Immature Gran % (Auto) 0.2 (0.0-0.5) % Neut % (Auto) 75.3 (38.0-78.0) % Lymph % (Auto) 16.0 (15.5-49.0) % [place] % (Auto) 5.3 (1.0-12.0) % Eos % (Auto) 3.0 (0.0-7.0) % Baso % (Auto) 0.2 (0.0-2.0) % Lymph # (Auto) 1.34 L (1.50-4.80) K/mcL [place] # (Auto) 0.44 (0.10-0.90) K/mcL Eos # (Auto) 0.25 (0.00-0.70) K/mcL Baso # (Auto) 0.02 (0.00-0.30) K/mcL Immature Gran # 0.02 (0.00-0.05) K/mcl Absolute Neutrophils 6.30 (1.80-8.00) K/mcL POC Sodium 142 (133-145) POC Potassium 4.5 (3.3-5.1) POC Chloride 108 (96-108) POC Total CO2 22.0 (22-30) POC BUN 31 H (6-20) POC Creatinine 2.9 H (0.6-1.2) POC Glucose 109 H (70-105) Hemoglobin A1c (4.0-6.0) % Hgb Estim Average Glucose mg/dL POC WB Ioniz Calcium 1.24 (1.16-1.32) Total Bilirubin 0.6 (0.1-1.0) mg/dL Direct Bilirubin < 0.2 (0-0.3) mg/dL AST 28 (<40) U/L ALT 5 (<40) U/L Alkaline Phosphatase 72 (39-117) U/L Total Protein 8.2 (5.9-8.4) gm/dL Albumin 4.5 (3.2-5.2) gm/dL Globulin 3.7 (2.2-3.7) gm/dL Lipase 47 (7-60) U/L 09/30/21 Range/Units 13:00 WBC (4.5-11.0) K/mcL RBC (4.63-6.08) M/mcL Hgb (13.7-17.5) g/dL Hct (40.1-51.0) % POC Hct (41-55) MCV (80.0-100.0) fL MCH (26.0-34.0) pg MCHC (31.0-36.0) g/dL RDW (11.5-14.5) % Plt Count (140-440) K/mcL MPV (7.4-10.4) fL Immature Gran % (Auto) (0.0-0.5) % Neut % (Auto) (38.0-78.0) % Lymph % (Auto) (15.5-49.0) % [place] % (Auto) (1.0-12.0) % Eos % (Auto) (0.0-7.0) % Baso % (Auto) (0.0-2.0) % Lymph # (Auto) (1.50-4.80) K/mcL [place] # (Auto) (0.10-0.90) K/mcL Eos # (Auto) (0.00-0.70) K/mcL Baso # (Auto) (0.00-0.30) K/mcL Immature Gran # (0.00-0.05) K/mcl Absolute Neutrophils (1.80-8.00) K/mcL POC Sodium (133-145) POC Potassium (3.3-5.1) POC Chloride (96-108) POC Total CO2 (22-30) POC BUN (6-20) POC Creatinine (0.6-1.2) POC Glucose (70-105) Hemoglobin A1c 7.5 H (4.0-6.0) % Hgb Estim Average Glucose 169 mg/dL POC WB Ioniz Calcium (1.16-1.32) Total Bilirubin (0.1-1.0) mg/dL Direct Bilirubin (0-0.3) mg/dL AST (<40) U/L ALT (<40) U/L Alkaline Phosphatase (39-117) U/L Total Protein (5.9-8.4) gm/dL Albumin (3.2-5.2) gm/dL Globulin (2.2-3.7) gm/dL Lipase (7-60) U/L Discharge Plan Patient/Caregiver Discharge Instructions Pt seen by HISTORIOGRAPHER/PA only: Yes Clinical Impression: Cyclical vomiting, Gastroparesis Activity: increase activity as tolerated Patient Disposition: Xfer As Inpt ([facility]) Condition: Fair Discharge Date/Time: 09/30/21 16:52 Discharge Comment: W/c to [facility]
[2021-09-30 10:16] LABS: POC Calcium, Ionized 1.24 (1.16-1.32); POC Creatinine 2.9 (0.6-1.2); POC Potassium 4.5 (3.3-5.1)
[2021-09-30 10:59] LABS: Basophils # (Auto) 0.02 K/mcL (0.00-0.30); Basophils % (Auto) 0.2 % (0.0-2.0); Eosinophils # (Auto) 0.25 K/mcL (0.00-0.70); Hematocrit 37.7 % (40.1-51.0); Hemoglobin 12.4 g/dL (13.7-17.5); Lymphocytes # (Auto) 1.34 K/mcL (1.50-4.80); Mean Cell Volume 84.2 fL (80.0-100.0); Mean Corpuscular HGB Conc 32.9 g/dL (31.0-36.0); Mean Platelet Volume 10.2 fL (7.4-10.4); Monocytes # (Auto) 0.44 K/mcL (0.10-0.90); Monocytes % (Auto) 5.3 % (1.0-12.0); Neutrophils % (Auto) 75.3 % (38.0-78.0); Platelet Count 274 K/mcL (140-440); RBC 4.48 M/mcL (4.63-6.08); Red Cell Distribution Width 13.5 % (11.5-14.5); WBC 8.4 K/mcL (4.5-11.0)
[2021-09-30] MEDS ORDERED: PROMETHAZINE 25 MG/ML VIAL IV ONE (11:33)
[2021-09-30] MEDS ORDERED: diphenhydrAMINE 50 MG/ML VIAL IV ONE (11:33)
[2021-09-30] MEDS ORDERED: PROCHLORPERAZINE 10 MG/2 ML VIAL IV ONE (12:29)
[2021-09-30] MEDS ORDERED: HYDROmorphone 1 MG/ML SYRINGE IV ONE ×2 (12:29→14:23)
--- NOTE | 2021-09-30 14:25 | Emergency Department Note ---
Nausea/Vomiting/Diarrhea HPI General Chief complaint: Nausea/Vomiting/Diarrhea Stated complaint: Nausea Time Seen by Provider: 09/30/21 10:04 Source: patient Mode of arrival: ambulatory Limitations: no limitations History of Present Illness HPI Narrative: This is a 41-year-old diabetic male with a history of cyclic vomiting syndrome and gastroparesis who presents to the ER for the second time in 2 days for uncontrolled nausea and vomiting and epigastric abdominal pain. Patient states that Zofran at home is not working for his nausea. He notes that when he receives a combination of Compazine, Benadryl, and Dilaudid his symptoms tend to resolve. His primary care provider is Dr. Ricardo Toth. He states that they are working on a referral to a specialist in [place], but he does not know the status of this yet. Last EGD was with Dr. Whiteside in 07/2018 and showed some gastric erosion but no other concerning findings. The patient denies hematemesis, melena or hematochezia. He states it has been several days since he had a bowel movement, but with these symptoms he usually has constipation. No previous abdominal surgeries. Related Data Previous Rx's Medication Instructions Recorded Levemir 30 - 60 units SQ BID ##1 08/06/18 ondansetron 4 mg disintegrating 4 mg SL Q4HP PRN Nausea And 08/06/18 tablet Vomiting #30 tabs gabapentin 100 mg capsule 100 mg PO TID #60 caps 10/14/18 prochlorperazine maleate 10 mg 10 mg PO Q6H PRN Nausea #20 tabs 12/31/18 tablet amlodipine 10 mg tablet 10 mg PO DAILY #30 tabs 08/16/20 metoprolol tartrate 50 mg tablet 100 mg PO BID #60 tabs 08/16/20 pantoprazole 40 mg tablet,delayed 40 mg PO QAMAC #30 tabs 08/16/20 release Allergies Allergy/AdvReac Type Severity Reaction Status Date / Time Penicillins [PENICILLINS] Allergy Intermediate HIVES Verified 09/30/21 09:51 Review of Systems ROS ROS Narrative: Narrative: PFSH Narrative Patient History Narrative: Narrative: Medical/Surgical/Family History All Active Problems (Updated 09/30/21 @ 14:23 by Marika Hargrove PA-C) Nausea (Acute) Acute kidney injury superimposed on chronic kidney disease (Acute) GERD (gastroesophageal reflux disease) (Acute) Hypertension in stage 3 chronic kidney disease due to type 2 diabetes mellitus (Acute) Stage 1 acute kidney injury (Acute) Anemia, normocytic normochromic (Acute) Uncontrolled type 2 diabetes mellitus (Acute) Hypertensive urgency (Acute) Gastroparesis (Acute) Pancreatitis (Acute) Intractable nausea and vomiting (Acute) Hypertension (Acute) Diabetic gastroparesis (Acute) Hypoxia, sleep related (Acute) Non compliance w medication regimen (Acute) Hypomagnesemia (Acute) Dehydration (Acute) Cyclical vomiting (Acute) Nausea & vomiting (Acute) Noncompliance (Acute) Medical History Gastroparesis Intractable nausea and vomiting Pancreatitis Social History Smoking Status: Never smoker Exam Narrative Narrative: General: AOx3, NAD, ill-appearing with active nausea and vomiting. Pleasant and conversant. HEENT: PERRL, EOMI, normocephalic. Dry mucous membranes Respiratory: Lungs clear to auscultation bilaterally. No respiratory distress. Unlabored breathing. Heart: Regular rate and rhythm, no murmurs/clicks/rubs. Abdomen: Mild epigastric discomfort, no rebound tenderness, Non distended, absent bowel tones. No organomegaly. Extremities: Warm and well perfused. No edema. DP 2+ bilaterally. No venous stasis. Neuro: No focal deficits. Cranial nerves II-XII grossly normal. Skin: Warm dry, no rashes or lesions, no cyanosis. Psych: Normal mood and affect Heme/Lymph: No abnormal bruising General Limitations: no limitations Course Course Course Narrative: 41-year-old male with T2DM and history of cyclic vomiting syndrome and gastroparesis presents with intractable nausea and vomiting Reevaluation(s) Reevaluation #1: Obtain basic labs Establish IV and give IV fluids, antiemetics, Benadryl, and Dilaudid as this is typically what controls his nausea and vomiting Reevaluation #2: Patient has received metoclopramide, promethazine, Compazine/Benadryl, and Dilaudid. Initially his symptoms abated and he was encouraged to drink oral fluids. Unfortunately, his symptoms have returned and he continues to have intractable nausea and vomiting. We will give an additional dose of Dilaudid and I suspect he will need admission for control of his symptoms. Basic labs with a creatinine now 2.9, which is near his baseline. No electrolyte derangements, and blood counts are stable. Vital Signs Vital signs: Vital Signs Temperature 97.3 F 09/30/21 09:51 Pulse Rate 118 H 09/30/21 09:51 Respiratory Rate 20 09/30/21 09:51 Blood Pressure 163/107 09/30/21 09:51 Pulse Oximetry (%) 100 09/30/21 09:51 Oxygen Delivery Method 09/30/21 09:51 Temperature 97.3 F 09/30/21 09:51 Pulse Rate 99 H 09/30/21 14:16 Respiratory Rate 20 09/30/21 09:51 Blood Pressure 189/120 09/30/21 14:16 Pulse Oximetry (%) 99 09/30/21 14:16 Oxygen Delivery Method 09/30/21 12:12 Oxygen Flow Rate (L/min) 2 09/30/21 13:31 MDM MDM Narrative Medical decision making narrative: Cyclic nausea and vomiting History of gastroparesis Acute on chronic renal insufficiency Given the patient's intractable nausea and vomiting we will get him admitted for symptom control and IV fluids for rehydration. Patient is amenable to this plan and I reached out to Dr. Padilla who has accepted the patient for admission. Lab Data Result diagrams: 09/30/21 10:22 Labs: Lab Results 09/30/21 09/30/21 09/30/21 Range/Units 10:11 10:22 13:00 WBC 8.4 (4.5-11.0) K/mcL RBC 4.48 L (4.63-6.08) M/mcL Hgb 12.4 L (13.7-17.5) g/dL Hct 37.7 L (40.1-51.0) % POC Hct 38.0 L (41-55) MCV 84.2 (80.0-100.0) fL MCH 27.7 (26.0-34.0) pg MCHC 32.9 (31.0-36.0) g/dL RDW 13.5 (11.5-14.5) % Plt Count 274 (140-440) K/mcL MPV 10.2 (7.4-10.4) fL Immature Gran % (Auto) 0.2 (0.0-0.5) % Neut % (Auto) 75.3 (38.0-78.0) % Lymph % (Auto) 16.0 (15.5-49.0) % [place] % (Auto) 5.3 (1.0-12.0) % Eos % (Auto) 3.0 (0.0-7.0) % Baso % (Auto) 0.2 (0.0-2.0) % Lymph # (Auto) 1.34 L (1.50-4.80) K/mcL [place] # (Auto) 0.44 (0.10-0.90) K/mcL Eos # (Auto) 0.25 (0.00-0.70) K/mcL Baso # (Auto) 0.02 (0.00-0.30) K/mcL Immature Gran # 0.02 (0.00-0.05) K/mcl Absolute Neutrophils 6.30 (1.80-8.00) K/mcL POC Sodium 142 (133-145) POC Potassium 4.5 (3.3-5.1) POC Chloride 108 (96-108) POC Total CO2 22.0 (22-30) POC BUN 31 H (6-20) POC Creatinine 2.9 H (0.6-1.2) POC Glucose 109 H (70-105) POC WB Ioniz Calcium 1.24 (1.16-1.32) Total Bilirubin 0.6 (0.1-1.0) mg/dL Direct Bilirubin < 0.2 (0-0.3) mg/dL AST 28 (<40) U/L ALT 5 (<40) U/L Alkaline Phosphatase 72 (39-117) U/L Total Protein 8.2 (5.9-8.4) gm/dL Albumin 4.5 (3.2-5.2) gm/dL Globulin 3.7 (2.2-3.7) gm/dL Lipase 47 (7-60) U/L Discharge Plan Patient/Caregiver Discharge Instructions Pt seen by POWER PRESS SUPERVISOR/PA only: Yes Clinical Impression: Cyclical vomiting, Gastroparesis Patient Disposition: Xfer As Inpt ([facility]) Follow up with: Ricardo Toth MD [Primary Care Provider] - Prescriptions: No Action ondansetron 4 MG tablet 4 mg SL Q4HP PRN (Reason: Nausea And Vomiting) Qty: 30 0RF Levemir 30 - 60 units SQ BID Qty: 1 0RF gabapentin 100 MG capsule 100 mg PO TID Qty: 60 0RF prochlorperazine maleate 10 MG tablet 10 mg PO Q6H PRN (Reason: Nausea) Qty: 20 0RF amlodipine 10 mg Tablet 10 mg PO DAILY Qty: 30 0RF pantoprazole 40 mg Tablet,Delayed Release (Dr/Ec) 40 mg PO QAMAC Qty: 30 0RF metoprolol tartrate 50 mg Tablet 100 mg PO BID Qty: 60 0RF
[2021-09-30 15:01] LABS: ALT/SGPT 5 U/L (<40); AST/SGOT 28 U/L (<40); Albumin 4.5 gm/dL (3.2-5.2); Alkaline Phosphatase 72 U/L (39-117); Bilirubin,Direct < 0.2 mg/dL (0-0.3); Bilirubin,Total 0.6 mg/dL (0.1-1.0); Globulin 3.7 gm/dL (2.2-3.7)
--- NOTE | 2021-09-30 15:17 | Internal Med History&Physical ---
HPI History of Present Illness Patient information: Note initiated : 09/30/21 at 3:08 pm Service Date, if different from initiated Date: [] Patient: Wong Rangel a 41 y/o M admitted on for Nausea. Chief Complaint: [] History of present illness: Mr. Rangel is a 41 year old M Presents the ED with intractable nausea vomiting. He said he started developing nausea vomiting last Monday which waxed and waned. He had some good days some bad days. However this morning when he woke up he had constant nausea vomiting for several hours and had emesis of the least 10 times. Patient states he knows when he has it constantly that he needs to go to the ER and thus presented to the ED. Patient has a history of cyclic vomiting and gastroparesis. He has seen a machine packager here in the [place] and also up in [place]. His primary care doctor is trying to coordinate him seeing a specialist in [place]. Patient was admitted in August for the same issue for several days. He was admitted in June for several days for the same thing. He was also admitted to [facility] the beginning of June for the same thing for 3 days. In the ED he is found to be tachycardic with a creatinine mildly above baseline. Multiple attempts to get his nausea vomiting or undertaken in the ED with some temporary improvement but then with any oral challenge his symptoms worsened again. Patient is not on any special gastroparesis diet. Denies marijuana use or any other drug use. Denies chest pain or shortness of breath. Denies stomach pain. Review of Systems: Pertinent positives as above. Denies headache/fever/chills/chest or abdominal pain/cough/dyspnea/diarrhea. Remaining 10 point review of system reviewed negative PFSH PFSH All Active Problems (Updated 09/30/21 @ 14:23 by Marika Hargrove PA-C) Nausea (Acute) Acute kidney injury superimposed on chronic kidney disease (Acute) GERD (gastroesophageal reflux disease) (Acute) Hypertension in stage 3 chronic kidney disease due to type 2 diabetes mellitus (Acute) Stage 1 acute kidney injury (Acute) Anemia, normocytic normochromic (Acute) Uncontrolled type 2 diabetes mellitus (Acute) Hypertensive urgency (Acute) Gastroparesis (Acute) Pancreatitis (Acute) Intractable nausea and vomiting (Acute) Hypertension (Acute) Diabetic gastroparesis (Acute) Hypoxia, sleep related (Acute) Non compliance w medication regimen (Acute) Hypomagnesemia (Acute) Dehydration (Acute) Cyclical vomiting (Acute) Nausea & vomiting (Acute) Noncompliance (Acute) Medical History Gastroparesis Intractable nausea and vomiting Pancreatitis MEDS/ALLERGIES Home Medications and Allergies Home Medications Medication Instructions Recorded Confirmed Type Levemir 30 - 60 units SQ BID ##1 08/06/18 06/15/21 Rx ondansetron 4 mg disintegrating 4 mg SL Q4HP PRN Nausea And 08/06/18 08/18/21 Rx tablet Vomiting #30 tabs gabapentin 100 mg capsule 100 mg PO TID #60 caps 10/14/18 08/18/21 Rx prochlorperazine maleate 10 mg 10 mg PO Q6H PRN Nausea #20 tabs 12/31/18 08/18/21 Rx tablet amlodipine 10 mg tablet 10 mg PO DAILY #30 tabs 08/16/20 08/18/21 Rx metoprolol tartrate 50 mg tablet 100 mg PO BID #60 tabs 08/16/20 08/18/21 Rx pantoprazole 40 mg tablet,delayed 40 mg PO QAMAC #30 tabs 08/16/20 08/18/21 Rx release Allergies Allergy/AdvReac Type Severity Reaction Status Date / Time Penicillins [PENICILLINS] Allergy Intermediate HIVES Verified 09/30/21 09:51 EXAM Constitutional Vitals: Temp Pulse Resp BP Pulse Ox O2 Del Method O2 Flow Rate 97.3 F 99 H 20 189/120 99 2 09/30/21 09:51 09/30/21 14:16 09/30/21 09:51 09/30/21 14:16 09/30/21 14:16 09/30/21 12:12 09/30/21 13:31 Exam: General: Alert, Awake, No acute Distress, obese Eyes/N/T: EOMI, PERRL, dry MM Head/Neck: neck supple, normocephalic atraumatic CV: Mildly tacky but regular, No murmurs, normal s1/s2 Pulm: Clear b/l, no wheezing/rhonchi/rales Abd: soft, nontender, +BS x4 Ext: no clubbing/cyanosis/edema Neuro: Alert, no focal deficits, moves all extremities, CN 2-12 grossly intact, symmetrical strength b/l upper/lower, sensations intact b/l upper/lower Skin: warm/dry DATA Data Completed and Pending Labs: Labs from last 24 hours 09/30/21 09/30/21 09/30/21 13:00 10:22 10:11 WBC 8.4 RBC 4.48 L Hgb 12.4 L Hct 37.7 L POC Hct 38.0 L MCV 84.2 MCH 27.7 MCHC 32.9 RDW 13.5 Plt Count 274 MPV 10.2 Immature Gran % (Auto) 0.2 Neut % (Auto) 75.3 Lymph % (Auto) 16.0 [place] % (Auto) 5.3 Eos % (Auto) 3.0 Baso % (Auto) 0.2 Lymph # (Auto) 1.34 L [place] # (Auto) 0.44 Eos # (Auto) 0.25 Baso # (Auto) 0.02 Immature Gran # 0.02 Absolute Neutrophils 6.30 POC Sodium 142 POC Potassium 4.5 POC Chloride 108 POC Total CO2 22.0 POC BUN 31 H POC Creatinine 2.9 H POC Glucose 109 H POC WB Ioniz Calcium 1.24 Total Bilirubin 0.6 Direct Bilirubin < 0.2 AST 28 ALT 5 Alkaline Phosphatase 72 Total Protein 8.2 Albumin 4.5 Globulin 3.7 Lipase 47 A/P Narrative A/P Narrative: A: *Intractable N/V with history of cyclic vomiting and gastroparesis: -PCP trying to coordinate for patient to see a specialist in [place] *ALIVNA on CKD IIIb: *DM w/neuropathy and gastroparesis: *CAD w/stents x2 in 10/2020: *Anemia, chronic: *HTN Urgency: usually elevated during these N/V episodes + missed meds this morning *Obesity: BMI 34 *GERD: P: -IVF -NPO today, then advanced as tolerated to low-fat / soluble fiber diet -Reglan including prn Ativan and Benadryl -uop, renal fxn -cont home norvasc/BB -basal and ssi - -Home medication reconciliation -f/u closely with PCP/Specialist -ppx: Lovenox / home ppi Time Spent With Patient Time: Total time spent is greater than 50% in coordination of care (as documented) at patient's floor/unit and/or counseling patient: Total time spent with greater than 50% in coordination of care (as documented) at patient's floor/unit and/or counseling patient:: 50 - 70 minutes
--- NOTE | 2021-09-30 15:34 | XRay Report ---
CLINICAL INFORMATION: Chest pain nausea COMPARISON: None. TECHNIQUE: Portable FINDINGS: The heart size, mediastinum and pulmonary vessels are unremarkable. The lungs are clear. There are no effusions. The bones and soft tissues are within normal limits. IMPRESSION: Normal chest. Interpreted and Authenticated by: Bharat Alfonso 09/30/21
[2021-09-30] MEDS ORDERED: POTASSIUM CHLORIDE 20 MEQ TABLET PO PRN ×2 (16:52)
[2021-09-30] MEDS ORDERED: DEXTROSE 31 GM ORAL.SUSP PO PRN (16:52)
[2021-09-30] MEDS ORDERED: diphenhydrAMINE 50 MG/ML VIAL IV PRN (16:52)
[2021-09-30] MEDS ORDERED: MAGNESIUM SULFATE 2 GM/50 ML BAG IV PRN (16:52)
[2021-09-30] MEDS ORDERED: ACETAMINOPHEN 325 MG TABLET PO PRN (16:52)
[2021-09-30] MEDS ORDERED: POTASSIUM CHLORIDE 40 MEQ in DEXTROSE 5% IN WATER 500 ML IV PRN (16:52)
[2021-09-30] MEDS ORDERED: PROMETHAZINE 25 MG/ML VIAL IV PRN (16:52)
[2021-09-30] MEDS ORDERED: IPRATROPIUM/ALBUTEROL 3 ML AMPUL.NEB NEB PRN (16:52)
[2021-09-30] MEDS ORDERED: LORazepam 2 MG/ML VIAL IV PRN (16:52)
[2021-09-30] MEDS ORDERED: DEXTROSE 50% 50 ML VIAL IV PRN (16:52)
[2021-09-30] MEDS ORDERED: POLYETHYLENE GLYCOL 3350 17 GM PACKET PO PRN (16:52)
[2021-09-30] MEDS ORDERED: ONDANSETRON 4 MG/2 ML VIAL IV PRN (16:52)
[2021-09-30] MEDS ORDERED: SENNOSIDES 1 TABLET PO PRN (16:52)
[2021-09-30] MEDS: METOCLOPRAMIDE 10 MG/2 ML VIAL IV SCH ×2 (17:38→23:59)
[2021-09-30 17:43] LABS: Hemoglobin A1C 7.5 % Hgb (4.0-6.0)
[2021-09-30] MEDS: INSULIN LISPRO 1 UNIT/0.01 ML UNIT SQ SCH ×2 (17:46→21:05)
[2021-09-30] MEDS: DOCUSATE SODIUM 100 MG CAPSULE PO SCH (20:19)
[2021-09-30] MEDS: LABETALOL 5 MG/ML ML IV PRN (20:30)
[2021-09-30] MEDS: 0.9 % SODIUM CHLORIDE 10 ML SYRINGE IV SCH (20:32)
[2021-09-30] MEDS ORDERED: HYDROmorphone 1 MG/ML SYRINGE ONE (20:50)
[2021-10-01] MEDS: HYDROmorphone 1 MG/ML SYRINGE IV PRN ×4 (03:48→18:26)
[2021-10-01] MEDS: LABETALOL 5 MG/ML ML IV PRN (04:01)
[2021-10-01] MEDS: METOCLOPRAMIDE 10 MG/2 ML VIAL IV SCH ×3 (06:10→17:59)
[2021-10-01] MEDS: 0.9 % SODIUM CHLORIDE 10 ML SYRINGE IV SCH ×3 (06:10→20:42)
[2021-10-01] MEDS: INSULIN LISPRO 1 UNIT/0.01 ML UNIT SQ SCH ×4 (07:51→20:41)
--- NOTE | 2021-10-01 08:08 | Internal Med Progress Note ---
SUBJECTIVE Subjective Patient information: Note initiated : 10/01/21 at 8:06 am Service Date, if different from initiated Date: [] Patient: Wong Rangel a 41 y/o M admitted on 09/30/21 for Nausea. Chief Complaint: [] Interval history: History of present illness: Mr. Rangel is a 41 year old M Presents the ED with intractable nausea vomiting. He said he started developing nausea vomiting last Monday which waxed and waned. He had some good days some bad days. However this morning when he woke up he had constant nausea vomiting for several hours and had emesis of the least 10 times. Patient states he knows when he has it constantly that he needs to go to the ER and thus presented to the ED. Patient has a history of cyclic vomiting and gastroparesis. He has seen a lead engineer here in the [place] and also up in [place]. His primary care doctor is trying to coordinate him seeing a specialist in [place]. Patient was admitted in August for the same issue for several days. He was admitted in June for several days for the same thing. He was also admitted to [facility] the beginning of June for the same thing for 3 days. In the ED he is found to be tachycardic with a creatinine mildly above baseline. Multiple attempts to get his nausea vomiting or undertaken in the ED with some temporary improvement but then with any oral challenge his symptoms worsened again. Patient is not on any special gastroparesis diet. Denies marijuana use or any other drug use. Denies chest pain or shortness of breath. Denies stomach pain. 10/01 Still pending today's lab. Patient has nausea and abdominal pain but is improving. Start clear liquid diet today. Review of Systems: denies headache/fever/chills/chest pain/cough/dyspnea/diarrhea. Otherwise see above. Constitutional Vitals: Vital Signs Temp Pulse Resp BP Pulse Ox O2 Del Method O2 Flow Rate 97.6 F 88 16 129/86 100 2 10/01/21 03:55 10/01/21 03:55 10/01/21 03:55 10/01/21 05:04 10/01/21 03:55 10/01/21 03:55 10/01/21 03:55 Period Temp Pulse Resp BP Sys/Paz Pulse Ox O2 Del Method O2 Flow Rate Last 24 Hr 97.3 F-97.9 F 85-118 12-20 122-208/85-165 90-100 Nasal Cannula-Room Air 2-2 Intake and Output 09/30/21 10/01/21 10/01/21 21:59 05:59 13:59 Intake Total 1000 1200 Balance 1000 1200 Weight 122.47 kg Intake & Output: Intake & Output 09/30/21 10/01/21 10/01/21 21:59 05:59 13:59 Intake Total 1000 1200 Balance 1000 1200 Weight 122.47 kg Intake: IV 1000 1000 Sodium Chloride 0.9% 1,000 ml @ 1000 1000 100 mls/hr IV .Q10H ONE Rx#: [id number] Oral 200 Other: # Voids 1 Exam: General: Alert, Awake, No acute Distress, obese Eyes/N/T: EOMI, Head/Neck: neck supple, CV: Mildly tacky but regular, No murmurs, Pulm: Clear b/l, no wheezing/rhonchi/rales Abd: soft, nontender, +BS x4 Ext: no clubbing/cyanosis/edema Neuro: Alert, no focal deficits, moves all extremities, Skin: warm/dry OBJ DATA Labs CBC & Chem 7: 09/30/21 10:22 10/01/21 05:29 Labs: Abnormal Lab Results 09/30/21 09/30/21 09/30/21 13:00 10:22 10:11 RBC 4.48 L Hgb 12.4 L Hct 37.7 L POC Hct 38.0 L Lymph # (Auto) 1.34 L POC BUN 31 H POC Creatinine 2.9 H POC Glucose 109 H Hemoglobin A1c 7.5 H Meds: Medications Acetaminophen (Acetaminophen 325 Mg Tablet) 650 mg PO Q6HP PRN; Protocol PRN Reason: Per Pain Protocol/Fever > 101 Albuterol/Ipratropium (Ipratropium/Albuterol 3 Ml Ampul.Neb) 3 ml NEB Q4HP PRN PRN Reason: Shortness Of Breath Aspirin (Aspirin 81 Mg Tab.Chew) 81 mg PO DAILY JAIME Dextrose (Dextrose 50% 50 Ml Vial) 0 ml IV UD PRN PRN Reason: Per Sliding Scale Diagnostic Test (Pha) (Accu-Chek 1 Each Strip) 1 each FS ACHS JAIME Last Admin: 10/01/21 07:51 Dose: 1 each Diphenhydramine HCl (Diphenhydramine 50 Mg/Ml Vial) 25 mg IV Q4-6HP PRN PRN Reason: Nausea Docusate Sodium (Docusate Sodium 100 Mg Capsule) 100 mg PO BID [facility] Last Admin: 09/30/21 20:19 Dose: Not Given Enoxaparin Sodium (Enoxaparin 40 Mg/0.4 Ml Syringe) 40 mg SQ DAILY [facility] Glucose (Dextrose 31 Gm Oral.Susp) 15 gm PO PRN PRN PRN Reason: Hypoglycemia Hydromorphone HCl (Hydromorphone 1 Mg/Ml Syringe) 0 mg IV Q2HP PRN; Protocol PRN Reason: Per Pain Protocol Last Admin: 10/01/21 03:48 Dose: 0.5 mg Potassium Chloride 40 meq/ (Dextrose) 520 mls @ 130 mls/hr IV UD PRN PRN Reason: Potassium < 3 Magnesium Sulfate (Magnesium Sulfate) 2 gm in 50 mls @ 50 mls/hr IV UD PRN PRN Reason: Magnesium </= 1.6 Insulin Human Lispro (Insulin Lispro 1 Unit/0.01 Ml Unit) [facility] Protocol Last Admin: 10/01/21 07:51 Dose: Not Given Labetalol HCl (Labetalol 5 Mg/Ml Ml) 0 mg IV Q2HP PRN PRN Reason: Hypertension Last Admin: 10/01/21 04:01 Dose: 20 mg Lorazepam (Lorazepam 2 Mg/Ml Vial) 0.5 mg IV Q2-4HP PRN PRN Reason: nauea vomiting Metoclopramide HCl (Metoclopramide 10 Mg/2 Ml Vial) 10 mg IV Q6 [facility] Last Admin: 10/01/21 06:10 Dose: 10 mg Ondansetron HCl (Ondansetron 4 Mg/2 Ml Vial) 4 mg IV Q4HP PRN PRN Reason: Nausea And Vomiting Last Admin: 10/01/21 03:53 Dose: 4 mg Pantoprazole Sodium (Pantoprazole 40 Mg Vial) 40 mg IV QAMAC [facility] Polyethylene Glycol (Polyethylene Glycol 3350 17 Gm Packet) 17 gm PO DAILYP PRN PRN Reason: Constipation Potassium Chloride (Potassium Chloride 20 Meq Tablet) 40 meq PO UD PRN PRN Reason: Potssium is 3-3.5 Potassium Chloride (Potassium Chloride 20 Meq Tablet) 40 meq PO UD PRN PRN Reason: Potassium < 3 Promethazine HCl (Promethazine 25 Mg/Ml Vial) 12.5 mg IV Q6HP PRN PRN Reason: Nausea And Vomiting Last Admin: 09/30/21 20:29 Dose: 12.5 mg Senna (Sennosides 1 Tablet) 2 tab PO DAILYP PRN PRN Reason: Constipation Sodium Chloride (0.9 % Sodium Chloride 10 Ml Syringe) 10 ml IV Q8 JAIME Last Admin: 10/01/21 06:10 Dose: 10 ml A/P Narrative A/P Narrative: A: *Intractable N/V with history of cyclic vomiting and gastroparesis: -PCP trying to coordinate for patient to see a specialist in [place] *ALVINA on CKD IIIb: *DM w/neuropathy and gastroparesis: A1c 7.5 *CAD w/stents x2 in 10/2020: *Anemia, chronic: *HTN Urgency: usually elevated during these N/V episodes + missed meds morning or admission *Obesity: BMI 34 *GERD: P: -s/p IVF -clears today, then advanced as tolerated to low-fat / soluble fiber diet -Reglan including prn Ativan and Benadryl -uop, renal fxn -cont home norvasc/BB -basal (hold until po intake given low BG) and ssi -f/u closely with PCP/Specialist -ppx: Lovenox / home ppi Time Spent With Patient Time: Total time spent is greater than 50% in coordination of care (as documented) at patient's floor/unit and/or counseling patient: Total time spent with greater than 50% in coordination of care (as documented) at patient's floor/unit and/or counseling patient:: 25 - 35 minutes
[2021-10-01] MEDS ORDERED: amLODIPine 10 MG TABLET PO SCH (09:00)
[2021-10-01] MEDS: PANTOPRAZOLE 40 MG VIAL IV SCH (09:06)
[2021-10-01] MEDS: ENOXAPARIN 40 MG/0.4 ML SYRINGE SQ SCH (09:06)
[2021-10-01] MEDS: GABAPENTIN 100 MG CAPSULE PO SCH ×3 (09:06→20:41)
[2021-10-01] MEDS: ASPIRIN 81 MG TAB.CHEW PO SCH (09:07)
[2021-10-01] MEDS: amLODIPine 5 MG TABLET PO SCH (09:07)
[2021-10-01] MEDS: METOPROLOL TARTRATE 50 MG TABLET PO SCH ×2 (09:07→20:41)
[2021-10-01] MEDS: DOCUSATE SODIUM 100 MG CAPSULE PO SCH ×2 (09:09→20:42)
[2021-10-01 09:53] LABS: Basophils # (Auto) 0.01 K/mcL (0.00-0.30); Basophils % (Auto) 0.2 % (0.0-2.0); Eosinophils # (Auto) 0.17 K/mcL (0.00-0.70); Eosinophils % (Auto) 2.9 % (0.0-7.0); Hematocrit 38.3 % (40.1-51.0); Hemoglobin 12.9 g/dL (13.7-17.5); Lymphocytes # (Auto) 1.41 K/mcL (1.50-4.80); Lymphocytes % (Auto) 23.8 % (15.5-49.0); Mean Corpuscular HGB Conc 33.7 g/dL (31.0-36.0); Mean Platelet Volume 10.6 fL (7.4-10.4); Monocytes # (Auto) 0.44 K/mcL (0.10-0.90); Monocytes % (Auto) 7.4 % (1.0-12.0); Neutrophils % (Auto) 65.2 % (38.0-78.0); Platelet Count 170 K/mcL (140-440); Red Cell Distribution Width 14.6 % (11.5-14.5); WBC 5.9 K/mcL (4.5-11.0)
[2021-10-01 10:35] LABS: ALT/SGPT < 5 U/L (<40); AST/SGOT 20 U/L (<40); Albumin 3.5 gm/dL (3.2-5.2); Albumin/Globulin Ratio 1.2 (1.0-2.3); Alkaline Phosphatase 57 U/L (39-117); Bilirubin,Direct < 0.2 mg/dL (0-0.3); Bilirubin,Total 0.4 mg/dL (0.1-1.0); Blood Urea Nitrogen 26 mg/dL (6-20); Calcium 8.8 mg/dL (8.6-10.4); Carbon Dioxide 21 mmol/L (22-30); Chloride 108 mmol/L (96-108); Glomerular Filtration Rate 36; Glucose 80 mg/dL (70-105); Lactate Dehydrogenase 146 U/L (135-225); Phosphorous 4.1 mg/dL (2.5-4.5); Triglycerides 104 mg/dL (<150); Uric Acid 10.4 mg/dL (2.5-8.0)
[2021-10-01] MEDS ORDERED: 0.9 % SODIUM CHLORIDE 1,000 ML IV ONE (10:40)
--- NOTE | 2021-10-01 10:42 | Discharge Summary ---
Discharge Provider Provider IMPORTANT FOLLOW-UP INFORMATION FOR PCP: Patient information: Note initiated : 10/01/21 at 10:40 am Service Date, if different from initiated Date: [] Patient: Wong Rangel a 41 y/o M admitted on 09/30/21 for Nausea. Chief Complaint: [] Date of admission: 09/30/21 16:52 Discharge date: 10/02/21 Primary care physician: Ricardo Toth Consults: 09/30/21 14:55 Consult to Physician [CONS] Stat Comment: Consulting Provider: Mahendra Padilla Reason For Exam: Physician to Consult COURSE Hospital Course Hospital course: History of present illness: Mr. Rangel is a 41 year old M Presents the ED with intractable nausea vomiting. He said he started developing nausea vomiting last Monday which waxed and waned. He had some good days some bad days. However this morning when he woke up he had constant nausea vomiting for several hours and had emesis of the least 10 times. Patient states he knows when he has it constantly that he needs to go to the ER and thus presented to the ED. Patient has a history of cyclic vomiting and gastroparesis. He has seen a hydraulic miner blasting here in the [place] and also up in [place]. His primary care doctor is trying to coordinate him seeing a specialist in [place]. Patient was admitted in August for the same issue for several days. He was admitted in June for several days for the same thing. He was also admitted to [facility] the beginning of June for the same thing for 3 days. In the ED he is found to be tachycardic with a creatinine mildly above baseline. Multiple attempts to get his nausea vomiting or undertaken in the ED with some temporary improvement but then with any oral challenge his symptoms worsened again. Patient is not on any special gastroparesis diet. Denies marijuana use or any other drug use. Denies chest pain or shortness of breath. Denies stomach pain. 10/01 Still pending today's lab. Patient has nausea and abdominal pain but is improving. Start clear liquid diet today. 10/02 Nausea improving. No vomiting. Abdominal pain improving. Advance diet to low residual low-fat. Patient tolerating diet no nausea, wanting to go home. A: *Intractable N/V with history of cyclic vomiting and gastroparesis: -PCP trying to coordinate for patient to see a specialist in [place] *ALVINA on CKD IIIb: *DM w/neuropathy and gastroparesis: A1c 7.5 *CAD w/stents x2 in 10/2020: *Anemia, chronic: *HTN Urgency: usually elevated during these N/V episodes + missed meds morning or admission *Obesity: BMI 34 *GERD: P: -advanced diet as tolerated to low-fat / soluble fiber diet Discharge diagnosis: Intractable nausea vomiting gastroparesis cyclic vomiting ALVINA Secondary discharge diagnosis: Chronic kidney disease diabetes neuropathy CAD anemia hypertensive urgency obesity GERD Time Spent with Patient Time attestation: Total time spent providing and/or coordinating discharge services: Time spent: Greater than 30 minutes EXAM Constitutional Vitals: Temp Pulse Resp BP Pulse Ox O2 Del Method O2 Flow Rate 98.2 F 87 17 147/92 97 2 10/01/21 08:16 10/01/21 08:16 10/01/21 08:16 10/01/21 08:16 10/01/21 08:16 10/01/21 08:16 10/01/21 03:55 Discharge Data Data Completed and Pending Labs on day of discharge: Labs from last 24 hours 10/01/21 10/01/21 10/01/21 09:50 05:30 05:29 WBC 5.9 RBC 4.40 L Hgb 12.9 L Hct 38.3 L MCV 87.0 MCH 29.3 MCHC 33.7 RDW 14.6 H Plt Count 170 MPV 10.6 H Immature Gran % (Auto) 0.5 Neut % (Auto) 65.2 Lymph % (Auto) 23.8 [place] % (Auto) 7.4 Eos % (Auto) 2.9 Baso % (Auto) 0.2 Lymph # (Auto) 1.41 L [place] # (Auto) 0.44 Eos # (Auto) 0.17 Baso # (Auto) 0.01 Immature Gran # 0.03 Absolute Neutrophils 3.89 Sodium 139 TNP Potassium 4.2 TNP Chloride 108 TNP Carbon Dioxide 21 L TNP Anion Gap 10.0 TNP BUN 26 H TNP Creatinine 2.2 H TNP GFR Calculation 36 TNP Glucose 80 TNP Hemoglobin A1c Estim Average Glucose Uric Acid 10.4 H TNP Calcium 8.8 TNP Phosphorus 4.1 TNP Magnesium 1.8 TNP Total Bilirubin 0.4 TNP Direct Bilirubin < 0.2 TNP GGT 12 TNP AST 20 TNP ALT < 5 TNP Alkaline Phosphatase 57 TNP Lactate Dehydrogenase 146 TNP Total Protein 6.5 TNP Albumin 3.5 TNP Globulin 3.0 TNP Albumin/Globulin Ratio 1.2 TNP Triglycerides 104 TNP Lipase 09/30/21 09/30/21 09/30/21 13:00 13:00 10:22 WBC 8.4 RBC 4.48 L Hgb 12.4 L Hct 37.7 L MCV 84.2 MCH 27.7 MCHC 32.9 RDW 13.5 Plt Count 274 MPV 10.2 Immature Gran % (Auto) 0.2 Neut % (Auto) 75.3 Lymph % (Auto) 16.0 [place] % (Auto) 5.3 Eos % (Auto) 3.0 Baso % (Auto) 0.2 Lymph # (Auto) 1.34 L [place] # (Auto) 0.44 Eos # (Auto) 0.25 Baso # (Auto) 0.02 Immature Gran # 0.02 Absolute Neutrophils 6.30 Sodium Potassium Chloride Carbon Dioxide Anion Gap BUN Creatinine GFR Calculation Glucose Hemoglobin A1c 7.5 H Estim Average Glucose 169 Uric Acid Calcium Phosphorus Magnesium Total Bilirubin 0.6 Direct Bilirubin < 0.2 GGT AST 28 ALT 5 Alkaline Phosphatase 72 Lactate Dehydrogenase Total Protein 8.2 Albumin 4.5 Globulin 3.7 Albumin/Globulin Ratio Triglycerides Lipase 47 Discharge Plan Patient/Caregiver Discharge Instructions Activity: increase activity as tolerated Diet: Low Fat and Consistent Carbohydrate Instructions: Insulin Glargine (By injection) Activity Restrictions/Additional Instructions: Follow-up closely with PCP and specialist for gastroparesis & cyclic vomiting Prescriptions: Continued ondansetron 4 MG tablet 4 mg SL Q4HP PRN (Reason: Nausea And Vomiting) Qty: 30 0RF Levemir 30 - 60 units SQ BID Qty: 1 0RF gabapentin 100 MG capsule 100 mg PO TID Qty: 60 0RF prochlorperazine maleate 10 MG tablet 10 mg PO Q6H PRN (Reason: Nausea) Qty: 20 0RF amlodipine 10 mg Tablet 10 mg PO DAILY Qty: 30 0RF pantoprazole 40 mg Tablet,Delayed Release (Dr/Ec) 40 mg PO QAMAC Qty: 30 0RF metoprolol tartrate 50 mg Tablet 100 mg PO BID Qty: 60 0RF clopidogrel 75 mg tablet 1 tab PO QAM Rx Instructions: take one tab by month every morning to prevent blood clotting amitriptyline 10 mg tablet 1 tab PO QHS Rx Instructions: take 10mg PO nightly, then increase by 10mg every 1-2 weeks if well tolerated as directed Trulicity 3 mg/0.5 mL pen injector 1 ea subcut WEEKLY Rx Instructions: inject one pen under the skin each week for diabetes, keep refridgerated torsemide 20 mg tablet 4 tab PO DAILY Follow Up Plan Follow up with: Ricardo Toth MD [Primary Care Provider] - Patient Disposition: Home, Self-Care Prognosis: Fair Overall status at discharge: patient is progressing back to baseline Discharge Orders: Discharge Order (Routine); Ordered 10/02/21 Ordered By: Mahendra Padilla
[2021-10-02] MEDS: METOCLOPRAMIDE 10 MG/2 ML VIAL IV SCH ×3 (00:07→12:41)
[2021-10-02] MEDS: LABETALOL 5 MG/ML ML IV PRN (03:13)
[2021-10-02] MEDS: 0.9 % SODIUM CHLORIDE 10 ML SYRINGE IV SCH ×2 (05:49→16:04)
--- NOTE | 2021-10-02 08:20 | Internal Med Progress Note ---
SUBJECTIVE Subjective Patient information: Note initiated : 10/02/21 at 8:18 am Service Date, if different from initiated Date: [] Patient: Wong Rangel a 41 y/o M admitted on 09/30/21 for Nausea. Chief Complaint: [] Interval history: History of present illness: Mr. Rangel is a 41 year old M Presents the ED with intractable nausea vomiting. He said he started developing nausea vomiting last Monday which waxed and waned. He had some good days some bad days. However this morning when he woke up he had constant nausea vomiting for several hours and had emesis of the least 10 times. Patient states he knows when he has it constantly that he needs to go to the ER and thus presented to the ED. Patient has a history of cyclic vomiting and gastroparesis. He has seen a airworthiness inspector here in the [place] and also up in [place]. His primary care doctor is trying to coordinate him seeing a specialist in [place]. Patient was admitted in August for the same issue for several days. He was admitted in June for several days for the same thing. He was also admitted to [facility] the beginning of June for the same thing for 3 days. In the ED he is found to be tachycardic with a creatinine mildly above baseline. Multiple attempts to get his nausea vomiting or undertaken in the ED with some temporary improvement but then with any oral challenge his symptoms worsened again. Patient is not on any special gastroparesis diet. Denies marijuana use or any other drug use. Denies chest pain or shortness of breath. Denies stomach pain. 10/01 Still pending today's lab. Patient has nausea and abdominal pain but is improving. Start clear liquid diet today. 10/02 Nausea improving. No vomiting. Abdominal pain improving. Advance diet to low residual low-fat. Review of Systems: denies headache/fever/chills/chest pain/cough/dyspnea/diarrhea. Otherwise see above. Constitutional Vitals: Vital Signs Temp Pulse Resp BP Pulse Ox O2 Del Method O2 Flow Rate 97.7 F 81 16 151/96 96 2 10/02/21 07:35 10/02/21 03:10 10/02/21 07:35 10/02/21 07:35 10/02/21 07:35 10/02/21 07:35 10/01/21 03:55 Period Temp Pulse Resp BP Sys/Paz Pulse Ox O2 Del Method O2 Flow Rate Last 24 Hr 97.6 F-99.2 F 79-89 16-19 123-155/80-104 93-96 Room Air-Room Air Intake and Output 10/01/21 10/02/21 10/02/21 21:59 05:59 13:59 Intake Total 1360 700 Output Total 0 Balance 1360 700 Weight 117.48 kg Intake & Output: Intake & Output 10/01/21 10/02/21 10/02/21 21:59 05:59 13:59 Intake Total 1360 700 Output Total 0 Balance 1360 700 Weight 117.48 kg Intake: IV 1000 Sodium Chloride 0.9% 1,000 ml @ 1000 100 mls/hr IV .Q10H ONE Rx#: [id number] Oral 360 700 Output: Void Amount 0 Other: Meal Lunch Percent of Meal Consumed 100% Feeding Ability Independent Urine Appearance Clear Urine Color Dark Yellow # Voids 1 1 # Bowel Movements 1 # of times incontinent of 1 Bowels Exam: General: Alert, Awake, No acute Distress, obese Eyes/N/T: EOMI, Head/Neck: neck supple, CV: RRR, No murmurs, Pulm: Clear b/l, no wheezing/rhonchi/rales Abd: soft, nontender, +BS x4 Ext: no clubbing/cyanosis/edema Neuro: Alert, no focal deficits, moves all extremities, Skin: warm/dry OBJ DATA Labs CBC & Chem 7: 10/01/21 05:30 10/01/21 09:50 Labs: Abnormal Lab Results 10/01/21 10/01/21 09/30/21 09:50 05:30 13:00 RBC 4.40 L Hgb 12.9 L Hct 38.3 L POC Hct RDW 14.6 H MPV 10.6 H Lymph # (Auto) 1.41 L Carbon Dioxide 21 L POC BUN BUN 26 H Creatinine 2.2 H POC Creatinine POC Glucose Hemoglobin A1c 7.5 H Uric Acid 10.4 H 09/30/21 09/30/21 10:22 10:11 RBC 4.48 L Hgb 12.4 L Hct 37.7 L POC Hct 38.0 L RDW MPV Lymph # (Auto) 1.34 L Carbon Dioxide POC BUN 31 H BUN Creatinine POC Creatinine 2.9 H POC Glucose 109 H Hemoglobin A1c Uric Acid Meds: Medications Acetaminophen (Acetaminophen 325 Mg Tablet) 650 mg PO Q6HP PRN; Protocol PRN Reason: Per Pain Protocol/Fever > 101 Albuterol/Ipratropium (Ipratropium/Albuterol 3 Ml Ampul.Neb) 3 ml NEB Q4HP PRN PRN Reason: Shortness Of Breath Amlodipine Besylate (Amlodipine 5 Mg Tablet) 5 mg PO DAILY [facility] Last Admin: 10/01/21 09:07 Dose: 5 mg Aspirin (Aspirin 81 Mg Tab.Chew) 81 mg PO DAILY [facility] Last Admin: 10/01/21 09:07 Dose: 81 mg Dextrose (Dextrose 50% 50 Ml Vial) 0 ml IV UD PRN PRN Reason: Per Sliding Scale Diagnostic Test (Pha) (Accu-Chek 1 Each Strip) 1 each FS ACHS [facility] Last Admin: 10/01/21 20:41 Dose: 1 each Diphenhydramine HCl (Diphenhydramine 50 Mg/Ml Vial) 25 mg IV Q4-6HP PRN PRN Reason: Nausea Docusate Sodium (Docusate Sodium 100 Mg Capsule) 100 mg PO BID [facility] Last Admin: 10/01/21 20:42 Dose: Not Given Enoxaparin Sodium (Enoxaparin 40 Mg/0.4 Ml Syringe) 40 mg SQ DAILY [facility] Last Admin: 10/01/21 09:06 Dose: 40 mg Gabapentin (Gabapentin 100 Mg Capsule) 100 mg PO TID [facility] Last Admin: 10/01/21 20:41 Dose: 100 mg Glucose (Dextrose 31 Gm Oral.Susp) 15 gm PO PRN PRN PRN Reason: Hypoglycemia Hydromorphone HCl (Hydromorphone 1 Mg/Ml Syringe) 0 mg IV Q2HP PRN; Protocol PRN Reason: Per Pain Protocol Last Admin: 10/01/21 18:26 Dose: 0.5 mg Potassium Chloride 40 meq/ (Dextrose) 520 mls @ 130 mls/hr IV UD PRN PRN Reason: Potassium < 3 Magnesium Sulfate (Magnesium Sulfate) 2 gm in 50 mls @ 50 mls/hr IV UD PRN PRN Reason: Magnesium </= 1.6 Insulin Human Lispro (Insulin Lispro 1 Unit/0.01 Ml Unit) [address] [facility]; Protocol Last Admin: 10/01/21 20:41 Dose: Not Given Labetalol HCl (Labetalol 5 Mg/Ml Ml) 0 mg IV Q2HP PRN PRN Reason: Hypertension Last Admin: 10/02/21 03:13 Dose: 10 mg Lorazepam (Lorazepam 2 Mg/Ml Vial) 0.5 mg IV Q2-4HP PRN PRN Reason: nauea vomiting Metoclopramide HCl (Metoclopramide 10 Mg/2 Ml Vial) 10 mg IV Q6 [facility] Last Admin: 10/02/21 05:49 Dose: 10 mg Metoprolol Tartrate (Metoprolol Tartrate 50 Mg Tablet) 100 mg PO BID [facility] Last Admin: 10/01/21 20:41 Dose: 100 mg Ondansetron HCl (Ondansetron 4 Mg/2 Ml Vial) 4 mg IV Q4HP PRN PRN Reason: Nausea And Vomiting Last Admin: 10/01/21 03:53 Dose: 4 mg Pantoprazole Sodium (Pantoprazole 40 Mg Vial) 40 mg IV QAMAC [facility] Last Admin: 10/01/21 09:06 Dose: 40 mg Polyethylene Glycol (Polyethylene Glycol 3350 17 Gm Packet) 17 gm PO DAILYP PRN PRN Reason: Constipation Potassium Chloride (Potassium Chloride 20 Meq Tablet) 40 meq PO UD PRN PRN Reason: Potssium is 3-3.5 Potassium Chloride (Potassium Chloride 20 Meq Tablet) 40 meq PO UD PRN PRN Reason: Potassium < 3 Promethazine HCl (Promethazine 25 Mg/Ml Vial) 12.5 mg IV Q6HP PRN PRN Reason: Nausea And Vomiting Last Admin: 09/30/21 20:29 Dose: 12.5 mg Senna (Sennosides 1 Tablet) 2 tab PO DAILYP PRN PRN Reason: Constipation Sodium Chloride (0.9 % Sodium Chloride 10 Ml Syringe) 10 ml IV Q8 [facility] Last Admin: 10/02/21 05:49 Dose: 10 ml A/P Narrative A/P Narrative: A: *Intractable N/V with history of cyclic vomiting and gastroparesis: -PCP trying to coordinate for patient to see a specialist in [place] *ALVINA on CKD IIIb: *DM w/neuropathy and gastroparesis: A1c 7.5 *CAD w/stents x2 in 10/2020: *Anemia, chronic: *HTN Urgency: usually elevated during these N/V episodes + missed meds morning or admission *Obesity: BMI 34 *GERD: P: -s/p IVF -advanced as tolerated to low-fat / soluble fiber diet -Reglan including prn Ativan and Benadryl -uop, renal fxn -cont home norvasc/BB -basal (hold until po intake given low BG) and ssi -f/u closely with PCP/Specialist -ppx: Lovenox / home ppi Time Spent With Patient Time: Total time spent is greater than 50% in coordination of care (as documented) at patient's floor/unit and/or counseling patient:
[2021-10-02] MEDS: PANTOPRAZOLE 40 MG VIAL IV SCH (08:25)
[2021-10-02] MEDS: INSULIN LISPRO 1 UNIT/0.01 ML UNIT SQ SCH ×2 (08:25→12:42)
[2021-10-02] MEDS ORDERED: CLOPIDOGREL 75 MG TABLET PO SCH (09:00)
[2021-10-02] MEDS: ASPIRIN 81 MG TAB.CHEW PO SCH (10:07)
[2021-10-02] MEDS: METOPROLOL TARTRATE 50 MG TABLET PO SCH (10:07)
[2021-10-02] MEDS: ENOXAPARIN 40 MG/0.4 ML SYRINGE SQ SCH (10:07)
[2021-10-02] MEDS: amLODIPine 5 MG TABLET PO SCH (10:07)
[2021-10-02] MEDS: GABAPENTIN 100 MG CAPSULE PO SCH ×2 (10:07→16:04)
[2021-10-02] MEDS: DOCUSATE SODIUM 100 MG CAPSULE PO SCH (10:07)
[2021-10-02] MEDS ORDERED: AMITRIPTYLINE 10 MG TABLET PO SCH (21:00)
== END 2021-10-02 16:50 | disposition home or self-care (01) | DRG 74 ==
LOC: ED 09:41 → MEDSUR 16:52
PROVIDERS: ADMIT Internal Medicine; ATTEND Internal Medicine

== ENCOUNTER 2022-04-11 13:25 | Inpatient (IN) ==
[2022-04-11] MEDS ORDERED: 0.9 % SODIUM CHLORIDE 1,000 ML IV ONE ×2 (13:30→15:19)
[2022-04-11] MEDS ORDERED: HALOPERIDOL LACTATE 5 MG/ML VIAL IV ONE (13:33)
[2022-04-11 13:46] LABS: POC Calcium, Ionized 1.25 (1.16-1.32)
[2022-04-11] MEDS ORDERED: KETOROLAC 30 MG/ML VIAL IV ONE (15:10)
[2022-04-11] MEDS ORDERED: diphenhydrAMINE 50 MG/ML VIAL IV ONE ×2 (16:13→18:27)
--- NOTE | 2022-04-11 16:13 | Emergency Department Note ---
Nausea/Vomiting/Diarrhea HPI General Chief complaint: Nausea/Vomiting/Diarrhea Stated complaint: nausea and vomiting Time Seen by Provider: 04/11/22 13:30 Source: patient Mode of arrival: ambulatory Limitations: no limitations History of Present Illness HPI Narrative: 41-year-old gentleman well-known to our ER with history of cyclic vomiting syndrome, T2DM, CKD stage III, poorly controlled hypertension presents to the ER with acute onset nausea and vomiting that started on Monday. He has been unable to take any medication since then. He does note that his Trulicity is unavailable on backorder so his PCP switched him to another long-acting insulin and wonders if this is causing recurrence of his chronic symptoms. 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 He was recently evaluated at [facility] in [place] and definitively diagnosed with cyclic vomiting syndrome by a GI specialist there after an upper and lower endoscopy were unremarkable. They ruled out gastroparesis with a negative transit study. The patient was started on amitriptyline. Patient has a scopolamine patch in place but states this is not really helpful. He has also taken Phenergan and Zofran at home without relief. Last time he was in the ER on 12/15/21 Haldol treated his symptoms. He is complaining of stomach pain and notes that Dilaudid usually treats his discomfort. The patient denies marijuana use. He denies other drug use. Denies alcohol intake. Per chart review no previous abdominal surgeries. Related Data Home Medications Medication Instructions Recorded Confirmed amitriptyline 10 mg tablet 1 tab PO QHS 10/01/21 10/01/21 clopidogrel 75 mg tablet 1 tab PO QAM 10/01/21 10/01/21 dulaglutide 3 mg/0.5 mL 1 ea subcut WEEKLY 10/01/21 10/01/21 subcutaneous pen injector (Trulicity) torsemide 20 mg tablet 4 tab PO DAILY 10/01/21 10/01/21 Previous Rx's Medication Instructions Recorded Levemir 30 - 60 units SQ BID ##1 08/06/18 ondansetron 4 mg disintegrating 4 mg SL Q4HP PRN Nausea And 08/06/18 tablet Vomiting #30 tabs gabapentin 100 mg capsule 100 mg PO TID #60 caps 10/14/18 prochlorperazine maleate 10 mg 10 mg PO Q6H PRN Nausea #20 tabs 12/31/18 tablet amlodipine 10 mg tablet 10 mg PO DAILY #30 tabs 08/16/20 metoprolol tartrate 50 mg tablet 100 mg PO BID #60 tabs 08/16/20 pantoprazole 40 mg tablet,delayed 40 mg PO QAMAC #30 tabs 08/16/20 release sucralfate 1 gram tablet (Carafate) 1 g PO BID #14 tabs 11/18/21 Allergies Allergy/AdvReac Type Severity Reaction Status Date / Time Penicillins [PENICILLINS] Allergy Intermediate HIVES Verified 12/11/21 23:33 Review of Systems ROS ROS Narrative: Narrative: All systems ED: reviewed and negative except as stated. [facility] Narrative Patient History Narrative: Narrative: Medical/Surgical/Family History All Active Problems (Updated 04/11/22 @ 18:46 by Marika Hargrove PA-C) Abdominal pain, acute, epigastric (Acute) ALVINA (acute kidney injury) (Acute) Acute dehydration (Acute) Nausea (Acute) Acute kidney injury superimposed on chronic kidney disease (Acute) GERD (gastroesophageal reflux disease) (Acute) Hypertension in stage 3 chronic kidney disease due to type 2 diabetes mellitus (Acute) Stage 1 acute kidney injury (Acute) Anemia, normocytic normochromic (Acute) Uncontrolled type 2 diabetes mellitus (Acute) Hypertensive urgency (Acute) Gastroparesis (Acute) Pancreatitis (Acute) Intractable nausea and vomiting (Acute) Hypertension (Acute) Diabetic gastroparesis (Acute) Hypoxia, sleep related (Acute) Non compliance w medication regimen (Acute) Hypomagnesemia (Acute) Dehydration (Acute) Cyclical vomiting (Acute) Nausea & vomiting (Acute) Noncompliance (Acute) Medical History Gastroparesis Intractable nausea and vomiting Pancreatitis Social History Smoking Status: Never smoker Exam Narrative Narrative: General: AOx3, NAD, Nauseated with dry heaving. Pleasant and conversant. HEENT: PERRL, EOMI, normocephalic. Dry mucous membranes. Normal facies and normal dentition. Chest: Symmetric, no pain to palpation Respiratory: Lungs clear to auscultation bilaterally. No respiratory distress. Unlabored breathing. Heart: Regular rate and rhythm, no murmurs/clicks/rubs. Abdomen: Mild epigastric tenderness, no acute rebound tenderness, non distended, absent bowel tones. No organomegaly. Extremities: Warm and well perfused. No edema. DP 2+ bilaterally. No venous stasis. Neuro: No focal deficits. Cranial nerves II-XII grossly normal. Skin: Warm dry, no rashes or lesions, no cyanosis. Psych: Normal mood and affect Heme/Lymph: No abnormal bruising General Limitations: no limitations Course Course Course Narrative: 41-year-old male with cyclic vomiting syndrome well-known to our ER presents with intractable nausea and vomiting that started 2 days ago Reevaluation(s) Reevaluation #1: Establish IV give 5 mg IV Haldol, 1000 mL normal saline fluid replacement Obtain EKG Obtain chemistry Reevaluation #2: IV Haldol has controlled his nausea, but he still complains of epigastric pain and is asking for pain medication. EKG shows sinus tachycardia with a right bundle branch block and a rate of 127 bpm, no acute ST segment elevations or abnormalities to suggest acute ischemia. QTC is 555 ms. Give 50 mg of IV Benadryl and hold off on other antiemetics with QT prolonging effects. Reevaluation #3: Patient remains tachycardic in the 114's. Patient has not had his metoprolol for several days. Give 50 mg p.o. metoprolol succinate. Blood pressures are still significantly elevated and he should be able to tolerate this. Consultations Consultation #1: Dr. Toth, patient's PCP was consulted. He feels that the patient may benefit from port placement and standing orders for nausea medications. He will see him in his office this week for follow-up and discussion regarding this. Vital Signs Vital signs: Vital Signs Temperature 96.8 F L 04/11/22 13:26 Pulse Rate 124 H 04/11/22 13:26 Respiratory Rate 18 04/11/22 13:26 Pulse Oximetry (%) 100 04/11/22 13:26 Oxygen Delivery Method Room Air 04/11/22 13:26 Temperature 96.8 F L 04/11/22 13:26 Pulse Rate 113 H 04/11/22 18:01 Respiratory Rate 11 L 04/11/22 18:01 Blood Pressure 192/123 04/11/22 18:01 Pulse Oximetry (%) 100 04/11/22 18:01 Oxygen Delivery Method Room Air 04/11/22 13:26 [facility] MDM Narrative Medical decision making narrative: Cyclic vomiting syndrome Acute on chronic renal insufficiency Acute dehydration Intractable nausea and vomiting Hypertension Tachycardia Patient is at risk of failing outpatient treatment. His symptoms are currently not controlled after multiple interventions in the ER over 5 hours. I am concerned about his kidney function, inability to keep down his medications to control his blood pressure and Tachycardia, and ongoing nausea and vomiting. I discussed case with Dr. Diaz who agrees for observation admission. He is asked me to order a CT without contrast of the abdomen pelvis, lipase/amylase, hepatic panel, and urine drug screen. These are currently pending. Patient is admitted. Lab Data 04/11/22 13:41 Labs: Lab Results 04/11/22 04/11/22 Range/Units 13:41 13:41 POC Hct 42.0 (41-55) POC Sodium 141 (133-145) Sodium 137 (133-145) mmol/L POC Potassium 5.0 (3.3-5.1) Potassium 4.7 (3.3-5.1) mmol/L POC Chloride 111 H (96-108) Chloride 103 (96-108) mmol/L Carbon Dioxide 20 L (22-30) mmol/L POC Total CO2 21.0 L (22-30) Anion Gap 14.0 (8.0-16.0) POC BUN 41 H (6-20) BUN 39 H (6-20) mg/dL Creatinine 3.3 H (0.7-1.2) mg/dL POC Creatinine 4.0 H (0.6-1.2) GFR Calculation 22 Glucose 115 H (70-105) mg/dL POC Glucose 125 H (70-105) Calcium 9.8 (8.6-10.4) mg/dL POC WB Ioniz Calcium 1.25 (1.16-1.32) Phosphorus 3.9 (2.5-4.5) mg/dL Albumin 4.4 (3.2-5.2) gm/dL Discharge Plan Patient/Caregiver Discharge Instructions Pt seen by HOSPITAL WELLNESS COORDINATOR/PA only: Yes Clinical Impression: Cyclical vomiting, ALVINA (acute kidney injury), Acute dehydration Patient Disposition: Xfer As Inpt ([facility]) Follow up with: Ricardo Toth MD [Primary Care Provider] - Prescriptions: No Action ondansetron 4 MG tablet 4 mg SL Q4HP PRN (Reason: Nausea And Vomiting) Qty: 30 0RF Levemir 30 - 60 units SQ BID Qty: 1 0RF gabapentin 100 MG capsule 100 mg PO TID Qty: 60 0RF prochlorperazine maleate 10 MG tablet 10 mg PO Q6H PRN (Reason: Nausea) Qty: 20 0RF amlodipine 10 mg Tablet 10 mg PO DAILY Qty: 30 0RF pantoprazole 40 mg Tablet,Delayed Release (Dr/Ec) 40 mg PO QAMAC Qty: 30 0RF metoprolol tartrate 50 mg Tablet 100 mg PO BID Qty: 60 0RF clopidogrel 75 mg tablet 1 tab PO QAM Rx Instructions: take one tab by month every morning to prevent blood clotting amitriptyline 10 mg tablet 1 tab PO QHS Rx Instructions: take 10mg PO nightly, then increase by 10mg every 1-2 weeks if well tolerated as directed Trulicity 3 mg/0.5 mL pen injector 1 ea subcut WEEKLY Rx Instructions: inject one pen under the skin each week for diabetes, keep refridgerated torsemide 20 mg tablet 4 tab PO DAILY sucralfate [Carafate] 1 gram tablet 1 g PO BID Qty: 14 0RF
[2022-04-11 17:55] LABS: Albumin 4.4 gm/dL (3.2-5.2); Calcium 9.8 mg/dL (8.6-10.4); Phosphorous 3.9 mg/dL (2.5-4.5)
[2022-04-11] MEDS ORDERED: METOPROLOL SUCCINATE 50 MG TAB.XL.24H PO ONE (17:58)
[2022-04-11 18:54] LABS: Amylase 105 U/L (28-100)
[2022-04-11 18:59] LABS: ALT/SGPT 8 U/L (<40); AST/SGOT 34 U/L (<40); Albumin 4.3 gm/dL (3.2-5.2); Alkaline Phosphatase 84 U/L (39-117); Bilirubin,Direct < 0.2 mg/dL (0-0.3); Bilirubin,Total 0.5 mg/dL (0.1-1.0); Globulin 4.3 gm/dL (2.2-3.7)
--- NOTE | 2022-04-11 19:00 | Internal Med History&Physical ---
HPI History of Present Illness Patient information: Note initiated : 04/11/22 at 6:46 pm Service Date, if different from initiated Date: [] Patient: Wong Rangel a 41 y/o M admitted on for nausea and vomiting. Chief Complaint: [nausea vomiting abdominal pain] Chief complaint: nausea vomiting abdominal pain History of present illness: Mr. Rangel is a 41 year old M history of frequent nausea vomiting, chronic kidney disease stage III, type 2 diabetes mellitus, essential hypertensions, GERD, presenting with 3-day history of acute onset nausea vomiting abdominal pain. He started to have acute onset nausea and vomiting and epigastric abdominal pain the past Monday. He was at rest at home not really doing anything at the time of symptom onset. No exacerbating or elevating factors. The pain is localized in the epigastrium, graded 9 out of 10 in severity, cramping in nature, intermittent. As a result, he could not tolerate much food or drink intake and he could not even take his medications for other diseases such as hyper pressure and diabetes. Vital signs at ED presentation significant for tachycardia heart rate in the 110s As well as elevated blood pressures up to 190s over 120s mmHg. labs; with serum creatinine level 3.3 with baseline 2.6, and blood glucose level 115. Admission request is called for cyclic nausea vomiting as well as tachycardia and acute kidney injury in the context of chronic kidney disease likely due to dehydration and patient's inability to take oral medications. Constitutional Constitutional: Absent chills, excessive sweating, fatigue, fever(s) or weakness EENT Eyes: Absent blurry vision, change in vision, loss of vision or other visual disturbances Ears: Absent decreased hearing or tinnitus Nose, mouth and throat: Absent abnormal hearing, dry mouth, headache(s), nasal congestion or sore throat Cardiovascular Cardiovascular: Absent chest pain, chest pain at rest, edema, irregular heart rhythm or palpatations Respiratory Respiratory: Absent cough, dyspnea or wheezing Gastrointestinal Gastrointestinal: Present abdominal pain, nausea and vomiting; Absent const ipation or diarrhea Musculoskeletal Musculoskeletal: Absent back pain, deformity, limited range of motion, muscle cramps, muscle weakness or numbness Integumentary Integumentary: Absent lesions, rash or wounds Neurological Neurological: Absent focal weakness, headache(s) or numbness Psychiatric Psychiatric: Absent anxiety, depression or hallucinations PFSH PFSH All Active Problems (Updated 04/11/22 @ 18:54 by Roni Villagomez MD) Intractable cyclical vomiting with nausea (Acute) Abdominal pain, acute, epigastric (Acute) ALVINA (acute kidney injury) (Acute) Acute dehydration (Acute) Nausea (Acute) Acute kidney injury superimposed on chronic kidney disease (Acute) GERD (gastroesophageal reflux disease) (Acute) Hypertension in stage 3 chronic kidney disease due to type 2 diabetes mellitus (Acute) Stage 1 acute kidney injury (Acute) Anemia, normocytic normochromic (Acute) Uncontrolled type 2 diabetes mellitus (Acute) Hypertensive urgency (Acute) Gastroparesis (Acute) Pancreatitis (Acute) Intractable nausea and vomiting (Acute) Hypertension (Acute) Diabetic gastroparesis (Acute) Hypoxia, sleep related (Acute) Non compliance w medication regimen (Acute) Hypomagnesemia (Acute) Dehydration (Acute) Cyclical vomiting (Acute) Nausea & vomiting (Acute) Noncompliance (Acute) Medical History Gastroparesis Intractable nausea and vomiting Pancreatitis Social History smoking status: Never smoker MEDS/ALLERGIES Home Medications and Allergies Home Medications Medication Instructions Recorded Confirmed Type Levemir 30 - 60 units SQ BID ##1 08/06/18 09/30/21 Rx ondansetron 4 mg disintegrating 4 mg SL Q4HP PRN Nausea And 08/06/18 09/30/21 Rx tablet Vomiting #30 tabs gabapentin 100 mg capsule 100 mg PO TID #60 caps 10/14/18 09/30/21 Rx prochlorperazine maleate 10 mg 10 mg PO Q6H PRN Nausea #20 tabs 12/31/18 09/30/21 Rx tablet amlodipine 10 mg tablet 10 mg PO DAILY #30 tabs 08/16/20 09/30/21 Rx metoprolol tartrate 50 mg tablet 100 mg PO BID #60 tabs 08/16/20 09/30/21 Rx pantoprazole 40 mg tablet,delayed 40 mg PO QAMAC #30 tabs 08/16/20 09/30/21 Rx release amitriptyline 10 mg tablet 1 tab PO QHS 10/01/21 10/01/21 History clopidogrel 75 mg tablet 1 tab PO QAM 10/01/21 10/01/21 History dulaglutide 3 mg/0.5 mL 1 ea subcut WEEKLY 10/01/21 10/01/21 History subcutaneous pen injector (Trulicity) torsemide 20 mg tablet 4 tab PO DAILY 10/01/21 10/01/21 History sucralfate 1 gram tablet (Carafate) 1 g PO BID #14 tabs 11/18/21 Rx Allergies Allergy/AdvReac Type Severity Reaction Status Date / Time Penicillins [PENICILLINS] Allergy Intermediate HIVES Verified 12/11/21 23:33 EXAM Constitutional Vitals: Temp Pulse Resp BP Pulse Ox O2 Del Method 36.0 C L 113 H 11 L 192/123 100 Room Air 04/11/22 13:26 04/11/22 18:01 04/11/22 18:01 04/11/22 18:01 04/11/22 18:01 04/11/22 13:26 General appearance: cooperative, mild distress and no acute distress Head Head exam: Present atraumatic and normocephalic Eye Eye exam: Present EOMI and PERRL ENT ENT exam: Present mucous membranes moist, normal exam and normal external ear exam Neck Neck exam: Present normal inspection; Absent lymphadenopathy, tenderness or thyromegaly Respiratory Respiratory exam: Absent accessory muscle use, respiratory distress or wheezes Cardiovascular Cardiovascular exam: Present tachycardia; Absent JVD GI/Abdominal GI/Abdominal exam: Present normal bowel sounds, soft and tenderness; Absent organomegaly Rectal Rectal exam: Present deferred Extremities Exam Extremities exam: Present full ROM, normal capillary refill and normal inspection; Absent tenderness Neurological Exam Neurological exam: Present alert, CN II-XII intact and oriented X3; Absent motor sensory deficit Psychiatric Psychiatric exam: Present normal affect and normal mood; Absent anxious or depressed Skin Skin exam: Present dry and intact DATA Data Completed and Pending Labs: Labs from last 24 hours 04/11/22 04/11/22 04/11/22 13:41 13:41 13:41 POC Hct 42.0 POC Sodium 141 Sodium 137 POC Potassium 5.0 Potassium 4.7 POC Chloride 111 H Chloride 103 Carbon Dioxide 20 L POC Total CO2 21.0 L Anion Gap 14.0 POC BUN 41 H BUN 39 H Creatinine 3.3 H POC Creatinine 4.0 H GFR Calculation 22 Glucose 115 H POC Glucose 125 H Calcium 9.8 POC WB Ioniz Calcium 1.25 Phosphorus 3.9 Total Bilirubin Pending Direct Bilirubin Pending AST Pending ALT Pending Alkaline Phosphatase Pending Total Protein Pending Albumin Pending 4.4 Globulin Pending Amylase Pending Lipase Pending A/P Assessment and plan (1) Intractable cyclical vomiting with nausea: Status: Acute (2) Anemia, normocytic normochromic: Status: Acute (3) GERD (gastroesophageal reflux disease): Status: Acute (4) Acute kidney injury superimposed on chronic kidney disease: Status: Acute (5) Hypertension in stage 3 chronic kidney disease due to type 2 diabetes mellitus: Status: Acute Narrative A/P Narrative: Assessment and Plans: 1. Intractable nausea vomiting: Observation med surg CT abdomen pelvis w/o contrast Amylase Lipase LFTs Urine drug screening Zofran Compazine Ativan Haldol Capsaicin Morphine IV fluid with NS@100cc/hr Clear liquid diet, advance as tolerated 2. Acute kidney injury with chronic kidney disease III: Avoid nephrotoxic agents IV fluid with NS@100cc/hr Clear liquid diet, advance as tolerated CMP in the morning to trend kidney functions 3. T2DM: HgA1c Lantus 30 unit BID Insulin Lispro SSI AC HS Accu Check AC HS Hypoglycemia protocol Clear liquid diet, advance as tolerated 4. Hypertension, uncontrolled: Hydralazine 10mg IV q4-6hr PRN SBP>=180 and/or DBP>=110mmHg Metoprolol tartrate 100mg PO BID Treat other symptoms such as nausea vomiting and abdominal pain, see #1 5. Anemia, normocytic normochromic: cbc w/ auto diff in the morning to trend H/H 6. GERD: PPI GI ppx: PPI DVT ppx: Heparin Code status: Full Prognosis: guarded Disposition: observation med surg Time Spent With Patient Time: Total time spent is greater than 50% in coordination of care (as documented) at patient's floor/unit and/or counseling patient: Initial: Total time with patient: 55 - 74 minutes
--- NOTE | 2022-04-11 19:09 | Cat Scan Report ---
INDICATION: ilieus COMPARISON: Previous CT scan dated 11/22/2021 TECHNIQUE: Axial images were obtained through the abdomen and pelvis. Sagittally and coronally reformatted images. FINDINGS: Lung bases:No pulmonary parenchymal density. No calcified or noncalcified nodule. No pleural or pericardial effusion Liver:Negative to the limits of noncontrast enhanced examination. Liver contour is smooth without evidence for cirrhosis Gallbladder, bilary:No calcified gallstones. No gallbladder wall thickening. No pericholecystic fluid. No dilated bile ducts Spleen:No splenomegaly Pancreas:No pancreatic mass. No peripancreatic abnormality. No evidence for pancreatitis Adrenal glands:Negative Kidneys,ureters,bladder:There is no hydronephrosis. No obstructing or nonobstructing calculi. There is a probable 19 mm mass in the mid to lower portion of the right kidney. This is not well-visualized on this noncontrast enhanced examination. Right renal ultrasound is recommended to evaluate for a cyst or solid lesion. No hydroureter. No ureteral calculus. No bladder stone. No detectable bladder mass. Gastrointestinal:No detectable colonic mass. There is no diverticulitis. Negative small bowel. No mechanical small bowel obstruction. No bowel wall thickening. No focal abnormality. Probable small gastric fundal diverticulum. This is unchanged and considered an incidental finding Appendix: The appendix is not well visualized. No evidence for appendicitis Vascular:No abdominal aortic aneurysm Lymphatic:No retroperitoneal adenopathy. No significant mesenteric adenopathy. Mesentery, peritoneum:No free intraperitoneal fluid. No intra-abdominal abscess. No pneumoperitoneum Reproductive:No significant prosthetic enlargement Musculoskeletal:Degenerative disc narrowing at L4-5. No lumbar compression fractures. Sacrum and pelvis are negative No anterior abdominal wall or inguinal hernia. IMPRESSION: 1. Possible right renal mass. Recommend ultrasound 2. Otherwise negative examination. No interval change The exam was performed using radiation dose optimization techniques including, but not limited to, automated exposure control, adjustment of the mA and/or kV according to patient size and use of iterative reconstruction technique. Interpreted and Authenticated by: Bharat Mendoza 04/11/22
[2022-04-11] MEDS ORDERED: HALOPERIDOL LACTATE 5 MG/ML VIAL IV PRN (19:36)
[2022-04-11] MEDS ORDERED: hydrALAZINE 20 MG/ML VIAL IV PRN (19:36)
[2022-04-11] MEDS ORDERED: DEXTROSE 50% 50 ML VIAL IV PRN (19:36)
[2022-04-11] MEDS ORDERED: traZODone HCL 50 MG TABLET PO PRN (19:36)
[2022-04-11] MEDS ORDERED: DEXTROSE 31 GM ORAL.SUSP PO PRN (19:36)
[2022-04-11] MEDS ORDERED: ACETAMINOPHEN 325 MG TABLET PO PRN (19:36)
[2022-04-11] MEDS ORDERED: KETOROLAC 30 MG/ML VIAL IV PRN (19:36)
[2022-04-11] MEDS ORDERED: IPRATROPIUM/ALBUTEROL 3 ML AMPUL.NEB NEB PRN (19:36)
[2022-04-11] MEDS: 0.9 % SODIUM CHLORIDE 1,000 ML IV SCH (19:45)
[2022-04-11] MEDS ORDERED: METOPROLOL TARTRATE 5 MG/5 ML VIAL IV PRN (20:00)
[2022-04-11] MEDS: ONDANSETRON 4 MG/2 ML VIAL IV PRN (20:16)
[2022-04-11] MEDS: LORazepam 2 MG/ML VIAL IV PRN (20:17)
[2022-04-11] MEDS: morphine 4 MG/ML VIAL IV PRN (20:17)
[2022-04-11] MEDS: SENNOSIDES 1 TABLET PO SCH (20:54)
[2022-04-11] MEDS: DOCUSATE SODIUM 100 MG CAPSULE PO SCH (20:55)
[2022-04-11] MEDS: HEPARIN 5,000 UNIT/ML VIAL SQ SCH (20:59)
[2022-04-11] MEDS: INSULIN LISPRO 1 UNIT/0.01 ML UNIT SQ SCH (20:59)
[2022-04-11] MEDS: INSULIN GLARGINE, HUMAN 1 UNIT/0.01 ML SQ SCH (21:17)
[2022-04-11] MEDS: 0.9 % SODIUM CHLORIDE 10 ML SYRINGE IV SCH (21:17)
[2022-04-11] MEDS: PROCHLORPERAZINE 10 MG/2 ML VIAL IV PRN (22:55)
[2022-04-12] MEDS: morphine 4 MG/ML VIAL IV PRN (00:10)
[2022-04-12] MEDS: LORazepam 2 MG/ML VIAL IV PRN (00:11)
[2022-04-12] MEDS: 0.9 % SODIUM CHLORIDE 1,000 ML IV SCH ×4 (05:54→21:56)
[2022-04-12] MEDS: 0.9 % SODIUM CHLORIDE 10 ML SYRINGE IV SCH ×3 (05:54→21:21)
[2022-04-12 07:37] LABS: Basophils # (Auto) 0.01 K/mcL (0.00-0.30); Basophils % (Auto) 0.1 % (0.0-2.0); Eosinophils # (Auto) 0 K/mcL (0.00-0.70); Eosinophils % (Auto) 0 % (0.0-7.0); Hematocrit 33.2 % (40.1-51.0); Hemoglobin 10.4 g/dL (13.7-17.5); Lymphocytes # (Auto) 0.83 K/mcL (1.50-4.80); Lymphocytes % (Auto) 12.2 % (15.5-49.0); Mean Cell Volume 83.6 fL (80.0-100.0); Mean Corpuscular HGB Conc 31.3 g/dL (31.0-36.0); Mean Platelet Volume 10.8 fL (8.8-12.5); Monocytes # (Auto) 0.41 K/mcL (0.10-0.90); Neutrophils % (Auto) 81.3 % (38.0-78.0); Platelet Count 193 K/mcL (140-440); RBC 3.97 M/mcL (4.63-6.08); Red Cell Distribution Width 15.4 % (11.5-14.5); WBC 6.8 K/mcL (4.5-11.0)
[2022-04-12 07:47] LABS: ALT/SGPT 5 U/L (<40); AST/SGOT 24 U/L (<40); Albumin 3.2 gm/dL (3.2-5.2); Alkaline Phosphatase 61 U/L (39-117); Bilirubin,Total 0.4 mg/dL (0.1-1.0); Blood Urea Nitrogen 44 mg/dL (6-20); Calcium 8.2 mg/dL (8.6-10.4); Carbon Dioxide 16 mmol/L (22-30); Chloride 110 mmol/L (96-108); Globulin 3.2 gm/dL (2.2-3.7); Glomerular Filtration Rate 18; Glucose 98 mg/dL (70-105)
[2022-04-12] MEDS ORDERED: FUROSEMIDE 40 MG/4 ML VIAL IV SCH ×2 (08:13→16:24)
[2022-04-12] MEDS ORDERED: FUROSEMIDE 40 MG/4 ML VIAL IV ONE ×2 (08:34→16:56)
[2022-04-12] MEDS: DOCUSATE SODIUM 100 MG CAPSULE PO SCH ×2 (08:35→21:18)
[2022-04-12] MEDS: HEPARIN 5,000 UNIT/ML VIAL SQ SCH ×2 (08:35→21:17)
[2022-04-12] MEDS: INSULIN LISPRO 1 UNIT/0.01 ML UNIT SQ SCH ×4 (08:41→21:21)
[2022-04-12] MEDS: INSULIN GLARGINE, HUMAN 1 UNIT/0.01 ML SQ SCH ×2 (08:50→21:34)
--- NOTE | 2022-04-12 08:55 | EKG ---
[facility] Test Date: 2022-04-11 Pat Name: Wong Rangel Department: ED Room: Gender: Male Assistant Cook: SB : [id number] Requested By: Marika Hargrove Order Number: [id number] Reading MD: Bharat Mack M.D. Measurements Intervals [place] Rate: 127 P: 0 SD: 81 QRS: 150 QRSD: 145 T: 47 QT: 381 QTc: 555 Interpretive Statements Sinus tachycardia Right bundle branch block PROBABLE ANTEROSEPTAL INFARCT, OLD Electronically Signed On 04-12-2022 8:55:41 PST by Bharat Mack M.D. /store/[email or web address]/[id number]
[2022-04-12 09:31] LABS: Hemoglobin A1C 6.5 % Hgb (4.0-6.0)
[2022-04-12 15:59] LABS: Amphetamine Screen,Urine None detected; Barbiturate Screen,Urine None detected; Benzodiazepines Screen,Urine None detected; Cannabinoid Screen,Urine None detected; Cocaine Screen,Urine None detected; Opiate Screen,Urine Suspect Positive; Oxycodone, Urine Screen None detected; Phencyclidine Screen,Urine None detected
--- NOTE | 2022-04-12 16:35 | Internal Med Progress Note ---
SUBJECTIVE Subjective Patient information: Note initiated : 04/12/22 at 4:29 pm Service Date, if different from initiated Date: [] Patient: Wong Rangel a 41 y/o M admitted on 04/11/22 for nausea and vomiting. Chief Complaint: [] Interval history: Mr. Rangel is a 41 year old M history of frequent nausea vomiting, chronic kidney disease stage III, type 2 diabetes mellitus, essential hypertensions, GERD, presenting with 3-day history of acute onset nausea vomiting abdominal pain. He started to have acute onset nausea and vomiting and epigastric abdominal pain the past Monday. He was at rest at home not really doing anything at the time of symptom onset. No exacerbating or elevating factors. The pain is localized in the epigastrium, graded 9 out of 10 in severity, cramping in nature, intermittent. As a result, he could not tolerate much food or drink intake and he could not even take his medications for other diseases such as hyper pressure and diabetes. Vital signs at ED presentation significant for tachycardia heart rate in the 110s As well as elevated blood pressures up to 190s over 120s mmHg. labs; with serum creatinine level 3.3 with baseline 2.6, and blood glucose level 115. Admission request is called for cyclic nausea vomiting as well as tachycardia and acute kidney injury in the context of chronic kidney disease likely due to dehydration and patient's inability to take oral medications. 04/12: Serum potassium level 5.9. With IV fluid and Lasix 40mg IV once given, repeat level was 5.6. Serum Cr level 3.3-->3.8. Patient denies nausea vomiting or abdominal pain at the moment. He tolerates clear liquid diet. Continue IV fluid infusions. Repeat Lasix 40 Mg IV once. Repeat serum potassium level and creatinine level with CMP in the morning to trend. Advance diet as tolerated per the patient's. Continue to provide antiemetics and narcotics for symptom control, respectively. Constitutional Vitals: Vital Signs Temp Pulse Resp BP Pulse Ox O2 Del Method O2 Flow Rate 35.8 C L 74 16 145/100 95 Nasal Cannula 1 04/12/22 12:00 04/12/22 12:04/12/22 12:04/12/22 12:00 04/12/22 12:04/12/22 12:04/12/22 12:00 Period Temp Pulse Resp BP Sys/Paz Pulse Ox O2 Del Method O2 Flow Rate Last 24 Hr 35.8 C-36.8 C 74-122 11-30 98-200/56-138 92-100 Nasal Cannula- Room Air 1-1 Intake and Output 04/12/22 04/12/22 04/12/22 03:59 11:59 19:59 Intake Total 2712 480 Output Total 400 1000 Balance -400 2712 -520 Weight 124.148 kg Intake & Output: Intake & Output 04/12/22 04/12/22 04/12/22 03:59 11:59 19:59 Intake Total 2712 480 Output Total 400 1000 Balance -400 2712 -520 Weight 124.148 kg Intake: IV 2592 Sodium Chloride 0.9% 1,000 ml @ 2592 100 mls/hr IV .Q10H [facility] Rx#: [id number] Oral 120 480 Output: Void Amount 1000 Emesis 400 Other: Meal Lunch Percent of Meal Consumed 0% Feeding Ability Independent Urine Color Yellow # Voids 0 Head Head exam: Present atraumatic and normal inspection Eye Eye exam: Present normal appearance ENT ENT exam: Present mucous membranes moist, normal exam and normal external ear exam Neck Neck exam: Present normal inspection Respiratory Respiratory exam: Present normal respiratory exam Cardiovascular Cardiovascular exam: Present normal rate and rhythm GI/Abdominal GI/Abdominal exam: Present normal bowel sounds Back Exam Back exam: Present normal inspection Neurological Exam Neurological exam: Present alert and oriented X3 Skin Skin exam: Present intact and warm OBJ DATA Labs 04/12/22 06:24 04/12/22 10:48 Labs: Abnormal Lab Results 04/12/22 04/12/22 04/12/22 10:48 07:45 06:24 RBC Hgb Hct RDW Neut % (Auto) Lymph % (Auto) Lymph # (Auto) Potassium 5.6 H 5.9 H* POC Chloride Chloride 110 H Carbon Dioxide 16 L POC Total CO2 POC BUN BUN 44 H Creatinine 3.8 H POC Creatinine Glucose POC Glucose Hemoglobin A1c 6.5 H Calcium 8.2 L Total Protein Globulin Amylase Urine Opiates Screen 04/12/22 04/11/22 04/11/22 06:24 15:07 13:41 RBC 3.97 L Hgb 10.4 L Hct 33.2 L RDW 15.4 H Neut % (Auto) 81.3 H Lymph % (Auto) 12.2 L Lymph # (Auto) 0.83 L Potassium POC Chloride Chloride Carbon Dioxide POC Total CO2 POC BUN BUN Creatinine POC Creatinine Glucose POC Glucose Hemoglobin A1c Calcium Total Protein 8.6 H Globulin 4.3 H Amylase 105 H Urine Opiates Screen Suspect positive A 04/11/22 04/11/22 13:41 13:41 RBC Hgb Hct RDW Neut % (Auto) Lymph % (Auto) Lymph # (Auto) Potassium POC Chloride 111 H Chloride Carbon Dioxide 20 L POC Total CO2 21.0 L POC BUN 41 H BUN 39 H Creatinine 3.3 H POC Creatinine 4.0 H Glucose 115 H POC Glucose 125 H Hemoglobin A1c Calcium Total Protein Globulin Amylase Urine Opiates Screen Meds: Medications Acetaminophen (Acetaminophen 325 Mg Tablet) 650 mg PO Q6HP PRN; Protocol PRN Reason: Per Pain Protocol/Fever > 101 Albuterol/Ipratropium (Ipratropium/Albuterol 3 Ml Ampul.Neb) 3 ml NEB Q4HRT PRN PRN Reason: Wheezing Amlodipine Besylate (Amlodipine 10 Mg Tablet) 10 mg PO DAILY [facility] Capsaicin (Capsaicin 0.025% Cream.Top 60gm) 1 dose TOPICAL QIDP PRN PRN Reason: Nausea And Vomiting Dextrose (Dextrose 50% 50 Ml Vial) 0 ml IV UD PRN PRN Reason: Per Sliding Scale Diagnostic Test (Pha) (Accu-Chek 1 Each Strip) 1 each FS ACHS [facility] Last Admin: 04/12/22 12:15 Dose: 1 each Docusate Sodium (Docusate Sodium 100 Mg Capsule) 100 mg PO BID [facility] Last Admin: 04/12/22 08:35 Dose: 100 mg Furosemide (Furosemide 40 Mg/4 Ml Vial) 40 mg IV ONCE [facility] Stop: 04/12/22 18:00 Glucose (Dextrose 31 Gm Oral.Susp) 15 gm PO PRN PRN PRN Reason: Hypoglycemia Haloperidol Lactate (Haloperidol Lactate 5 Mg/Ml Vial) 2 mg IV Q4HP PRN PRN Reason: Nausea And Vomiting Heparin Sodium (Porcine) (Heparin 5,000 Unit/Ml Vial) 5,000 unit SQ Q12 [facility] Last Admin: 04/12/22 08:35 Dose: 5,000 unit Hydralazine HCl (Hydralazine 20 Mg/Ml Vial) 10 mg IV Q4-6HP PRN PRN Reason: Hypertension Last Admin: 04/11/22 20:14 Dose: 10 mg Sodium Chloride (Sodium Chloride 0.9%) 1,000 mls @ 100 mls/hr IV .Q10H [facility] Last Admin: 04/12/22 15:32 Dose: Not Given Insulin Glargine (Insulin Glargine, Human 1 Unit/0.01 Ml) 30 unit SQ BID [facility] Last Admin: 04/12/22 08:50 Dose: 30 units Insulin Human Lispro (Insulin Lispro 1 Unit/0.01 Ml Unit) 0 unit SQ ACHS [facility]; Protocol Last Admin: 04/12/22 11:56 Dose: Not Given Ketorolac Tromethamine (Ketorolac 30 Mg/Ml Vial) 30 mg IV Q6HP PRN; Protocol PRN Reason: Per Pain Protocol Stop: 04/13/22 18:42 Lorazepam (Lorazepam 2 Mg/Ml Vial) 1 mg IV Q4-6HP PRN PRN Reason: Nausea And Vomiting Last Admin: 04/12/22 00:11 Dose: 1 mg Metoprolol Tartrate (Metoprolol Tartrate 5 Mg/5 Ml Vial) 5 mg IV Q1HP PRN PRN Reason: Tachyarrhythmias Morphine Sulfate (Morphine 4 Mg/Ml Vial) 4 mg IV Q4HP PRN; Protocol PRN Reason: Per Pain Protocol Last Admin: 04/12/22 00:10 Dose: 4 mg Ondansetron HCl (Ondansetron 4 Mg/2 Ml Vial) 4 mg IV Q6HP PRN PRN Reason: Nausea And Vomiting Last Admin: 04/11/22 20:16 Dose: 4 mg Pantoprazole Sodium (Pantoprazole 40 Mg Tablet) 40 mg PO QAMAC [facility] Prochlorperazine (Prochlorperazine 10 Mg/2 Ml Vial) 10 mg IV Q4-6HP PRN PRN Reason: Nausea And Vomiting Last Admin: 04/11/22 22:55 Dose: 10 mg Senna (Sennosides 1 Tablet) 2 tab PO HS [facility] Last Admin: 04/11/22 20:54 Dose: Not Given Sodium Chloride (0.9 % Sodium Chloride 10 Ml Syringe) 10 ml IV Q8 [facility] Last Admin: 04/12/22 13:10 Dose: Not Given Trazodone HCl (Trazodone Hcl 50 Mg Tablet) 25 mg PO HSP PRN PRN Reason: Insomnia A/P Assessment and plan (1) Intractable cyclical vomiting with nausea: Status: Acute (2) Anemia, normocytic normochromic: Status: Acute (3) GERD (gastroesophageal reflux disease): Status: Acute (4) Acute kidney injury superimposed on chronic kidney disease: Status: Acute (5) Hypertension in stage 3 chronic kidney disease due to type 2 diabetes mellitus: Status: Acute (6) Hyperkalemia: Status: Acute Narrative A/P Narrative: Assessment and Plans: 1. Intractable nausea vomiting: Observation med surg CT abdomen pelvis w/o contrast---> no ileus or bowel obstruction seen. Found possible right renal mass, will order f/u US to investigate Amylase 105 Lipase 55 LFTs WNL Urine drug screening: only positive for opiates Zofran Compazine Ativan Haldol Capsaicin Morphine IV fluid with NS@100cc/hr Clear liquid diet, advance as tolerated 2. Acute kidney injury with chronic kidney disease III: Avoid nephrotoxic agents IV fluid with NS@100cc/hr Clear liquid diet, advance as tolerated CMP in the morning to trend kidney functions 3. T2DM: HgA1c 6.5 Lantus 30 unit BID Insulin Lispro SSI AC HS Accu Check AC HS Hypoglycemia protocol Clear liquid diet, advance as tolerated 4. Hypertension, uncontrolled: Hydralazine 10mg IV q4-6hr PRN SBP>=180 and/or DBP>=110mmHg Metoprolol tartrate 100mg PO BID Treat other symptoms such as nausea vomiting and abdominal pain, see #1 5. Anemia, normocytic normochromic: cbc w/ auto diff in the morning to trend H/H 6. GERD: PPI 7. Hyperkalemia: Continue IV fluid infusion Repeat Lasix 40mg IV once Repeat CMP to trend serum potassium level GI ppx: PPI DVT ppx: Heparin Code status: Full Prognosis: guarded Disposition: observation med surg Time Spent With Patient Time: Total time spent is greater than 50% in coordination of care (as documented) at patient's floor/unit and/or counseling patient: Subsequent: Total time with patient: 35 - 49 minutes QUALITY Stroke Symptom Onset Unknown: No VTE Deep Vein Thrombosis/Pulmonary Embolism Present on Admission: No
[2022-04-12] MEDS: SENNOSIDES 1 TABLET PO SCH (21:17)
[2022-04-13] MEDS: 0.9 % SODIUM CHLORIDE 10 ML SYRINGE IV SCH ×3 (05:43→21:02)
[2022-04-13 07:31] LABS: Basophils # (Auto) 0.03 K/mcL (0.00-0.30); Basophils % (Auto) 0.3 % (0.0-2.0); Eosinophils # (Auto) 0.12 K/mcL (0.00-0.70); Eosinophils % (Auto) 1.3 % (0.0-7.0); Hematocrit 36.2 % (40.1-51.0); Hemoglobin 10.8 g/dL (13.7-17.5); Lymphocytes # (Auto) 1.43 K/mcL (1.50-4.80); Lymphocytes % (Auto) 15.1 % (15.5-49.0); Mean Cell Volume 87.4 fL (80.0-100.0); Mean Corpuscular HGB Conc 29.8 g/dL (31.0-36.0); Mean Platelet Volume 10.1 fL (8.8-12.5); Monocytes # (Auto) 0.96 K/mcL (0.10-0.90); Monocytes % (Auto) 10.2 % (1.0-12.0); Neutrophils % (Auto) 72.9 % (38.0-78.0); Platelet Count 214 K/mcL (140-440); RBC 4.14 M/mcL (4.63-6.08); Red Cell Distribution Width 15.5 % (11.5-14.5); WBC 9.4 K/mcL (4.5-11.0)
[2022-04-13] MEDS: 0.9 % SODIUM CHLORIDE 1,000 ML IV SCH ×4 (08:09→21:12)
[2022-04-13] MEDS: INSULIN LISPRO 1 UNIT/0.01 ML UNIT SQ SCH ×4 (08:10→21:08)
--- NOTE | 2022-04-13 08:14 | Ultrasound Report ---
INDICATION: follow up study to look for renal mass TECHNIQUE: Routine grayscale and color flow Doppler spectral imaging COMPARISON: Previous noncontrast enhanced CT scan dated 04/11/2022 FINDINGS: Right kidney measures 11.4 x 5.4 x 6.2 cm. There is a mid pole cyst. This measures 2.4 x 2.1 x 2.5 cm. This appears to correspond in location to the CT abnormality. There is no solid mass. No hydronephrosis. IMPRESSION: 1. Benign right renal cyst corresponding in location to the CT abnormality 2. No hydronephrosis. No solid mass. Interpreted and Authenticated by: Bharat Mendoza 04/13/22
[2022-04-13] MEDS: DOCUSATE SODIUM 100 MG CAPSULE PO SCH ×2 (08:21→21:07)
[2022-04-13] MEDS: amLODIPine 10 MG TABLET PO SCH (08:21)
[2022-04-13] MEDS: HEPARIN 5,000 UNIT/ML VIAL SQ SCH ×2 (08:22→21:08)
[2022-04-13] MEDS: INSULIN GLARGINE, HUMAN 1 UNIT/0.01 ML SQ SCH (08:22)
[2022-04-13] MEDS: PANTOPRAZOLE 40 MG TABLET PO SCH (08:22)
[2022-04-13 08:50] LABS: ALT/SGPT 6 U/L (<40); AST/SGOT 27 U/L (<40); Albumin 3.3 gm/dL (3.2-5.2); Alkaline Phosphatase 60 U/L (39-117); Bilirubin,Total 0.3 mg/dL (0.1-1.0); Blood Urea Nitrogen 44 mg/dL (6-20); Calcium 8.6 mg/dL (8.6-10.4); Carbon Dioxide 19 mmol/L (22-30); Chloride 108 mmol/L (96-108); Globulin 3.3 gm/dL (2.2-3.7); Glomerular Filtration Rate 20; Glucose 42 mg/dL (70-105)
[2022-04-13] MEDS ORDERED: FLU VACC QS2022-23(6MOS UP)/PF 60 MCG/0.5 ML SYRINGE IM ONE (10:00)
--- NOTE | 2022-04-13 12:35 | Internal Med Progress Note ---
SUBJECTIVE Subjective Patient information: Note initiated : 04/13/22 at 12:30 pm Service Date, if different from initiated Date: [] Patient: Wong Rangel a 41 y/o M admitted on 04/11/22 for nausea and vomiting. Chief Complaint: [] Interval history: Mr. Rangel is a 41 year old M history of frequent nausea vomiting, chronic kidney disease stage III, type 2 diabetes mellitus, essential hypertensions, GERD, presenting with 3-day history of acute onset nausea vomiting abdominal pain. He started to have acute onset nausea and vomiting and epigastric abdominal pain the past Monday. He was at rest at home not really doing anything at the time of symptom onset. No exacerbating or elevating factors. The pain is localized in the epigastrium, graded 9 out of 10 in severity, cramping in nature, intermittent. As a result, he could not tolerate much food or drink intake and he could not even take his medications for other diseases such as hyper pressure and diabetes. Vital signs at ED presentation significant for tachycardia heart rate in the 110s As well as elevated blood pressures up to 190s over 120s mmHg. labs; with serum creatinine level 3.3 with baseline 2.6, and blood glucose level 115. Admission request is called for cyclic nausea vomiting as well as tachycardia and acute kidney injury in the context of chronic kidney disease likely due to dehydration and patient's inability to take oral medications. 04/12: Serum potassium level 5.9. With IV fluid and Lasix 40mg IV once given, repeat level was 5.6. Serum Cr level 3.3-->3.8. Patient denies nausea vomiting or abdominal pain at the moment. He tolerates clear liquid diet. Continue IV fluid infusions. Repeat Lasix 40 Mg IV once. Repeat serum potassium level and creatinine level with CMP in the morning to trend. Advance diet as tolerated per the patient's. Continue to provide antiemetics and narcotics for symptom control, respectively. 04/13: Fasting glucose 42 this morning. Patient currently denies having any nausea, vomiting, or abdominal pain. He is having food liquid diet. Serum potassium level 4.5. BUN/creatinine 44 and 3.6, respectively. Continue IV fluid for rehydration purposes and for acute on chronic kidney injury. Continue to advance diet as tolerated. Continue to provide antiemetics and narcotics for symptom control, respectively. Decrease Lantus from 30 to 20 unit BID to avoid hypoglycemia episode. We will switch from observation to i npatient status to keep the patient in MedSurg. Constitutional Vitals: Vital Signs Temp Pulse Resp BP Pulse Ox O2 Del Method O2 Flow Rate 36.2 C 72 16 138/82 95 Room Air 0 04/13/22 08:00 04/13/22 08:00 04/13/22 08:00 04/13/22 08:00 04/13/22 08:00 04/13/22 08:00 04/12/22 18:15 Period Temp Pulse Resp BP Sys/Paz Pulse Ox O2 Del Method O2 Flow Rate Last 24 Hr 36.1 C-36.9 C 65-73 16-16 114-148/72-111 93-100 Room Air-Room Air 0 Intake and Output 04/13/22 04/13/22 04/13/22 03:59 11:59 19:59 Intake Total 1480 1000 Output Total 1000 Balance 480 1000 Intake & Output: Intake & Output 04/13/22 04/13/22 04/13/22 03:59 11:59 19:59 Intake Total 1480 1000 Output Total 1000 Balance 480 1000 Intake: IV 1000 1000 Sodium Chloride 0.9% 1,000 ml @ 1000 1000 100 mls/hr IV .Q10H [facility] Rx#: [id number] Oral 480 Output: Void Amount 1000 Other: Meal Yogurt Percent of Meal Consumed 100% Feeding Ability Independent Urine Appearance Clear Urine Color Yellow Head Head exam: Present atraumatic and normal inspection Eye Eye exam: Present normal appearance ENT ENT exam: Present mucous membranes moist, normal exam and normal external ear exam Neck Neck exam: Present normal inspection Respiratory Respiratory exam: Present normal respiratory exam Cardiovascular Cardiovascular exam: Present normal rate and rhythm GI/Abdominal GI/Abdominal exam: Present normal bowel sounds Back Exam Back exam: Present normal inspection Neurological Exam Neurological exam: Present alert and oriented X3 Skin Skin exam: Present intact and warm OBJ DATA Labs 04/13/22 05:46 04/13/22 05:46 Labs: Abnormal Lab Results 04/13/22 04/13/22 04/12/22 05:46 05:46 10:48 RBC 4.14 L Hgb 10.8 L Hct 36.2 L MCHC 29.8 L RDW 15.5 H Neut % (Auto) Lymph % (Auto) 15.1 L Lymph # (Auto) 1.43 L [place] # (Auto) 0.96 H Potassium 5.6 H POC Chloride Chloride Carbon Dioxide 19 L POC Total CO2 POC BUN BUN 44 H Creatinine 3.6 H POC Creatinine Glucose 42 L POC Glucose Hemoglobin A1c Calcium Total Protein Globulin Amylase Urine Opiates Screen 04/12/22 04/12/22 04/12/22 07:45 06:24 06:24 RBC 3.97 L Hgb 10.4 L Hct 33.2 L MCHC RDW 15.4 H Neut % (Auto) 81.3 H Lymph % (Auto) 12.2 L Lymph # (Auto) 0.83 L [place] # (Auto) Potassium 5.9 H* POC Chloride Chloride 110 H Carbon Dioxide 16 L POC Total CO2 POC BUN BUN 44 H Creatinine 3.8 H POC Creatinine Glucose POC Glucose Hemoglobin A1c 6.5 H Calcium 8.2 L Total Protein Globulin Amylase Urine Opiates Screen 04/11/22 04/11/22 04/11/22 15:07 13:41 13:41 RBC Hgb Hct MCHC RDW Neut % (Auto) Lymph % (Auto) Lymph # (Auto) [place] # (Auto) Potassium POC Chloride Chloride Carbon Dioxide 20 L POC Total CO2 POC BUN BUN 39 H Creatinine 3.3 H POC Creatinine Glucose 115 H POC Glucose Hemoglobin A1c Calcium Total Protein 8.6 H Globulin 4.3 H Amylase 105 H Urine Opiates Screen Suspect positive A 04/11/22 13:41 RBC Hgb Hct MCHC RDW Neut % (Auto) Lymph % (Auto) Lymph # (Auto) [place] # (Auto) Potassium POC Chloride 111 H Chloride Carbon Dioxide POC Total CO2 21.0 L POC BUN 41 H BUN Creatinine POC Creatinine 4.0 H Glucose POC Glucose 125 H Hemoglobin A1c Calcium Total Protein Globulin Amylase Urine Opiates Screen Meds: Medications Acetaminophen (Acetaminophen 325 Mg Tablet) 650 mg PO Q6HP PRN; Protocol PRN Reason: Per Pain Protocol/Fever > 101 Albuterol/Ipratropium (Ipratropium/Albuterol 3 Ml Ampul.Neb) 3 ml NEB Q4HRT PRN PRN Reason: Wheezing Amlodipine Besylate (Amlodipine 10 Mg Tablet) 10 mg PO DAILY [facility] Last Admin: 04/13/22 08:21 Dose: 10 mg Capsaicin (Capsaicin 0.025% Cream.Top 60gm) 1 dose TOPICAL QIDP PRN PRN Reason: Nausea And Vomiting Dextrose (Dextrose 50% 50 Ml Vial) 0 ml IV UD PRN PRN Reason: Per Sliding Scale Diagnostic Test (Pha) (Accu-Chek 1 Each Strip) 1 each FS [facility] Last Admin: 04/13/22 11:39 Dose: 1 each Docusate Sodium (Docusate Sodium 100 Mg Capsule) 100 mg PO BID [facility] Last Admin: 04/13/22 08:21 Dose: 100 mg Glucose (Dextrose 31 Gm Oral.Susp) 15 gm PO PRN PRN PRN Reason: Hypoglycemia Haloperidol Lactate (Haloperidol Lactate 5 Mg/Ml Vial) 2 mg IV Q4HP PRN PRN Reason: Nausea And Vomiting Heparin Sodium (Porcine) (Heparin 5,000 Unit/Ml Vial) 5,000 unit SQ Q12 [facility] Last Admin: 04/13/22 08:22 Dose: 5,000 unit Hydralazine HCl (Hydralazine 20 Mg/Ml Vial) 10 mg IV Q4-6HP PRN PRN Reason: Hypertension Last Admin: 04/11/22 20:14 Dose: 10 mg Sodium Chloride (Sodium Chloride 0.9%) 1,000 mls @ 100 mls/hr IV .Q10H [facility] Last Admin: 04/13/22 11:43 Dose: Not Given Insulin Glargine (Insulin Glargine, Human 1 Unit/0.01 Ml) 30 unit SQ BID [facility] Last Admin: 04/13/22 08:22 Dose: Not Given Insulin Human Lispro (Insulin Lispro 1 Unit/0.01 Ml Unit) 0 unit SQ [facility]; Protocol Last Admin: 04/13/22 11:43 Dose: Not Given Ketorolac Tromethamine (Ketorolac 30 Mg/Ml Vial) 30 mg IV Q6HP PRN; Protocol PRN Reason: Per Pain Protocol Stop: 04/13/22 18:42 Lorazepam (Lorazepam 2 Mg/Ml Vial) 1 mg IV Q4-6HP PRN PRN Reason: Nausea And Vomiting Last Admin: 04/12/22 00:11 Dose: 1 mg Metoprolol Tartrate (Metoprolol Tartrate 5 Mg/5 Ml Vial) 5 mg IV Q1HP PRN PRN Reason: Tachyarrhythmias Morphine Sulfate (Morphine 4 Mg/Ml Vial) 4 mg IV Q4HP PRN; Protocol PRN Reason: Per Pain Protocol Last Admin: 04/12/22 00:10 Dose: 4 mg Ondansetron HCl (Ondansetron 4 Mg/2 Ml Vial) 4 mg IV Q6HP PRN PRN Reason: Nausea And Vomiting Last Admin: 04/11/22 20:16 Dose: 4 mg Pantoprazole Sodium (Pantoprazole 40 Mg Tablet) 40 mg PO QAMAC [facility] Last Admin: 04/13/22 08:22 Dose: 40 mg Prochlorperazine (Prochlorperazine 10 Mg/2 Ml Vial) 10 mg IV Q4-6HP PRN PRN Reason: Nausea And Vomiting Last Admin: 04/11/22 22:55 Dose: 10 mg Senna (Sennosides 1 Tablet) 2 tab PO HS [facility] Last Admin: 04/12/22 21:17 Dose: 2 tab Sodium Chloride (0.9 % Sodium Chloride 10 Ml Syringe) 10 ml IV Q8 [facility] Last Admin: 04/13/22 05:43 Dose: Not Given Trazodone HCl (Trazodone Hcl 50 Mg Tablet) 25 mg PO HSP PRN PRN Reason: Insomnia A/P Assessment and plan (1) Intractable cyclical vomiting with nausea: Status: Acute (2) Anemia, normocytic normochromic: Status: Acute (3) GERD (gastroesophageal reflux disease): Status: Acute (4) Acute kidney injury superimposed on chronic kidney disease: Status: Acute (5) Hypertension in stage 3 chronic kidney disease due to type 2 diabetes mellitus: Status: Acute (6) Hyperkalemia: Status: Acute Narrative A/P Narrative: Assessment and Plans: 1. Intractable nausea vomiting: Inpatient med surg CT abdomen pelvis w/o contrast---> no ileus or bowel obstruction seen. Found possible right renal mass, will order f/u US to investigate Amylase 105 Lipase 55 LFTs WNL Urine drug screening: only positive for opiates Zofran Compazine Ativan Haldol Capsaicin Morphine IV fluid with NS@100cc/hr Full liquid diet, advance as tolerated 2. Acute kidney injury with chronic kidney disease III: Avoid nephrotoxic agents IV fluid with NS@100cc/hr Full liquid diet, advance as tolerated CMP in the morning to trend kidney functions 3. T2DM: HgA1c 6.5 Lantus 30-->20 to avoid hypoglycemia episode unit BID Insulin Lispro SSI AC HS Accu Check AC HS Hypoglycemia protocol Clear liquid diet, advance as tolerated 4. Hypertension, uncontrolled: Hydralazine 10mg IV q4-6hr PRN SBP>=180 and/or DBP>=110mmHg Metoprolol tartrate 100mg PO BID Treat other symptoms such as nausea vomiting and abdominal pain, see #1 5. Anemia, normocytic normochromic: cbc w/ auto diff in the morning to trend H/H 6. GERD: PPI 7. Hyperkalemia: RESOLVED Continue IV fluid infusion Repeat Lasix 40mg IV once Repeat CMP to trend serum potassium level GI ppx: PPI DVT ppx: Heparin Code status: Full Prognosis: guarded Disposition: inpatient med surg Time Spent With Patient Time: Total time spent is greater than 50% in coordination of care (as documented) at patient's floor/unit and/or counseling patient: Subsequent: Total time with patient: 35 - 49 minutes QUALITY Stroke Symptom Onset Unknown: No VTE Deep Vein Thrombosis/Pulmonary Embolism Present on Admission: No
[2022-04-13] MEDS: morphine 4 MG/ML VIAL IV PRN ×3 (13:05→23:45)
[2022-04-13] MEDS: ONDANSETRON 4 MG/2 ML VIAL IV PRN ×2 (13:25→19:21)
[2022-04-13] MEDS: PROCHLORPERAZINE 10 MG/2 ML VIAL IV PRN ×2 (14:08→23:43)
[2022-04-13] MEDS: CALCIUM CARBONATE 500 MG TAB.CHEW CHEWED PRN ×2 (15:06→19:09)
[2022-04-13] MEDS: LORazepam 2 MG/ML VIAL IV PRN (16:59)
[2022-04-13] MEDS: CAPSAICIN 0.025% CREAM.TOP 60GM TOPICAL PRN ×2 (17:00→18:02)
[2022-04-13] MEDS ORDERED: DEXTROSE 50% 50 ML VIAL IV ONE (18:25)
[2022-04-13] MEDS ORDERED: INSULIN GLARGINE, HUMAN 1 UNIT/0.01 ML SQ SCH (21:00)
[2022-04-13] MEDS: SENNOSIDES 1 TABLET PO SCH (21:07)
[2022-04-14] MEDS: ONDANSETRON 4 MG/2 ML VIAL IV PRN (04:25)
[2022-04-14] MEDS: CAPSAICIN 0.025% CREAM.TOP 60GM TOPICAL PRN (04:25)
[2022-04-14] MEDS: 0.9 % SODIUM CHLORIDE 10 ML SYRINGE IV SCH ×2 (04:26→15:45)
[2022-04-14] MEDS: 0.9 % SODIUM CHLORIDE 1,000 ML IV SCH ×2 (04:26→08:30)
[2022-04-14] MEDS: morphine 4 MG/ML VIAL IV PRN (04:27)
[2022-04-14 06:44] LABS: Basophils # (Auto) 0.02 K/mcL (0.00-0.30); Basophils % (Auto) 0.3 % (0.0-2.0); Eosinophils % (Auto) 1.4 % (0.0-7.0); Hematocrit 32.6 % (40.1-51.0); Hemoglobin 10.2 g/dL (13.7-17.5); Lymphocytes # (Auto) 0.89 K/mcL (1.50-4.80); Lymphocytes % (Auto) 12.5 % (15.5-49.0); Mean Corpuscular HGB Conc 31.3 g/dL (31.0-36.0); Mean Platelet Volume 10.8 fL (8.8-12.5); Monocytes # (Auto) 0.46 K/mcL (0.10-0.90); Monocytes % (Auto) 6.5 % (1.0-12.0); Platelet Count 215 K/mcL (140-440); RBC 3.88 M/mcL (4.63-6.08); Red Cell Distribution Width 14.9 % (11.5-14.5); WBC 7.1 K/mcL (4.5-11.0)
[2022-04-14] MEDS: PANTOPRAZOLE 40 MG TABLET PO SCH (07:19)
[2022-04-14] MEDS: INSULIN LISPRO 1 UNIT/0.01 ML UNIT SQ SCH ×3 (07:21→17:05)
[2022-04-14 07:22] LABS: ALT/SGPT 6 U/L (<40); AST/SGOT 24 U/L (<40); Albumin 3.3 gm/dL (3.2-5.2); Albumin/Globulin Ratio 1.1 (1.0-2.3); Alkaline Phosphatase 57 U/L (39-117); Bilirubin,Total 0.3 mg/dL (0.1-1.0); Blood Urea Nitrogen 33 mg/dL (6-20); Calcium 8.5 mg/dL (8.6-10.4); Carbon Dioxide 19 mmol/L (22-30); Chloride 109 mmol/L (96-108); Glomerular Filtration Rate 28; Glucose 78 mg/dL (70-105)
[2022-04-14] MEDS: DOCUSATE SODIUM 100 MG CAPSULE PO SCH (08:25)
[2022-04-14] MEDS: HEPARIN 5,000 UNIT/ML VIAL SQ SCH (08:25)
[2022-04-14] MEDS: amLODIPine 10 MG TABLET PO SCH (08:25)
--- NOTE | 2022-04-14 10:22 | Internal Med Progress Note ---
SUBJECTIVE Subjective Patient information: Note initiated : 04/14/22 at 10:19 am Service Date, if different from initiated Date: [] Patient: Wong Rangel a 41 y/o M admitted on 04/13/22 for nausea and vomiting. Chief Complaint: [] Interval history: Mr. Rangel is a 41 year old M history of frequent nausea vomiting, chronic kidney disease stage III, type 2 diabetes mellitus, essential hypertensions, GERD, presenting with 3-day history of acute onset nausea vomiting abdominal pain. He started to have acute onset nausea and vomiting and epigastric abdominal pain the past Monday. He was at rest at home not really doing anything at the time of symptom onset. No exacerbating or elevating factors. The pain is localized in the epigastrium, graded 9 out of 10 in severity, cramping in nature, intermittent. As a result, he could not tolerate much food or drink intake and he could not even take his medications for other diseases such as hyper pressure and diabetes. Vital signs at ED presentation significant for tachycardia heart rate in the 110s As well as elevated blood pressures up to 190s over 120s mmHg. labs; with serum creatinine level 3.3 with baseline 2.6, and blood glucose level 115. Admission request is called for cyclic nausea vomiting as well as tachycardia and acute kidney injury in the context of chronic kidney disease likely due to dehydration and patient's inability to take oral medications. 04/12: Serum potassium level 5.9. With IV fluid and Lasix 40mg IV once given, repeat level was 5.6. Serum Cr level 3.3-->3.8. Patient denies nausea vomiting or abdominal pain at the moment. He tolerates clear liquid diet. Continue IV fluid infusions. Repeat Lasix 40 Mg IV once. Repeat serum potassium level and creatinine level with CMP in the morning to trend. Advance diet as tolerated per the patient's. Continue to provide antiemetics and narcotics for symptom control, respectively. 04/13: Fasting glucose 42 this morning. Patient currently denies having any nausea, vomiting, or abdominal pain. He is having food liquid diet. Serum potassium level 4.5. BUN/creatinine 44 and 3.6, respectively. Continue IV fluid for rehydration purposes and for acute on chronic kidney injury. Continue to advance diet as tolerated. Continue to provide antiemetics and narcotics for symptom control, respectively. Decrease Lantus from 30 to 20 unit BID to avoid hypoglycemia episode. We will switch from observation to i npatient status to keep the patient in MedSur. 2/: Fasting glucose 42-->78 this morning. Serum Cr level 3.6-->2.7. Patient did not have much food yesterday and he has not have his breakfast today. He denies any nausea vomiting or abdominal pain. Saline lock. Diet advancement as tolerated, encourage patient to really work hard on diet advancement. Keep holding Lantus and with continue sliding scale insulin ACHS for hypoglycemia. Constitutional Vitals: Vital Signs Temp Pulse Resp BP Pulse Ox O2 Del Method O2 Flow Rate 36.1 C L 98 H 19 141/103 97 Room Air 0 04/14/22 09:16 04/14/22 03:00 04/14/22 03:00 04/14/22 08:00 04/14/22 03:00 04/14/22 03:00 04/12/22 18:15 Period Temp Pulse Resp BP Sys/Paz Pulse Ox O2 Del Method O2 Flow Rate Last 24 Hr 36.1 C-36.7 C 83-98 16-20 129-169/83-108 94-100 Room Air-Room Air Intake and Output 04/13/22 04/14/22 04/14/22 19:59 03:59 11:59 Intake Total 1000 50 1000 Output Total 1550 1250 100 Balance -550 -1200 900 Weight 123.831 kg 123.15 kg Intake & Output: Intake & Output 04/13/22 04/14/22 04/14/22 19:59 03:59 11:59 Intake Total 1000 50 1000 Output Total 1550 1250 100 Balance -550 -1200 900 Weight 123.831 kg 123.15 kg Intake: IV 1000 1000 Sodium Chloride 0.9% 1,000 ml @ 1000 1000 100 mls/hr IV .Q10H REPLACED BY [facility] Rx#: [id number] Oral 50 Output: Void Amount 1150 1050 Emesis 400 200 100 Other: Urine Appearance Clear Urine Color Yellow Urine Odor Normal Head Head exam: Present atraumatic and normal inspection Eye Eye exam: Present normal appearance ENT ENT exam: Present mucous membranes moist, normal exam and normal external ear exam Neck Neck exam: Present normal inspection Respiratory Respiratory exam: Present normal respiratory exam Cardiovascular Cardiovascular exam: Present normal rate and rhythm GI/Abdominal GI/Abdominal exam: Present normal bowel sounds Back Exam Back exam: Present normal inspection Neurological Exam Neurological exam: Present alert and oriented X3 Skin Skin exam: Present intact and warm OBJ DATA Labs 04/14/22 05:45 04/14/22 05:48 Labs: Abnormal Lab Results 04/14/22 04/14/22 04/13/22 05:48 05:45 05:46 RBC 3.88 L Hgb 10.2 L Hct 32.6 L MCHC RDW 14.9 H Neut % (Auto) 79.0 H Lymph % (Auto) 12.5 L Lymph # (Auto) 0.89 L [place] # (Auto) Potassium POC Chloride Chloride 109 H Carbon Dioxide 19 L 19 L POC Total CO2 POC BUN BUN 33 H 44 H Creatinine 2.7 H 3.6 H POC Creatinine Glucose 42 L POC Glucose Hemoglobin A1c Calcium 8.5 L Total Protein Globulin Amylase Urine Opiates Screen 04/13/22 04/12/22 04/12/22 05:46 10:48 07:45 RBC 4.14 L Hgb 10.8 L Hct 36.2 L MCHC 29.8 L RDW 15.5 H Neut % (Auto) Lymph % (Auto) 15.1 L Lymph # (Auto) 1.43 L [place] # (Auto) 0.96 H Potassium 5.6 H POC Chloride Chloride Carbon Dioxide POC Total CO2 POC BUN BUN Creatinine POC Creatinine Glucose POC Glucose Hemoglobin A1c 6.5 H Calcium Total Protein Globulin Amylase Urine Opiates Screen 04/12/22 04/12/22 04/11/22 06:24 06:24 15:07 RBC 3.97 L Hgb 10.4 L Hct 33.2 L MCHC RDW 15.4 H Neut % (Auto) 81.3 H Lymph % (Auto) 12.2 L Lymph # (Auto) 0.83 L [place] # (Auto) Potassium 5.9 H* POC Chloride Chloride 110 H Carbon Dioxide 16 L POC Total CO2 POC BUN BUN 44 H Creatinine 3.8 H POC Creatinine Glucose POC Glucose Hemoglobin A1c Calcium 8.2 L Total Protein Globulin Amylase Urine Opiates Screen Suspect positive A 04/11/22 04/11/22 04/11/22 13:41 13:41 13:41 RBC Hgb Hct MCHC RDW Neut % (Auto) Lymph % (Auto) Lymph # (Auto) [place] # (Auto) Potassium POC Chloride 111 H Chloride Carbon Dioxide 20 L POC Total CO2 21.0 L POC BUN 41 H BUN 39 H Creatinine 3.3 H POC Creatinine 4.0 H Glucose 115 H POC Glucose 125 H Hemoglobin A1c Calcium Total Protein 8.6 H Globulin 4.3 H Amylase 105 H Urine Opiates Screen Meds: Medications Acetaminophen (Acetaminophen 325 Mg Tablet) 650 mg PO Q6HP PRN; Protocol PRN Reason: Per Pain Protocol/Fever > 101 Last Admin: 04/13/22 14:08 Dose: 650 mg Albuterol/Ipratropium (Ipratropium/Albuterol 3 Ml Ampul.Neb) 3 ml NEB Q4HRT PRN PRN Reason: Wheezing Amlodipine Besylate (Amlodipine 10 Mg Tablet) 10 mg PO DAILY REPLACED BY [facility] Last Admin: 04/14/22 08:25 Dose: 10 mg Calcium Carbonate/Glycine (Calcium Carbonate 500 Mg Tab.Chew) 1,000 mg CHEWED Q4HP PRN PRN Reason: Dyspepsia Last Admin: 04/13/22 19:09 Dose: 1,000 mg Capsaicin (Capsaicin 0.025% Cream.Top 60gm) 1 dose TOPICAL QIDP PRN PRN Reason: Nausea And Vomiting Last Admin: 04/14/22 04:25 Dose: 1 dose Dextrose (Dextrose 50% 50 Ml Vial) 0 ml IV UD PRN PRN Reason: Per Sliding Scale Diagnostic Test (Pha) (Accu-Chek 1 Each Strip) 1 each FS ACHS REPLACED BY [facility] Last Admin: 04/14/22 08:26 Dose: 1 each Docusate Sodium (Docusate Sodium 100 Mg Capsule) 100 mg PO BID REPLACED BY [facility] Last Admin: 04/14/22 08:25 Dose: 100 mg Glucose (Dextrose 31 Gm Oral.Susp) 15 gm PO PRN PRN PRN Reason: Hypoglycemia Last Admin: 04/13/22 18:49 Dose: 15 gm Haloperidol Lactate (Haloperidol Lactate 5 Mg/Ml Vial) 2 mg IV Q4HP PRN PRN Reason: Nausea And Vomiting Last Admin: 04/13/22 14:15 Dose: 2 mg Heparin Sodium (Porcine) (Heparin 5,000 Unit/Ml Vial) 5,000 unit SQ Q12 REPLACED BY [facility] Last Admin: 04/14/22 08:25 Dose: 5,000 unit Hydralazine HCl (Hydralazine 20 Mg/Ml Vial) 10 mg IV Q4-6HP PRN PRN Reason: Hypertension Last Admin: 04/11/22 20:14 Dose: 10 mg Insulin Human Lispro (Insulin Lispro 1 Unit/0.01 Ml Unit) 0 unit SQ [facility]; Protocol Last Admin: 04/14/22 07:21 Dose: Not Given Lorazepam (Lorazepam 2 Mg/Ml Vial) 1 mg IV Q4-6HP PRN PRN Reason: Nausea And Vomiting Last Admin: 04/13/22 16:59 Dose: 1 mg Metoprolol Tartrate (Metoprolol Tartrate 5 Mg/5 Ml Vial) 5 mg IV Q1HP PRN PRN Reason: Tachyarrhythmias Morphine Sulfate (Morphine 4 Mg/Ml Vial) 4 mg IV Q4HP PRN; Protocol PRN Reason: Per Pain Protocol Last Admin: 04/14/22 04:27 Dose: 4 mg Ondansetron HCl (Ondansetron 4 Mg/2 Ml Vial) 4 mg IV Q6HP PRN PRN Reason: Nausea And Vomiting Last Admin: 04/14/22 04:25 Dose: 4 mg Pantoprazole Sodium ([facility] 40 Mg [facility]t) [facility] Last Admin: 04/14/22 07:19 Dose: 40 mg Prochlorperazine (Prochlorperazine 10 Mg/2 Ml Vial) 10 mg IV Q4-6HP PRN PRN Reason: Nausea And Vomiting Last Admin: 04/13/22 23:43 Dose: 10 mg Senna (Sennosides 1 Tablet) 2 tab PO HS REPLACED BY [facility] Last Admin: 04/13/22 21:07 Dose: 2 tab Sodium Chloride (0.9 % Sodium Chloride 10 Ml Syringe) 10 ml IV Q8 REPLACED BY [facility] Last Admin: 04/14/22 04:26 Dose: Not Given Trazodone HCl (Trazodone Hcl 50 Mg Tablet) 25 mg PO HSP PRN PRN Reason: Insomnia A/P Assessment and plan (1) Intractable cyclical vomiting with nausea: Status: Acute (2) Anemia, normocytic normochromic: Status: Acute (3) GERD (gastroesophageal reflux disease): Status: Acute (4) Acute kidney injury superimposed on chronic kidney disease: Status: Acute (5) Hypertension in stage 3 chronic kidney disease due to type 2 diabetes mellitus: Status: Acute (6) Hyperkalemia: Status: Acute Narrative A/P Narrative: Assessment and Plans: 1. Intractable nausea vomiting: Inpatient med surg CT abdomen pelvis w/o contrast---> no ileus or bowel obstruction seen. Found possible right renal mass, will order f/u US to investigate Amylase 105 Lipase 55 LFTs WNL Urine drug screening: only positive for opiates Zofran Compazine Ativan Haldol Capsaicin Morphine Saline lock Full liquid diet, advance as tolerated 2. Acute kidney injury with chronic kidney disease III: Avoid nephrotoxic agents Saline lock Full liquid diet, advance as tolerated CMP in the morning to trend kidney functions 3. T2DM: HgA1c 6.5 Hold Insulin Lantus to avoid hypoglycemia Insulin Lispro SSI AC HS Accu Check AC HS Hypoglycemia protocol Clear liquid diet, advance as tolerated 4. Hypertension, uncontrolled: Hydralazine 10mg IV q4-6hr PRN SBP>=180 and/or DBP>=110mmHg Metoprolol tartrate 100mg PO BID Treat other symptoms such as nausea vomiting and abdominal pain, see #1 5. Anemia, normocytic normochromic: cbc w/ auto diff in the morning to trend H/H 6. GERD: PPI 7. Hyperkalemia: RESOLVED Repeat CMP to trend serum potassium level GI ppx: PPI DVT ppx: Heparin Code status: Full Prognosis: Stable Disposition: inpatient med surg Time Spent With Patient Time: Total time spent is greater than 50% in coordination of care (as documented) at patient's floor/unit and/or counseling patient: Subsequent: Total time with patient: 35 - 49 minutes QUALITY Stroke Symptom Onset Unknown: No VTE Deep Vein Thrombosis/Pulmonary Embolism Present on Admission: No
--- NOTE | 2022-04-14 12:48 | Internal Med Progress Note ---
SUBJECTIVE Subjective Patient information: Note initiated : 04/14/22 at 12:42 pm Service Date, if different from initiated Date: [] Patient: Wong Rangel a 41 y/o M admitted on 04/13/22 for nausea and vomiting. Chief Complaint: [] Interval history: Mr. Rangel is a 41 year old M history of frequent nausea vomiting, chronic kidney disease stage III, type 2 diabetes mellitus, essential hypertensions, GERD, presenting with 3-day history of acute onset nausea vomiting abdominal pain. He started to have acute onset nausea and vomiting and epigastric abdominal pain the past Monday. He was at rest at home not really doing anything at the time of symptom onset. No exacerbating or elevating factors. The pain is localized in the epigastrium, graded 9 out of 10 in severity, cramping in nature, intermittent. As a result, he could not tolerate much food or drink intake and he could not even take his medications for other diseases such as hyper pressure and diabetes. Vital signs at ED presentation significant for tachycardia heart rate in the 110s As well as elevated blood pressures up to 190s over 120s mmHg. labs; with serum creatinine level 3.3 with baseline 2.6, and blood glucose level 115. Admission request is called for cyclic nausea vomiting as well as tachycardia and acute kidney injury in the context of chronic kidney disease likely due to dehydration and patient's inability to take oral medications. 04/12: Serum potassium level 5.9. With IV fluid and Lasix 40mg IV once given, repeat level was 5.6. Serum Cr level 3.3-->3.8. Patient denies nausea vomiting or abdominal pain at the moment. He tolerates clear liquid diet. Continue IV fluid infusions. Repeat Lasix 40 Mg IV once. Repeat serum potassium level and creatinine level with CMP in the morning to trend. Advance diet as tolerated per the patient's. Continue to provide antiemetics and narcotics for symptom control, respectively. 04/13: Fasting glucose 42 this morning. Patient currently denies having any nausea, vomiting, or abdominal pain. He is having food liquid diet. Serum potassium level 4.5. BUN/creatinine 44 and 3.6, respectively. Continue IV fluid for rehydration purposes and for acute on chronic kidney injury. Continue to advance diet as tolerated. Continue to provide antiemetics and narcotics for symptom control, respectively. Decrease Lantus from 30 to 20 unit BID to avoid hypoglycemia episode. We will switch from observation to i npatient status to keep the patient in [facility]. /: Fasting glucose 42-->78 this morning. Serum Cr level 3.6-->2.7. Patient did not have much food yesterday and he has not have his breakfast today. He denies any nausea vomiting or abdominal pain. Saline lock. Diet advancement as tolerated, encourage patient to really work hard on diet advancement. Keep holding Lantus and with continue sliding scale insulin ACHS for hypoglycemia. Constitutional Vitals: Vital Signs Temp Pulse Resp BP Pulse Ox O2 Del Method O2 Flow Rate 96.9 F L 98 H 19 141/103 97 Room Air 0 04/14/22 09:16 04/14/22 03:00 04/14/22 03:00 04/14/22 08:00 04/14/22 03:00 04/14/22 03:00 04/12/22 18:15 Period Temp Pulse Resp BP Sys/Paz Pulse Ox O2 Del Method O2 Flow Rate Last 24 Hr 96.9 F-98.0 F 95-98 16-20 129-169/88-108 94-97 Room Air-Room Air Intake and Output 04/14/22 04/14/22 04/14/22 03:59 11:59 19:59 Intake Total 50 1940 Output Total 1250 100 Balance -1200 1840 Weight 123.15 kg 123.15 kg Patient Weight 04/15/22 03:59 Weight 123.15 kg Intake & Output: Intake & Output 04/14/22 04/14/22 04/14/22 03:59 11:59 19:59 Intake Total 50 1940 Output Total 1250 100 Balance -1200 1840 Weight 123.15 kg 123.15 kg Intake: IV 1700 Sodium Chloride 0.9% 1,000 ml @ 1700 100 mls/hr IV .Q10H JAIME Rx#: [id number] Oral 50 240 Output: Void Amount 1050 Emesis 200 100 Other: Meal Breakfast Percent of Meal Consumed 25% Feeding Ability Independent Urine Appearance Clear Urine Color Yellow Urine Odor Normal Exam: General: Alert, Awake, No acute Distress, obese Eyes/N/T: EOMI, Head/Neck: neck supple, CV: RRR, No murmurs, Pulm: Clear b/l, no wheezing/rhonchi/rales Abd: soft, nontender, +BS x4 Ext: no clubbing/cyanosis/edema Neuro: Alert, no focal deficits, moves all extremities, Skin: warm/dry OBJ DATA Labs 04/14/22 05:45 04/14/22 05:48 Labs: Abnormal Lab Results 04/14/22 04/14/22 04/13/22 05:48 05:45 05:46 RBC 3.88 L Hgb 10.2 L Hct 32.6 L MCHC RDW 14.9 H Neut % (Auto) 79.0 H Lymph % (Auto) 12.5 L Lymph # (Auto) 0.89 L [place] # (Auto) Potassium POC Chloride Chloride 109 H Carbon Dioxide 19 L 19 L POC Total CO2 POC BUN BUN 33 H 44 H Creatinine 2.7 H 3.6 H POC Creatinine Glucose 42 L POC Glucose Hemoglobin A1c Calcium 8.5 L Total Protein Globulin Amylase Urine Opiates Screen 04/13/22 04/12/22 04/12/22 05:46 10:48 07:45 RBC 4.14 L Hgb 10.8 L Hct 36.2 L MCHC 29.8 L RDW 15.5 H Neut % (Auto) Lymph % (Auto) 15.1 L Lymph # (Auto) 1.43 L [place] # (Auto) 0.96 H Potassium 5.6 H POC Chloride Chloride Carbon Dioxide POC Total CO2 POC BUN BUN Creatinine POC Creatinine Glucose POC Glucose Hemoglobin A1c 6.5 H Calcium Total Protein Globulin Amylase Urine Opiates Screen 04/12/22 04/12/22 04/11/22 06:24 06:24 15:07 RBC 3.97 L Hgb 10.4 L Hct 33.2 L MCHC RDW 15.4 H Neut % (Auto) 81.3 H Lymph % (Auto) 12.2 L Lymph # (Auto) 0.83 L [place] # (Auto) Potassium 5.9 H* POC Chloride Chloride 110 H Carbon Dioxide 16 L POC Total CO2 POC BUN BUN 44 H Creatinine 3.8 H POC Creatinine Glucose POC Glucose Hemoglobin A1c Calcium 8.2 L Total Protein Globulin Amylase Urine Opiates Screen Suspect positive A 04/11/22 04/11/22 04/11/22 13:41 13:41 13:41 RBC Hgb Hct MCHC RDW Neut % (Auto) Lymph % (Auto) Lymph # (Auto) [place] # (Auto) Potassium POC Chloride 111 H Chloride Carbon Dioxide 20 L POC Total CO2 21.0 L POC BUN 41 H BUN 39 H Creatinine 3.3 H POC Creatinine 4.0 H Glucose 115 H POC Glucose 125 H Hemoglobin A1c Calcium Total Protein 8.6 H Globulin 4.3 H Amylase 105 H Urine Opiates Screen Meds: Medications Acetaminophen (Acetaminophen 325 Mg Tablet) 650 mg PO Q6HP PRN; Protocol PRN Reason: Per Pain Protocol/Fever > 101 Last Admin: 04/13/22 14:08 Dose: 650 mg Albuterol/Ipratropium (Ipratropium/Albuterol 3 Ml Ampul.Neb) 3 ml NEB Q4HRT PRN PRN Reason: Wheezing Amlodipine Besylate (Amlodipine 10 Mg Tablet) 10 mg PO DAILY [facility] Last Admin: 04/14/22 08:25 Dose: 10 mg Calcium Carbonate/Glycine (Calcium Carbonate 500 Mg Tab.Chew) 1,000 mg CHEWED Q4HP PRN PRN Reason: Dyspepsia Last Admin: 04/13/22 19:09 Dose: 1,000 mg Capsaicin (Capsaicin 0.025% Cream.Top 60gm) 1 dose TOPICAL QIDP PRN PRN Reason: Nausea And Vomiting Last Admin: 04/14/22 04:25 Dose: 1 dose Dextrose (Dextrose 50% 50 Ml Vial) 0 ml IV UD PRN PRN Reason: Per Sliding Scale Diagnostic Test (Pha) (Accu-Chek 1 Each Strip) 1 each FS ACHS [facility] Last Admin: 04/14/22 10:49 Dose: 1 each Docusate Sodium (Docusate Sodium 100 Mg Capsule) 100 mg PO BID [facility] Last Admin: 04/14/22 08:25 Dose: 100 mg Glucose (Dextrose 31 Gm Oral.Susp) 15 gm PO PRN PRN PRN Reason: Hypoglycemia Last Admin: 04/13/22 18:49 Dose: 15 gm Haloperidol Lactate (Haloperidol Lactate 5 Mg/Ml Vial) 2 mg IV Q4HP PRN PRN Reason: Nausea And Vomiting Last Admin: 04/13/22 14:15 Dose: 2 mg Heparin Sodium (Porcine) (Heparin 5,000 Unit/Ml Vial) 5,000 unit SQ Q12 [facility] Last Admin: 04/14/22 08:25 Dose: 5,000 unit Hydralazine HCl (Hydralazine 20 Mg/Ml Vial) 10 mg IV Q4-6HP PRN PRN Reason: Hypertension Last Admin: 04/11/22 20:14 Dose: 10 mg Insulin Human Lispro (Insulin Lispro 1 Unit/0.01 Ml Unit) 0 unit SQ [facility]; Protocol Last Admin: 04/14/22 10:51 Dose: Not Given Lorazepam (Lorazepam 2 Mg/Ml Vial) 1 mg IV Q4-6HP PRN PRN Reason: Nausea And Vomiting Last Admin: 04/13/22 16:59 Dose: 1 mg Metoprolol Tartrate (Metoprolol Tartrate 5 Mg/5 Ml Vial) 5 mg IV Q1HP PRN PRN Reason: Tachyarrhythmias Morphine Sulfate (Morphine 4 Mg/Ml Vial) 4 mg IV Q4HP PRN; Protocol PRN Reason: Per Pain Protocol Last Admin: 04/14/22 04:27 Dose: 4 mg Ondansetron HCl (Ondansetron 4 Mg/2 Ml Vial) 4 mg IV Q6HP PRN PRN Reason: Nausea And Vomiting Last Admin: 04/14/22 04:25 Dose: 4 mg Pantoprazole Sodium ([facility] 40 Mg Tablet) [facility] Last Admin: 04/14/22 07:19 Dose: 40 mg Prochlorperazine (Prochlorperazine 10 Mg/2 Ml Vial) 10 mg IV Q4-6HP PRN PRN Reason: Nausea And Vomiting Last Admin: 04/13/22 23:43 Dose: 10 mg Senna (Sennosides 1 Tablet) 2 tab PO HS [facility] Last Admin: 04/13/22 21:07 Dose: 2 tab Sodium Chloride (0.9 % Sodium Chloride 10 Ml Syringe) 10 ml IV Q8 [facility] Last Admin: 04/14/22 04:26 Dose: Not Given Trazodone HCl (Trazodone Hcl 50 Mg Tablet) 25 mg PO HSP PRN PRN Reason: Insomnia A/P Narrative A/P Narrative: Assessment and Plans: *Intractable nausea vomiting: -CT abdomen pelvis w/o contrast---> no ileus or bowel obstruction. possible right renal mass, will order US to investigate -Amylase/Lipase/LFTs WNL -Zofran Compazine ,Ativan Haldol Capsaicin Morphine -Full liquid diet, advance as tolerated to low-fat / soluble fiber diet -f/u with specialist outpt *ALVINA ON CKD IIIb: -Avoid nephrotoxic agents -CMP in the morning to trend kidney functions *T2DM w/neuropathy and gastroparesis: -HgA1c 6.5 -Hold Insulin Lantus to avoid hypoglycemia, SSI, Hypoglycemia protocol *CAD w/stents x2 in 10/2020: -cont home plavix *HTN, uncontrolled: -Hydralazine prn IV, Metoprolol tartrate 100mg PO BID, cont home norvas *Anemia, normocytic normochromic: cbc w/ auto diff in the morning to trend H/H *GERD: PPI *Hyperkalemia: RESOLVED, Repeat CMP to trend serum potassium level *Obesity: BMI 34 *ppx: heparin / PPI Time Spent With Patient Time: Total time spent is greater than 50% in coordination of care (as documented) at patient's floor/unit and/or counseling patient: QUALITY Stroke Symptom Onset Unknown: No VTE Deep Vein Thrombosis/Pulmonary Embolism Present on Admission: No
--- NOTE | 2022-04-14 17:10 | Discharge Summary ---
Discharge Provider Provider IMPORTANT FOLLOW-UP INFORMATION FOR PCP: Patient information: Note initiated : 04/14/22 at 5:09 pm Service Date, if different from initiated Date: [] Patient: Wong Rangel 41 y/o M admitted on 04/13/22 for nausea and vomiting. Chief Complaint: [] Date of admission: 04/13/22 12:31 Discharge date: 04/14/22 Primary care physician: Ricardo Toth Consults: 04/11/22 Consult to Physician [CONS] Stat Comment: Consulting Provider: Roni Villagomez Reason For Exam: Physician to Consult COURSE Hospital Course Hospital course: Interval history: Mr. Rangel is a 41 year old M history of frequent nausea vomiting, chronic kidney disease stage III, type 2 diabetes mellitus, essential hypertensions, GERD, presenting with 3-day history of acute onset nausea vomiting abdominal pain. He started to have acute onset nausea and vomiting and epigastric abdominal pain the past Monday. He was at rest at home not really doing anything at the time of symptom onset. No exacerbating or elevating factors. The pain is localized in the epigastrium, graded 9 out of 10 in severity, cramping in nature, intermittent. As a result, he could not tolerate much food or drink intake and he could not even take his medications for other diseases such as hyper pressure and diabetes. Vital signs at ED presentation significant for tachycardia heart rate in the 110s As well as elevated blood pressures up to 190s over 120s mmHg. labs; with serum creatinine level 3.3 with baseline 2.6, and blood glucose level 115. Admission request is called for cyclic nausea vomiting as well as tachycardia and acute kidney injury in the context of chronic kidney disease likely due to dehydration and patient's inability to take oral medications. 04/12: Serum potassium level 5.9. With IV fluid and Lasix 40mg IV once given, repeat level was 5.6. Serum Cr level 3.3-->3.8. Patient denies nausea vomiting or abdominal pain at the moment. He tolerates clear liquid diet. Continue IV fluid infusions. Repeat Lasix 40 Mg IV once. Repeat serum potassium level and creatinine level with CMP in the morning to trend. Advance diet as tolerated per the patient's. Continue to provide antiemetics and narcotics for symptom control, respectively. 04/13: Fasting glucose 42 this morning. Patient currently denies having any nausea, vomiting, or abdominal pain. He is having food liquid diet. Serum potassium level 4.5. BUN/creatinine 44 and 3.6, respectively. Continue IV fluid for rehydration purposes and for acute on chronic kidney injury. Continue to advance diet as tolerated. Continue to provide antiemetics and narcotics for symptom control, respectively. Decrease Lantus from 30 to 20 unit BID to avoid hypoglycemia episode. We will switch from observation to inpatient status to keep the patient in [facility]. 04/14: Fasting glucose 42-->78 this morning. Serum Cr level 3.6-->2.7. Patient did not have much food yesterday and he has not have his breakfast today. He denies a ny nausea vomiting or abdominal pain. Saline lock. Diet advancement as tolerated, encourage patient to really work hard on diet advancement. Keep holding Lantus and with continue sliding scale insulin ACHS for hypoglycemia. Patient states he is tolerating advanced diet well and would like to go home. We will start discharge orders *Intractable nausea vomiting: -CT abdomen pelvis w/o contrast---> no ileus or bowel obstruction. possible right renal mass, will order US to investigate -Advance as tolerated to low-fat / soluble fiber diet -f/u with specialist outpt *ALVINA ON CKD IIIb: *T2DM w/neuropathy and gastroparesis: -HgA1c 6.5 *CAD w/stents x2 in 10/2020: *HTN, uncontrolled: *Anemia, normocytic normochromic: *GERD: PPI *Hyperkalemia: *Obesity: BMI 34 Discharge diagnosis: Intractable nausea vomiting acute kidney injury Secondary discharge diagnosis: Diabetes with neuropathy gastroparesis history of CAD hypertension anemia GERD hyperkalemia obesity Time Spent with Patient Time attestation: Total time spent providing and/or coordinating discharge services: Time spent: Greater than 30 minutes EXAM Constitutional Vitals: Temp Pulse Resp BP Pulse Ox O2 Del Method O2 Flow Rate 97.9 F 84 20 120/85 97 Room Air 0 04/14/22 16:00 04/14/22 16:00 04/14/22 16:00 04/14/22 16:00 04/14/22 16:00 04/14/22 16:00 04/12/22 18:15 Discharge Data Data Completed and Pending Labs on day of discharge: Labs from last 24 hours 04/14/22 04/14/22 05:48 05:45 WBC 7.1 RBC 3.88 L Hgb 10.2 L Hct 32.6 L MCV 84.0 MCH 26.3 MCHC 31.3 RDW 14.9 H Plt Count 215 MPV 10.8 Immature Gran % (Auto) 0.3 Neut % (Auto) 79.0 H Lymph % (Auto) 12.5 L [place] % (Auto) 6.5 Eos % (Auto) 1.4 Baso % (Auto) 0.3 Lymph # (Auto) 0.89 L [place] # (Auto) 0.46 Eos # (Auto) 0.10 Baso # (Auto) 0.02 Immature Gran # 0.02 Absolute Neutrophils 5.64 Sodium 139 Potassium 4.7 Chloride 109 H Carbon Dioxide 19 L Anion Gap 11.0 BUN 33 H Creatinine 2.7 H GFR Calculation 28 Glucose 78 Calcium 8.5 L Total Bilirubin 0.3 AST 24 ALT 6 Alkaline Phosphatase 57 Total Protein 6.3 Albumin 3.3 Globulin 3.0 Albumin/Globulin Ratio 1.1 Discharge Plan Patient/Caregiver Discharge Instructions Activity: increase activity as tolerated Diet: Low Fat and Consistent Carbohydrate Activity Restrictions/Additional Instructions: Follow-up with your PCP in 3 to 7 days and follow-up with your GI specialist as scheduled. Prescriptions: Continued ondansetron 4 MG tablet 4 mg SL Q4HP PRN (Reason: Nausea And Vomiting) Qty: 30 0RF Levemir 30 - 60 units SQ BID Qty: 1 0RF gabapentin 100 MG capsule 100 mg PO TID Qty: 60 0RF prochlorperazine maleate 10 MG tablet 10 mg PO Q6H PRN (Reason: Nausea) Qty: 20 0RF amlodipine 10 mg Tablet 10 mg PO DAILY Qty: 30 0RF pantoprazole 40 mg Tablet,Delayed Release (Dr/Ec) 40 mg PO QAMAC Qty: 30 0RF metoprolol tartrate 50 mg Tablet 100 mg PO BID Qty: 60 0RF clopidogrel 75 mg tablet 1 tab PO QAM Rx Instructions: take one tab by month every morning to prevent blood clotting torsemide 20 mg tablet 4 tab PO DAILY sucralfate [Carafate] 1 gram tablet 1 g PO BID Qty: 14 0RF amitriptyline 25 mg tablet 25 mg PO DAILY Follow Up Plan Follow up with: Toth,Edward, MD [Primary Care Provider] - Patient Disposition: Home, Self-Care Prognosis: Fair Overall status at discharge: patient is progressing back to baseline Discharge Orders: Discharge Order (Routine); Ordered 04/14/22 Ordered By: Mahendra Padilla [facility] VTE Deep Vein Thrombosis/Pulmonary Embolism Present on Admission: No
[2022-04-14] MEDS ORDERED: METOPROLOL TARTRATE 50 MG TABLET PO SCH (21:00)
[2022-04-14] MEDS ORDERED: AMITRIPTYLINE 25 MG TABLET PO SCH (21:00)
[2022-04-15] MEDS ORDERED: CLOPIDOGREL 75 MG TABLET PO SCH (09:00)
[2022-04-22 16:07] LABS: Opiate Confirmation Positive
== END 2022-04-14 18:29 | disposition home or self-care (01) | DRG 684 ==
LOC: MEDSUR 13:25 → ED 13:25 → MEDSUR 19:33
PROVIDERS: ADMIT Internal Medicine; ATTEND Internal Medicine